=== PATIENT | female | born 1935 | race Caucasian/White ===

== ENCOUNTER 2016-11-13 03:03 | Emergency (ER) | payer MEDICARE, OTHER ==
[2016-11-13 03:10] VITALS: BP 179/82; PULSE 89; RESP 20; TEMP 97.8
--- NOTE | 2016-11-13 03:39 | ED ---
General Adult HPI - General Chief complaint: Recheck/Abnormal Lab/Rx Stated complaint: Weakness Time Seen by Provider: 11/13/16 03:05 Source: patient, RN notes reviewed Mode of arrival: ambulatory Limitations: no limitations - History of Present Illness Initial comments: This is an 81-year-old female presents emergency department stating that she is anxious because she was told she needs iron infusion states she does know why and she doesn't know if it's serious. She states she's been fatigued for 3 months and her physicians have not figured out recently and this upset her. Patient states she was unable to sleep today so she decided to come to the emergency department. Patient does not want any blood redrawn and we don't have the results from her physician's office. Patient does not want anything for her anxiety. Patient states she's unable to sleep but she does not take any pills. Patient states she has no other symptoms besides her fatigue. Patient states she's upset with her doctors and when I asked her which she wants from me she states she's not sure. - Related Data Home Medications Medication Instructions Recorded Confirmed Albuterol Sulfate [Ventolin HFA] 1 - 2 puff INHALATION RT-Q6H PRN 03/26/1411/13 Allopurinol [Zyloprim] 100 mg PO DAILY 03/26/14 11/13/16 Beclomethasone Dipropionate [Qvar 1 puff INHALATION RT-BID 01/15/15 11/13/16 40 mcg/puff] Warfarin [Coumadin] 5 mg PO SUTUWEFRSA 01/15/15 11/13/16 Albuterol Nebulized [Ventolin 2.5 mg INHALATION RT-Q6H PRN 03/02/15 11/13/16 Nebulized] Aspirin EC [Ecotrin Low Dose] 81 mg PO DAILY 03/02/15 11/13/16 Famotidine 20 mg PO DAILY 03/02/15 11/13/16 Furosemide [Lasix] 40 mg PO QAM 03/02/15 11/13/16 Theophylline 24 Hour [Josh-24] 300 mg PO DAILY 03/02/15 11/13/16 Warfarin [Coumadin] 2.5 mg PO MOTH 03/02/15 11/13/16 rOPINIRole HCL [Requip] 0.25 mg PO HS PRN 03/02/15 11/13/16 Levothyroxine Sodium [Synthroid] 50 mcg PO DAILY 10/06/15 11/13/16 Tetrahydrozoline 0.05% Ophth 1 drop BOTH EYES QID PRN 10/06/15 11/13/16 [Visine Eye Drops] hydrALAZINE HCL [Apresoline] 25 mg PO TID 10/06/15 11/13/16 Previous Rx's Medication Instructions Recorded Metoprolol Tartrate [Lopressor] 25 mg PO BID #60 tab 10/08/15 Allergies Allergy/AdvReac Type Severity Reaction Status Date / Time Calcium Channel Blocking AdvReac Unknown Verified 11/13/16 03:10 Agent Dilt Review of Systems ROS Statement: Those systems with pertinent positive or pertinent negative responses have been documented in the HPI. ROS Other: All systems not noted in ROS Statement are negative. Past Medical History Past Medical History: Atrial Fibrillation, Coronary Artery Disease (CAD), Heart Failure, CVA/TIA, Hypertension, Respiratory Disorder, Thyroid Disorder Additional Past Medical History / Comment(s): high uric acid levels, KIDNEY PROBLEMS History of Any Multi-Drug Resistant Organisms: MRSA Date of last positivie culture/infection: 2011/MRSA MDRO Source:: sputum Past Surgical History: Heart Catheterization With Stent, Pacemaker Additional Past Surgical History / Comment(s): left carotid. Pacemaker placed 2011 Past Anesthesia/Blood Transfusion Reactions: No Reported Reaction Date of Last Stent Placement:: 2011 Type of Cardiac Device: Permanent Pacemaker Device Placement Date:: 12/12/2014 Past Psychological History: No Psychological Hx Reported Smoking Status: Former smoker Past Alcohol Use History: None Reported Past Drug Use History: None Reported - Past Family History Father Family Medical History: COPD Mother Family Medical History: No Reported History General Exam - General Exam Comments Initial Comments: GENERAL Patient is well-developed and well-nourished. Patient is in no acute distress. Patient appears anxious EYES Patient's pupils are equal and round. Extraocular motion is intact SKIN Unremarkable NEURO The patient is alert and oriented 3 PYSCH Patient has normal interpersonal interactions. MUSCULOSKELETAL Patient was all 4 extremities with full range of motion Limitations: no limitations Course Vital Signs 11/13/16 03:03 Temperature 97.8 F Pulse Rate 89 Respiratory 20 Rate Blood Pressure 179/82 O2 Sat by Pulse 98 Oximetry Medical Decision Making - Medical Decision Making I offered to do blood work on the patient she refused. I offered to give the patient something for anxiety since she could get back to sleep so she could call her physician in morning and she refused. I asked the patient what she wanted from me this evening she stated I don't think any anything for me and I think I'll just go back home and wait till morning to call my doctor. I again asked her if she wanted me to draw any blood work or do any workup for her or give her any medication and she again refused. She then stated that she just wants to sign out effect to get her discharge paperwork please Disposition Clinical Impression: Anxiety Disposition: HOME SELF-CARE Condition: Good Instructions: Anxiety (ED) Referrals: Mike Ahmadi MD [Primary Care Provider] - 1-2 days Time of Disposition: 03:34
== END 2016-11-13 03:45 | disposition home or self-care (01) ==
LOC: EC 03:03
DX: F41.9 Anxiety disorder, unspecified (principal); R53.83 Other fatigue; I50.9 Heart failure, unspecified; I25.10 Atherosclerotic heart disease of native coronary artery without angina pectoris; I48.91 Unspecified atrial fibrillation; E07.9 Disorder of thyroid, unspecified; J98.4 Other disorders of lung; Z79.01 Long term (current) use of anticoagulants; Z79.51 Long term (current) use of inhaled steroids; Z79.82 Long term (current) use of aspirin; Z87.891 Personal history of nicotine dependence; Z79.899 Other long term (current) drug therapy; Z88.8 Allergy status to other drugs, medicaments and biological substances; Z87.448 Personal history of other diseases of urinary system
CPT/HCPCS: 99284

== ENCOUNTER 2017-01-20 08:13 | Emergency (ER) | payer MEDICARE, OTHER ==
--- NOTE | 2017-01-20 08:36 | ED ---
General Adult HPI - General Chief complaint: Shortness of Breath Stated complaint: Sob Time Seen by Provider: 01/20/17 08:20 Source: patient, RN notes reviewed Mode of arrival: wheelchair Limitations: no limitations - History of Present Illness Initial comments: This is an 81-year-old female who states this morning she woke up and was having some wheezing and some difficulty breathing. Patient states she took 2 breathing treatments and her theophylline and now she feels fine she has no difficulty breathing. Patient states after the treatment she coughed up a bunch of sputum. Patient is concerned that maybe she has a pneumonia. Patient states right now though she has no shortness of breath or difficulty breathing she denies any chest pain denies any recent fever or chills. He currently is denying any coughing. Patient once know why she felt that this morning and doesn't feel bad now. Patient denies any abdominal pain patient denies nausea vomiting diarrhea. Patient denies lightheadedness dizziness or near syncopal episode. - Related Data Home Medications Medication Instructions Recorded Confirmed Albuterol Sulfate [Ventolin HFA] 1 - 2 puff INHALATION RT-Q6H PRN 03/26/1401/20 Allopurinol [Zyloprim] 100 mg PO DAILY 03/26/14 01/20/17 Warfarin [Coumadin] 5 mg PO SUTUWEFRSA 01/15/15 01/20/17 Albuterol Nebulized [Ventolin 2.5 mg INHALATION RT-Q6H PRN 03/02/15 01/20/17 Nebulized] Aspirin EC [Ecotrin Low Dose] 81 mg PO DAILY 03/02/15 01/20/17 Famotidine 20 mg PO DAILY 03/02/15 01/20/17 Furosemide [Lasix] 40 mg PO QAM 03/02/15 01/20/17 Theophylline 24 Hour [Josh-24] 300 mg PO DAILY 03/02/15 01/20/17 Warfarin [Coumadin] 2.5 mg PO MOTH 03/02/15 01/20/17 rOPINIRole HCL [Requip] 0.25 mg PO HS PRN 03/02/15 01/20/17 Levothyroxine Sodium [Synthroid] 50 mcg PO DAILY 10/06/15 01/20/17 Tetrahydrozoline 0.05% Ophth 1 drop BOTH EYES QID PRN 10/06/15 01/20/17 [Visine Eye Drops] Fluticasone Propionate [Flovent 1 puff INHALATION RT-BID 01/20/17 01/20/17 Hfa 220MCG] Furosemide [Lasix] 20 mg PO DAILY@1300 01/20/17 01/20/17 Allergies Allergy/AdvReac Type Severity Reaction Status Date / Time azithromycin Allergy Unknown Verified 01/20/17 09:05 [From Zithromax Z-Sotero] ciprofloxacin [From Cipro] Allergy Unknown Verified 01/20/17 09:05 Calcium Channel Blocking AdvReac Unknown Verified 01/20/17 09:05 Agent Dilt Review of Systems ROS Statement: Those systems with pertinent positive or pertinent negative responses have been documented in the HPI. ROS Other: All systems not noted in ROS Statement are negative. Past Medical History Past Medical History: Atrial Fibrillation, Asthma, Coronary Artery Disease (CAD) , Heart Failure, CVA/TIA, Hypertension, Respiratory Disorder, Thyroid Disorder Additional Past Medical History / Comment(s): high uric acid levels, KIDNEY PROBLEMS History of Any Multi-Drug Resistant Organisms: MRSA Date of last positivie culture/infection: 2011/MRSA MDRO Source:: sputum Past Surgical History: Heart Catheterization With Stent, Pacemaker Additional Past Surgical History / Comment(s): left carotid. Pacemaker placed 2011 Past Anesthesia/Blood Transfusion Reactions: No Reported Reaction Date of Last Stent Placement:: 2011 Type of Cardiac Device: Permanent Pacemaker Device Placement Date:: 12/12/2014 Past Psychological History: No Psychological Hx Reported Smoking Status: Former smoker Past Alcohol Use History: None Reported Past Drug Use History: None Reported - Past Family History Father Family Medical History: COPD Mother Family Medical History: No Reported History General Exam - General Exam Comments Initial Comments: GENERAL: Patient is well-developed and well-nourished. Patient is nontoxic and well- hydrated and is in no acute distress. ENT: Neck is soft and supple. No significant lymphadenopathy is noted. Oropharynx is clear. Moist mucous membranes. Neck has full range of motion without eliciting any pain. EYES: The sclera were anicteric and conjunctiva were pink and moist. Extraocular movements were intact and pupils were equal round and reactive to light. Eyelids were unremarkable. PULMONARY: Unlabored respirations. Good breath sounds bilaterally. No audible rales rhonchi or wheezing was noted. CARDIOVASCULAR: There is a regular rate and rhythm without any murmurs gallops or rubs. ABDOMEN: Soft and nontender with normal bowel sounds. No palpable organomegaly was noted. There is no palpable pulsatile mass. SKIN: Skin is clear with no lesions or rashes and otherwise unremarkable. NEUROLOGIC: Patient is alert and oriented x3. Cranial nerves II through XII are grossly intact. Motor and sensory are also intact. Normal speech, volume and content. Symmetrical smile. MUSCULOSKELETAL: Normal extremities with adequate strength and full range of motion. No lower extremity swelling or edema. No calf tenderness. LYMPHATICS: No significant lymphadenopathy is noted PSYCHIATRIC: Normal psychiatric evaluation. Normal interpersonal interactions appears functionally intact in deals appropriately with others. No signs of depression. No signs of anxiety. Limitations: no limitations Course Vital Signs 01/20/17 01/20/17 01/20/17 08:19 08:44 09:22 Temperature 97.9 F Pulse Rate 77 67 Respiratory 20 18 18 Rate Blood Pressure 121/58 122/56 O2 Sat by Pulse 98 100 Oximetry Medical Decision Making - Medical Decision Making EKG shows a ventricular paced rhythm at 76 bpm QRS is 170 QT interval is 472 QTC is 531. Patient stated there was still in her lungs and she wanted no what it was so I ordered a chest x-ray and then the patient adamantly refused to have a chest x- ray. And I asked her why her explanation was that she had one 1 week ago. Patient continued to refuse to have an x-ray - Lab Data Result diagrams: 01/20/17 08:41 01/20/17 08:41 Lab Results 01/20/17 01/20/17 01/20/17 Range/Units 08:41 08:41 08:41 WBC 6.7 (3.8-10.6) k/uL RBC 3.30 L (3.80-5.40) m/uL Hgb 10.1 L (11.4-16.0) gm/dL Hct 30.7 L (34.0-46.0) % MCV 93.1 (80.0-100.0) fL MCH 30.6 (25.0-35.0) pg MCHC 32.9 (31.0-37.0) g/dL RDW 16.1 H (11.5-15.5) % Plt Count 186 (150-450) k/uL Neutrophils % 80 % Lymphocytes % 7 % Monocytes % 5 % Eosinophils % 7 % Basophils % 0 % Neutrophils # 5.3 (1.3-7.7) k/uL Lymphocytes # 0.5 L (1.0-4.8) k/uL Monocytes # 0.3 (0-1.0) k/uL Eosinophils # 0.4 (0-0.7) k/uL Basophils # 0.0 (0-0.2) k/uL Anisocytosis Slight PT (9.0-12.0) sec INR (<1.1) APTT (22.0-30.0) sec Sodium 136 L (137-145) mmol/L Potassium 3.9 (3.5-5.1) mmol/L Chloride 102 (98-107) mmol/L Carbon Dioxide 22 (22-30) mmol/L Anion Gap 12 mmol/L BUN 53 H (7-17) mg/dL Creatinine 2.29 H (0.52-1.04) mg/dL Est GFR (MDRD) Af Amer 25 (>60 ml/min/1.73 sqM) Est GFR (MDRD) Non-Af 20 (>60 ml/min/1.73 sqM) Glucose 153 H (74-99) mg/dL Calcium 9.5 (8.4-10.2) mg/dL Magnesium 2.3 (1.6-2.3) mg/dL Total Bilirubin 1.1 (0.2-1.3) mg/dL AST 20 (14-36) U/L ALT 20 (9-52) U/L Alkaline Phosphatase 99 (38-126) U/L Total Creatine Kinase 113 (30-135) U/L CK-MB (CK-2) 2.0 (0.0-2.4) ng/mL CK-MB (CK-2) Rel Index 1.8 Troponin I 0.020 (0.000-0.034) ng/mL Total Protein 6.5 (6.3-8.2) g/dL Albumin 4.0 (3.5-5.0) g/dL 01/20/17 Range/Units 08:41 WBC (3.8-10.6) k/uL RBC (3.80-5.40) m/uL Hgb (11.4-16.0) gm/dL Hct (34.0-46.0) % MCV (80.0-100.0) fL MCH (25.0-35.0) pg MCHC (31.0-37.0) g/dL RDW (11.5-15.5) % Plt Count (150-450) k/uL Neutrophils % % Lymphocytes % % Monocytes % % Eosinophils % % Basophils % % Neutrophils # (1.3-7.7) k/uL Lymphocytes # (1.0-4.8) k/uL Monocytes # (0-1.0) k/uL Eosinophils # (0-0.7) k/uL Basophils # (0-0.2) k/uL Anisocytosis PT 20.9 H (9.0-12.0) sec INR 2.2 (<1.1) APTT 31.9 H (22.0-30.0) sec Sodium (137-145) mmol/L Potassium (3.5-5.1) mmol/L Chloride (98-107) mmol/L Carbon Dioxide (22-30) mmol/L Anion Gap mmol/L BUN (7-17) mg/dL Creatinine (0.52-1.04) mg/dL Est GFR (MDRD) Af Amer (>60 ml/min/1.73 sqM) Est GFR (MDRD) Non-Af (>60 ml/min/1.73 sqM) Glucose (74-99) mg/dL Calcium (8.4-10.2) mg/dL Magnesium (1.6-2.3) mg/dL Total Bilirubin (0.2-1.3) mg/dL AST (14-36) U/L ALT (9-52) U/L Alkaline Phosphatase (38-126) U/L Total Creatine Kinase (30-135) U/L CK-MB (CK-2) (0.0-2.4) ng/mL CK-MB (CK-2) Rel Index Troponin I (0.000-0.034) ng/mL Total Protein (6.3-8.2) g/dL Albumin (3.5-5.0) g/dL Disposition Clinical Impression: Anemia, Renal insufficiency, COPD (chronic obstructive pulmonary disease) Disposition: HOME SELF-CARE Condition: Good Instructions: COPD (Chronic Obstructive Pulmonary Disease) (ED) Referrals: Mike Ahmadi MD [Primary Care Provider] - 1-2 days Time of Disposition: 09:45
[2017-01-20 08:45] VITALS: RESP 18
[2017-01-20 08:52] LABS: Anisocytosis Slight; Basophils % (A) 0 %; CH 30.1; CHCM 32.6; Eosinophils # (A) 0.4 k/uL (0-0.7); Eosinophils % (A) 7 %; HCT 30.7 % (34.0-46.0); HDW 2.77; HGB 10.1 gm/dL (11.4-16.0); Luc % (Auto) 2; Lymphocytes # (A) 0.5 k/uL (1.0-4.8); Lymphocytes % (A) 7 %; MCH 30.6 pg (25.0-35.0); MCHC 32.9 g/dL (31.0-37.0); MCV 93.1 fL (80.0-100.0); Mean Platelet Volume 10.1; Monocytes # (A) 0.3 k/uL (0-1.0); Monocytes % (A) 5 %; Neutrophils # (A) 5.3 k/uL (1.3-7.7); Neutrophils % (A) 80 %; RDW 16.1 % (11.5-15.5); WBC 6.7 k/uL (3.8-10.6); WBC (Perox) 6.72
[2017-01-20 09:01] LABS: INR 2.2 (<1.1); Partial Thromboplastin Time 31.9 sec (22.0-30.0); Prothrombin Time 20.9 sec (9.0-12.0)
[2017-01-20 09:09] LABS: Calcium 9.5 mg/dL (8.4-10.2); Magnesium 2.3 mg/dL (1.6-2.3); Potassium 3.9 mmol/L (3.5-5.1); Total Bilirubin 1.1 mg/dL (0.2-1.3); Total Protein 6.5 g/dL (6.3-8.2)
[2017-01-20 09:25] LABS: Troponin I 0.02 ng/mL (0.000-0.034)
[2017-01-20 09:34] VITALS: BP 122/56; PULSE 67
[2017-01-20 09:58] VITALS: TEMP 98.1
== END 2017-01-20 09:59 | disposition home or self-care (01) ==
LOC: EC 08:13
DX: J44.9 Chronic obstructive pulmonary disease, unspecified (principal); D64.9 Anemia, unspecified; N28.9 Disorder of kidney and ureter, unspecified; E07.9 Disorder of thyroid, unspecified; J45.909 Unspecified asthma, uncomplicated; I25.10 Atherosclerotic heart disease of native coronary artery without angina pectoris; I11.0 Hypertensive heart disease with heart failure; I50.9 Heart failure, unspecified; I48.91 Unspecified atrial fibrillation; M10.9 Gout, unspecified; Z86.73 Personal history of transient ischemic attack (TIA), and cerebral infarction without residual deficits; Z86.14 Personal history of Methicillin resistant Staphylococcus aureus infection; Z87.891 Personal history of nicotine dependence; Z79.01 Long term (current) use of anticoagulants; Z79.51 Long term (current) use of inhaled steroids; Z79.82 Long term (current) use of aspirin; Z79.899 Other long term (current) drug therapy; Z88.1 Allergy status to other antibiotic agents; Z88.8 Allergy status to other drugs, medicaments and biological substances
CPT/HCPCS: 36415; 80053; 82550; 82553; 83735; 84484; 85025; 85610; 85730; 93005; 99285

== ENCOUNTER 2017-02-13 08:03 | Emergency (ER) | payer MEDICARE, OTHER ==
[2017-02-13 08:08] VITALS: TEMP 98.5
--- NOTE | 2017-02-13 08:51 | ED ---
General Adult HPI - General Chief complaint: Urogenital Stated complaint: Cannot Urinate Time Seen by Provider: 02/13/17 08:10 Source: patient, RN notes reviewed Mode of arrival: ambulatory Limitations: no limitations - History of Present Illness Initial comments: Patient 81-year-old female who presents emergency room today with multiple complaints. She does admit that she believes she needs a breathing treatment. States she's been doing breathing treatments at home every 4 hours for her cough congestion. States follow-up the family doctor and was recommended 2 breathing treatments as often. She states she did not 2 breathing treatment this morning and came here today to be seen because she states she has not urinated this morning. She states that she tried but was unable to. She states she does not have any urge that she needs to go. She denies any other complaints or associated symptoms at this time. She states last time she urinated was approximately 9 PM last night. - Related Data Home Medications Medication Instructions Recorded Confirmed Albuterol Sulfate [Ventolin HFA] 1 - 2 puff INHALATION RT-Q6H PRN 03/26/1402/13 Allopurinol [Zyloprim] 100 mg PO DAILY 03/26/14 02/13/17 Aspirin EC [Ecotrin Low Dose] 81 mg PO DAILY 03/02/15 02/13/17 Famotidine 20 mg PO DAILY 03/02/15 02/13/17 Furosemide [Lasix] 40 mg PO QAM 03/02/15 02/13/17 Theophylline 24 Hour [Josh-24] 300 mg PO DAILY 03/02/15 02/13/17 Warfarin [Coumadin] 2.5 mg PO DAILY 03/02/15 02/13/17 Levothyroxine Sodium [Synthroid] 50 mcg PO DAILY 10/06/15 02/13/17 Fluticasone Propionate [Flovent 1 puff INHALATION RT-BID 01/20/17 02/13/17 Hfa 220MCG] Furosemide [Lasix] 20 mg PO DAILY@1300 01/20/17 02/13/17 Cinacalcet HCl [Sensipar] 30 mg PO TUFR 02/13/17 02/13/17 Montelukast Sodium [Singulair] 10 mg PO HS 02/13/17 02/13/17 hydrALAZINE HCL [Hydralazine HCl] 10 mg PO BID 02/13/17 02/13/17 Allergies Allergy/AdvReac Type Severity Reaction Status Date / Time azithromycin Allergy Unknown Verified 02/13/17 08:42 [From Zithromax Z-Sotero] ciprofloxacin [From Cipro] Allergy Unknown Verified 02/13/17 08:42 Calcium Channel Blocking AdvReac Unknown Verified 02/13/17 08:42 Agent Dilt Review of Systems ROS Statement: Those systems with pertinent positive or pertinent negative responses have been documented in the HPI. ROS Other: All systems not noted in ROS Statement are negative. Past Medical History Past Medical History: Atrial Fibrillation, Asthma, Coronary Artery Disease (CAD) , Heart Failure, CVA/TIA, Hypertension, Respiratory Disorder, Thyroid Disorder Additional Past Medical History / Comment(s): high uric acid levels, KIDNEY PROBLEMS History of Any Multi-Drug Resistant Organisms: MRSA Date of last positivie culture/infection: 2011/MRSA MDRO Source:: sputum Past Surgical History: Heart Catheterization With Stent, Pacemaker Additional Past Surgical History / Comment(s): left carotid. Pacemaker placed 2011 Past Anesthesia/Blood Transfusion Reactions: No Reported Reaction Date of Last Stent Placement:: 2011 Type of Cardiac Device: Permanent Pacemaker Device Placement Date:: 12/12/2014 Past Psychological History: No Psychological Hx Reported Smoking Status: Former smoker Past Alcohol Use History: None Reported Past Drug Use History: None Reported - Past Family History Father Family Medical History: COPD Mother Family Medical History: No Reported History General Exam Limitations: no limitations Course Vital Signs 02/13/17 02/13/17 02/13/17 08:06 08:41 09:28 Temperature 98.5 F Pulse Rate 85 84 Respiratory 16 16 Rate Blood Pressure 124/56 O2 Sat by Pulse 98 Oximetry 02/13/17 02/13/17 09:45 10:04 Temperature Pulse Rate 88 72 Respiratory 18 Rate Blood Pressure 148/64 O2 Sat by Pulse 96 Oximetry Medical Decision Making - Medical Decision Making Patient reexamined at this time shows no signs of distress. Was given breathing treatment here in the emergency room feeling better. Patient was able to void here in emergency room. No complications. Urinalysis reviewed and is negative for any sign of infection. At this time patient is comfortable being discharged home. She is advised follow-up with family doctor - Lab Data Lab Results 02/13/17 Range/Units 10:09 Urine Color Yellow Urine Appearance Clear (Clear) Urine pH 6.5 (5.0-8.0) Ur Specific [place] 1.007 (1.001-1.035) Urine Protein Negative (Negative) Urine Glucose (UA) Negative (Negative) Urine Ketones Negative (Negative) Urine Blood Negative (Negative) Urine Nitrite Negative (Negative) Urine Bilirubin Negative (Negative) Urine Urobilinogen <2.0 (<2.0) mg/dL Ur Leukocyte Esterase Negative (Negative) Disposition Clinical Impression: COPD (chronic obstructive pulmonary disease) Disposition: HOME SELF-CARE Condition: Good Instructions: COPD (Chronic Obstructive Pulmonary Disease) (ED) Additional Instructions: Please use medication as discussed. Please follow-up with family doctor in the next 2 days of symptoms have not improved. Please return to emergency room if the symptoms increase or worsen or for any other concerns. Referrals: Mike Ahmadi MD [Primary Care Provider] - 1-2 days Time of Disposition: 10:44
[2017-02-13] MEDS ORDERED: IPRATROPIUM-ALBUTEROL 3 ML NEB INHALATION STA (09:17)
[2017-02-13 10:06] VITALS: BP 148/64; PULSE 72; RESP 18
[2017-02-13 10:28] LABS: Appearance,Urine Clear (Clear); Bilirubin,Urine Negative (Negative); Glucose,Urine (UA) Negative (Negative); Ketones,Urine Negative (Negative); Leukocyte Esterase,Urine Negative (Negative); Nitrite,Urine Negative (Negative); PH, Urine 6.5 (5.0-8.0); Protein,Urine Negative (Negative); Specific Gravity,Urine 1.007 (1.001-1.035); UA Billing (MACRO vs. MICRO) CHEM; Urobilinogen,Urine <2.0 mg/dL (<2.0)
== END 2017-02-13 11:04 | disposition home or self-care (01) ==
LOC: EC 08:03
DX: J44.9 Chronic obstructive pulmonary disease, unspecified (principal); R33.9 Retention of urine, unspecified; I11.0 Hypertensive heart disease with heart failure; I50.9 Heart failure, unspecified; E07.9 Disorder of thyroid, unspecified; Z87.891 Personal history of nicotine dependence; Z79.01 Long term (current) use of anticoagulants; Z79.51 Long term (current) use of inhaled steroids; Z79.82 Long term (current) use of aspirin; Z79.899 Other long term (current) drug therapy; Z88.1 Allergy status to other antibiotic agents; Z88.8 Allergy status to other drugs, medicaments and biological substances; Z86.73 Personal history of transient ischemic attack (TIA), and cerebral infarction without residual deficits; Z87.442 Personal history of urinary calculi; Z82.5 Family history of asthma and other chronic lower respiratory diseases
CPT/HCPCS: 51798; 81003; 87086; 94640; 99284

== ENCOUNTER 2017-02-14 13:21 | Inpatient (IN) | payer MEDICARE, OTHER ==
--- NOTE | 2017-02-14 14:40 | ED ---
General Adult HPI - General Chief complaint: Urogenital Stated complaint: Kidney Problems Time Seen by Provider: 02/14/17 14:20 Source: patient, RN notes reviewed Mode of arrival: wheelchair Limitations: no limitations - History of Present Illness Initial comments: This 81-year-old female with presentation today complaining of multiple things including peripheral edema cough with yellow phlegm increased use of her home updrafts/breathing treatments over last several weeks she states she's taking 3 pounds in the last 3 days. She does have occasional night sweats but not all time she denies any fevers or chills. She states she has had decreased urine output. She is a chronic cough with yellow phlegm. She has had a pulmonary function testing by Dr. Alfaro. She also sees Dr. Kemp for kidney disease. She does state that she is in the process of being evaluated for dialysis she also complains of occasional nausea. State that recently she was put on Lasix 40 mg twice a day she did lose about 10 pounds of weight. She later was given Bumex but had ALLERGIC reaction to it. No chest pain no abdominal pain no other complaints other than generalized weakness. - Related Data Home Medications Medication Instructions Recorded Confirmed Albuterol Sulfate [Ventolin HFA] 1 - 2 puff INHALATION RT-Q6H PRN 03/26/1402/14 Allopurinol [Zyloprim] 100 mg PO DAILY 03/26/14 02/14/17 Aspirin EC [Ecotrin Low Dose] 81 mg PO DAILY 03/02/15 02/14/17 Famotidine 20 mg PO DAILY 03/02/15 02/14/17 Furosemide [Lasix] 40 mg PO QAM 03/02/15 02/14/17 Theophylline 24 Hour [Josh-24] 300 mg PO DAILY 03/02/15 02/14/17 Levothyroxine Sodium [Synthroid] 50 mcg PO DAILY 10/06/15 02/14/17 Fluticasone Propionate [Flovent 1 puff INHALATION RT-BID 01/20/17 02/14/17 Hfa 220MCG] Cinacalcet HCl [Sensipar] 30 mg PO TUFR 02/13/17 02/14/17 Montelukast Sodium [Singulair] 10 mg PO HS 02/13/17 02/14/17 hydrALAZINE HCL [Hydralazine HCl] 10 mg PO BID 02/13/17 02/14/17 Warfarin [Coumadin] 2.5 mg PO W/SUPPER 02/14/17 02/14/17 Allergies Allergy/AdvReac Type Severity Reaction Status Date / Time azithromycin Allergy Unknown Verified 02/14/17 14:10 [From Zithromax Z-Sotero] bumetanide [From Bumex] Allergy Vomiting Verified 02/14/17 14:10 ciprofloxacin [From Cipro] Allergy Unknown Verified 02/14/17 14:10 Calcium Channel Blocking AdvReac Unknown Verified 02/14/17 14:10 Agent Dilt Review of Systems ROS Statement: Those systems with pertinent positive or pertinent negative responses have been documented in the HPI. ROS Other: All systems not noted in ROS Statement are negative. Past Medical History Past Medical History: Atrial Fibrillation, Asthma, Coronary Artery Disease (CAD) , Heart Failure, CVA/TIA, Hypertension, Respiratory Disorder, Thyroid Disorder Additional Past Medical History / Comment(s): high uric acid levels, KIDNEY PROBLEMS History of Any Multi-Drug Resistant Organisms: MRSA Date of last positivie culture/infection: 2011/MRSA MDRO Source:: sputum Past Surgical History: Heart Catheterization With Stent, Pacemaker Additional Past Surgical History / Comment(s): left carotid. Pacemaker placed 2011 Past Anesthesia/Blood Transfusion Reactions: No Reported Reaction Date of Last Stent Placement:: 2011 Type of Cardiac Device: Permanent Pacemaker Device Placement Date:: 12/12/2014 Past Psychological History: No Psychological Hx Reported Smoking Status: Former smoker Past Alcohol Use History: None Reported Past Drug Use History: None Reported - Past Family History Father Family Medical History: COPD Mother Family Medical History: No Reported History General Exam - General Exam Comments Initial Comments: This is a well-developed well-nourished awake alert oriented 3 female Limitations: no limitations General appearance: alert, anxious Head exam: Present: atraumatic, normocephalic, normal inspection Eye exam: Present: normal appearance, PERRL, EOMI. Absent: scleral icterus, conjunctival injection, periorbital swelling ENT exam: Present: normal exam, mucous membranes moist Neck exam: Present: normal inspection. Absent: tenderness, meningismus, lymphadenopathy Respiratory exam: Present: normal lung sounds bilaterally. Absent: respiratory distress, wheezes, rales, rhonchi, stridor Cardiovascular Exam: Present: regular rate, normal rhythm, normal heart sounds. Absent: systolic murmur, diastolic murmur, rubs, gallop, clicks GI/Abdominal exam: Present: soft, normal bowel sounds. Absent: distended, tenderness, guarding, rebound, rigid Extremities exam: Present: full ROM, normal capillary refill, pedal edema. Absent: tenderness, joint swelling, calf tenderness Back exam: Present: normal inspection Neurological exam: Present: alert, oriented X3, CN II-XII intact Psychiatric exam: Present: normal affect, normal mood Skin exam: Present: warm, dry, intact, normal color. Absent: rash Course Vital Signs 02/14/17 02/14/17 13:51 15:30 Temperature 97.8 F Pulse Rate 75 62 Respiratory 18 16 Rate Blood Pressure 138/64 O2 Sat by Pulse 100 100 Oximetry - Reevaluation(s) Reevaluation #1: 02/14/17 15:46 Patient has been intubated in respiratory distress at this time and feels short of breath she will get an updraft. EKG Findings - EKG Results: EKG: interpreted by RAÚL, sinus rhythm (Ventricular rate is 77 ventricular paced rhythm QRS 166 QT since QTC of 484/547 no acute changes seen) Medical Decision Making - Medical Decision Making I did discuss findings with the patient and with Dr. Ahmadi the patient be admitted for evaluation of CHF hyponatremia is symptomatic. Also bronchospasm. Cardiology and Dr. Kemp will be consulted. Patient does have chronic renal insufficiency. - Lab Data Result diagrams: 02/14/17 14:25 02/14/17 14:25 Lab Results 02/14/17 02/14/17 02/14/17 Range/Units 14:25 14:25 14:25 WBC 7.7 (3.8-10.6) k/uL RBC 3.31 L (3.80-5.40) m/uL Hgb 9.9 L (11.4-16.0) gm/dL Hct 30.6 L (34.0-46.0) % MCV 92.5 (80.0-100.0) fL MCH 30.0 (25.0-35.0) pg MCHC 32.5 (31.0-37.0) g/dL RDW 16.0 H (11.5-15.5) % Plt Count 232 (150-450) k/uL Neutrophils % 78 % Lymphocytes % 6 % Monocytes % 7 % Eosinophils % 5 % Basophils % 1 % Neutrophils # 6.0 (1.3-7.7) k/uL Lymphocytes # 0.5 L (1.0-4.8) k/uL Monocytes # 0.6 (0-1.0) k/uL Eosinophils # 0.4 (0-0.7) k/uL Basophils # 0.0 (0-0.2) k/uL Anisocytosis Slight Sodium (137-145) mmol/L Potassium (3.5-5.1) mmol/L Chloride (98-107) mmol/L Carbon Dioxide (22-30) mmol/L Anion Gap mmol/L BUN (7-17) mg/dL Creatinine (0.52-1.04) mg/dL Est GFR (MDRD) Af Amer (>60 ml/min/1.73 sqM) Est GFR (MDRD) Non-Af (>60 ml/min/1.73 sqM) Glucose (74-99) mg/dL Calcium (8.4-10.2) mg/dL Magnesium (1.6-2.3) mg/dL Total Bilirubin (0.2-1.3) mg/dL AST (14-36) U/L ALT (9-52) U/L Alkaline Phosphatase (38-126) U/L Total Creatine Kinase 285 H (30-135) U/L CK-MB (CK-2) 5.0 H* (0.0-2.4) ng/mL CK-MB (CK-2) Rel Index 1.8 NT-Pro-B Natriuret Pep 3210 pg/mL Total Protein (6.3-8.2) g/dL Albumin (3.5-5.0) g/dL Urine Color Urine Appearance (Clear) Urine pH (5.0-8.0) Ur Specific [place] (1.001-1.035) Urine Protein (Negative) Urine Glucose (UA) (Negative) Urine Ketones (Negative) Urine Blood (Negative) Urine Nitrite (Negative) Urine Bilirubin (Negative) Urine Urobilinogen (<2.0) mg/dL Ur Leukocyte Esterase (Negative) 02/14/17 02/14/17 Range/Units 14:25 14:25 WBC (3.8-10.6) k/uL RBC (3.80-5.40) m/uL Hgb (11.4-16.0) gm/dL Hct (34.0-46.0) % MCV (80.0-100.0) fL MCH (25.0-35.0) pg MCHC (31.0-37.0) g/dL RDW (11.5-15.5) % Plt Count (150-450) k/uL Neutrophils % % Lymphocytes % % Monocytes % % Eosinophils % % Basophils % % Neutrophils # (1.3-7.7) k/uL Lymphocytes # (1.0-4.8) k/uL Monocytes # (0-1.0) k/uL Eosinophils # (0-0.7) k/uL Basophils # (0-0.2) k/uL Anisocytosis Sodium 125 L (137-145) mmol/L Potassium 4.5 (3.5-5.1) mmol/L Chloride 93 L (98-107) mmol/L Carbon Dioxide 20 L (22-30) mmol/L Anion Gap 12 mmol/L BUN 27 H (7-17) mg/dL Creatinine 2.19 H (0.52-1.04) mg/dL Est GFR (MDRD) Af Amer 26 (>60 ml/min/1.73 sqM) Est GFR (MDRD) Non-Af 21 (>60 ml/min/1.73 sqM) Glucose 90 (74-99) mg/dL Calcium 9.2 (8.4-10.2) mg/dL Magnesium 1.8 (1.6-2.3) mg/dL Total Bilirubin 1.1 (0.2-1.3) mg/dL AST 32 (14-36) U/L ALT 26 (9-52) U/L Alkaline Phosphatase 106 (38-126) U/L Total Creatine Kinase (30-135) U/L CK-MB (CK-2) (0.0-2.4) ng/mL CK-MB (CK-2) Rel Index NT-Pro-B Natriuret Pep pg/mL Total Protein 6.2 L (6.3-8.2) g/dL Albumin 4.0 (3.5-5.0) g/dL Urine Color Light Yellow Urine Appearance Clear (Clear) Urine pH 6.5 (5.0-8.0) Ur Specific [place] 1.003 (1.001-1.035) Urine Protein Negative (Negative) Urine Glucose (UA) Negative (Negative) Urine Ketones Negative (Negative) Urine Blood Negative (Negative) Urine Nitrite Negative (Negative) Urine Bilirubin Negative (Negative) Urine Urobilinogen <2.0 (<2.0) mg/dL Ur Leukocyte Esterase Negative (Negative) - Radiology Data Radiology results: report reviewed (Patient does have cardiomegaly no definite infiltrates at this time.), image reviewed Disposition Clinical Impression: Hyponatremia syndrome, CHF (congestive heart failure), Renal insufficiency syndrome, Acute bronchospasm Disposition: ADMITTED IP TO THIS HOSP Condition: Stable Referrals: Mike Ahmadi MD [Primary Care Provider] - 1-2 days
[2017-02-14 14:49] LABS: Anisocytosis Slight; Basophils % (A) 1 %; CH 30.7; CHCM 33.4; Eosinophils # (A) 0.4 k/uL (0-0.7); Eosinophils % (A) 5 %; HCT 30.6 % (34.0-46.0); HGB 9.9 gm/dL (11.4-16.0); Luc # (Auto) 0.23; Luc % (Auto) 3; Lymphocytes # (A) 0.5 k/uL (1.0-4.8); Lymphocytes % (A) 6 %; MCHC 32.5 g/dL (31.0-37.0); MCV 92.5 fL (80.0-100.0); Mean Platelet Volume 8.6; Monocytes # (A) 0.6 k/uL (0-1.0); Monocytes % (A) 7 %; Neutrophils % (A) 78 %; RBC 3.31 m/uL (3.80-5.40); WBC 7.7 k/uL (3.8-10.6); WBC (Perox) 8.36
[2017-02-14 14:50] LABS: Appearance,Urine Clear (Clear); Bilirubin,Urine Negative (Negative); Glucose,Urine (UA) Negative (Negative); Ketones,Urine Negative (Negative); Leukocyte Esterase,Urine Negative (Negative); Nitrite,Urine Negative (Negative); PH, Urine 6.5 (5.0-8.0); Protein,Urine Negative (Negative); Specific Gravity,Urine 1.003 (1.001-1.035); UA Billing (MACRO vs. MICRO) CHEM; Urobilinogen,Urine <2.0 mg/dL (<2.0)
[2017-02-14 15:05] LABS: Calcium 9.2 mg/dL (8.4-10.2); Magnesium 1.8 mg/dL (1.6-2.3); Potassium 4.5 mmol/L (3.5-5.1); Total Bilirubin 1.1 mg/dL (0.2-1.3); Total Protein 6.2 g/dL (6.3-8.2)
[2017-02-14] MEDS ORDERED: IPRATROPIUM-ALBUTEROL 3 ML NEB INHALATION STA (15:06)
--- NOTE | 2017-02-14 15:12 | XR ---
EXAMINATION TYPE: XR chest 2V DATE OF EXAM: 02/14/2017 COMPARISON: Prior chest x-ray 10/06/2015 HISTORY: Cough and shortness of breath, chest pain TECHNIQUE: Frontal and lateral views of the chest are obtained. FINDINGS: Heart size may be accentuated by rotation is thought to be enlarged. Prominent lung volume s could be indicative of COPD. Pacemaker is present, lead is within the right ventricle. There are ov erlying cardiac leads. No pneumothorax or pleural effusion. No evident pneumonia. IMPRESSION: Cardiomegaly is stable. No acute abnormality evident. Follow-up as indicated.
[2017-02-14] MEDS ORDERED: FUROSEMIDE 10 MG/ML 4 ML VIAL IV SCH (16:00)
[2017-02-14] MEDS: SODIUM CHLORIDE 0.9% 1,000 ML IV SCH (16:12)
[2017-02-14 17:06] LABS: INR 1.1 (<1.2); Prothrombin Time 11.4 sec (9.0-12.0)
[2017-02-14] MEDS ORDERED: FLUTICASONE 50MCG/SPRAY NASAL 16GM EA NOSTRIL PRN (20:42)
[2017-02-14] MEDS: BUDESONIDE 0.5 MG/2 ML NEBU INHALATION SCH (20:42)
[2017-02-14] MEDS: NITROGLYCERIN OINT 1 INCH/GM PACKET TOPICAL SCH ×2 (22:31→22:36)
[2017-02-14] MEDS: WARFARIN 2.5 MG TAB PO SCH (22:31)
[2017-02-14] MEDS: ALBUTEROL NEBULIZED 2.5 MG/3 ML INHALATION SCH (22:35)
[2017-02-14] MEDS: ALLOPURINOL 100 MG TAB PO SCH (22:46)
[2017-02-14] MEDS: hydrALAZINE HCL 10 MG TAB PO SCH (22:46)
[2017-02-14] MEDS: MONTELUKAST 10 MG TAB PO SCH (22:47)
[2017-02-15] MEDS: ALBUTEROL NEBULIZED 2.5 MG/3 ML INHALATION SCH ×5 (04:00→19:55)
[2017-02-15] MEDS ORDERED: FUROSEMIDE 10 MG/ML 4 ML VIAL IV SCH (06:00)
[2017-02-15] MEDS: LEVOTHYROXINE 50 MCG TAB PO SCH (06:40)
[2017-02-15] MEDS: BUDESONIDE 0.5 MG/2 ML NEBU INHALATION SCH ×2 (07:57→19:55)
[2017-02-15] MEDS ORDERED: FUROSEMIDE 40 MG TAB PO SCH (09:00)
--- NOTE | 2017-02-15 09:31 | P.NPCON ---
History of Present Illness - Reason for Consult chronic renal failure - History of Present Illness Patient is a 81-year-old female with history of chronic kidney disease NKF stage IV. Patient's baseline creatinine has been about 2.5 mg/dL. Patient was admitted to the hospital with complaints of cough which had been going on for about 2-3 weeks and slowly getting worse she had been using significant amount of updraft treatments and not getting better. Patient also stated that she had sick significantly decreased urine output. She had been complaining of constipation. Sodium was noted to be at 1 25 mg/L on initial admission. No complaints of diarrhea nausea or vomiting prior to admission. Patient is maintained on Lasix as outpatient. Review of Systems As per HPI other systems negative Past Medical History Past Medical History: Atrial Fibrillation, Asthma, Coronary Artery Disease (CAD) , Heart Failure, CVA/TIA, Hypertension, Respiratory Disorder, Thyroid Disorder Additional Past Medical History / Comment(s): high uric acid levels, KIDNEY PROBLEMS History of Any Multi-Drug Resistant Organisms: MRSA Date of last positivie culture/infection: 2011/MRSA MDRO Source:: sputum Past Surgical History: Heart Catheterization With Stent, Pacemaker Additional Past Surgical History / Comment(s): left carotid. Pacemaker placed 2011 Past Anesthesia/Blood Transfusion Reactions: No Reported Reaction Date of Last Stent Placement:: 2011 Type of Cardiac Device: Permanent Pacemaker Device Placement Date:: 12/12/2014 Past Psychological History: No Psychological Hx Reported Smoking Status: Former smoker Past Alcohol Use History: None Reported Past Drug Use History: None Reported - Past Family History Father Family Medical History: COPD Mother Family Medical History: No Reported History Medications and Allergies Home Medications Medication Instructions Recorded Confirmed Type Albuterol Sulfate [Ventolin HFA] 1 - 2 puff INHALATION RT-Q6H PRN 03/26/1402/14 History Allopurinol [Zyloprim] 100 mg PO DAILY 03/26/14 02/14/17 History Aspirin EC [Ecotrin Low Dose] 81 mg PO DAILY 03/02/15 02/14/17 History Famotidine 20 mg PO DAILY 03/02/15 02/14/17 History Furosemide [Lasix] 40 mg PO QAM 03/02/15 02/14/17 History Theophylline 24 Hour [Josh-24] 300 mg PO DAILY 03/02/15 02/14/17 History Levothyroxine Sodium [Synthroid] 50 mcg PO DAILY 10/06/15 02/14/17 History Fluticasone Propionate [Flovent 1 puff INHALATION RT-BID 01/20/17 02/14/17 History Hfa 220MCG] Cinacalcet HCl [Sensipar] 30 mg PO TUFR 02/13/17 02/14/17 History Montelukast Sodium [Singulair] 10 mg PO HS 02/13/17 02/14/17 History hydrALAZINE HCL [Hydralazine HCl] 10 mg PO BID 02/13/17 02/14/17 History Warfarin [Coumadin] 2.5 mg PO W/SUPPER 02/14/17 02/14/17 History Allergies Allergy/AdvReac Type Severity Reaction Status Date / Time azithromycin Allergy Unknown Verified 02/14/17 14:10 [From Zithromax Z-Sotero] bumetanide [From Bumex] Allergy Vomiting Verified 02/14/17 14:10 ciprofloxacin [From Cipro] Allergy Unknown Verified 02/14/17 14:10 Calcium Channel Blocking AdvReac Unknown Verified 02/14/17 14:10 Agent Dilt Physical Exam Vitals: Vital Signs Temp Pulse Pulse Resp BP BP Pulse Ox 02/15/17 08:26 80 02/15/17 07:57 84 02/15/17 04:10 75 02/15/17 04:00 97.8 F 63 66 18 112/78 99 02/14/17 23:55 70 16 140/67 99 02/14/17 22:44 78 02/14/17 22:35 76 02/14/17 20:54 78 02/14/17 20:44 76 02/14/17 20:00 98 F 67 17 154/59 100 02/14/17 17:42 97.7 F 77 16 141/70 100 02/14/17 16:15 97.9 F 86 16 134/64 100 02/14/17 16:08 78 02/14/17 15:55 76 02/14/17 15:30 62 16 100 02/14/17 13:51 97.8 F 75 18 138/64 100 Intake and Output 02/14/17 02/15/17 02/15/17 22:59 06:59 14:59 Intake Total 240 620 Balance 240 620 Intake: Intake, IV Titration 120 Amount Sodium Chloride 0.9% 1, 120 000 ml @ 20 mls/hr IV . Q24H [facility] Rx#:[id number] Oral 240 500 Other: # Voids 3 Weight 87.09 kg 87.4 kg On examination patient is comfortable awake alert oriented 3 she is not in any acute distress. Blood pressure is 112/78 Heart rate 75/m She is afebrile Examination of the heart S1 and S2 Examination lungs bilateral breath sounds are heard occasional wheezing is heard bilaterally. Abdomen is soft nontender Examination lower extremities shows chronic skin changes no significant edema is noted. BOX FINISHER exam is grossly intact patient is moving all 4 extremities. Results - Lab Results Most recent lab results Calcium 9.2 mg/dL (8.4-10.2) 02/14/17 14:25 Magnesium 1.8 mg/dL (1.6-2.3) 02/14/17 14:25 02/14/17 14:25 02/14/17 14:25 Assessment and Plan Plan: Assessment 1. Chronic kidney disease NKF stage IV with renal function close to baseline secondary to nephrosclerosis. 2. Hyponatremia appears to be euvolemic or hypovolemic. Repeat labs today. Patient is currently maintained on IV Lasix this may need to be held if her symptom sodium is worse. X-ray did not reveal any evidence of fluid overload. 3. History of constipation seems to have improved 4. COPD with exacerbation Plan Repeat labs today and adjust diuretics depending on her serum sodium level from this morning. We may need to decrease the diuretics. Thank you for the consultation we'll continue to follow the patient with you during her hospitalization
[2017-02-15] MEDS: ASPIRIN 81 MG CHEW PO SCH (09:43)
[2017-02-15] MEDS: ALLOPURINOL 100 MG TAB PO SCH (09:43)
[2017-02-15] MEDS: FAMOTIDINE 20 MG TAB PO SCH (09:44)
[2017-02-15] MEDS: hydrALAZINE HCL 10 MG TAB PO SCH ×2 (09:44→20:35)
[2017-02-15] MEDS: NITROGLYCERIN OINT 1 INCH/GM PACKET TOPICAL SCH ×4 (09:44→21:33)
[2017-02-15] MEDS: WARFARIN 2.5 MG TAB PO SCH (09:50)
[2017-02-15] MEDS: THEOPHYLLINE 24 HOUR 300 MG CAP.ER.24H PO SCH (09:51)
[2017-02-15] MEDS ORDERED: MAGNESIUM SULFATE-D5W PMX 1 GM in DEXTROSE/WATER 1 100ML.BAG IVPB ONE (10:29)
[2017-02-15 10:30] LABS: Potassium 4.2 mmol/L (3.5-5.1)
--- NOTE | 2017-02-15 10:33 | P.CRDCN ---
History of Present Illness Consult date: 02/15/17 History of present illness: This is a 81-year-old female with history of chronic kidney disease stage IV, who of has been complaining of some congestion and cough. Patient does have chronic COPD. In addition she apparently was retaining water. She was treated with Bumex by Dr. Ahmadi and apparently she lost about 10 pounds. However because of continued symptoms patient came to the emergency room. Patient was treated with IV Lasix. She was found to have hyponatremia, which is being addressed by rotary lithographic press operator. A chest x-ray did not reveal any significant findings of CHF. At this point there doesn't to be significant JVD. However proBNP is elevated. Her echo [place] in the past showed normal LV function. Patient has chronic atrial fibrillation and also had a permanent pacemaker in the past. At the time of my examination the patient's main complaints and cramps in the legs. Her potassium level is 4.7 yesterday and magnesium level was 1.8. I'm going to give 1 g of magnesium and see if that helps her cramps. I'll get an echo [place] tomorrow. And diuretic therapy as suggested by rotary lithographic press operator Review of Systems As per the chart Past Medical History Past Medical History: Atrial Fibrillation, Asthma, Coronary Artery Disease (CAD) , Heart Failure, CVA/TIA, Hypertension, Respiratory Disorder, Thyroid Disorder Additional Past Medical History / Comment(s): high uric acid levels, KIDNEY PROBLEMS History of Any Multi-Drug Resistant Organisms: MRSA Date of last positivie culture/infection: 2011/MRSA MDRO Source:: sputum Past Surgical History: Heart Catheterization With Stent, Pacemaker Additional Past Surgical History / Comment(s): left carotid. Pacemaker placed 2011 Past Anesthesia/Blood Transfusion Reactions: No Reported Reaction Date of Last Stent Placement:: 2011 Type of Cardiac Device: Permanent Pacemaker Device Placement Date:: 12/12/2014 Past Psychological History: No Psychological Hx Reported Smoking Status: Former smoker Past Alcohol Use History: None Reported Past Drug Use History: None Reported - Past Family History Father Family Medical History: COPD Mother Family Medical History: No Reported History Medications and Allergies Home Medications Medication Instructions Recorded Confirmed Type Albuterol Sulfate [Ventolin HFA] 1 - 2 puff INHALATION RT-Q6H PRN 03/26/1402/14 History Allopurinol [Zyloprim] 100 mg PO DAILY 03/26/14 02/14/17 History Aspirin EC [Ecotrin Low Dose] 81 mg PO DAILY 03/02/15 02/14/17 History Famotidine 20 mg PO DAILY 03/02/15 02/14/17 History Furosemide [Lasix] 40 mg PO QAM 03/02/15 02/14/17 History Theophylline 24 Hour [Josh-24] 300 mg PO DAILY 03/02/15 02/14/17 History Levothyroxine Sodium [Synthroid] 50 mcg PO DAILY 10/06/15 02/14/17 History Fluticasone Propionate [Flovent 1 puff INHALATION RT-BID 01/20/17 02/14/17 History Hfa 220MCG] Cinacalcet HCl [Sensipar] 30 mg PO TUFR 02/13/17 02/14/17 History Montelukast Sodium [Singulair] 10 mg PO HS 02/13/17 02/14/17 History hydrALAZINE HCL [Hydralazine HCl] 10 mg PO BID 02/13/17 02/14/17 History Warfarin [Coumadin] 2.5 mg PO W/SUPPER 02/14/17 02/14/17 History Allergies Allergy/AdvReac Type Severity Reaction Status Date / Time azithromycin Allergy Unknown Verified 02/14/17 14:10 [From Zithromax Z-Sotero] bumetanide [From Bumex] Allergy Vomiting Verified 02/14/17 14:10 ciprofloxacin [From Cipro] Allergy Unknown Verified 02/14/17 14:10 Calcium Channel Blocking AdvReac Unknown Verified 02/14/17 14:10 Agent Dilt Physical Exam Vitals: Vital Signs Temp Pulse Pulse Resp BP BP Pulse Ox 02/15/17 08:26 80 02/15/17 07:57 84 02/15/17 04:10 75 02/15/17 04:00 97.8 F 63 66 18 112/78 99 02/14/17 23:55 70 16 140/67 99 02/14/17 22:44 78 02/14/17 22:35 76 02/14/17 20:54 78 02/14/17 20:44 76 02/14/17 20:00 98 F 67 17 154/59 100 02/14/17 17:42 97.7 F 77 16 141/70 100 02/14/17 16:15 97.9 F 86 16 134/64 100 02/14/17 16:08 78 02/14/17 15:55 76 02/14/17 15:30 62 16 100 02/14/17 13:51 97.8 F 75 18 138/64 100 Intake and Output 02/14/17 02/15/17 02/15/17 22:59 06:59 14:59 Intake Total 240 620 Balance 240 620 Intake: Intake, IV Titration 120 Amount Sodium Chloride 0.9% 1, 120 000 ml @ 20 mls/hr IV . Q24H [facility] Rx#:[id number] Oral 240 500 Other: # Voids 3 Weight 87.09 kg 87.4 kg GENERAL EXAM: Patient is alert and oriented and doesn't appear to be in any acute distress HEENT: Normocephalic. Normal reaction of pupils, equal size, normal range of extraocular motion. No erythema or exudates in the throat. NECK: No masses, no nuchal rigidity. CHEST: No chest wall deformity. LUNGS: Equal air entry with no crackles or wheeze. HEART: S1 and S2 normal with no audible mumurs or gallops. Regular rhythm, femorals equal on both sides.. ABDOMEN: No hepatosplenomegaly, normal bowel sounds, no guarding or rigidity. SKIN: No rashes CENTRAL NERVOUS SYSTEM: No focal deficits. EXTREMITIES: No cyanosis, clubbing ,resolving edema Results 02/14/17 14:25 02/14/17 14:25 Cardiac Enzymes 02/14/17 02/14/17 02/14/17 Range/Units 14:25 14:25 14:25 AST 32 (14-36) U/L CK-MB (CK-2) 5.0 H* (0.0-2.4) ng/mL Troponin I 0.019 (0.000-0.034) ng/mL 02/14/17 02/15/17 Range/Units 22:04 02:07 AST (14-36) U/L CK-MB (CK-2) (0.0-2.4) ng/mL Troponin I 0.022 0.029 (0.000-0.034) ng/mL Coagulation 02/14/17 Range/Units 14:25 PT 11.4 (9.0-12.0) sec CBC 02/14/17 Range/Units 14:25 WBC 7.7 (3.8-10.6) k/uL RBC 3.31 L (3.80-5.40) m/uL Hgb 9.9 L (11.4-16.0) gm/dL Hct 30.6 L (34.0-46.0) % Plt Count 232 (150-450) k/uL Comprehensive Metabolic Panel 02/14/17 Range/Units 14:25 Sodium 125 L (137-145) mmol/L Potassium 4.5 (3.5-5.1) mmol/L Chloride 93 L (98-107) mmol/L Carbon Dioxide 20 L (22-30) mmol/L BUN 27 H (7-17) mg/dL Creatinine 2.19 H (0.52-1.04) mg/dL Glucose 90 (74-99) mg/dL Calcium 9.2 (8.4-10.2) mg/dL AST 32 (14-36) U/L ALT 26 (9-52) U/L Alkaline Phosphatase 106 (38-126) U/L Total Protein 6.2 L (6.3-8.2) g/dL Albumin 4.0 (3.5-5.0) g/dL Current Medications Generic Name Dose Route Start Last Admin Trade Name Freq PRN Reason Stop Dose Admin Albuterol Sulfate 2.5 mg 02/15/17 00:00 02/15/17 07:57 Ventolin Nebulized INHALATION 2.5 mg RT-Q4H [facility] Administration Allopurinol 100 mg 02/14/17 22:15 02/15/17 09:43 Zyloprim PO 100 mg DAILY [facility] Administration Aspirin 81 mg 02/15/17 09:00 02/15/17 09:43 Aspirin PO 81 mg DAILY [facility] Administration Budesonide 0.5 mg 02/14/17 20:00 02/15/17 07:57 Pulmicort INHALATION 0.5 mg RT-BID [facility] Administration Cinacalcet 30 mg 02/17/17 09:00 Sensipar PO TUFR [facility] Famotidine 20 mg 02/15/17 09:00 02/15/17 09:44 Pepcid PO 20 mg DAILY [facility] Administration Fluticasone Propionate 2 spray 02/14/17 20:42 02/14/17 22:47 Flonase Nasal Esko EA NOSTRIL 1 spray DAILY PRN Administration Allergy Symptoms Furosemide 40 mg 02/15/17 06:00 02/15/17 06:40 Lasix IV 40 mg Q12H [facility] Administration Hydralazine HCl 10 mg 02/14/17 21:00 02/15/17 09:44 Apresoline PO 10 mg BID [facility] Administration Sodium Chloride 1,000 mls @ 20 mls/hr 02/14/17 16:00 02/14/17 16:12 Saline 0.9% IV 20 mls/hr .Q24H [facility] Administration Magnesium Sulfate/Dextrose 1 100 mls @ 100 mls/hr 02/15/17 10:29 gm/ IV Solution IVPB 02/15/17 11:28 ONCE ONE Levothyroxine Sodium 50 mcg 02/15/17 06:30 02/15/17 06:40 Synthroid PO 50 mcg DAILY@0630 [facility] Administration Montelukast Sodium 10 mg 02/14/17 21:00 02/14/17 22:47 Singulair PO Not Given HS [facility] Nitroglycerin 0.5 inch 02/14/17 18:00 02/15/17 09:44 Nitro-Bid Oint TOPICAL Not Given QID [facility] Theophylline 300 mg 02/15/17 09:00 02/15/17 09:51 Josh-24 PO Not Given DAILY [facility] Warfarin Sodium 2.5 mg 02/14/17 18:00 02/15/17 09:50 Coumadin PO Not Given DAILY@1800 [facility] Intake and Output 02/14/17 02/15/17 02/15/17 22:59 06:59 14:59 Intake Total 240 620 Balance 240 620 Intake: Intake, IV Titration 120 Amount Sodium Chloride 0.9% 1, 120 000 ml @ 20 mls/hr IV . Q24H [facility] Rx#:[id number] Oral 240 500 Other: # Voids 3 Weight 87.09 kg 87.4 kg 02/14/17 14:25 02/14/17 14:25 Assessment and Plan (1) Atrial fibrillation Status: Acute (2) CHF (congestive heart failure) Status: Acute (3) Renal insufficiency syndrome Status: Acute (4) Anemia Status: Acute (5) COPD (chronic obstructive pulmonary disease) Status: Acute (6) Presence of permanent cardiac pacemaker Status: Acute Plan: Continue current management. I'll give her 1 g of magnesium. I will also get an echocardiogram done. Further recommend she'll depend upon clinical course
--- NOTE | 2017-02-15 10:35 | HP ---
CHIEF COMPLAINT: Shortness of breath. HISTORY OF PRESENT ILLNESS: This is another admission for this lady who is in and out of the hospitals emergency rooms frequently lately. She is under a significant amount of stress and probably depressed. She presents to the emergency room, which shortness of breath and she was found to have a slightly low sodium and an elevated BNP. She denied significant chest pain. She is a poor historian. REVIEW OF SYSTEMS: She had no neurological problems, syncope, trouble with the vision or hearing, cough, hemoptysis, sputum production, abdominal pain, vomiting, diarrhea, melena, hematochezia, jaundice, dysuria, hematuria, frequency, urgency, etc. Past medical history, family history, personal and social histories are otherwise unchanged and/or noncontributory. She does not smoke any longer. PHYSICAL EXAMINATION: Blood pressure 116/64, pulse 79 and irregularly irregular , respirations 35, and she is afebrile. In general, she appeared to be overweight and somewhat anxious. Skin color is normal. Skin is warm and dry. Lymph nodes not enlarged. Head, ears, eyes, nose, mouth, and throat were normal. Neck veins were not distended. Thyroid was not enlarged. The chest is clear. Cardiac exam demonstrated sinus rhythm with S3. The abdomen was soft and protuberant. Extremities are normal. Neurologically she is intact. IMPRESSION: 1. Shortness of breath. 2. Coronary artery disease. 3. Elevated troponin. 4. Congestive heart failure. 5. Diabetes. 6. Renal failure. 7. Anxiety. PLAN: 1. Bed rest. 2. IV fluids. 3. Serial EKGs and enzymes. 4. Consult with Cardiology. KATHY
[2017-02-15 13:06] VITALS: BMI 35.2
[2017-02-15] MEDS: FUROSEMIDE 40 MG TAB PO SCH (17:18)
[2017-02-15] MEDS: SODIUM CHLORIDE 0.9% 1,000 ML IV SCH (20:31)
[2017-02-15] MEDS: MONTELUKAST 10 MG TAB PO SCH (20:35)
[2017-02-16] MEDS: ALBUTEROL NEBULIZED 2.5 MG/3 ML INHALATION SCH ×4 (00:39→11:14)
[2017-02-16] MEDS: LEVOTHYROXINE 50 MCG TAB PO SCH (06:01)
[2017-02-16 08:07] VITALS: RESP 18
[2017-02-16] MEDS: FAMOTIDINE 20 MG TAB PO SCH (08:08)
[2017-02-16] MEDS: ALLOPURINOL 100 MG TAB PO SCH (08:08)
[2017-02-16] MEDS: ASPIRIN 81 MG CHEW PO SCH (08:08)
[2017-02-16] MEDS: FUROSEMIDE 40 MG TAB PO SCH (08:09)
[2017-02-16] MEDS: hydrALAZINE HCL 10 MG TAB PO SCH (08:09)
[2017-02-16] MEDS: THEOPHYLLINE 24 HOUR 300 MG CAP.ER.24H PO SCH (08:10)
[2017-02-16] MEDS: NITROGLYCERIN OINT 1 INCH/GM PACKET TOPICAL SCH ×2 (08:10→12:03)
[2017-02-16] MEDS: BUDESONIDE 0.5 MG/2 ML NEBU INHALATION SCH (08:44)
[2017-02-16 08:45] LABS: Calcium 9.5 mg/dL (8.4-10.2); Potassium 4.2 mmol/L (3.5-5.1)
--- NOTE | 2017-02-16 08:55 | P.PN ---
Subjective Patient is seen in follow-up for acute kidney injury on chronic kidney disease. Patient has chronic kidney disease stage IV with baseline creatinine in the range of 2-2.5 secondary to nephrosclerosis. Patient presented with dyspnea as well as a cough and sore throat. Patient states her cough is mostly resolved. She was also hyponatremic which has been improving with diuresis. Sodium level was up to 131 as of yesterday. Denies chest pain. Admits to good urine output. Does admit to some swelling in her feet. Vital signs are stable. General: The patient appeared well nourished and normally developed. HEENT: Head exam is unremarkable. Neck is without jugular venous distension. LUNGS: Lungs are clear to auscultation and percussion. Breath sounds decreased. HEART: Rate and Rhythm are regular. First and second heart sounds normal. No murmurs, rubs or gallops. ABDOMEN: Abdominal exam reveals normal bowel sounds. Non-tender and non- distended. No evidence of peritonitis. EXTREMITITES: Trace edema. Objective - Vital Signs Vital signs: Vital Signs Temp 97.4 F L 02/16/17 08:00 Pulse 63 02/16/17 08:00 Resp 18 02/16/17 08:00 BP 111/56 02/16/17 08:00 Pulse Ox 100 02/16/17 08:00 Intake & Output 02/15/17 02/16/17 02/16/17 18:59 06:59 18:59 Intake Total 500 400 Balance 500 400 Weight 87.4 kg 88 kg Intake: Intake, IV Titration 300 Amount Magnesium Sulfate-D5w Pmx 100 1 gm In Dextrose/Water 1 100ml.bag @ 100 mls/hr IVPB ONCE ONE Rx#: [id number] Sodium Chloride 0.9% 1, 200 000 ml @ 20 mls/hr IV . Q24H [facility] Rx#:[id number] Oral 200 400 Other: # Voids 1 1 - Labs CBC & Chem 7: 02/14/17 14:25 02/15/17 09:45 Labs: Abnormal Lab Results - Last 24 Hours (Table) 02/15/17 Range/Units 09:45 Sodium 131 L (137-145) mmol/L Carbon Dioxide 20 L (22-30) mmol/L BUN 31 H (7-17) mg/dL Creatinine 2.42 H (0.52-1.04) mg/dL Glucose 181 H (74-99) mg/dL Assessment and Plan Plan: Assessment: #1. Hyponatremia. Appears euvolemic in nature. Sodium level is improved since admission and was up to 131 as of yesterday. #2. Chronic kidney disease stage IV secondary to nephrosclerosis. Urinalysis benign. #3. COPD exacerbation. Plan: Continue Lasix 40 mg orally twice daily for now. Maintain need to lower dose of diuretics depending on her volume status. I will put her on a 1.5 L fluid restriction. Follow-up echocardiogram results. Check labs today.
[2017-02-16] MEDS ORDERED: DOCUSATE 100 MG CAP PO SCH (10:00)
--- NOTE | 2017-02-16 10:16 | ECHOF ---
Referral Reason:Chest pain and cardiomyopathy MEASUREMENTS -------- HEIGHT: 157.5 cm WEIGHT: 87.1 kg BP: 125/56 RVIDd: 3.6 cm (< 3.3) IVSd: 1.2 cm (0.6 - 1.1) LVIDd: 3.8 cm (3.9 - 5.3) LVPWd: 1.1 cm (0.6 - 1.1) IVSs: 1.6 cm LVIDs: 3.2 cm LVPWs: 1.9 cm LA Diam: 4.6 cm (2.7 - 3.8) LAESV Index (A-L): 36.46 ml/m Ao Diam: 3.0 cm (2.0 - 3.7) AV Cusp: 2.0 cm (1.5 - 2.6) MV EXCURSION: 15.618 mm (> 18.000) MV EF SLOPE: 103 mm/s (70 - 150) EPSS: 0.5 cm MV E Jonathon: 1.32 m/s MV DecT: 192 ms MV A Jonathon: 0.44 m/s MV E/A Ratio: 2.98 AV maxP.10 mmHg AV meanP.05 mmHg RAP: 5.00 mmHg RVSP: 50.68 mmHg FINDINGS -------- Sinus rhythm. This was a technically good study. The left ventricular size is normal. There is borderline concentric left ventricular hypertrophy. Overall left ventricular systolic function is low-normal with, an EF between 50 - 55 %. The right ventricle is mildly enlarged. LA is moderately dilated 34-39 ml/m2 The right atrium is normal in size. There is mild to moderate aortic valve sclerosis. There is mild aortic stenosis present. Peak/mean gradient across the Aortic Valve is 18.10mmHg / 10.05mmHg. The mitral valve leaflets are mildly thickened. Mild mitral annular calcification present. Mild mitral regurgitation is present. Mild tricuspid regurgitation present. There is moderate pulmonary hypertension. The right ventricular systolic pressure, as measured by Doppler, is 50.68mmHg. The pulmonic valve was not well visualized. The aortic root size is normal. Normal inferior vena cava with normal inspiratory collapse consistent with estimated right atrial pressure of 5 mmHg. There is no pericardial effusion. CONCLUSIONS -------- 1. Sinus rhythm. 2. Peak/mean gradient across the Aortic Valve is 18.10mmHg / 10.05mmHg. 3. The mitral valve leaflets are mildly thickened. 4. Mild mitral annular calcification present. 5. Mild mitral regurgitation is present. 6. Mild tricuspid regurgitation present. 7. There is moderate pulmonary hypertension. 8. The right ventricular systolic pressure, as measured by Doppler, is 50.68mmHg. 9. The pulmonic valve was not well visualized. 10. The aortic root size is normal. 11. Normal inferior vena cava with normal inspiratory collapse consistent with estimated right atrial pressure of 5 mmHg. 12. This was a technically good study. 13. There is no pericardial effusion. 14. The left ventricular size is normal. 15. There is borderline concentric left ventricular hypertrophy. 16. Overall left ventricular systolic function is low-normal with, an EF between 50 - 55 %. 17. The right ventricle is mildly enlarged. 18. LA is moderately dilated 34-39 ml/m2 19. There is mild to moderate aortic valve sclerosis. 20. There is mild aortic stenosis present. [employer]: Myriam Ruiz RDCS
--- NOTE | 2017-02-16 11:30 | PN ---
CHIEF COMPLAINT: Shortness of breath and chest pain. HISTORY OF PRESENT ILLNESS: This lady is feeling a little bit better than when she came in. She is not having any new symptoms and she is less short of breath. She is having no pain. She is complaining a sore throat. PHYSICAL EXAMINATION: Temperature is normal. Vital signs are normal. Neck veins not distended and lymph nodes not enlarged. Chest is clear. Cardiac exam demonstrates what sounds like sinus rhythm and no murmurs or extra sounds. The abdomen is soft and nontender. IMPRESSION: 1. Unstable angina. 2. Coronary artery disease. 3. Atrial fibrillation. 4. Congestive heart failure. PLAN: 1. Increase activity. 2. Await for further cardiac evaluation. MTDD
[2017-02-16 11:55] VITALS: BP 118/73; PULSE 66; TEMP 98.1
[2017-02-16] MEDS: WARFARIN 2.5 MG TAB PO SCH (13:40)
--- NOTE | 2017-02-16 13:41 | P.PN ---
Subjective Principal diagnosis: Congestion and cough This is a 81-year-old female with history of chronic kidney disease stage IV, who of has been complaining of some congestion and cough. Patient does have chronic COPD. In addition she apparently was retaining water. She was treated with Bumex by Dr. Ahmadi and apparently she lost about 10 pounds. However because of continued symptoms patient came to the emergency room. Patient was treated with IV Lasix. She was found to have hyponatremia, which is being addressed by supervisor tan room. A chest x-ray did not reveal any significant findings of CHF. At this point there doesn't to be significant JVD. However proBNP is elevated. Her echo [place] in the past showed normal LV function. Patient has chronic atrial fibrillation and also had a permanent pacemaker in the past. At the time of my examination the patient's main complaints and cramps in the legs. Her potassium level is 4.7 yesterday and magnesium level was 1.8. I'm going to give 1 g of magnesium and see if that helps her cramps. I'll get an echo [place] tomorrow. And diuretic therapy as suggested by supervisor tan room. 02/16/2017 Echocardiogram with Doppler study was performed which revealed an ejection fraction of 50-55%. Patient denies any chest discomfort, breathing overall is stable. BUN 39, creatinine 2.2. Troponins 0.019, 0.0-2, 0.029. Objective - Vital Signs Vital signs: Vital Signs Temp 98.1 F 02/16/17 11:53 Pulse 66 02/16/17 11:53 Resp 18 02/16/17 11:53 BP 118/73 02/16/17 11:53 Pulse Ox 98 02/16/17 11:53 Intake & Output 02/15/17 02/16/17 02/16/17 18:59 06:59 18:59 Intake Total 500 400 120 Balance 500 400 120 Weight 87.4 kg 88 kg Intake: Intake, IV Titration 300 Amount Magnesium Sulfate-D5w Pmx 100 1 gm In Dextrose/Water 1 100ml.bag @ 100 mls/hr IVPB ONCE ONE Rx#: [id number] Sodium Chloride 0.9% 1, 200 000 ml @ 20 mls/hr IV . Q24H [facility] Rx#:[id number] Oral 200 400 120 Other: Voiding Method Toilet # Voids 1 1 2 - Exam GENERAL EXAM: Patient is alert and oriented and doesn't appear to be in any acute distress HEENT: Normocephalic. Normal reaction of pupils, equal size, normal range of extraocular motion. No erythema or exudates in the throat. NECK: No masses, no nuchal rigidity. CHEST: No chest wall deformity. LUNGS: Equal air entry with no crackles or wheeze. HEART: S1 and S2 normal with no audible mumurs or gallops. Regular rhythm, femorals equal on both sides.. ABDOMEN: No hepatosplenomegaly, normal bowel sounds, no guarding or rigidity. SKIN: No rashes CENTRAL NERVOUS SYSTEM: No focal deficits. EXTREMITIES: No cyanosis, clubbing ,resolving edema - Labs CBC & Chem 7: 02/14/17 14:25 02/16/17 05:55 Labs: Abnormal Lab Results - Last 24 Hours (Table) 02/16/17 Range/Units 05:55 Sodium 135 L (137-145) mmol/L Carbon Dioxide 19 L (22-30) mmol/L BUN 39 H (7-17) mg/dL Creatinine 2.28 H (0.52-1.04) mg/dL Assessment and Plan (1) Chronic a-fib Status: Acute (2) Presence of permanent cardiac pacemaker Status: Acute (3) Anemia Status: Acute (4) COPD (chronic obstructive pulmonary disease) Status: Acute (5) Renal insufficiency Status: Acute (6) Leg cramps Status: Acute Plan: From cardiology's perspective, patient has been cleared for discharge by the primary, we will make her a follow-up appointment in the office post discharge. DNP note has been reviewed, I agree with a documented findings and plan of care. Patient was seen and examined.
[2017-02-17] MEDS ORDERED: CINACALCET 30 MG TAB PO SCH (09:00)
--- NOTE | 2017-02-17 09:03 | DS ---
CHIEF COMPLAINT: Chest pain and shortness of breath. HISTORY OF PRESENT ILLNESS AND PHYSICAL EXAM: The details of this lady's history and physical can be found in the initial workup. COURSE IN THE HOSPITAL: After admission, she was placed on bed rest and started on intravenous fluids. ( ) enzymes and they were normal. She does have congestive heart failure and this was treated. She was doing well and it was felt that she could be discharged on the . She will go home on her usual activity and diet and medications. She will be on Lasix 40 mg b.i.d. She will come to the office in the next 24 to 48 hours. She is very head strong and noncompliant and she will be a difficult management issue. FINAL DIAGNOSES: 1. Congestive heart failure. 2. Chronic obstructive pulmonary disease. 3. Type 2 diabetes mellitus. OPERATIONS: None. CONSULTATIONS: Cardiology. She is improved. KATHY
== END 2017-02-16 14:46 | disposition home or self-care (01) | DRG 292 ==
LOC: EC 13:21 → 6SEL 15:52
PROVIDERS: ADMIT Family Medicine; ATTEND Family Medicine
DX: I13.0 Hypertensive heart and chronic kidney disease with heart failure and stage 1 through stage 4 chronic kidney disease, or unspecified chronic kidney disease (principal); E87.1 Hypo-osmolality and hyponatremia; N18.4 Chronic kidney disease, stage 4 (severe); N17.9 Acute kidney failure, unspecified; J44.1 Chronic obstructive pulmonary disease with (acute) exacerbation; E11.22 Type 2 diabetes mellitus with diabetic chronic kidney disease; I50.9 Heart failure, unspecified; I48.2 Chronic atrial fibrillation; I25.110 Atherosclerotic heart disease of native coronary artery with unstable angina pectoris; D64.9 Anemia, unspecified; F41.9 Anxiety disorder, unspecified; E07.9 Disorder of thyroid, unspecified; J02.9 Acute pharyngitis, unspecified; Z79.899 Other long term (current) drug therapy; Z79.01 Long term (current) use of anticoagulants; Z79.82 Long term (current) use of aspirin; Z88.1 Allergy status to other antibiotic agents; Z88.8 Allergy status to other drugs, medicaments and biological substances; Z87.891 Personal history of nicotine dependence; Z91.19 Patient's noncompliance with other medical treatment and regimen; Z95.0 Presence of cardiac pacemaker; Z86.14 Personal history of Methicillin resistant Staphylococcus aureus infection; Z95.5 Presence of coronary angioplasty implant and graft
CPT/HCPCS: 36415; 71020; 80048; 80053; 81003; 82550; 82553; 83735; 83880; 84484; 85025; 85610; 93005; 93306; 94640; 94667; 96374; 99285

== ENCOUNTER 2017-02-16 17:35 | Emergency (ER) | payer MEDICARE, OTHER ==
[2017-02-16 17:41] VITALS: RESP 16
--- NOTE | 2017-02-16 18:05 | ED ---
General Adult HPI - General Chief complaint: Shortness of Breath Stated complaint: FABIOLA Time Seen by Provider: 02/16/17 17:44 Source: patient, RN notes reviewed Mode of arrival: EMS - History of Present Illness Initial comments: 81-year-old female presents to the emergency Department chief complaint of choking intact. Patient states she GOT SPUTUM IN HER THROAT AT HOME AND SHE WAS HAVING A HARD TIME GETTING IT. PATIENT STATES SHE HAD DIFFICULTY IN BREATHING WITH THIS. PATIENT STATES THAT SHE TURNED ON HER ALBUTEROL MACHINE PACKETS THE NECK AND DOES NOT SEEM TO HELP HER COUGH POINT THAT SHE WOULD GET SPUTUM. PATIENT STATES THAT SHE THEN STARTED FEELING BETTER BUT THEN SHE HAD AN ATTACK AGAIN. PATIENT STATES THAT SHE WAS CONCERNED BECAUSE SHE JUST KEEP HAVING THIS SPUTUM OFTEN TEARDROP CAUSES HER TO COUGH AND FEEL LIKE SHE MIGHT CHOKING SO SHE THOUGHT THAT THEY SHOULD BE SEEN. PATIENT STATES THAT SHE'S HAD THIS SPUTUM, FOR THE LAST MONTH OR SO. PATIENT STATES SHE'S BEEN ADMITTED TO THE HOSPITAL SHE'S BEEN THE ER SHE'S BEEN TO HER LUNG DOCTOR IS ON NO MEDICINES TO GET OUT WHY SHE KEEPS GETTING THIS SPUTUM PRODUCTIVE COUGH. PATIENT STATES THAT SHE HASN'T HAD ANY FEVER CHILLS WITH THIS. PATIENT STATES SHE'S HAD MANY CHEST X-RAYS FROM PNEUMONIA. PATIENT STATES SHE DID HAVE SOME EAR PAIN AND THROAT PAIN WITH IT WELL. PATIENT STATES HE IS TAKING BETTER THAN IT WAS INITIALLY STARTED WHEN SHE WAS ABOUT THIS CHOKING ATTACKS THAT SHE THOUGHT THAT SHE SHOULD BE SEEN.Patient denies any recent fever, chills, shortness of breath , chest pain, back pain, abdominal pain, nausea vomiting, numbness or tingling, dysuria or hematuria, constipation or diarrhea, headaches or visual changes, or any other current symptoms. - Related Data Home Medications Medication Instructions Recorded Confirmed Albuterol Sulfate [Ventolin HFA] 1 - 2 puff INHALATION RT-Q6H PRN 03/26/1402/16 Allopurinol [Zyloprim] 100 mg PO BID 03/26/14 02/16/17 Aspirin EC [Ecotrin Low Dose] 81 mg PO DAILY 03/02/15 02/16/17 Famotidine 20 mg PO DAILY 03/02/15 02/16/17 Theophylline 24 Hour [Josh-24] 300 mg PO DAILY 03/02/15 02/16/17 Levothyroxine Sodium [Synthroid] 50 mcg PO DAILY 10/06/15 02/16/17 Fluticasone Propionate [Flovent 1 puff INHALATION RT-BID 01/20/17 02/16/17 Hfa 220MCG] Cinacalcet HCl [Sensipar] 30 mg PO TUFR 02/13/17 02/16/17 Montelukast Sodium [Singulair] 10 mg PO HS 02/13/17 02/16/17 hydrALAZINE HCL [Hydralazine HCl] 10 mg PO BID 02/13/17 02/16/17 Warfarin [Coumadin] 2.5 mg PO AC-SUPPER 02/14/17 02/16/17 Previous Rx's Medication Instructions Recorded Furosemide [Lasix] 40 mg PO BID #60 tablet 02/16/17 Allergies Allergy/AdvReac Type Severity Reaction Status Date / Time azithromycin Allergy Unknown Verified 02/16/17 17:46 [From Zithromax Z-Sotero] bumetanide [From Bumex] Allergy Vomiting Verified 02/16/17 17:46 ciprofloxacin [From Cipro] Allergy Unknown Verified 02/16/17 17:46 Calcium Channel Blocking AdvReac Unknown Verified 02/16/17 17:46 Agent Dilt Review of Systems ROS Statement: Those systems with pertinent positive or pertinent negative responses have been documented in the HPI. ROS Other: All systems not noted in ROS Statement are negative. Past Medical History Past Medical History: Atrial Fibrillation, Asthma, Coronary Artery Disease (CAD) , Heart Failure, CVA/TIA, Hypertension, Respiratory Disorder, Thyroid Disorder Additional Past Medical History / Comment(s): high uric acid levels, KIDNEY PROBLEMS History of Any Multi-Drug Resistant Organisms: MRSA Date of last positivie culture/infection: 2011/MRSA MDRO Source:: sputum Past Surgical History: Heart Catheterization With Stent, Pacemaker Additional Past Surgical History / Comment(s): left carotid. Pacemaker placed 2011 Past Anesthesia/Blood Transfusion Reactions: No Reported Reaction Date of Last Stent Placement:: 2011 Type of Cardiac Device: Permanent Pacemaker Device Placement Date:: 12/12/2014 Past Psychological History: No Psychological Hx Reported Smoking Status: Former smoker Past Alcohol Use History: None Reported Past Drug Use History: None Reported - Past Family History Father Family Medical History: COPD Mother Family Medical History: No Reported History General Exam - General Exam Comments Initial Comments: General: The patient is awake and alert, in no distress, and does not appear acutely ill. Eye: Pupils are equal, round and reactive to light, extra-ocular movements are intact; there is normal conjunctiva bilaterally. No signs of icterus. Ears, nose, mouth and throat: There are moist mucous membranes and no oral lesions. Neck: The neck is supple, there is no tenderness. Cardiovascular: There is a regular rate and rhythm. No murmur, rub or gallop is appreciated. Respiratory: Lungs are clear to auscultation, respirations are non-labored, breath sounds are equal. No wheezes, stridor, rales, or rhonchi. Gastrointestinal: Soft, non-distended, non-tender abdomen without masses or organomegaly noted. There is no rebound or guarding present. No CVA tenderness. Bowel sounds are unremarkable. Back: There is no tenderness to palpation in the midline. There is no obvious deformity. No rashes noted. Musculoskeletal: Normal ROM, no tenderness, There is no pedal edema. There is no calf tenderness or swelling. Sensation intact. Pulses equal bilaterally 2+. Neurological: CN II-XII intact, There are no obvious motor or sensory deficits. Coordination appears grossly intact. Speech is normal. Skin: Skin is warm and dry and no rashes or lesions are noted. Psychiatric: Cooperative, appropriate mood & affect, normal judgment. Course Vital Signs 02/16/17 02/16/17 17:36 18:30 Temperature 97.8 F Pulse Rate 68 77 Respiratory 16 Rate Blood Pressure 118/67 O2 Sat by Pulse 98 Oximetry - Reevaluation(s) Reevaluation #1: 02/16/17 18:22 Patient states that she cannot. Sputum culture without breathing treatment. We discussed we'll give her small be examined to see if this helps produce a sputum culture. Medical Decision Making - Medical Decision Making 81-year-old female presents emergency Department what appears to be choking intact. At this time patient's vital signs are stable. This time it is thought that patient most likely did not take this increased amount of albuterol due to the normal heart rate and no jitteriness. Lungs are clear. Patient refused a chest x-ray states that she just wanted one breathing treatment this and we discussed the patient does not meet breathing treatment. We discussed that her lungs are clear her oxygen is stable. This and we discussed that her cough has been going on for 1 month. Sputum was observed is more specific than anything there is maybe a hint of yellow. We discussed that she was stable for discharge earlier today. We discussed that she needs to follow up with ENT and she was given information. Discussed return parameters and all her questions. She stated that she understood and she is in agreement plan. She will be discharged home. - Radiology Data Radiology results: report reviewed, image reviewed Disposition Clinical Impression: Choking due to phlegm Disposition: HOME SELF-CARE Condition: Stable Instructions: Acute Cough (ED) Additional Instructions: Please use medication as discussed. Please follow up with family doctor if symptoms have not improved over the next two days. Please return to the emergency room if your symptoms increase or worsen or for any other concerns. Referrals: Mike Ahmadi MD [Primary Care Provider] - 1-2 days Fernando Bonilla MD [STAFF PHYSICIAN] - 1-2 days Time of Disposition: 18:52
[2017-02-16] MEDS ORDERED: ALBUTEROL NEBULIZED 2.5 MG/3 ML INHALATION STA (18:22)
[2017-02-16 19:10] VITALS: BP 152/66; PULSE 84; TEMP 98
== END 2017-02-16 19:08 | disposition home or self-care (01) ==
LOC: EC 17:35
DX: T17.298A Other foreign object in pharynx causing other injury, initial encounter (principal); R07.0 Pain in throat; H92.09 Otalgia, unspecified ear; I11.0 Hypertensive heart disease with heart failure; I50.9 Heart failure, unspecified; I48.91 Unspecified atrial fibrillation; J45.909 Unspecified asthma, uncomplicated; E07.9 Disorder of thyroid, unspecified; Z87.891 Personal history of nicotine dependence; Z79.01 Long term (current) use of anticoagulants; Z79.51 Long term (current) use of inhaled steroids; Z79.82 Long term (current) use of aspirin; Z79.899 Other long term (current) drug therapy; Z88.1 Allergy status to other antibiotic agents; Z88.8 Allergy status to other drugs, medicaments and biological substances; Z87.448 Personal history of other diseases of urinary system; Z86.73 Personal history of transient ischemic attack (TIA), and cerebral infarction without residual deficits; Y92.009 Unspecified place in unspecified non-institutional (private) residence as the place of occurrence of the external cause
CPT/HCPCS: 87070; 87205; 94640; 99285

== ENCOUNTER 2017-02-21 17:43 | Emergency (ER) | payer MEDICARE, OTHER ==
[2017-02-21 17:47] VITALS: TEMP 97.3
[2017-02-21 18:35] LABS: Anisocytosis Slight; Basophils % (A) 0 %; CH 30.5; CHCM 32.6; Eosinophils # (A) 0.5 k/uL (0-0.7); Eosinophils % (A) 5 %; HCT 33.1 % (34.0-46.0); HDW 2.56; HGB 10.5 gm/dL (11.4-16.0); Luc # (Auto) 0.16; Luc % (Auto) 2; Lymphocytes # (A) 0.6 k/uL (1.0-4.8); Lymphocytes % (A) 5 %; MCH 29.9 pg (25.0-35.0); MCHC 31.8 g/dL (31.0-37.0); Mean Platelet Volume 8.9; Monocytes # (A) 0.6 k/uL (0-1.0); Monocytes % (A) 5 %; Neutrophils # (A) 8.5 k/uL (1.3-7.7); Neutrophils % (A) 82 %; RBC 3.52 m/uL (3.80-5.40); RDW 16.1 % (11.5-15.5); WBC 10.4 k/uL (3.8-10.6); WBC (Perox) 10.81
[2017-02-21 18:44] LABS: Calcium 9.7 mg/dL (8.4-10.2); Magnesium 2.1 mg/dL (1.6-2.3); Potassium 4.8 mmol/L (3.5-5.1); Total Bilirubin 0.9 mg/dL (0.2-1.3); Total Protein 6.8 g/dL (6.3-8.2)
[2017-02-21 19:08] LABS: Troponin I 0.021 ng/mL (0.000-0.034)
[2017-02-21 19:12] LABS: INR 1.4 (<1.2); Partial Thromboplastin Time 25.8 sec (22.0-30.0); Prothrombin Time 13.4 sec (9.0-12.0)
[2017-02-21] MEDS ORDERED: ALBUTEROL NEBULIZED 2.5 MG/3 ML INHALATION STA (20:02)
[2017-02-21] MEDS ORDERED: predniSONE 20 MG TAB PO STA (20:51)
[2017-02-21 21:28] VITALS: BP 171/75; PULSE 70; RESP 16
--- NOTE | 2017-02-21 21:31 | ED ---
General Adult HPI - General Chief complaint: Shortness of Breath Stated complaint: CHEST PAIN, FABIOLA Time Seen by Provider: 02/21/17 17:49 Source: patient, RN notes reviewed, old records reviewed Mode of arrival: wheelchair Limitations: no limitations - History of Present Illness Initial comments: 81-year-old female presenting with difficulty breathing. Patient has history of asthma, A. fib, coronary artery disease, congestive heart for, hypertension and pacemaker. Patient was recently admitted to [facility], she was seen by her primary care physician as well as pulmonology. She was discharged in stable condition. She states that her breathing worsened over the past 24 hours. She also complains of some bilateral lower tremor swelling which is improved. Patient denies chest pain. States she's had a mild cough which is nonproductive. - Related Data Home Medications Medication Instructions Recorded Confirmed Albuterol Sulfate [Ventolin HFA] 1 - 2 puff INHALATION RT-Q6H PRN 03/26/1402/21 Allopurinol [Zyloprim] 100 mg PO BID 03/26/14 02/21/17 Aspirin EC [Ecotrin Low Dose] 81 mg PO DAILY 03/02/15 02/21/17 Famotidine 20 mg PO DAILY 03/02/15 02/21/17 Theophylline 24 Hour [Josh-24] 300 mg PO DAILY 03/02/15 02/21/17 Levothyroxine Sodium [Synthroid] 50 mcg PO DAILY 10/06/15 02/21/17 Fluticasone Propionate [Flovent 1 puff INHALATION RT-BID 01/20/17 02/21/17 Hfa 220MCG] Cinacalcet HCl [Sensipar] 30 mg PO TUFR 02/13/17 02/21/17 Montelukast Sodium [Singulair] 10 mg PO DAILY 02/13/17 02/21/17 hydrALAZINE HCL [Hydralazine HCl] 10 mg PO BID 02/13/17 02/21/17 Warfarin [Coumadin] 2.5 mg PO AC-SUPPER 02/14/17 02/21/17 Previous Rx's Medication Instructions Recorded Furosemide [Lasix] 40 mg PO BID #60 tablet 02/16/17 Allergies Allergy/AdvReac Type Severity Reaction Status Date / Time azithromycin Allergy Unknown Verified 02/21/17 18:39 [From Zithromax Z-Sotero] bumetanide [From Bumex] Allergy Vomiting Verified 02/21/17 18:39 ciprofloxacin [From Cipro] Allergy Unknown Verified 02/21/17 18:39 Calcium Channel Blocking AdvReac Unknown Verified 02/21/17 18:39 Agent Dilt Review of Systems ROS Statement: Those systems with pertinent positive or pertinent negative responses have been documented in the HPI. ROS Other: All systems not noted in ROS Statement are negative. Past Medical History Past Medical History: Atrial Fibrillation, Asthma, Coronary Artery Disease (CAD) , Heart Failure, CVA/TIA, Hypertension, Respiratory Disorder, Thyroid Disorder Additional Past Medical History / Comment(s): high uric acid levels, KIDNEY PROBLEMS History of Any Multi-Drug Resistant Organisms: MRSA Date of last positivie culture/infection: 2011/MRSA MDRO Source:: sputum Past Surgical History: Heart Catheterization With Stent, Pacemaker Additional Past Surgical History / Comment(s): left carotid. Pacemaker placed 2011 Past Anesthesia/Blood Transfusion Reactions: No Reported Reaction Date of Last Stent Placement:: 2011 Type of Cardiac Device: Permanent Pacemaker Device Placement Date:: 12/12/2014 Past Psychological History: No Psychological Hx Reported Smoking Status: Former smoker Past Alcohol Use History: None Reported Past Drug Use History: None Reported - Past Family History Father Family Medical History: COPD Mother Family Medical History: No Reported History General Exam Limitations: no limitations General appearance: alert, in no apparent distress Head exam: Present: atraumatic, normocephalic Eye exam: Present: normal appearance, PERRL ENT exam: Present: normal exam Neck exam: Present: normal inspection, full ROM. Absent: meningismus Respiratory exam: Present: normal lung sounds bilaterally. Absent: respiratory distress, wheezes, rales, rhonchi, decreased breath sounds, prolonged expiratory Cardiovascular Exam: Present: regular rate, normal rhythm GI/Abdominal exam: Present: soft. Absent: distended, tenderness Extremities exam: Present: normal inspection, pedal edema Neurological exam: Present: alert, oriented X3 Psychiatric exam: Present: normal affect, normal mood Skin exam: Present: warm, dry. Absent: cyanosis, diaphoretic Course Vital Signs 02/21/17 02/21/17 02/21/17 17:45 18:21 20:10 Temperature 97.3 F L Pulse Rate 80 80 Respiratory 22 20 Rate Blood Pressure 177/73 O2 Sat by Pulse 98 Oximetry 02/21/17 20:22 Temperature Pulse Rate 84 Respiratory Rate Blood Pressure O2 Sat by Pulse Oximetry EKG Findings - EKG Comments: EKG Findings:: EKG shows ventricular paced rhythm, rate of 87, QRS duration 160 , QTC 517, there is no discordant ST segment elevation, no signs of acute ischemia Medical Decision Making - Medical Decision Making 81-year-old female presenting with cough and difficulty breathing. Patient was recently admitted to the hospital at the [facility]. She did have a follow-up appointment with her physician yesterday. She reported that she was initially prescribed prednisone but her physician. Her not to take this as her symptoms had cleared up. She does have a history of asthma, she's been seen by pulmonology. Patient has a history of congestive heart failure in the medical record, however the patient denies having missed diagnosis. While in the emergency department laboratory studies are obtained, they are significant for hemoglobin 10.5 which is stable. Patient's serum creatinine is 2.0 which is improved from baseline. Chest x-ray ordered, patient refuses chest x-ray. Given the recent hospital admission, case is discussed with the patient's primary care physician. Given her stable vital signs, relatively normal exam, and stable or improved blood work and the fact that the patient is refusing complete evaluation, patient will be discharged with outpatient follow-up. She was instructed to take the prescribed steroid. She is given her first dose in the emergency department. Diagnosis: Dyspnea - Lab Data Result diagrams: 02/21/17 18:18 02/21/17 18:18 Lab Results 02/21/17 02/21/17 02/21/17 Range/Units 18:18 18:18 18:18 WBC 10.4 (3.8-10.6) k/uL RBC 3.52 L (3.80-5.40) m/uL Hgb 10.5 L (11.4-16.0) gm/dL Hct 33.1 L (34.0-46.0) % MCV 94.0 (80.0-100.0) fL MCH 29.9 (25.0-35.0) pg MCHC 31.8 (31.0-37.0) g/dL RDW 16.1 H (11.5-15.5) % Plt Count 243 (150-450) k/uL Neutrophils % 82 % Lymphocytes % 5 % Monocytes % 5 % Eosinophils % 5 % Basophils % 0 % Neutrophils # 8.5 H (1.3-7.7) k/uL Lymphocytes # 0.6 L (1.0-4.8) k/uL Monocytes # 0.6 (0-1.0) k/uL Eosinophils # 0.5 (0-0.7) k/uL Basophils # 0.0 (0-0.2) k/uL Anisocytosis Slight PT (9.0-12.0) sec INR (<1.2) APTT (22.0-30.0) sec Sodium 134 L (137-145) mmol/L Potassium 4.8 (3.5-5.1) mmol/L Chloride 99 (98-107) mmol/L Carbon Dioxide 21 L (22-30) mmol/L Anion Gap 14 mmol/L BUN 52 H (7-17) mg/dL Creatinine 2.00 H (0.52-1.04) mg/dL Est GFR (MDRD) Af Amer 29 (>60 ml/min/1.73 sqM) Est GFR (MDRD) Non-Af 24 (>60 ml/min/1.73 sqM) Glucose 146 H (74-99) mg/dL Calcium 9.7 (8.4-10.2) mg/dL Magnesium 2.1 (1.6-2.3) mg/dL Total Bilirubin 0.9 (0.2-1.3) mg/dL AST 34 (14-36) U/L ALT 34 (9-52) U/L Alkaline Phosphatase 100 (38-126) U/L Total Creatine Kinase 137 H (30-135) U/L CK-MB (CK-2) 4.0 H* (0.0-2.4) ng/mL CK-MB (CK-2) Rel Index 2.9 Troponin I 0.021 (0.000-0.034) ng/mL NT-Pro-B Natriuret Pep pg/mL Total Protein 6.8 (6.3-8.2) g/dL Albumin 4.5 (3.5-5.0) g/dL TSH 1.540 (0.465-4.680) mIU/L 08/05/17 08/05/17 Range/Units 18:18 18:18 WBC (3.8-10.6) k/uL RBC (3.80-5.40) m/uL Hgb (11.4-16.0) gm/dL Hct (34.0-46.0) % MCV (80.0-100.0) fL MCH (25.0-35.0) pg MCHC (31.0-37.0) g/dL RDW (11.5-15.5) % Plt Count (150-450) k/uL Neutrophils % % Lymphocytes % % Monocytes % % Eosinophils % % Basophils % % Neutrophils # (1.3-7.7) k/uL Lymphocytes # (1.0-4.8) k/uL Monocytes # (0-1.0) k/uL Eosinophils # (0-0.7) k/uL Basophils # (0-0.2) k/uL Anisocytosis PT 13.4 H (9.0-12.0) sec INR 1.4 H (<1.2) APTT 25.8 (22.0-30.0) sec Sodium (137-145) mmol/L Potassium (3.5-5.1) mmol/L Chloride (98-107) mmol/L Carbon Dioxide (22-30) mmol/L Anion Gap mmol/L BUN (7-17) mg/dL Creatinine (0.52-1.04) mg/dL Est GFR (MDRD) Af Amer (>60 ml/min/1.73 sqM) Est GFR (MDRD) Non-Af (>60 ml/min/1.73 sqM) Glucose (74-99) mg/dL Calcium (8.4-10.2) mg/dL Magnesium (1.6-2.3) mg/dL Total Bilirubin (0.2-1.3) mg/dL AST (14-36) U/L ALT (9-52) U/L Alkaline Phosphatase (38-126) U/L Total Creatine Kinase (30-135) U/L CK-MB (CK-2) (0.0-2.4) ng/mL CK-MB (CK-2) Rel Index Troponin I (0.000-0.034) ng/mL NT-Pro-B Natriuret Pep 4290 pg/mL Total Protein (6.3-8.2) g/dL Albumin (3.5-5.0) g/dL TSH (0.465-4.680) mIU/L Disposition Clinical Impression: Dyspnea Disposition: HOME SELF-CARE Condition: Good Instructions: Chronic Bronchitis (ED) Referrals: Mike Ahmadi MD [Primary Care Provider] - 1-2 days
== END 2017-02-21 21:53 | disposition home or self-care (01) ==
LOC: EC 17:43
DX: R06.00 Dyspnea, unspecified (principal); R07.9 Chest pain, unspecified; R05 Cough; I48.91 Unspecified atrial fibrillation; I10 Essential (primary) hypertension; I25.10 Atherosclerotic heart disease of native coronary artery without angina pectoris; J45.909 Unspecified asthma, uncomplicated; E07.9 Disorder of thyroid, unspecified; M10.9 Gout, unspecified; Z87.891 Personal history of nicotine dependence; Z86.73 Personal history of transient ischemic attack (TIA), and cerebral infarction without residual deficits; Z86.14 Personal history of Methicillin resistant Staphylococcus aureus infection; Z95.0 Presence of cardiac pacemaker; Z95.5 Presence of coronary angioplasty implant and graft; Z79.01 Long term (current) use of anticoagulants; Z79.51 Long term (current) use of inhaled steroids; Z79.82 Long term (current) use of aspirin; Z79.899 Other long term (current) drug therapy; Z88.1 Allergy status to other antibiotic agents; Z88.8 Allergy status to other drugs, medicaments and biological substances
CPT/HCPCS: 36415; 94640; 93005; 83880; 80053; 84443; 82550; 82553; 83735; 84484; 85025; 85610; 85730; 99285; J7512

== ENCOUNTER 2017-03-01 20:07 | Emergency (ER) | payer MEDICARE, OTHER ==
[2017-03-01] MEDS ORDERED: SODIUM CHLORIDE 0.9% 1,000 ML IV STA (20:26)
[2017-03-01 20:30] VITALS: TEMP 98.6
[2017-03-01 20:57] LABS: Anisocytosis Slight; Basophils % (A) 0 %; CH 30.9; CHCM 33.3; Eosinophils # (A) 0.4 k/uL (0-0.7); Eosinophils % (A) 4 %; HDW 2.54; HGB 9.3 gm/dL (11.4-16.0); Luc # (Auto) 0.12; Luc % (Auto) 1; Lymphocytes # (A) 0.6 k/uL (1.0-4.8); Lymphocytes % (A) 5 %; MCHC 32.2 g/dL (31.0-37.0); MCV 93.3 fL (80.0-100.0); Mean Platelet Volume 8.6; Monocytes # (A) 0.5 k/uL (0-1.0); Monocytes % (A) 4 %; Neutrophils # (A) 9.8 k/uL (1.3-7.7); Neutrophils % (A) 86 %; RBC 3.11 m/uL (3.80-5.40); RDW 16.7 % (11.5-15.5); WBC 11.5 k/uL (3.8-10.6); WBC (Perox) 11.19
[2017-03-01 21:06] LABS: INR 2.6 (<1.2); Partial Thromboplastin Time 32.9 sec (22.0-30.0); Prothrombin Time 25.3 sec (9.0-12.0)
[2017-03-01 21:18] LABS: Calcium 8.8 mg/dL (8.4-10.2); Phosphorous 3.2 mg/dL (2.5-4.5); Potassium 4.4 mmol/L (3.5-5.1); Total Bilirubin 0.7 mg/dL (0.2-1.3); Total Protein 5.9 g/dL (6.3-8.2)
--- NOTE | 2017-03-01 21:20 | ED ---
General Adult HPI - General Chief complaint: Weakness Stated complaint: Weak Time Seen by Provider: 03/01/17 20:13 Source: patient, RN notes reviewed, old records reviewed Mode of arrival: wheelchair Limitations: no limitations - History of Present Illness Initial comments: This is a 81-year-old female here for evaluation regarding multiple complaints. Center on weakness. No nausea vomiting no abdominal pain patient admits to decreased appetite. Patient's disconcerting for why she is feeling so sick. Again patient denies fevers. She admits to weight loss and Lasix. Again no chest pain or shortness of breath - Related Data Home Medications Medication Instructions Recorded Confirmed Albuterol Sulfate [Ventolin HFA] 1 - 2 puff INHALATION RT-Q6H PRN 03/26/1403/01 Allopurinol [Zyloprim] 100 mg PO BID 03/26/14 03/01/17 Aspirin EC [Ecotrin Low Dose] 81 mg PO QAM 03/02/15 03/01/17 Famotidine 20 mg PO QAM 03/02/15 03/01/17 Theophylline 24 Hour [Josh-24] 300 mg PO DAILY 03/02/15 03/01/17 Levothyroxine Sodium [Synthroid] 50 mcg PO QAM 10/06/15 03/01/17 Fluticasone Propionate [Flovent 1 puff INHALATION RT-BID 01/20/17 03/01/17 Hfa 220MCG] Cinacalcet HCl [Sensipar] 30 mg PO SUWE 02/13/17 03/01/17 Montelukast Sodium [Singulair] 10 mg PO QAM 02/13/17 03/01/17 hydrALAZINE HCL [Hydralazine HCl] 10 mg PO BID 02/13/17 03/01/17 Warfarin [Coumadin] 2.5 mg PO MOTUWETH 02/14/17 03/01/17 Metolazone [Zaroxolyn] 10 mg PO QAM 03/01/17 03/01/17 Warfarin [Coumadin] 5 mg PO SUFRSA 03/01/17 03/01/17 diphenhydrAMINE HCL [Benadryl] 25 mg PO Q6H 03/01/17 03/01/17 Allergies Allergy/AdvReac Type Severity Reaction Status Date / Time azithromycin Allergy Unknown Verified 03/01/17 20:30 [From Zithromax Z-Sotero] bumetanide [From Bumex] Allergy Swelling Verified 03/01/17 21:23 ciprofloxacin [From Cipro] Allergy Unknown Verified 03/01/17 20:30 Calcium Channel Blocking AdvReac Unknown Verified 03/01/17 20:30 Agent Dilt Review of Systems ROS Statement: Those systems with pertinent positive or pertinent negative responses have been documented in the HPI. ROS Other: All systems not noted in ROS Statement are negative. Past Medical History Past Medical History: Atrial Fibrillation, Asthma, Coronary Artery Disease (CAD) , Heart Failure, CVA/TIA, Hypertension, Respiratory Disorder, Thyroid Disorder Additional Past Medical History / Comment(s): high uric acid levels, KIDNEY PROBLEMS History of Any Multi-Drug Resistant Organisms: MRSA Date of last positivie culture/infection: 2011/MRSA MDRO Source:: sputum Past Surgical History: Heart Catheterization With Stent, Pacemaker Additional Past Surgical History / Comment(s): left carotid. Pacemaker placed 2011 Past Anesthesia/Blood Transfusion Reactions: No Reported Reaction Date of Last Stent Placement:: 2011 Type of Cardiac Device: Permanent Pacemaker Device Placement Date:: 12/12/2014 Past Psychological History: No Psychological Hx Reported Smoking Status: Former smoker Past Alcohol Use History: None Reported Past Drug Use History: None Reported - Past Family History Father Family Medical History: COPD Mother Family Medical History: No Reported History General Exam Limitations: no limitations General appearance: alert, in no apparent distress Head exam: Present: atraumatic, normocephalic, normal inspection Eye exam: Present: normal appearance, PERRL, EOMI. Absent: scleral icterus, conjunctival injection, periorbital swelling ENT exam: Present: normal exam, mucous membranes moist Neck exam: Present: normal inspection. Absent: tenderness, meningismus, lymphadenopathy Respiratory exam: Present: normal lung sounds bilaterally. Absent: respiratory distress, wheezes, rales, rhonchi, stridor Cardiovascular Exam: Present: regular rate, normal rhythm, normal heart sounds. Absent: systolic murmur, diastolic murmur, rubs, gallop, clicks GI/Abdominal exam: Present: soft, normal bowel sounds. Absent: distended, tenderness, guarding, rebound, rigid Extremities exam: Present: normal inspection, full ROM, normal capillary refill. Absent: tenderness, pedal edema, joint swelling, calf tenderness Back exam: Present: normal inspection Neurological exam: Present: alert, oriented X3, CN II-XII intact Psychiatric exam: Present: normal affect, normal mood Skin exam: Present: warm, dry, intact, normal color. Absent: rash Course Vital Signs 03/01/17 03/01/17 03/01/17 20:26 20:54 22:20 Temperature 98.6 F Pulse Rate 76 59 L Respiratory 16 20 18 Rate Blood Pressure 147/96 151/66 O2 Sat by Pulse 99 99 Oximetry EKG Findings - EKG Comments: EKG Findings:: EKG shows paced rhythm rate of 61, QRS 160, QTC 533 Medical Decision Making - Medical Decision Making 79 female urine nonspecific complaint, weakness staphyloma. At this time patient states he feels better like to go home, lab work is normal. Patient will be discharged - Lab Data Result diagrams: 03/01/17 20:48 03/01/17 20:48 Lab Results 03/01/17 03/01/17 03/01/17 Range/Units 20:48 20:48 20:48 WBC 11.5 H (3.8-10.6) k/uL RBC 3.11 L (3.80-5.40) m/uL Hgb 9.3 L (11.4-16.0) gm/dL Hct 29.0 L (34.0-46.0) % MCV 93.3 (80.0-100.0) fL MCH 30.0 (25.0-35.0) pg MCHC 32.2 (31.0-37.0) g/dL RDW 16.7 H (11.5-15.5) % Plt Count 206 (150-450) k/uL Neutrophils % 86 % Lymphocytes % 5 % Monocytes % 4 % Eosinophils % 4 % Basophils % 0 % Neutrophils # 9.8 H (1.3-7.7) k/uL Lymphocytes # 0.6 L (1.0-4.8) k/uL Monocytes # 0.5 (0-1.0) k/uL Eosinophils # 0.4 (0-0.7) k/uL Basophils # 0.0 (0-0.2) k/uL Anisocytosis Slight PT (9.0-12.0) sec INR (<1.2) APTT (22.0-30.0) sec Sodium 124 L (137-145) mmol/L Potassium 4.4 (3.5-5.1) mmol/L Chloride 93 L (98-107) mmol/L Carbon Dioxide 18 L (22-30) mmol/L Anion Gap 13 mmol/L BUN 31 H (7-17) mg/dL Creatinine 1.90 H (0.52-1.04) mg/dL Est GFR (MDRD) Af Amer 31 (>60 ml/min/1.73 sqM) Est GFR (MDRD) Non-Af 25 (>60 ml/min/1.73 sqM) Glucose 141 H (74-99) mg/dL Calcium 8.8 (8.4-10.2) mg/dL Phosphorus 3.2 (2.5-4.5) mg/dL Magnesium 2.0 (1.6-2.3) mg/dL Total Bilirubin 0.7 (0.2-1.3) mg/dL AST 26 (14-36) U/L ALT 28 (9-52) U/L Alkaline Phosphatase 99 (38-126) U/L Total Creatine Kinase 178 H (30-135) U/L CK-MB (CK-2) 3.6 H* (0.0-2.4) ng/mL CK-MB (CK-2) Rel Index 2.0 Troponin I 0.018 (0.000-0.034) ng/mL Total Protein 5.9 L (6.3-8.2) g/dL Albumin 3.8 (3.5-5.0) g/dL Urine Color Urine Appearance (Clear) Urine pH (5.0-8.0) Ur Specific Weare (1.001-1.035) Urine Protein (Negative) Urine Glucose (UA) (Negative) Urine Ketones (Negative) Urine Blood (Negative) Urine Nitrite (Negative) Urine Bilirubin (Negative) Urine Urobilinogen (<2.0) mg/dL Ur Leukocyte Esterase (Negative) Urine RBC (0-5) /hpf Urine WBC (0-5) /hpf Ur Squamous Epith Cells (0-4) /hpf Urine Bacteria (None) /hpf 03/01/17 03/01/17 Range/Units 20:48 22:00 WBC (3.8-10.6) k/uL RBC (3.80-5.40) m/uL Hgb (11.4-16.0) gm/dL Hct (34.0-46.0) % MCV (80.0-100.0) fL MCH (25.0-35.0) pg MCHC (31.0-37.0) g/dL RDW (11.5-15.5) % Plt Count (150-450) k/uL Neutrophils % % Lymphocytes % % Monocytes % % Eosinophils % % Basophils % % Neutrophils # (1.3-7.7) k/uL Lymphocytes # (1.0-4.8) k/uL Monocytes # (0-1.0) k/uL Eosinophils # (0-0.7) k/uL Basophils # (0-0.2) k/uL Anisocytosis PT 25.3 H (9.0-12.0) sec INR 2.6 H (<1.2) APTT 32.9 H (22.0-30.0) sec Sodium (137-145) mmol/L Potassium (3.5-5.1) mmol/L Chloride (98-107) mmol/L Carbon Dioxide (22-30) mmol/L Anion Gap mmol/L BUN (7-17) mg/dL Creatinine (0.52-1.04) mg/dL Est GFR (MDRD) Af Amer (>60 ml/min/1.73 sqM) Est GFR (MDRD) Non-Af (>60 ml/min/1.73 sqM) Glucose (74-99) mg/dL Calcium (8.4-10.2) mg/dL Phosphorus (2.5-4.5) mg/dL Magnesium (1.6-2.3) mg/dL Total Bilirubin (0.2-1.3) mg/dL AST (14-36) U/L ALT (9-52) U/L Alkaline Phosphatase (38-126) U/L Total Creatine Kinase (30-135) U/L CK-MB (CK-2) (0.0-2.4) ng/mL CK-MB (CK-2) Rel Index Troponin I (0.000-0.034) ng/mL Total Protein (6.3-8.2) g/dL Albumin (3.5-5.0) g/dL Urine Color Yellow Urine Appearance Clear (Clear) Urine pH 6.0 (5.0-8.0) Ur Specific Weare 1.007 (1.001-1.035) Urine Protein Negative (Negative) Urine Glucose (UA) Negative (Negative) Urine Ketones Negative (Negative) Urine Blood Negative (Negative) Urine Nitrite Negative (Negative) Urine Bilirubin Negative (Negative) Urine Urobilinogen <2.0 (<2.0) mg/dL Ur Leukocyte Esterase Trace H (Negative) Urine RBC 1 (0-5) /hpf Urine WBC 4 (0-5) /hpf Ur Squamous Epith Cells 1 (0-4) /hpf Urine Bacteria Rare H (None) /hpf - Radiology Data Radiology results: report reviewed (Chest x-ray is negative for acute disease), image reviewed Disposition Clinical Impression: Weakness Disposition: HOME SELF-CARE Condition: Good Instructions: Weakness (ED) Referrals: Mike Ahmadi MD [Primary Care Provider] - 1-2 days
--- NOTE | 2017-03-01 21:33 | XR ---
EXAMINATION TYPE: XR chest 2V DATE OF EXAM: 03/01/2017 COMPARISON: February 14, 2017 HISTORY: Weakness with burning in the throat. TECHNIQUE: Frontal and lateral views of the chest are obtained. FINDINGS: There is no focal air space opacity, pleural effusion, or pneumothorax seen. The cardiac silhouette size is borderline enlarged. The osseous structures are intact. There is an implantable cardiac device with single lead in the heart. Calcifications are identified in the aortic arch. IMPRESSION: No real change in appearance of the chest.
[2017-03-01 21:37] LABS: Troponin I 0.018 ng/mL (0.000-0.034)
[2017-03-01 21:38] LABS: Creatine Kinase MB 3.6 ng/mL (0.0-2.4)
[2017-03-01 22:14] LABS: Appearance,Urine Clear (Clear); Bacteria,Urine Rare /hpf; Bilirubin,Urine Negative (Negative); Glucose,Urine (UA) Negative (Negative); Ketones,Urine Negative (Negative); Leukocyte Esterase,Urine Trace (Negative); Nitrite,Urine Negative (Negative); Particle Count 1569; Protein,Urine Negative (Negative); RBC,Urine 1 /hpf (0-5); Specific Gravity,Urine 1.007 (1.001-1.035); Squamous Epithelial Cell,Urine 1 /hpf (0-4); UA Billing (MACRO vs. MICRO) MICRO; Urobilinogen,Urine <2.0 mg/dL (<2.0); WBC,Urine 4 /hpf (0-5)
[2017-03-01 22:52] VITALS: BP 148/68; PULSE 57; RESP 16
== END 2017-03-01 22:51 | disposition home or self-care (01) ==
LOC: EC 20:07
DX: R53.1 Weakness (principal); J45.909 Unspecified asthma, uncomplicated; I25.10 Atherosclerotic heart disease of native coronary artery without angina pectoris; I11.0 Hypertensive heart disease with heart failure; I50.9 Heart failure, unspecified; E07.9 Disorder of thyroid, unspecified; I48.91 Unspecified atrial fibrillation; Z86.73 Personal history of transient ischemic attack (TIA), and cerebral infarction without residual deficits; Z87.891 Personal history of nicotine dependence; Z88.1 Allergy status to other antibiotic agents; Z88.8 Allergy status to other drugs, medicaments and biological substances; Z95.5 Presence of coronary angioplasty implant and graft; Z79.82 Long term (current) use of aspirin; Z79.51 Long term (current) use of inhaled steroids; Z79.01 Long term (current) use of anticoagulants; Z79.899 Other long term (current) drug therapy
CPT/HCPCS: 36415; 71020; 80053; 81001; 82550; 82553; 83735; 84100; 84484; 85025; 85610; 85730; 87086; 93005; 96360; 96361; 99285

== ENCOUNTER 2017-03-04 11:29 | Emergency (ER) | payer MEDICARE, OTHER ==
[2017-03-04] MEDS ORDERED: SODIUM CHLORIDE 0.9% 1,000 ML IV STA (12:49)
[2017-03-04 13:58] LABS: Anisocytosis Slight; Basophils % (A) 0 %; CHCM 33.9; Eosinophils # (A) 0.4 k/uL (0-0.7); Eosinophils % (A) 3 %; HCT 29.4 % (34.0-46.0); HDW 2.63; HGB 9.5 gm/dL (11.4-16.0); Luc # (Auto) 0.12; Luc % (Auto) 1; Lymphocytes # (A) 0.4 k/uL (1.0-4.8); Lymphocytes % (A) 3 %; MCH 29.7 pg (25.0-35.0); MCHC 32.2 g/dL (31.0-37.0); Mean Platelet Volume 8.5; Monocytes # (A) 0.4 k/uL (0-1.0); Monocytes % (A) 4 %; Neutrophils # (A) 9.1 k/uL (1.3-7.7); Neutrophils % (A) 88 %; RBC 3.19 m/uL (3.80-5.40); RDW 17.1 % (11.5-15.5); WBC 10.3 k/uL (3.8-10.6); WBC (Perox) 10.08
[2017-03-04 14:10] LABS: Calcium 9.4 mg/dL (8.4-10.2); Magnesium 1.9 mg/dL (1.6-2.3); Phosphorous 2.9 mg/dL (2.5-4.5); Potassium 4.2 mmol/L (3.5-5.1); Total Bilirubin 0.8 mg/dL (0.2-1.3)
[2017-03-04 14:13] LABS: INR 2.4 (<1.2); Partial Thromboplastin Time 35.8 sec (22.0-30.0); Prothrombin Time 23.3 sec (9.0-12.0)
--- NOTE | 2017-03-04 14:20 | ED ---
General Adult HPI - General Chief complaint: Abdominal Pain Stated complaint: Vision blurry/sick to stomach Time Seen by Provider: 03/04/17 11:47 Source: patient, family, RN notes reviewed, old records reviewed Mode of arrival: wheelchair Limitations: no limitations - History of Present Illness Initial comments: This is an 82-year-old female to the ER for evaluation. Patient sent in by family doctor for evaluation regarding about pain chest pain shortness of breath not feeling well. Patient states she has generalized weakness, maybe blood in her stool. Patient has no fever. No recent travel history, no recent hospitalizations. This patient's [facility] ER visit with a [facility] family doctor in the past 4 days - Related Data Home Medications Medication Instructions Recorded Confirmed Albuterol Sulfate [Ventolin HFA] 1 - 2 puff INHALATION RT-Q6H PRN 03/26/1403/04 Allopurinol [Zyloprim] 100 mg PO BID 03/26/14 03/04/17 Aspirin EC [Ecotrin Low Dose] 81 mg PO QAM 03/02/15 03/04/17 Famotidine 20 mg PO QAM 03/02/15 03/04/17 Theophylline 24 Hour [Josh-24] 300 mg PO DAILY 03/02/15 03/04/17 Levothyroxine Sodium [Synthroid] 50 mcg PO QAM 10/06/15 03/04/17 Fluticasone Propionate [Flovent 1 puff INHALATION RT-BID 01/20/17 03/04/17 Hfa 220MCG] Cinacalcet HCl [Sensipar] 30 mg PO SUWE 02/13/17 03/04/17 Montelukast Sodium [Singulair] 10 mg PO QAM 02/13/17 03/04/17 hydrALAZINE HCL [Hydralazine HCl] 10 mg PO BID 02/13/17 03/04/17 Warfarin [Coumadin] 2.5 mg PO MOTUWETH 02/14/17 03/04/17 Metolazone [Zaroxolyn] 10 mg PO QAM 03/01/17 03/04/17 Warfarin [Coumadin] 5 mg PO SUFRSA 03/01/17 03/04/17 diphenhydrAMINE HCL [Benadryl] 25 mg PO Q6H PRN 03/01/17 03/04/17 Albuterol Nebulized [Ventolin 2.5 mg INHALATION RT-QID PRN 03/04/17 03/04/17 Nebulized] Ibuprofen [Motrin] 200 mg PO BID 03/04/17 03/04/17 Ondansetron [Zofran] 4 mg PO Q4H PRN 03/04/17 03/04/17 guaiFENesin-DM 100-10MG/5ML 10 ml PO Q6H PRN 03/04/17 03/04/17 [Robitussin DM] Allergies Allergy/AdvReac Type Severity Reaction Status Date / Time azithromycin Allergy Unknown Verified 03/04/17 11:51 [From Zithromax Z-Sotero] bumetanide [From Bumex] Allergy Swelling Verified 03/04/17 11:51 ciprofloxacin [From Cipro] Allergy Unknown Verified 03/04/17 11:51 Calcium Channel Blocking AdvReac Unknown Verified 03/04/17 11:51 Agent Dilt Review of Systems ROS Statement: Those systems with pertinent positive or pertinent negative responses have been documented in the HPI. ROS Other: All systems not noted in ROS Statement are negative. Past Medical History Past Medical History: Atrial Fibrillation, Asthma, Coronary Artery Disease (CAD) , Heart Failure, CVA/TIA, Hypertension, Respiratory Disorder, Thyroid Disorder Additional Past Medical History / Comment(s): high uric acid levels, KIDNEY PROBLEMS History of Any Multi-Drug Resistant Organisms: MRSA Date of last positivie culture/infection: 2011/MRSA MDRO Source:: sputum Past Surgical History: Heart Catheterization With Stent, Pacemaker Additional Past Surgical History / Comment(s): left carotid. Pacemaker placed 2011 Past Anesthesia/Blood Transfusion Reactions: No Reported Reaction Date of Last Stent Placement:: 2011 Type of Cardiac Device: Permanent Pacemaker Device Placement Date:: 12/12/2014 Past Psychological History: No Psychological Hx Reported Smoking Status: Former smoker Past Alcohol Use History: None Reported Past Drug Use History: None Reported - Past Family History Father Family Medical History: COPD Mother Family Medical History: No Reported History General Exam Limitations: no limitations General appearance: alert, in no apparent distress Head exam: Present: atraumatic, normocephalic, normal inspection Eye exam: Present: normal appearance, PERRL, EOMI. Absent: scleral icterus, conjunctival injection, periorbital swelling ENT exam: Present: normal exam, mucous membranes moist Neck exam: Present: normal inspection. Absent: tenderness, meningismus, lymphadenopathy Respiratory exam: Present: normal lung sounds bilaterally. Absent: respiratory distress, wheezes, rales, rhonchi, stridor Cardiovascular Exam: Present: regular rate, normal rhythm, normal heart sounds. Absent: systolic murmur, diastolic murmur, rubs, gallop, clicks GI/Abdominal exam: Present: soft, normal bowel sounds. Absent: distended, tenderness, guarding, rebound, rigid Extremities exam: Present: normal inspection, full ROM, normal capillary refill. Absent: tenderness, pedal edema, joint swelling, calf tenderness Back exam: Present: normal inspection Neurological exam: Present: alert, oriented X3, CN II-XII intact Psychiatric exam: Present: normal affect, normal mood Skin exam: Present: warm, dry, intact, normal color. Absent: rash Course Vital Signs 03/04/17 11:31 Temperature 97.3 F L Pulse Rate 81 Respiratory 18 Rate Blood Pressure 132/59 O2 Sat by Pulse 99 Oximetry Medical Decision Making - Medical Decision Making 81 female the ER for evaluation. Patient will be admitted for evaluation of anemia, on blood thinners. Weakness. - Lab Data Result diagrams: 03/04/17 13:48 03/04/17 13:48 Lab Results 03/04/17 03/04/17 03/04/17 Range/Units 13:48 13:48 13:48 WBC 10.3 (3.8-10.6) k/uL RBC 3.19 L (3.80-5.40) m/uL Hgb 9.5 L (11.4-16.0) gm/dL Hct 29.4 L (34.0-46.0) % MCV 92.0 (80.0-100.0) fL MCH 29.7 (25.0-35.0) pg MCHC 32.2 (31.0-37.0) g/dL RDW 17.1 H (11.5-15.5) % Plt Count 242 (150-450) k/uL Neutrophils % 88 % Lymphocytes % 3 % Monocytes % 4 % Eosinophils % 3 % Basophils % 0 % Neutrophils # 9.1 H (1.3-7.7) k/uL Lymphocytes # 0.4 L (1.0-4.8) k/uL Monocytes # 0.4 (0-1.0) k/uL Eosinophils # 0.4 (0-0.7) k/uL Basophils # 0.0 (0-0.2) k/uL Anisocytosis Slight PT 23.3 H (9.0-12.0) sec INR 2.4 H (<1.2) APTT 35.8 H (22.0-30.0) sec Sodium 123 L (137-145) mmol/L Potassium 4.2 (3.5-5.1) mmol/L Chloride 94 L (98-107) mmol/L Carbon Dioxide 18 L (22-30) mmol/L Anion Gap 11 mmol/L BUN 24 H (7-17) mg/dL Creatinine 1.60 H (0.52-1.04) mg/dL Est GFR (MDRD) Af Amer 37 (>60 ml/min/1.73 sqM) Est GFR (MDRD) Non-Af 31 (>60 ml/min/1.73 sqM) Glucose 136 H (74-99) mg/dL Calcium 9.4 (8.4-10.2) mg/dL Phosphorus 2.9 (2.5-4.5) mg/dL Magnesium 1.9 (1.6-2.3) mg/dL Total Bilirubin 0.8 (0.2-1.3) mg/dL AST 26 (14-36) U/L ALT 32 (9-52) U/L Alkaline Phosphatase 106 (38-126) U/L Total Protein 6.0 L (6.3-8.2) g/dL Albumin 3.8 (3.5-5.0) g/dL Disposition Clinical Impression: Abdominal pain, Weakness, Nausea, Anemia Disposition: ADMITTED IP TO THIS [facility] Condition: Fair Referrals: Mike Ahmadi MD [Primary Care Provider] - 1-2 days
[2017-03-04 14:34] LABS: Troponin I 0.013 ng/mL (0.000-0.034)
[2017-03-04 14:38] LABS: Creatine Kinase MB 4.1 ng/mL (0.0-2.4)
[2017-03-04 15:06] LABS: Appearance,Urine Clear (Clear); Bacteria,Urine Occasional /hpf; Bilirubin,Urine Negative (Negative); Glucose,Urine (UA) Negative (Negative); Ketones,Urine Negative (Negative); Leukocyte Esterase,Urine Moderate (Negative); Mucus,Urine Rare /hpf; Nitrite,Urine Negative (Negative); PH, Urine 6.5 (5.0-8.0); Particle Count 46704; Protein,Urine Negative (Negative); Specific Gravity,Urine 1.005 (1.001-1.035); Squamous Epithelial Cell,Urine <1 /hpf (0-4); UA Billing (MACRO vs. MICRO) MICRO; Urobilinogen,Urine <2.0 mg/dL (<2.0); WBC,Urine 25 /hpf (0-5)
--- NOTE | 2017-03-04 15:28 | ED ---
Medical Decision Making - Medical Decision Making 81 female ER again with nonspecific complaint. Spoke with Dr. Lou, will see patient in office - Lab Data Result diagrams: 03/04/17 13:48 03/04/17 13:48 Lab Results 03/04/17 03/04/17 03/04/17 Range/Units 13:48 13:48 13:48 WBC 10.3 (3.8-10.6) k/uL RBC 3.19 L (3.80-5.40) m/uL Hgb 9.5 L (11.4-16.0) gm/dL Hct 29.4 L (34.0-46.0) % MCV 92.0 (80.0-100.0) fL MCH 29.7 (25.0-35.0) pg MCHC 32.2 (31.0-37.0) g/dL RDW 17.1 H (11.5-15.5) % Plt Count 242 (150-450) k/uL Neutrophils % 88 % Lymphocytes % 3 % Monocytes % 4 % Eosinophils % 3 % Basophils % 0 % Neutrophils # 9.1 H (1.3-7.7) k/uL Lymphocytes # 0.4 L (1.0-4.8) k/uL Monocytes # 0.4 (0-1.0) k/uL Eosinophils # 0.4 (0-0.7) k/uL Basophils # 0.0 (0-0.2) k/uL Anisocytosis Slight PT (9.0-12.0) sec INR (<1.2) APTT (22.0-30.0) sec Sodium 123 L (137-145) mmol/L Potassium 4.2 (3.5-5.1) mmol/L Chloride 94 L (98-107) mmol/L Carbon Dioxide 18 L (22-30) mmol/L Anion Gap 11 mmol/L BUN 24 H (7-17) mg/dL Creatinine 1.60 H (0.52-1.04) mg/dL Est GFR (MDRD) Af Amer 37 (>60 ml/min/1.73 sqM) Est GFR (MDRD) Non-Af 31 (>60 ml/min/1.73 sqM) Glucose 136 H (74-99) mg/dL Calcium 9.4 (8.4-10.2) mg/dL Phosphorus 2.9 (2.5-4.5) mg/dL Magnesium 1.9 (1.6-2.3) mg/dL Total Bilirubin 0.8 (0.2-1.3) mg/dL AST 26 (14-36) U/L ALT 32 (9-52) U/L Alkaline Phosphatase 106 (38-126) U/L Total Creatine Kinase 156 H (30-135) U/L CK-MB (CK-2) 4.1 H* (0.0-2.4) ng/mL CK-MB (CK-2) Rel Index 2.6 Troponin I 0.013 (0.000-0.034) ng/mL Total Protein 6.0 L (6.3-8.2) g/dL Albumin 3.8 (3.5-5.0) g/dL 03/04/17 Range/Units 13:48 WBC (3.8-10.6) k/uL RBC (3.80-5.40) m/uL Hgb (11.4-16.0) gm/dL Hct (34.0-46.0) % MCV (80.0-100.0) fL MCH (25.0-35.0) pg MCHC (31.0-37.0) g/dL RDW (11.5-15.5) % Plt Count (150-450) k/uL Neutrophils % % Lymphocytes % % Monocytes % % Eosinophils % % Basophils % % Neutrophils # (1.3-7.7) k/uL Lymphocytes # (1.0-4.8) k/uL Monocytes # (0-1.0) k/uL Eosinophils # (0-0.7) k/uL Basophils # (0-0.2) k/uL Anisocytosis PT 23.3 H (9.0-12.0) sec INR 2.4 H (<1.2) APTT 35.8 H (22.0-30.0) sec Sodium (137-145) mmol/L Potassium (3.5-5.1) mmol/L Chloride (98-107) mmol/L Carbon Dioxide (22-30) mmol/L Anion Gap mmol/L BUN (7-17) mg/dL Creatinine (0.52-1.04) mg/dL Est GFR (MDRD) Af Amer (>60 ml/min/1.73 sqM) Est GFR (MDRD) Non-Af (>60 ml/min/1.73 sqM) Glucose (74-99) mg/dL Calcium (8.4-10.2) mg/dL Phosphorus (2.5-4.5) mg/dL Magnesium (1.6-2.3) mg/dL Total Bilirubin (0.2-1.3) mg/dL AST (14-36) U/L ALT (9-52) U/L Alkaline Phosphatase (38-126) U/L Total Creatine Kinase (30-135) U/L CK-MB (CK-2) (0.0-2.4) ng/mL CK-MB (CK-2) Rel Index Troponin I (0.000-0.034) ng/mL Total Protein (6.3-8.2) g/dL Albumin (3.5-5.0) g/dL Disposition Clinical Impression: Abdominal pain, Weakness, Nausea, Anemia Disposition: HOME SELF-CARE Condition: Fair
[2017-03-04 15:43] VITALS: BP 160/71; PULSE 74; RESP 18; TEMP 97
== END 2017-03-04 16:30 | disposition home or self-care (01) ==
LOC: EC 11:29 → 6SEL 14:18 → UNDOADMIN 14:18 → EC 16:30
DX: R10.9 Unspecified abdominal pain (principal); R53.1 Weakness; R11.0 Nausea; D64.9 Anemia, unspecified; R06.02 Shortness of breath; R07.9 Chest pain, unspecified; I48.91 Unspecified atrial fibrillation; J45.909 Unspecified asthma, uncomplicated; I25.10 Atherosclerotic heart disease of native coronary artery without angina pectoris; I11.0 Hypertensive heart disease with heart failure; I50.9 Heart failure, unspecified; E07.9 Disorder of thyroid, unspecified; Z86.73 Personal history of transient ischemic attack (TIA), and cerebral infarction without residual deficits; Z87.891 Personal history of nicotine dependence; Z79.1 Long term (current) use of non-steroidal anti-inflammatories (NSAID); Z79.01 Long term (current) use of anticoagulants; Z79.899 Other long term (current) drug therapy; Z79.82 Long term (current) use of aspirin; Z79.51 Long term (current) use of inhaled steroids; Z88.1 Allergy status to other antibiotic agents; Z88.8 Allergy status to other drugs, medicaments and biological substances
CPT/HCPCS: 36415; 80053; 81001; 82550; 82553; 83735; 84100; 84484; 85025; 85610; 85730; 87077; 87086; 87186; 93005; 96360; 96361; 99285

== ENCOUNTER 2017-03-07 02:36 | Emergency (ER) | payer MEDICARE, OTHER ==
[2017-03-07 02:43] VITALS: RESP 18
[2017-03-07] MEDS ORDERED: SODIUM CHLORIDE 0.9% 1,000 ML IV STA (02:46)
[2017-03-07] MEDS ORDERED: MAG HYDROX/AL HYDROX/SIMETH 30 ML, HYOSCYAMINE ELIXIR 10 ML, CIMETIDINE HCL 300 MG, LID... PO STA ×4 (02:47)
[2017-03-07] MEDS ORDERED: ONDANSETRON 4 MG/2 ML VIAL IVP STA (02:47)
--- NOTE | 2017-03-07 03:11 | ED ---
General Adult HPI - General Chief complaint: ENT Stated complaint: Sore Throat Time Seen by Provider: 03/07/17 02:38 Source: EMS, RN notes reviewed Mode of arrival: EMS Limitations: no limitations - History of Present Illness Initial comments: 81-year-old female presents to the emergency department with a seat chief complaint of sore throat and nausea. Patient states she's had the symptoms for about 3 weeks. She's been to her doctor she's been to [facility] [place]. Patient states she just continues to have sore throat. Patient has good stated this emergency department multiple times over the last week or so for weakness which she states associated with a sore throat. Patient hasn't had any fever chills there's been no vomiting. She states that she just does not know what else to do.Patient denies any recent fever, chills, shortness of breath, chest pain, back pain, abdominal pain, nausea vomiting, numbness or tingling, dysuria or hematuria, constipation or diarrhea, headaches or visual changes, or any other current symptoms. - Related Data Home Medications Medication Instructions Recorded Confirmed Albuterol Sulfate [Ventolin HFA] 1 - 2 puff INHALATION RT-Q6H PRN 03/26/1403/04 Allopurinol [Zyloprim] 100 mg PO BID 03/26/14 03/04/17 Aspirin EC [Ecotrin Low Dose] 81 mg PO QAM 03/02/15 03/04/17 Famotidine 20 mg PO QAM 03/02/15 03/04/17 Theophylline 24 Hour [Josh-24] 300 mg PO DAILY 03/02/15 03/04/17 Levothyroxine Sodium [Synthroid] 50 mcg PO QAM 10/06/15 03/04/17 Fluticasone Propionate [Flovent 1 puff INHALATION RT-BID 01/20/17 03/04/17 Hfa 220MCG] Cinacalcet HCl [Sensipar] 30 mg PO SUWE 02/13/17 03/04/17 Montelukast Sodium [Singulair] 10 mg PO QAM 02/13/17 03/04/17 hydrALAZINE HCL [Hydralazine HCl] 10 mg PO BID 02/13/17 03/04/17 Warfarin [Coumadin] 2.5 mg PO MOTUWETH 02/14/17 03/04/17 Metolazone [Zaroxolyn] 10 mg PO QAM 03/01/17 03/04/17 Warfarin [Coumadin] 5 mg PO SUFRSA 03/01/17 03/04/17 diphenhydrAMINE HCL [Benadryl] 25 mg PO Q6H PRN 03/01/17 03/04/17 Albuterol Nebulized [Ventolin 2.5 mg INHALATION RT-QID PRN 03/04/17 03/04/17 Nebulized] Ibuprofen [Motrin] 200 mg PO BID 03/04/17 03/04/17 Ondansetron [Zofran] 4 mg PO Q4H PRN 03/04/17 03/04/17 guaiFENesin-DM 100-10MG/5ML 10 ml PO Q6H PRN 03/04/17 03/04/17 [Robitussin DM] Allergies Allergy/AdvReac Type Severity Reaction Status Date / Time azithromycin Allergy Unknown Verified 03/07/17 02:40 [From Zithromax Z-Sotero] bumetanide [From Bumex] Allergy Swelling Verified 03/07/17 02:40 ciprofloxacin [From Cipro] Allergy Unknown Verified 03/07/17 02:40 Calcium Channel Blocking AdvReac Unknown Verified 03/07/17 02:40 Agent Dilt Review of Systems ROS Statement: Those systems with pertinent positive or pertinent negative responses have been documented in the HPI. ROS Other: All systems not noted in ROS Statement are negative. Past Medical History Past Medical History: Atrial Fibrillation, Asthma, Coronary Artery Disease (CAD) , Heart Failure, COPD, CVA/TIA, GERD/Reflux, Hypertension, Respiratory Disorder , Thyroid Disorder Additional Past Medical History / Comment(s): high uric acid "KIDNEY PROBLEMS", bronchits History of Any Multi-Drug Resistant Organisms: MRSA Date of last positivie culture/infection: 2011/MRSA MDRO Source:: sputum Past Surgical History: Heart Catheterization With Stent, Pacemaker Additional Past Surgical History / Comment(s): left carotid. Pacemaker placed 2011 Past Anesthesia/Blood Transfusion Reactions: No Reported Reaction Date of Last Stent Placement:: 2011 Type of Cardiac Device: Permanent Pacemaker Device Placement Date:: 12/12/2014 Past Psychological History: No Psychological Hx Reported Smoking Status: Former smoker Past Alcohol Use History: None Reported Past Drug Use History: None Reported - Past Family History Father Family Medical History: COPD Mother Family Medical History: No Reported History General Exam - General Exam Comments Initial Comments: General: The patient is awake and alert, in no distress, and does not appear acutely ill. Eye: Pupils are equal, round and reactive to light, extra-ocular movements are intact; there is normal conjunctiva bilaterally. No signs of icterus. Ears, nose, mouth and throat: There are moist mucous membranes and no oral lesions. Neck: The neck is supple, there is no tenderness. Cardiovascular: There is a regular rate and rhythm. No murmur, rub or gallop is appreciated. Respiratory: Lungs are clear to auscultation, respirations are non-labored, breath sounds are equal. No wheezes, stridor, rales, or rhonchi. Gastrointestinal: Soft, non-distended, non-tender abdomen without masses or organomegaly noted. There is no rebound or guarding present. No CVA tenderness. Bowel sounds are unremarkable. Back: There is no tenderness to palpation in the midline. There is no obvious deformity. No rashes noted. Musculoskeletal: Normal ROM, no tenderness, There is no pedal edema. There is no calf tenderness or swelling. Sensation intact. Pulses equal bilaterally 2+. Neurological: CN II-XII intact, There are no obvious motor or sensory deficits. Coordination appears grossly intact. Speech is normal. Skin: Skin is warm and dry and no rashes or lesions are noted. Psychiatric: Cooperative, appropriate mood & affect, normal judgment. Limitations: no limitations Course Vital Signs 03/07/17 02:41 Temperature 97.1 F L Pulse Rate 82 Respiratory 18 Rate Blood Pressure 144/65 O2 Sat by Pulse 99 Oximetry - Reevaluation(s) Reevaluation #1: 03/07/17 03:37 Patient is refusing x-rays. She has been here multiple times in the past week she has done x-rays that is not where her problem as she does not have these done they have done and off. Medical Decision Making - Medical Decision Making 81-year-old female presents to the emergency Department chief complaint of sore throat. This time lab work has been reviewed and is appear to be stable from previous visits. This and we discussion continued follow-up with her doctor as if she is followed by Dr. Wilkinson continue these medications. This tenderness patient will be discharged home. Return parameters were discussed all the questions. She states she understood. She will be discharged home at this time. - Lab Data Result diagrams: 03/07/17 03:10 03/07/17 03:10 Lab Results 03/07/17 03/07/17 Range/Units 03:10 03:10 WBC 9.5 (3.8-10.6) k/uL RBC 3.05 L (3.80-5.40) m/uL Hgb 9.1 L (11.4-16.0) gm/dL Hct 28.4 L (34.0-46.0) % MCV 93.1 (80.0-100.0) fL MCH 29.8 (25.0-35.0) pg MCHC 32.0 (31.0-37.0) g/dL RDW 16.8 H (11.5-15.5) % Plt Count 235 (150-450) k/uL Neutrophils % 76 % Lymphocytes % 8 % Monocytes % 5 % Eosinophils % 9 % Basophils % 0 % Neutrophils # 7.2 (1.3-7.7) k/uL Lymphocytes # 0.7 L (1.0-4.8) k/uL Monocytes # 0.5 (0-1.0) k/uL Eosinophils # 0.9 H (0-0.7) k/uL Basophils # 0.0 (0-0.2) k/uL Anisocytosis Slight Sodium 124 L (137-145) mmol/L Potassium 4.7 (3.5-5.1) mmol/L Chloride 96 L (98-107) mmol/L Carbon Dioxide 18 L (22-30) mmol/L Anion Gap 10 mmol/L BUN 24 H (7-17) mg/dL Creatinine 1.71 H (0.52-1.04) mg/dL Est GFR (MDRD) Af Amer 35 (>60 ml/min/1.73 sqM) Est GFR (MDRD) Non-Af 29 (>60 ml/min/1.73 sqM) Glucose 117 H (74-99) mg/dL Calcium 8.8 (8.4-10.2) mg/dL Total Bilirubin 0.9 (0.2-1.3) mg/dL AST 34 (14-36) U/L ALT 29 (9-52) U/L Alkaline Phosphatase 89 (38-126) U/L Total Protein 5.8 L (6.3-8.2) g/dL Albumin 3.7 (3.5-5.0) g/dL Amylase <30 L (30-110) U/L Lipase 81 (23-300) U/L Disposition Clinical Impression: Throat irritation Disposition: HOME SELF-CARE Condition: Stable Instructions: Pharyngitis (ED) Additional Instructions: Please use medication as discussed. Please follow up with family doctor if symptoms have not improved over the next two days. Please return to the emergency room if your symptoms increase or worsen or for any other concerns. Referrals: Mike Ahmadi MD [Primary Care Provider] - 1-2 days Time of Disposition: 04:12
[2017-03-07 03:36] LABS: Anisocytosis Slight; Basophils % (A) 0 %; CH 31.2; CHCM 33.8; Eosinophils # (A) 0.9 k/uL (0-0.7); Eosinophils % (A) 9 %; HCT 28.4 % (34.0-46.0); HDW 2.66; HGB 9.1 gm/dL (11.4-16.0); Luc # (Auto) 0.13; Luc % (Auto) 1; Lymphocytes # (A) 0.7 k/uL (1.0-4.8); Lymphocytes % (A) 8 %; MCH 29.8 pg (25.0-35.0); MCV 93.1 fL (80.0-100.0); Mean Platelet Volume 8.4; Monocytes # (A) 0.5 k/uL (0-1.0); Monocytes % (A) 5 %; Neutrophils # (A) 7.2 k/uL (1.3-7.7); Neutrophils % (A) 76 %; RBC 3.05 m/uL (3.80-5.40); RDW 16.8 % (11.5-15.5); WBC 9.5 k/uL (3.8-10.6); WBC (Perox) 9.44
[2017-03-07 03:56] LABS: Amylase <30 U/L (30-110); Anion Gap 10 mmol/L; Calcium 8.8 mg/dL (8.4-10.2); Carbon Dioxide 18 mmol/L (22-30); Chloride 96 mmol/L (98-107); Glucose 117 mg/dL (74-99); Non-African American GFR(MDRD) 29 (>60 ml/min/1.73 sqM); Sodium 124 mmol/L (137-145); Total Bilirubin 0.9 mg/dL (0.2-1.3)
[2017-03-07 04:01] LABS: Potassium 4.7 mmol/L (3.5-5.1); Total Protein 5.8 g/dL (6.3-8.2)
[2017-03-07 04:02] LABS: ALT 29 U/L (9-52); AST 34 U/L (14-36); Alkaline Phosphatase 89 U/L (38-126); Blood Urea Nitrogen 24 mg/dL (7-17)
[2017-03-07 04:12] VITALS: BP 160/73; PULSE 95; TEMP 98
== END 2017-03-07 04:27 | disposition home or self-care (01) ==
LOC: EC 02:36
DX: J39.2 Other diseases of pharynx (principal); I48.91 Unspecified atrial fibrillation; I25.10 Atherosclerotic heart disease of native coronary artery without angina pectoris; K21.9 Gastro-esophageal reflux disease without esophagitis; E07.9 Disorder of thyroid, unspecified; I11.0 Hypertensive heart disease with heart failure; I50.9 Heart failure, unspecified; J44.9 Chronic obstructive pulmonary disease, unspecified; Z86.73 Personal history of transient ischemic attack (TIA), and cerebral infarction without residual deficits; Z95.0 Presence of cardiac pacemaker; Z88.1 Allergy status to other antibiotic agents; Z88.8 Allergy status to other drugs, medicaments and biological substances; Z79.01 Long term (current) use of anticoagulants; Z79.1 Long term (current) use of non-steroidal anti-inflammatories (NSAID); Z79.82 Long term (current) use of aspirin; Z79.899 Other long term (current) drug therapy; Z87.891 Personal history of nicotine dependence
CPT/HCPCS: 99283; 96374; 96361; 36415; 80053; 82150; 83690; 85025; J2405

== ENCOUNTER 2017-03-11 18:15 | Emergency (ER) | payer MEDICARE, OTHER ==
[2017-03-11 18:28] VITALS: RESP 18
--- NOTE | 2017-03-11 18:57 | ED ---
General Adult HPI - General Chief complaint: ENT Stated complaint: Hx Infection in throat, not gone after katy Cespedesnes Time Seen by Provider: 03/11/17 18:39 Source: patient, RN notes reviewed, old records reviewed Mode of arrival: wheelchair Limitations: no limitations - History of Present Illness Initial comments: This is a 81-year-old female ER for evaluation of sore throat. Sore throat throat pain. Patient's concern that she may a blood infection of recent candidal infection of her throat. Patient is taking all medication as prescribed. Patient at this time denies chest pain or shortness of breath no fevers. No other significant complaints. - Related Data Home Medications Medication Instructions Recorded Confirmed Albuterol Sulfate [Ventolin HFA] 1 - 2 puff INHALATION RT-Q6H PRN 03/26/1403/11 Allopurinol [Zyloprim] 100 mg PO DAILY 03/26/14 03/11/17 Aspirin EC [Ecotrin Low Dose] 81 mg PO QAM 03/02/15 03/11/17 Famotidine 20 mg PO QAM 03/02/15 03/11/17 Theophylline 24 Hour [Josh-24] 300 mg PO DAILY 03/02/15 03/11/17 Levothyroxine Sodium [Synthroid] 50 mcg PO QAM 10/06/15 03/11/17 Fluticasone Propionate [Flovent 1 puff INHALATION RT-BID 01/20/17 03/11/17 Hfa 220MCG] Cinacalcet HCl [Sensipar] 30 mg PO SUWE 02/13/17 03/11/17 Montelukast Sodium [Singulair] 10 mg PO QAM 02/13/17 03/11/17 hydrALAZINE HCL [Hydralazine HCl] 10 mg PO BID 02/13/17 03/11/17 Warfarin [Coumadin] 2.5 mg PO MOTUWETH 02/14/17 03/11/17 Metolazone [Zaroxolyn] 10 mg PO QAM 03/01/17 03/11/17 Warfarin [Coumadin] 5 mg PO SUFRSA 03/01/17 03/11/17 diphenhydrAMINE HCL [Benadryl] 25 mg PO Q6H PRN 03/01/17 03/11/17 Albuterol Nebulized [Ventolin 2.5 mg INHALATION RT-QID PRN 03/04/17 03/11/17 Nebulized] Ibuprofen [Motrin] 200 mg PO BID 03/04/17 03/11/17 Ondansetron [Zofran] 4 mg PO Q4H PRN 03/04/17 03/11/17 guaiFENesin-DM 100-10MG/5ML 10 ml PO Q6H PRN 03/04/17 03/11/17 [Robitussin DM] Fluconazole [Diflucan] 100 mg PO DAILY 03/11/17 03/11/17 Allergies Allergy/AdvReac Type Severity Reaction Status Date / Time azithromycin Allergy Unknown Verified 03/11/17 18:28 [From Zithromax Z-Sotero] bumetanide [From Bumex] Allergy Swelling Verified 03/11/17 18:28 ciprofloxacin [From Cipro] Allergy Unknown Verified 03/11/17 18:28 Calcium Channel Blocking AdvReac Unknown Verified 03/11/17 18:28 Agent Dilt Review of Systems ROS Statement: Those systems with pertinent positive or pertinent negative responses have been documented in the HPI. ROS Other: All systems not noted in ROS Statement are negative. Past Medical History Past Medical History: Atrial Fibrillation, Asthma, Coronary Artery Disease (CAD) , Heart Failure, COPD, CVA/TIA, GERD/Reflux, Hypertension, Respiratory Disorder , Thyroid Disorder Additional Past Medical History / Comment(s): high uric acid "KIDNEY PROBLEMS", bronchits History of Any Multi-Drug Resistant Organisms: MRSA Date of last positivie culture/infection: 2011/MRSA MDRO Source:: sputum Past Surgical History: Heart Catheterization With Stent, Pacemaker Additional Past Surgical History / Comment(s): left carotid. Pacemaker placed 2011 Past Anesthesia/Blood Transfusion Reactions: No Reported Reaction Date of Last Stent Placement:: 2011 Type of Cardiac Device: Permanent Pacemaker Device Placement Date:: 12/12/2014 Past Psychological History: No Psychological Hx Reported Smoking Status: Former smoker Past Alcohol Use History: None Reported Past Drug Use History: None Reported - Past Family History Father Family Medical History: COPD Mother Family Medical History: No Reported History General Exam Limitations: no limitations General appearance: alert, in no apparent distress Head exam: Present: atraumatic, normocephalic, normal inspection Eye exam: Present: normal appearance, PERRL, EOMI. Absent: scleral icterus, conjunctival injection, periorbital swelling ENT exam: Present: normal exam, mucous membranes moist Neck exam: Present: normal inspection. Absent: tenderness, meningismus, lymphadenopathy Respiratory exam: Present: normal lung sounds bilaterally. Absent: respiratory distress, wheezes, rales, rhonchi, stridor Cardiovascular Exam: Present: regular rate, normal rhythm, normal heart sounds. Absent: systolic murmur, diastolic murmur, rubs, gallop, clicks GI/Abdominal exam: Present: soft, normal bowel sounds. Absent: distended, tenderness, guarding, rebound, rigid Extremities exam: Present: normal inspection, full ROM, normal capillary refill. Absent: tenderness, pedal edema, joint swelling, calf tenderness Back exam: Present: normal inspection Neurological exam: Present: alert, oriented X3, CN II-XII intact Psychiatric exam: Present: normal affect, normal mood Skin exam: Present: warm, dry, intact, normal color. Absent: rash Course Vital Signs 03/11/17 18:23 Temperature 97.7 F Pulse Rate 76 Respiratory 18 Rate Blood Pressure 127/60 O2 Sat by Pulse 98 Oximetry - Reevaluation(s) Reevaluation #1: 03/11/17 18:57 Patient spoke with at great length regarding need for psychiatric evaluation and patient declines with no homicidal or suicidal evaluation Reevaluation #2: 03/11/17 19:42 Patient swallowed the emergency room, spoke with Dr. Pino and was okay for discharge Medical Decision Making - Medical Decision Making Female the ER for evaluation recurrent evaluation of pain in throat, patient is not multiple to palpation medications, at this time patient states medical resources in the emergency room and to please continue to follow up with outpatient therapy. Patient is in no acute distress vital signs are normal and stable and patient will be discharged home Disposition Clinical Impression: Nausea & vomiting, Weakness Disposition: HOME SELF-CARE Condition: Good Instructions: Pharyngitis (ED) Referrals: Mike Ahmadi MD [Primary Care Provider] - 1-2 days
[2017-03-11 19:55] VITALS: BP 150/66; PULSE 64; TEMP 97.8
== END 2017-03-11 19:53 | disposition home or self-care (01) ==
LOC: EC 18:15
DX: R11.2 Nausea with vomiting, unspecified (principal); R53.1 Weakness; I48.91 Unspecified atrial fibrillation; I25.10 Atherosclerotic heart disease of native coronary artery without angina pectoris; J44.9 Chronic obstructive pulmonary disease, unspecified; K21.9 Gastro-esophageal reflux disease without esophagitis; I11.0 Hypertensive heart disease with heart failure; I50.9 Heart failure, unspecified; E07.9 Disorder of thyroid, unspecified; Z87.891 Personal history of nicotine dependence; Z79.82 Long term (current) use of aspirin; Z79.51 Long term (current) use of inhaled steroids; Z79.899 Other long term (current) drug therapy; Z79.01 Long term (current) use of anticoagulants; Z79.1 Long term (current) use of non-steroidal anti-inflammatories (NSAID); Z88.1 Allergy status to other antibiotic agents; Z88.8 Allergy status to other drugs, medicaments and biological substances
CPT/HCPCS: 99283

== ENCOUNTER 2017-03-16 03:15 | Inpatient (IN) | payer MEDICARE, OTHER ==
[2017-03-16] MEDS ORDERED: ALBUTEROL NEBULIZED 2.5 MG/3 ML INHALATION STA (03:34)
--- NOTE | 2017-03-16 03:48 | ED ---
SOB HPI - General Chief Complaint: Shortness of Breath Stated Complaint: nosebleed,chest tightness Time Seen by Provider: 03/16/17 03:31 Source: EMS Mode of arrival: EMS Limitations: no limitations - History of Present Illness Initial Comments: This patient is an 81-year-old woman who had phoned EMS tonight because she had developed left sided epistaxis. This had resolved by the time EMS got there but the patient per the report seem to be very anxious. She does report that she is feeling a little short of breath and when I evaluate her she requests breathing treatment. She does have history of some underlying COPD. Patient denies fever or chills. She denies change in cough or productive sputum. MD Complaint: shortness of breath -: minutes(s) Consistency: constant Improves With: nothing Worsens With: nothing Known History Of: COPD Associated Symptoms: denies other symptoms - Related Data Home Medications Medication Instructions Recorded Confirmed Albuterol Sulfate [Ventolin HFA] 1 - 2 puff INHALATION RT-Q6H PRN 03/26/1403/11 Allopurinol [Zyloprim] 100 mg PO DAILY 03/26/14 03/11/17 Aspirin EC [Ecotrin Low Dose] 81 mg PO QAM 03/02/15 03/11/17 Famotidine 20 mg PO QAM 03/02/15 03/11/17 Theophylline 24 Hour [Josh-24] 300 mg PO DAILY 03/02/15 03/11/17 Levothyroxine Sodium [Synthroid] 50 mcg PO QAM 10/06/15 03/11/17 Fluticasone Propionate [Flovent 1 puff INHALATION RT-BID 01/20/17 03/11/17 Hfa 220MCG] Cinacalcet HCl [Sensipar] 30 mg PO SUWE 02/13/17 03/11/17 Montelukast Sodium [Singulair] 10 mg PO QAM 02/13/17 03/11/17 hydrALAZINE HCL [Hydralazine HCl] 10 mg PO BID 02/13/17 03/11/17 Warfarin [Coumadin] 2.5 mg PO MOTUWETH 02/14/17 03/11/17 Metolazone [Zaroxolyn] 10 mg PO QAM 03/01/17 03/11/17 Warfarin [Coumadin] 5 mg PO SUFRSA 03/01/17 03/11/17 diphenhydrAMINE HCL [Benadryl] 25 mg PO Q6H PRN 03/01/17 03/11/17 Albuterol Nebulized [Ventolin 2.5 mg INHALATION RT-QID PRN 03/04/17 03/11/17 Nebulized] Ibuprofen [Motrin] 200 mg PO BID 03/04/17 03/11/17 Ondansetron [Zofran] 4 mg PO Q4H PRN 03/04/17 03/11/17 guaiFENesin-DM 100-10MG/5ML 10 ml PO Q6H PRN 03/04/17 03/11/17 [Robitussin DM] Fluconazole [Diflucan] 100 mg PO DAILY 03/11/17 03/11/17 Allergies Allergy/AdvReac Type Severity Reaction Status Date / Time azithromycin Allergy Unknown Verified 03/16/17 03:23 [From Zithromax Z-Sotero] bumetanide [From Bumex] Allergy Swelling Verified 03/16/17 03:23 ciprofloxacin [From Cipro] Allergy Unknown Verified 03/16/17 03:23 Calcium Channel Blocking AdvReac Unknown Verified 03/16/17 03:23 Agent Dilt Review of Systems ROS Statement: Those systems with pertinent positive or pertinent negative responses have been documented in the HPI. ROS Other: All systems not noted in ROS Statement are negative. Constitutional: Denies: fever, chills ENT: Reports: epistaxis Respiratory: Reports: dyspnea, wheezes. Denies: cough Cardiovascular: Denies: chest pain, palpitations, edema Gastrointestinal: Denies: abdominal pain, nausea, vomiting Genitourinary: Denies: dysuria, hematuria Musculoskeletal: Denies: back pain Skin: Denies: rash Neurological: Denies: headache, weakness, numbness Hematological/Lymphatic: Reports: other (Coumadin use) Past Medical History Past Medical History: Atrial Fibrillation, Asthma, Coronary Artery Disease (CAD) , Heart Failure, COPD, CVA/TIA, GERD/Reflux, Hypertension, Respiratory Disorder , Thyroid Disorder Additional Past Medical History / Comment(s): high uric acid "KIDNEY PROBLEMS", bronchits History of Any Multi-Drug Resistant Organisms: MRSA Date of last positivie culture/infection: 2011/ MDRO Source:: sputum Past Surgical History: Heart Catheterization With Stent, Pacemaker Additional Past Surgical History / Comment(s): left carotid. Pacemaker placed 2011 Past Anesthesia/Blood Transfusion Reactions: No Reported Reaction Date of Last Stent Placement:: 2011 Type of Cardiac Device: Permanent Pacemaker Device Placement Date:: 12/12/2014 Past Psychological History: No Psychological Hx Reported Smoking Status: Former smoker Past Alcohol Use History: None Reported Past Drug Use History: None Reported - Past Family History Father Family Medical History: COPD Mother Family Medical History: No Reported History General Exam Limitations: no limitations General appearance: alert, in no apparent distress Head exam: Present: atraumatic, normocephalic, normal inspection Eye exam: Present: normal appearance. Absent: scleral icterus, conjunctival injection ENT exam: Present: normal oropharynx, other (Clot in the left nare. No active bleeding) Neck exam: Present: normal inspection, full ROM Respiratory exam: Present: wheezes. Absent: respiratory distress, rales, rhonchi, stridor Cardiovascular Exam: Present: regular rate, normal rhythm, normal heart sounds. Absent: systolic murmur, diastolic murmur, rubs, gallop GI/Abdominal exam: Present: soft. Absent: distended, tenderness, guarding, rebound, organomegaly, mass Extremities exam: Present: normal inspection, normal capillary refill. Absent: pedal edema, calf tenderness Neurological exam: Present: alert Skin exam: Present: warm, dry, intact, normal color. Absent: rash Course Vital Signs 03/16/17 03/16/17 03/16/17 03:18 03:25 04:00 Temperature 96.9 F L Pulse Rate 74 60 Respiratory 18 17 Rate Blood Pressure 166/78 O2 Sat by Pulse 100 Oximetry 03/16/17 03/16/17 04:18 04:21 Temperature Pulse Rate 64 65 Respiratory 18 Rate Blood Pressure 144/68 O2 Sat by Pulse 98 Oximetry Medical Decision Making - Lab Data Result diagrams: 03/16/17 03:31 03/16/17 03:31 Lab Results 03/16/17 03/16/17 03/16/17 Range/Units 03:31 03:31 03:31 WBC 10.5 (3.8-10.6) k/uL RBC 3.61 L (3.80-5.40) m/uL Hgb 10.8 L (11.4-16.0) gm/dL Hct 31.9 L (34.0-46.0) % MCV 88.3 (80.0-100.0) fL MCH 30.0 (25.0-35.0) pg MCHC 34.0 (31.0-37.0) g/dL RDW 16.3 H (11.5-15.5) % Plt Count 317 (150-450) k/uL Neutrophils % 85 % Lymphocytes % 5 % Monocytes % 5 % Eosinophils % 4 % Basophils % 0 % Neutrophils # 8.9 H (1.3-7.7) k/uL Lymphocytes # 0.6 L (1.0-4.8) k/uL Monocytes # 0.5 (0-1.0) k/uL Eosinophils # 0.4 (0-0.7) k/uL Basophils # 0.0 (0-0.2) k/uL Anisocytosis Slight PT 69.1 H (9.0-12.0) sec INR 6.8 H* (<1.2) APTT 47.5 H (22.0-30.0) sec Sodium 121 L (137-145) mmol/L Potassium 4.2 (3.5-5.1) mmol/L Chloride 90 L (98-107) mmol/L Carbon Dioxide 18 L (22-30) mmol/L Anion Gap 13 mmol/L BUN 16 (7-17) mg/dL Creatinine 1.30 H (0.52-1.04) mg/dL Est GFR (MDRD) Af Amer 48 (>60 ml/min/1.73 sqM) Est GFR (MDRD) Non-Af 39 (>60 ml/min/1.73 sqM) Glucose 108 H (74-99) mg/dL Calcium 9.2 (8.4-10.2) mg/dL Magnesium 1.4 L (1.6-2.3) mg/dL Total Bilirubin 0.7 (0.2-1.3) mg/dL AST 24 (14-36) U/L ALT 31 (9-52) U/L Alkaline Phosphatase 120 (38-126) U/L Troponin I (0.000-0.034) ng/mL Total Protein 6.5 (6.3-8.2) g/dL Albumin 4.3 (3.5-5.0) g/dL 03/16/17 Range/Units 03:31 WBC (3.8-10.6) k/uL RBC (3.80-5.40) m/uL Hgb (11.4-16.0) gm/dL Hct (34.0-46.0) % MCV (80.0-100.0) fL MCH (25.0-35.0) pg MCHC (31.0-37.0) g/dL RDW (11.5-15.5) % Plt Count (150-450) k/uL Neutrophils % % Lymphocytes % % Monocytes % % Eosinophils % % Basophils % % Neutrophils # (1.3-7.7) k/uL Lymphocytes # (1.0-4.8) k/uL Monocytes # (0-1.0) k/uL Eosinophils # (0-0.7) k/uL Basophils # (0-0.2) k/uL Anisocytosis PT (9.0-12.0) sec INR (<1.2) APTT (22.0-30.0) sec Sodium (137-145) mmol/L Potassium (3.5-5.1) mmol/L Chloride (98-107) mmol/L Carbon Dioxide (22-30) mmol/L Anion Gap mmol/L BUN (7-17) mg/dL Creatinine (0.52-1.04) mg/dL Est GFR (MDRD) Af Amer (>60 ml/min/1.73 sqM) Est GFR (MDRD) Non-Af (>60 ml/min/1.73 sqM) Glucose (74-99) mg/dL Calcium (8.4-10.2) mg/dL Magnesium (1.6-2.3) mg/dL Total Bilirubin (0.2-1.3) mg/dL AST (14-36) U/L ALT (9-52) U/L Alkaline Phosphatase (38-126) U/L Troponin I 0.022 (0.000-0.034) ng/mL Total Protein (6.3-8.2) g/dL Albumin (3.5-5.0) g/dL - EKG Data -: EKG Interpreted by [facility] EKG shows normal: intervals (QRS duration 160 ms, QTC 528 ms.) Rate: normal Interpretation: other (The patient's underlying rhythm appears to be a paced rhythm at a rate is 73 bpm) Disposition Clinical Impression: Hyponatremia syndrome, Elevated INR, Epistaxis, Hypomagnesemia Disposition: ADMITTED IP TO THIS [facility] Condition: Poor Referrals: Mike Ahmadi MD [Primary Care Provider] - 1-2 days
[2017-03-16 03:49] LABS: Anisocytosis Slight; Basophils % (A) 0 %; CH 30.1; CHCM 34.3; Eosinophils # (A) 0.4 k/uL (0-0.7); Eosinophils % (A) 4 %; HCT 31.9 % (34.0-46.0); HDW 2.88; HGB 10.8 gm/dL (11.4-16.0); Luc # (Auto) 0.18; Luc % (Auto) 2; Lymphocytes # (A) 0.6 k/uL (1.0-4.8); Lymphocytes % (A) 5 %; MCV 88.3 fL (80.0-100.0); Mean Platelet Volume 7.7; Monocytes # (A) 0.5 k/uL (0-1.0); Monocytes % (A) 5 %; Neutrophils # (A) 8.9 k/uL (1.3-7.7); Neutrophils % (A) 85 %; RBC 3.61 m/uL (3.80-5.40); RDW 16.3 % (11.5-15.5); WBC 10.5 k/uL (3.8-10.6); WBC (Perox) 10.34
[2017-03-16 04:00] LABS: Calcium 9.2 mg/dL (8.4-10.2); Magnesium 1.4 mg/dL (1.6-2.3); Potassium 4.2 mmol/L (3.5-5.1); Total Bilirubin 0.7 mg/dL (0.2-1.3); Total Protein 6.5 g/dL (6.3-8.2)
--- NOTE | 2017-03-16 04:06 | XR ---
EXAM: XR Chest, 1 View CLINICAL HISTORY: Reason: chest pain TECHNIQUE: Frontal view of the chest. COMPARISON: 03/01/17 FINDINGS: Lungs: No dense consolidation or effusion. Overall decreased cephalization of the vessels and prominent vasculature Pleural space: Unremarkable. No pneumothorax. Heart: Heart size is borderline enlarged and unchanged. Mediastinum: Unremarkable. Bones/joints: Unremarkable. Vasculature: Calcified thoracic aorta is again seen. Tubes, lines and devices: Overlying chest leads obscuring portion of the chest. Other findings: Left-sided transvenous pacer remain unchanged in position. IMPRESSION: 1. No dense consolidation or effusion. 2. Stable borderline cardiomegaly. 3. Interval improvement of congestion
[2017-03-16 04:18] LABS: Partial Thromboplastin Time 47.5 sec (22.0-30.0); Prothrombin Time 69.1 sec (9.0-12.0)
[2017-03-16 04:19] LABS: INR 6.8 (<1.2)
[2017-03-16] MEDS ORDERED: PHYTONADIONE ORAL 5 MG/5 ML ORAL.SYRG PO STA ×2 (04:36→09:05)
[2017-03-16] MEDS ORDERED: SODIUM CHLORIDE 0.9% 500 ML IV STA (04:37)
[2017-03-16] MEDS ORDERED: NALOXONE 0.4 MG/ML 1 ML VIAL IV PRN (05:24)
[2017-03-16] MEDS ORDERED: diphenhydrAMINE 25 MG CAP PO PRN (05:27)
[2017-03-16] MEDS ORDERED: SODIUM CHLORIDE 0.9% 1,000 ML IV SCH (05:30)
[2017-03-16] MEDS: LEVOTHYROXINE 50 MCG TAB PO SCH (06:53)
[2017-03-16] MEDS: BUDESONIDE 0.5 MG/2 ML NEBU INHALATION SCH ×2 (08:27→20:46)
[2017-03-16] MEDS ORDERED: FAMOTIDINE 20 MG TAB PO SCH (09:00)
[2017-03-16] MEDS: METOLAZONE 5 MG TAB PO SCH (09:06)
[2017-03-16] MEDS: MONTELUKAST 10 MG TAB PO SCH (09:06)
[2017-03-16] MEDS: ASPIRIN 81 MG PO SCH (09:07)
[2017-03-16] MEDS: hydrALAZINE HCL 10 MG TAB PO SCH ×2 (09:07→22:51)
[2017-03-16] MEDS: THEOPHYLLINE 24 HOUR 300 MG CAP.ER.24H PO SCH (09:07)
[2017-03-16] MEDS: MAGNESIUM OXIDE 400 MG TAB PO SCH ×2 (09:07→22:50)
[2017-03-16] MEDS: ONDANSETRON 4 MG TAB PO PRN ×3 (09:08→22:52)
[2017-03-16] MEDS: SODIUM CHLORIDE 0.9% 1,000 ML IV SCH ×2 (12:13→22:51)
[2017-03-16] MEDS: ACETAMINOPHEN TAB 325 MG TAB PO PRN (16:01)
[2017-03-16] MEDS: ALBUTEROL NEBULIZED 2.5 MG/3 ML INHALATION PRN (20:46)
[2017-03-17] MEDS: LEVOTHYROXINE 50 MCG TAB PO SCH (06:26)
[2017-03-17] MEDS: ASPIRIN 81 MG PO SCH ×2 (08:06→08:12)
[2017-03-17] MEDS: FAMOTIDINE 20 MG TAB PO SCH (08:06)
[2017-03-17] MEDS: MAGNESIUM OXIDE 400 MG TAB PO SCH ×2 (08:07→20:03)
[2017-03-17] MEDS: THEOPHYLLINE 24 HOUR 300 MG CAP.ER.24H PO SCH (08:08)
[2017-03-17] MEDS: MONTELUKAST 10 MG TAB PO SCH (08:08)
[2017-03-17] MEDS: hydrALAZINE HCL 10 MG TAB PO SCH ×2 (08:09→20:03)
[2017-03-17] MEDS: METOLAZONE 5 MG TAB PO SCH (08:09)
[2017-03-17 09:01] LABS: INR 1.5 (<1.2); Prothrombin Time 14.7 sec (9.0-12.0)
[2017-03-17] MEDS: BUDESONIDE 0.5 MG/2 ML NEBU INHALATION SCH ×2 (10:34→21:10)
[2017-03-17] MEDS: ALBUTEROL NEBULIZED 2.5 MG/3 ML INHALATION PRN (11:06)
[2017-03-17] MEDS: SODIUM CHLORIDE 0.9% 1,000 ML IV SCH (11:31)
[2017-03-17] MEDS: ONDANSETRON 4 MG TAB PO PRN (14:10)
[2017-03-17] MEDS: WARFARIN 5 MG TAB PO SCH (17:09)
[2017-03-17 19:16] LABS: Appearance,Urine Clear (Clear); Bilirubin,Urine Negative (Negative); Glucose,Urine (UA) Negative (Negative); Ketones,Urine Negative (Negative); Leukocyte Esterase,Urine Negative (Negative); Nitrite,Urine Negative (Negative); PH, Urine 5.5 (5.0-8.0); Protein,Urine Trace (Negative); Specific Gravity,Urine 1.004 (1.001-1.035); UA Billing (MACRO vs. MICRO) CHEM; Urobilinogen,Urine <2.0 mg/dL (<2.0)
[2017-03-17] MEDS: ACETAMINOPHEN TAB 325 MG TAB PO PRN (20:02)
[2017-03-18] MEDS: SODIUM CHLORIDE 0.9% 1,000 ML IV SCH ×3 (06:26→11:24)
[2017-03-18] MEDS: LEVOTHYROXINE 50 MCG TAB PO SCH (06:26)
[2017-03-18] MEDS: FAMOTIDINE 20 MG TAB PO SCH (07:38)
[2017-03-18] MEDS: hydrALAZINE HCL 10 MG TAB PO SCH ×2 (07:38→20:33)
[2017-03-18] MEDS: MAGNESIUM OXIDE 400 MG TAB PO SCH ×2 (07:39→20:33)
[2017-03-18] MEDS: MONTELUKAST 10 MG TAB PO SCH (07:40)
[2017-03-18] MEDS: METOLAZONE 5 MG TAB PO SCH (07:40)
[2017-03-18] MEDS: THEOPHYLLINE 24 HOUR 300 MG CAP.ER.24H PO SCH (07:40)
[2017-03-18] MEDS: ASPIRIN 81 MG PO SCH (07:42)
[2017-03-18] MEDS: BUDESONIDE 0.5 MG/2 ML NEBU INHALATION SCH ×2 (08:13→19:55)
[2017-03-18] MEDS ORDERED: CINACALCET 30 MG TAB PO SCH (09:00)
[2017-03-18 09:03] LABS: INR 1.2 (<1.2); Prothrombin Time 12.4 sec (9.0-12.0)
[2017-03-18 09:16] LABS: Anisocytosis Slight; Basophils % (A) 0 %; CH 29.4; CHCM 33.1; Calcium 8.7 mg/dL (8.4-10.2); Eosinophils # (A) 0.5 k/uL (0-0.7); Eosinophils % (A) 6 %; HCT 31.2 % (34.0-46.0); HDW 2.89; HGB 10.4 gm/dL (11.4-16.0); Luc # (Auto) 0.13; Luc % (Auto) 2; Lymphocytes # (A) 0.5 k/uL (1.0-4.8); Lymphocytes % (A) 6 %; MCH 29.9 pg (25.0-35.0); MCHC 33.5 g/dL (31.0-37.0); MCV 89.3 fL (80.0-100.0); Mean Platelet Volume 8.1; Monocytes # (A) 0.5 k/uL (0-1.0); Monocytes % (A) 6 %; Neutrophils # (A) 6.5 k/uL (1.3-7.7); Neutrophils % (A) 81 %; Potassium 4.1 mmol/L (3.5-5.1); RBC 3.49 m/uL (3.80-5.40); RDW 16.2 % (11.5-15.5); WBC 8.1 k/uL (3.8-10.6); WBC (Perox) 8.02
--- NOTE | 2017-03-18 09:24 | HP ---
CHIEF COMPLAINT: Epistaxis. HISTORY OF PRESENT ILLNESS: This is another recent admission for this 81-year- old white female who presented to the Emergency Room with epistaxis and her INR was greater than 6. She has been having multiple problems of late, many of which are related to anxiety and depression. She does have a history of atrial fibrillation, congestive heart failure and CKD, in addition to which she is very noncompliant in terms of taking her medications. She has her PT, [facility], but admits that she has not been going there. REVIEW OF SYSTEMS: She has had no headaches, neurologic symptoms, confusion, change in vision or hearing, cough, hemoptysis, chest pain, shortness of breath , palpitations, orthopnea, PND, abdominal pain, nausea, vomiting, hematemesis, melena, hematochezia, jaundice, hematuria, frequency, urgency, arthralgias. PAST MEDICAL HISTORY, FAMILY HISTORY, PERSONAL AND SOCIAL HISTORY: Essentially unchanged from recent admitting and discharge summaries. She cannot take amlodipine or quinolones. Current medications include: 1. Sensipar 30 mg 3 times a week. 2. Augmentin 500/125 one-half tablet every 12 hours. 3. Ondansetron 4 mg q.6 p.r.n. nausea and vomiting. 4. Flovent 220 one puff twice a day. 5. Ventolin HFA 2 puffs p.r.n. 6. Singulair 10 mg once a day. 7. Coumadin 5 mg Thursday, , Thursday and Thursday and 2.5 Thursday, Thursday and Thursday. 8. She uses albuterol nebulizer. 9. She is on Allopurinol 100 mg once a day. 10. Levothyroxine 0.05 mg once a day. 11. CPAP device. 12. QVAR 80 one puff twice a day. 13. Hydralazine 10 mg twice a day. 14. Pepcid. 15. Aspirin 81 mg a day. She does not smoke or drink. She has been having a lot of trouble with anxiety , but she refuses counseling or psychiatric evaluation. PHYSICAL EXAM: Blood pressure 120/58, pulse 56 and irregular, respirations of 20 and temperature 96.9. GENERAL: She appeared to be well-developed, well-nourished, in no acute distress. Skin color is normal, skin is warm and dry. Lymph nodes are not enlarged. Head , ears, eyes, nose, mouth and throat are normal except for blood in both nares. Throat was clear. Neck was supple and lymph nodes are not enlarged. The chest is clear and cardiac exam is normal except for atrial fibrillation ( ) . Abdomen is soft and nontender and there are no masses or organomegaly. Extremities are normal. Neurologically, she is intact. IMPRESSION: 1. Epistaxis. 2. Hyperprothrombinemia, iatrogenic. 3. Congestive heart failure. 4. Chronic kidney disease. 5. Depression. 6. Anxiety neurosis. PLAN: 1. Bed rest. 2. IV fluids. 3. Vitamin K to correct elevated INR. 4. ENT consult. 5. Switch services for placement. She would like to go into a snf or some type of extended care facility. KATHY
--- NOTE | 2017-03-18 09:34 | PN ---
CHIEF COMPLAINT: Epistaxis. HISTORY OF PRESENT ILLNESS: This lady is doing well and she has had no further bleeding. Her INR is coming down nicely. Sodium is still low. PHYSICAL EXAM: The chest is clear. The cardiac exam is normal and the abdomen is soft and nontender. IMPRESSION: 1. Epistaxis. 2. Hyponatremia. 3. Congestive heart failure. 4. Renal failure. PLAN: Continue with current IV solution and continue to see if her sodium rises. MTDD
--- NOTE | 2017-03-18 09:43 | PN ---
DATE OF SERVICE: 03/17/2017 CHIEF COMPLAINT: Epistaxis and hyponatremia. HISTORY OF PRESENT ILLNESS: This lady is weak today. She is not complaining of any focal neurologic deficits. She seems more lethargic. Electrolytes are being corrected and she has had no further bleeding. PHYSICAL EXAM: Head, ears, eyes, nose, mouth and throat are normal. Neck veins are not distended. The chest is clear and cardiac exam is unchanged. Abdomen is soft, nontender. IMPRESSION: 1. Epistaxis. 2. Hyponatremia. 3. Congestive heart failure. 4. Renal failure. PLAN: Continue with IV fluids and wait. Guidance from [employer]. She may be going to a retirement in the next day or two. KATHY
--- NOTE | 2017-03-18 11:29 | CDI ---
In responding to this query, please exercise your independent professional judgment. The [facility] Coding Staff and Clinical Documentation Specialists appreciate your assistance in clarifying documentation, maintaining compliance with coding guidelines, accurately documenting patients condition and capturing severity of illness. The fact that a question is asked does not imply that any particular answer is desired or expected. Communication forms are a method of clarifying documentation and are not made part of the Legal Health Record. Thank you in advance for your clarification. Last Revision, May 2015 Otis Lackey [address] [facility] [place] [address] Documentation Clarification Form Date: 03/18/2017 10:45:00 AM From: Elba Vik Admit Date: 03/16/2017 5:24:00 AM Patient Name: Dotty Mcgregor Visit Number: [id number] Discharge Date: Dr. Mike Ahmadi History/Risk Factors: CHF, Chronic kidney disease, Atrial Fibrillation Current BUN 16, CR 1.30, GFR 39 Patients Baseline: Not noted Clinical Indicators: She has a history or chronic kidney disease and present with epistaxis and hyponatremia. Treatment: IV Fluids Monitor Labs In order to capture the severity of condition, please clarify if the condition signifies: CKD Stage 1 (GFR > 90) CKD Stage 2 (GFR 60-89) CKD Stage 3 (GFR 30-59) CKD Stage 4 (GFR 15-29) CKD Stage 5 (GFR <15) ESRD Unable to determine Other condition, please specify Please document in your progress notes and discharge summary in order to capture severity of illness and risk of mortality. Include clinical findings that support your diagnosis. FYI: Press F11 to launch patient chart. KATHY
--- NOTE | 2017-03-18 11:50 | CDI ---
In responding to this query, please exercise your independent professional judgment. The [facility] Coding Staff and Clinical Documentation Specialists appreciate your assistance in clarifying documentation, maintaining compliance with coding guidelines, accurately documenting patients condition and capturing severity of illness. The fact that a question is asked does not imply that any particular answer is desired or expected. Communication forms are a method of clarifying documentation and are not made part of the Legal Health Record. Thank you in advance for your clarification. Last Revision, May 2015 Otis Lackey [address] [facility] [place] [address] Documentation Clarification Form Date: 03/18/2017 11:31:00 AM From: Elba Chery Admit Date: 03/16/2017 5:24:00 AM Patient Name: Dotty Mcgregor Visit Number: [id number] Discharge Date: Dr. Mike Ahmadi Atrial fibrillation is documented in the H&P. History/Risk Factors: Atrial fibrillation, Chronic kidney disease, CHF, COPD Clinical Indicators: ED seem to be very anxious. and feeling, a little short of breath. VS: 166/78 74 18 96.9 Labs: PT 69.1, INR 6.8 EKG/telemetry: Underlying rhythm appears to be paced at 73. Treatment: Monitor PT/INR Coumadin per orders In your professional opinion, can you please clarify the type of atrial fibrillation, if known? Chronic/Permanent Paroxysmal Persistent Other, please specify Unable to determine Please document in your progress notes and discharge summary in order to capture severity of illness and risk of mortality. Include clinical findings that support your diagnosis. FYI: Press F11 to launch patient chart MTDD
[2017-03-18] MEDS: ALBUTEROL NEBULIZED 2.5 MG/3 ML INHALATION PRN ×2 (12:09→19:55)
[2017-03-18] MEDS: WARFARIN 5 MG TAB PO SCH (17:26)
[2017-03-19] MEDS: ALBUTEROL NEBULIZED 2.5 MG/3 ML INHALATION PRN (06:12)
[2017-03-19] MEDS: LEVOTHYROXINE 50 MCG TAB PO SCH (06:29)
[2017-03-19] MEDS: MAGNESIUM OXIDE 400 MG TAB PO SCH (08:04)
[2017-03-19] MEDS: MONTELUKAST 10 MG TAB PO SCH (08:04)
[2017-03-19] MEDS: ASPIRIN 81 MG PO SCH (08:04)
[2017-03-19] MEDS: THEOPHYLLINE 24 HOUR 300 MG CAP.ER.24H PO SCH (08:05)
[2017-03-19] MEDS: METOLAZONE 5 MG TAB PO SCH (08:05)
[2017-03-19] MEDS: hydrALAZINE HCL 10 MG TAB PO SCH (08:05)
[2017-03-19] MEDS: FAMOTIDINE 20 MG TAB PO SCH (08:05)
--- NOTE | 2017-03-19 08:05 | PN ---
PROGRESS NOTE Date of Service: DATE OF SERVICE: 03/18/2017 CHIEF COMPLAINT: Epistaxis, hyponatremia. HISTORY OF PRESENT ILLNESS: This lady is doing a little bit better. She is stronger and sitting up and eating. She feels much better. She is less short of breath. PHYSICAL EXAM: Chest is fairly clear. The cardiac exam is normal and she still has atrial fibrillation. Abdomen is soft, nontender. IMPRESSION: 1. Epistaxis. 2. 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 3. Congestive heart failure. 4. Atrial fibrillation. 5. Renal failure. PLAN: Continue to progress activity and wait for prison to open up. MMODL / IJN: [id number] /
[2017-03-19 08:23] LABS: INR 1.3 (<1.2); Prothrombin Time 13.1 sec (9.0-12.0)
[2017-03-19] MEDS: BUDESONIDE 0.5 MG/2 ML NEBU INHALATION SCH (08:45)
[2017-03-19] MEDS ORDERED: DOCUSATE 100 MG CAP PO PRN (09:26)
[2017-03-19] MEDS: SODIUM CHLORIDE 0.9% 1,000 ML IV SCH (11:07)
--- NOTE | 2017-03-19 16:48 | DS ---
DISCHARGE SUMMARY CHIEF COMPLAINT: Epistaxis, congestive heart failure, renal failure, atrial fibrillation, hyponatremia and failure to thrive. HISTORY OF PRESENT ILLNESS AND PHYSICAL EXAM: The details of this lady's history and physical can be found in the initial workup. LABORATORY STUDIES: While she was in the hospital she had laboratory studies, details of which can be found in the laboratory section of the chart. COURSE IN HOSPITAL: After admission she placed on bedrest, started on intravenous fluids and her INR was corrected. It was over 6 initially. She had not been going to the Coumadin lab. She was quite noncompliant. She was seen by ENT and nothing further was done once her INR was dropped down and she stopped bleeding. She was then put back on low-dose Coumadin and the balance of her hospitalization was spent correcting her hyponatremia and increasing her activity as well as getting her set up for rehab. It was felt that she could go to a jail on the and arrangements were made. We will follow her in the home. FINAL DIAGNOSIS: 1. Epistaxis. 2. Iatrogenic hyperprothrombinemia. 3. Hyponatremia. 4. Congestive heart failure. 5. Chronic obstructive pulmonary disease. 6. Atrial fibrillation. 7. Chronic renal failure. 8. Depression. 9. General debility and failure to thrive. OPERATIONS: None. CONSULTATIONS: ENT. She was improved. JULIANA / FARIDA: [id number] /
[2017-03-19 18:01] VITALS: BP 142/71; PULSE 84; RESP 16; TEMP 97.1
--- NOTE | 2017-03-26 09:37 | CDI ---
In responding to this query, please exercise your independent professional judgment. The [facility] Coding Staff and Clinical Documentation Specialists appreciate your assistance in clarifying documentation, maintaining compliance with coding guidelines, accurately documenting patients condition and capturing severity of illness. The fact that a question is asked does not imply that any particular answer is desired or expected. Communication forms are a method of clarifying documentation and are not made part of the Legal Health Record. Thank you in advance for your clarification. Last Revision, May 2015 Otis Lackey [address] [facility] [place] [address] Documentation Clarification Form Date: 03/18/2017 10:45:00 AM Resubmitted 03/26/2017 From: Elba Chery RN, CCDS Admit Date: 03/16/2017 5:24:00 AM Patient Name: Dotty Mcgregor Visit Number: [id number] Discharge Date: 03/19/2017 Dr. Mike Ahmaid History/Risk Factors: CHF, Chronic kidney disease, Atrial Fibrillation Current BUN 16, CR 1.30, GFR 39 Patients Baseline: Not noted Clinical Indicators: Present with epistaxis with INR greater than 6 and Hyponatremia, she is noncompliant with her medication. Treatment: IV Fluids, Monitor Labs, Vit K for coagulopathy. In order to capture the severity of condition, please clarify if the condition signifies: CKD Stage 1 (GFR > 90) CKD Stage 2 (GFR 60-89) CKD Stage 3 (GFR 30-59) CKD Stage 4 (GFR 15-29) CKD Stage 5 (GFR <15) ESRD Unable to determine Other condition, please specify Please document in your progress notes and discharge summary prior to signing this document in order to capture severity of illness and risk of mortality. Include clinical findings that support your diagnosis. FYI: Press F11 to launch patient chart. KATHY
--- NOTE | 2017-03-26 09:40 | CDI ---
In responding to this query, please exercise your independent professional judgment. The [facility] Coding Staff and Clinical Documentation Specialists appreciate your assistance in clarifying documentation, maintaining compliance with coding guidelines, accurately documenting patients condition and capturing severity of illness. The fact that a question is asked does not imply that any particular answer is desired or expected. Communication forms are a method of clarifying documentation and are not made part of the Legal Health Record. Thank you in advance for your clarification. Last Revision, May 2015 Otis Lackey [address] [facility] [place] [address] Documentation Clarification Form Date: 03/18/2017 11:31:00 AM Resubmitted 03/26/2017 From: Elba Chery RN, CCDS Admit Date: 03/16/2017 5:24:00 AM Patient Name: Dotty Mcgregor Visit Number: [id number] Discharge Date: 03/19/2017 Dr. Mike Ahmadi: Atrial fibrillation is documented in the H&P. History/Risk Factors: Atrial fibrillation, Chronic kidney disease, CHF, COPD Clinical Indicators: ED seem to be very anxious. and feeling a little short of breath. VS: 166/78 74 18 96.9 Labs: PT 69.1, INR 6.8 EKG/telemetry: Underlying rhythm appears to be paced at 63 Treatment: Monitor PT/INR Coumadin per orders In your professional opinion, can you please clarify the type of atrial fibrillation, if known? Chronic/Permanent Paroxysmal Persistent Other, please specify Unable to determine Please document in your progress notes and discharge summary in order to capture severity of illness and risk of mortality. Include clinical findings that support your diagnosis. FYI: Press F11 to launch patient chart MTDD
--- NOTE | 2017-03-31 08:26 | DS ---
DISCHARGE SUMMARY CHIEF COMPLAINT: Congestive heart failure and renal failure. HISTORY OF PRESENT ILLNESS AND PHYSICAL EXAM: Details of this lady's history and physical can be found in the initial workup. LABORATORY STUDIES: While she was in the hospital she had laboratory studies, details which can be found in the laboratory section of her chart. COURSE IN HOSPITAL: After admission, she was placed at bed rest, started on intravenous fluids and was rehydrated. Electrolytes, BUN and creatinine came into normal range and she was doing well and it was felt that she could be discharged and she will go to a longterm for physical therapy and rehab. FINAL DIAGNOSES: 1. Dehydration. 2. Acute renal failure. 3. Chronic renal failure. 4. Congestive heart failure. 5. Atrial fibrillation. 6. Iatrogenic hyperprothrombinemia. 7. Depression. OPERATIONS: None. CONSULTATION: None. She is improved. EROSL / ANAMN: [id number] /
== END 2017-03-19 17:26 | DRG 641 ==
LOC: EC 03:15 → 4MS4W 05:24 → OBSVTOIN 05:24
PROVIDERS: ADMIT Family Medicine; ATTEND Family Medicine
DX: E87.1 Hypo-osmolality and hyponatremia (principal); E86.0 Dehydration; I13.0 Hypertensive heart and chronic kidney disease with heart failure and stage 1 through stage 4 chronic kidney disease, or unspecified chronic kidney disease; I50.9 Heart failure, unspecified; J44.9 Chronic obstructive pulmonary disease, unspecified; I48.91 Unspecified atrial fibrillation; E83.42 Hypomagnesemia; N18.9 Chronic kidney disease, unspecified; F32.9 Major depressive disorder, single episode, unspecified; R62.7 Adult failure to thrive; E07.9 Disorder of thyroid, unspecified; R04.0 Epistaxis; K21.9 Gastro-esophageal reflux disease without esophagitis; I25.10 Atherosclerotic heart disease of native coronary artery without angina pectoris; F41.1 Generalized anxiety disorder; R79.1 Abnormal coagulation profile; T45.515A Adverse effect of anticoagulants, initial encounter; Z79.82 Long term (current) use of aspirin; Z79.899 Other long term (current) drug therapy; Z86.73 Personal history of transient ischemic attack (TIA), and cerebral infarction without residual deficits; Z87.891 Personal history of nicotine dependence; Z95.0 Presence of cardiac pacemaker; Z91.19 Patient's noncompliance with other medical treatment and regimen; Z86.14 Personal history of Methicillin resistant Staphylococcus aureus infection
CPT/HCPCS: 36415; 71010; 80048; 80053; 81003; 83735; 84484; 85025; 85610; 85730; 87086; 93005; 94640; 94760; 96360; 99285

== ENCOUNTER 2017-04-05 05:08 | Emergency (ER) | payer MEDICARE, OTHER ==
[2017-04-05 05:13] VITALS: RESP 16
[2017-04-05] MEDS ORDERED: LORazepam 2 MG/ML SYRINGE IV STA (05:36)
[2017-04-05] MEDS ORDERED: IPRATROPIUM-ALBUTEROL 3 ML NEB INHALATION STA (05:36)
[2017-04-05] MEDS ORDERED: SODIUM CHLORIDE 0.9% 1,000 ML IV STA (05:36)
--- NOTE | 2017-04-05 06:40 | XR ---
EXAM: XR Chest, 2 Views CLINICAL HISTORY: Reason: pain TECHNIQUE: Frontal and lateral views of the chest. COMPARISON: 03/16/17 FINDINGS: Lungs: Nonspecific diffuse bilateral pulmonary interstitial prominence. Pleural space: Trace bilateral pleural effusions. No pneumothorax. Heart: Unremarkable. No cardiomegaly. Mediastinum: Unremarkable. Bones/joints: Unremarkable. Tubes, lines and devices: Left chest. Generator in place with lead in the right ventricle. IMPRESSION: Trace bilateral pleural effusions. No lobar consolidation or pulmonary edema.
--- NOTE | 2017-04-05 06:42 | ED ---
General Adult HPI - General Chief complaint: Shortness of Breath Stated complaint: FABIOLA Time Seen by Provider: 04/05/17 05:17 Source: patient, EMS, RN notes reviewed, old records reviewed Mode of arrival: EMS Limitations: no limitations - History of Present Illness Initial comments: This is a 1-year-old female here for exertion or shortness of breath. Patient rate very concerning for breathing. Patient is well-known to this emergency department for similar symptoms. Patient states this is just like her normal symptoms. No fevers or cough no congestion no chest pain. - Related Data Home Medications Medication Instructions Recorded Confirmed Allopurinol [Zyloprim] 100 mg PO DAILY 03/26/14 04/06/17 Previous Rx's Medication Instructions Recorded Acetaminophen Tab [Tylenol] 650 mg PO Q6HR PRN tab 03/19/17 Albuterol Nebulized [Ventolin 2.5 mg INHALATION RT-Q6H PRN neb 03/19/17 Nebulized] Aspirin 81 mg PO QAM 03/19/17 Budesonide [Pulmicort] 0.5 mg INHALATION RT-BID neb 03/19/17 Cinacalcet [Sensipar] 30 mg PO SuWe@0900 tab 03/19/17 Docusate [Colace] 100 mg PO DAILY PRN cap 03/19/17 Famotidine [Pepcid] 20 mg PO DAILY tab 03/19/17 Levothyroxine Sodium [Synthroid] 50 mcg PO 0630 tab 03/19/17 Magnesium Oxide [Mag-Ox] 400 mg PO BID tab 03/19/17 Metolazone [Zaroxolyn] 10 mg PO QAM tab 03/19/17 Montelukast [Singulair] 10 mg PO QAM tab 03/19/17 Theophylline 24 Hour [Josh-24] 300 mg PO DAILY cap 03/19/17 Warfarin Sodium [Coumadin] 2.5 mg PO DAILY #30 tablet 03/19/17 diphenhydrAMINE [Benadryl] 25 mg PO Q6H PRN cap 03/19/17 hydrALAZINE HCL [Apresoline] 10 mg PO BID tab 03/19/17 rOPINIRole HCL [Requip] 0.25 mg PO HS tab 03/19/17 Allergies Allergy/AdvReac Type Severity Reaction Status Date / Time azithromycin Allergy Unknown Verified 04/06/17 19:47 [From Zithromax Z-Sotero] bumetanide [From Bumex] Allergy Swelling Verified 04/06/17 19:47 ciprofloxacin [From Cipro] Allergy Unknown Verified 04/06/17 19:47 Calcium Channel Blocking AdvReac Unknown Verified 04/06/17 19:47 Agent Dilt Review of Systems ROS Statement: Those systems with pertinent positive or pertinent negative responses have been documented in the HPI. ROS Other: All systems not noted in ROS Statement are negative. Past Medical History Past Medical History: Atrial Fibrillation, Asthma, Coronary Artery Disease (CAD) , Heart Failure, COPD, CVA/TIA, GERD/Reflux, Hypertension, Respiratory Disorder , Thyroid Disorder Additional Past Medical History / Comment(s): high uric acid "KIDNEY PROBLEMS", bronchits History of Any Multi-Drug Resistant Organisms: MRSA Date of last positivie culture/infection: 2011/MRSA MDRO Source:: sputum Past Surgical History: Heart Catheterization With Stent, Pacemaker Additional Past Surgical History / Comment(s): left carotid. Pacemaker placed 2011 Past Anesthesia/Blood Transfusion Reactions: No Reported Reaction Date of Last Stent Placement:: 2011 Type of Cardiac Device: Permanent Pacemaker Device Placement Date:: 12/12/2014 Past Psychological History: No Psychological Hx Reported Smoking Status: Former smoker Past Alcohol Use History: None Reported Past Drug Use History: None Reported - Past Family History Father Family Medical History: COPD Mother Family Medical History: No Reported History General Exam Limitations: no limitations General appearance: alert, in no apparent distress Head exam: Present: atraumatic, normocephalic, normal inspection Eye exam: Present: normal appearance, PERRL, EOMI. Absent: scleral icterus, conjunctival injection, periorbital swelling ENT exam: Present: normal exam, mucous membranes moist Neck exam: Present: normal inspection. Absent: tenderness, meningismus, lymphadenopathy Respiratory exam: Present: normal lung sounds bilaterally. Absent: respiratory distress, wheezes, rales, rhonchi, stridor Cardiovascular Exam: Present: regular rate, normal rhythm, normal heart sounds. Absent: systolic murmur, diastolic murmur, rubs, gallop, clicks GI/Abdominal exam: Present: soft, normal bowel sounds. Absent: distended, tenderness, guarding, rebound, rigid Extremities exam: Present: normal inspection, full ROM, normal capillary refill. Absent: tenderness, pedal edema, joint swelling, calf tenderness Back exam: Present: normal inspection Neurological exam: Present: alert, oriented X3, CN II-XII intact Psychiatric exam: Present: normal affect, normal mood Skin exam: Present: warm, dry, intact, normal color. Absent: rash Course Vital Signs 04/05/17 04/05/17 04/05/17 05:10 06:00 06:10 Temperature 97.2 F L Pulse Rate 80 88 90 Respiratory 16 Rate Blood Pressure 166/68 O2 Sat by Pulse 99 Oximetry 04/05/17 07:06 Temperature 97.5 F L Pulse Rate 84 Respiratory 16 Rate Blood Pressure 157/78 O2 Sat by Pulse 99 Oximetry - Reevaluation(s) Reevaluation #1: Medical records thoroughly reviewed, patient while in the facility with symptoms very similar, no known cause patient does have known underlying history of anxiety EKG Findings - EKG Comments: EKG Findings:: EKG shows paced rhythm at 65, RI 162, QTC 536 Medical Decision Making - Medical Decision Making 80. ER for evaluation likely current anxiety reaction. X-ray negative patient is in no distress at vital signs are normal, oxygen level normal. Patient can be discharged home - Lab Data Lab Results 04/05/17 Range/Units 07:00 Urine Color Yellow Urine Appearance Clear (Clear) Urine pH 6.0 (5.0-8.0) Ur Specific [place] 1.008 (1.001-1.035) Urine Protein Negative (Negative) Urine Glucose (UA) Negative (Negative) Urine Ketones Negative (Negative) Urine Blood Negative (Negative) Urine Nitrite Negative (Negative) Urine Bilirubin Negative (Negative) Urine Urobilinogen <2.0 (<2.0) mg/dL Ur Leukocyte Esterase Negative (Negative) - Radiology Data Radiology results: report reviewed (Chest x-ray is negative for acute disease), image reviewed Disposition Clinical Impression: Anxiety Disposition: HOME SELF-CARE Condition: Good Instructions: Anxiety (ED) Referrals: Mike Ahmadi MD [Primary Care Provider] - 1-2 days
[2017-04-05 07:09] VITALS: BP 157/78; PULSE 84; TEMP 97.5
[2017-04-05 07:13] LABS: Appearance,Urine Clear (Clear); Bilirubin,Urine Negative (Negative); Glucose,Urine (UA) Negative (Negative); Ketones,Urine Negative (Negative); Leukocyte Esterase,Urine Negative (Negative); Nitrite,Urine Negative (Negative); Protein,Urine Negative (Negative); Specific Gravity,Urine 1.008 (1.001-1.035); UA Billing (MACRO vs. MICRO) CHEM; Urobilinogen,Urine <2.0 mg/dL (<2.0)
== END 2017-04-05 07:06 | disposition home or self-care (01) ==
LOC: EC 05:08
DX: F41.9 Anxiety disorder, unspecified (principal); I48.91 Unspecified atrial fibrillation; I25.10 Atherosclerotic heart disease of native coronary artery without angina pectoris; I11.0 Hypertensive heart disease with heart failure; I50.9 Heart failure, unspecified; J45.909 Unspecified asthma, uncomplicated; J44.9 Chronic obstructive pulmonary disease, unspecified; N28.9 Disorder of kidney and ureter, unspecified; Z86.73 Personal history of transient ischemic attack (TIA), and cerebral infarction without residual deficits; Z86.14 Personal history of Methicillin resistant Staphylococcus aureus infection; Z95.5 Presence of coronary angioplasty implant and graft; Z95.0 Presence of cardiac pacemaker; Z87.891 Personal history of nicotine dependence; Z79.899 Other long term (current) drug therapy; Z88.1 Allergy status to other antibiotic agents; Z88.8 Allergy status to other drugs, medicaments and biological substances; Z53.20 Procedure and treatment not carried out because of patient's decision for unspecified reasons
CPT/HCPCS: 71020; 81003; 87086; 93005; 94640; 99285

== ENCOUNTER 2017-04-06 19:30 | Emergency (ER) | payer MEDICARE, OTHER ==
[2017-04-06 19:46] VITALS: PULSE 76
--- NOTE | 2017-04-06 20:54 | ED ---
General Adult HPI - General Chief complaint: Recheck/Abnormal Lab/Rx Stated complaint: Nose Bleed Time Seen by Provider: 04/06/17 20:13 Source: patient Mode of arrival: ambulatory Limitations: no limitations - History of Present Illness Initial comments: 81-year-old female patient presents to emergency department today for evaluation after having bleeding from her left near on and off throughout the day today. Patient states he was just light bleeding. She denies any headache , facial pain, dizziness, or weakness. She states the last time she had a nosebleed that she had elevated INR levels. She denies any trauma or facial injury. She is also reporting decreased urine output today. Patient states that she has pain when she attempts to go to the bathroom. She states that sometimes she feels as though she has to go however she sits on the toilet and nothing comes out. She states this has been going on for the last 1-2 days. Patient states she was seen here last night and did have a urine test performed she would like to know the results of this. She would also like her INR checked. Patient denies any recent fever, chills, shortness breath, chest pain, abdominal pain, nausea, vomiting, diarrhea, constipation, back pain, numbness, tingling, headache, visual changes, hematuria, urinary frequency, urinary urgency, or any other complaints. - Related Data Home Medications Medication Instructions Recorded Confirmed Allopurinol [Zyloprim] 100 mg PO DAILY 03/26/14 04/06/17 Previous Rx's Medication Instructions Recorded Acetaminophen Tab [Tylenol] 650 mg PO Q6HR PRN tab 03/19/17 Albuterol Nebulized [Ventolin 2.5 mg INHALATION RT-Q6H PRN neb 03/19/17 Nebulized] Aspirin 81 mg PO QAM 03/19/17 Budesonide [Pulmicort] 0.5 mg INHALATION RT-BID neb 03/19/17 Cinacalcet [Sensipar] 30 mg PO SuWe@0900 tab 03/19/17 Docusate [Colace] 100 mg PO DAILY PRN cap 03/19/17 Famotidine [Pepcid] 20 mg PO DAILY tab 03/19/17 Levothyroxine Sodium [Synthroid] 50 mcg PO 0630 tab 03/19/17 Magnesium Oxide [Mag-Ox] 400 mg PO BID tab 03/19/17 Metolazone [Zaroxolyn] 10 mg PO QAM tab 03/19/17 Montelukast [Singulair] 10 mg PO QAM tab 03/19/17 Theophylline 24 Hour [Josh-24] 300 mg PO DAILY cap 03/19/17 Warfarin Sodium [Coumadin] 2.5 mg PO DAILY #30 tablet 03/19/17 diphenhydrAMINE [Benadryl] 25 mg PO Q6H PRN cap 03/19/17 hydrALAZINE HCL [Apresoline] 10 mg PO BID tab 03/19/17 rOPINIRole HCL [Requip] 0.25 mg PO HS tab 03/19/17 Allergies Allergy/AdvReac Type Severity Reaction Status Date / Time azithromycin Allergy Unknown Verified 04/06/17 19:47 [From Zithromax Z-Sotero] bumetanide [From Bumex] Allergy Swelling Verified 04/06/17 19:47 ciprofloxacin [From Cipro] Allergy Unknown Verified 04/06/17 19:47 Calcium Channel Blocking AdvReac Unknown Verified 04/06/17 19:47 Agent Dilt Review of Systems ROS Statement: Those systems with pertinent positive or pertinent negative responses have been documented in the HPI. ROS Other: All systems not noted in ROS Statement are negative. Past Medical History Past Medical History: Atrial Fibrillation, Asthma, Coronary Artery Disease (CAD) , Heart Failure, COPD, CVA/TIA, GERD/Reflux, Hypertension, Respiratory Disorder , Thyroid Disorder Additional Past Medical History / Comment(s): high uric acid "KIDNEY PROBLEMS", bronchits History of Any Multi-Drug Resistant Organisms: MRSA Date of last positivie culture/infection: 2011/MRSA MDRO Source:: sputum Past Surgical History: Heart Catheterization With Stent, Pacemaker Additional Past Surgical History / Comment(s): left carotid. Pacemaker placed 2011 Past Anesthesia/Blood Transfusion Reactions: No Reported Reaction Date of Last Stent Placement:: 2011 Type of Cardiac Device: Permanent Pacemaker Device Placement Date:: 12/12/2014 Past Psychological History: No Psychological Hx Reported Smoking Status: Former smoker Past Alcohol Use History: None Reported Past Drug Use History: None Reported - Past Family History Father Family Medical History: COPD Mother Family Medical History: No Reported History General Exam Limitations: no limitations General appearance: alert, in no apparent distress Eye exam: Present: normal appearance, PERRL, EOMI. Absent: scleral icterus, conjunctival injection, periorbital swelling ENT exam: Present: normal exam, normal oropharynx, mucous membranes moist, TM's normal bilaterally, other (Patient has no current bleeding from her nares. She does have some dried blood and a blood clot noted within the left naris. No evidence of septal hematoma. The bleeding appears to be anterior.) Respiratory exam: Present: normal lung sounds bilaterally. Absent: respiratory distress, wheezes, rales, rhonchi, stridor Cardiovascular Exam: Present: regular rate, normal rhythm, normal heart sounds. Absent: systolic murmur, diastolic murmur, rubs, gallop, clicks GI/Abdominal exam: Present: soft, normal bowel sounds. Absent: distended, tenderness, guarding, rebound, rigid Extremities exam: Present: normal inspection, full ROM, normal capillary refill. Absent: tenderness, pedal edema, joint swelling, calf tenderness Back exam: Present: normal inspection. Absent: CVA tenderness (R), CVA tenderness (L) Neurological exam: Present: alert, oriented X3, CN II-XII intact Psychiatric exam: Present: normal affect, normal mood Skin exam: Present: warm, dry, intact, normal color. Absent: rash Course Vital Signs 04/06/17 19:45 Temperature 98.2 F Pulse Rate 76 Respiratory 20 Rate Blood Pressure 150/65 O2 Sat by Pulse 98 Oximetry Medical Decision Making - Medical Decision Making 81-year-old female patient presented for evaluation after having minimal bleeding from her left nare throughout the day. She is also having some concerns with urination. Laboratory was performed kidney function is relatively normal for her. Urinalysis done yesterday was negative for any acute abnormalities. Bladder scan performed tonight in the emergency department showed 75 mL. INR was within therapeutic range. Patient has not had any epistaxis while here in the department. Patient did blow her nose did get a small blood clot out. There was no new bleeding with this. She will be discharged home to follow up with her primary care physician for recheck in 1-2 days. She is instructed to return here meagerly for any new, worsening, or concerning symptoms. - Lab Data Result diagrams: 04/06/17 20:17 04/06/17 20:17 Lab Results 09/18/17 09/18/17 09/18/17 Range/Units 20:17 20:17 20:17 WBC 8.7 (3.8-10.6) k/uL RBC 3.76 L (3.80-5.40) m/uL Hgb 11.0 L (11.4-16.0) gm/dL Hct 33.9 L (34.0-46.0) % MCV 90.3 (80.0-100.0) fL MCH 29.2 (25.0-35.0) pg MCHC 32.3 (31.0-37.0) g/dL RDW 16.7 H (11.5-15.5) % Plt Count 387 (150-450) k/uL Neutrophils % 82 % Lymphocytes % 8 % Monocytes % 5 % Eosinophils % 4 % Basophils % 0 % Neutrophils # 7.1 (1.3-7.7) k/uL Lymphocytes # 0.7 L (1.0-4.8) k/uL Monocytes # 0.4 (0-1.0) k/uL Eosinophils # 0.3 (0-0.7) k/uL Basophils # 0.0 (0-0.2) k/uL Hypochromasia Slight Anisocytosis Slight PT 20.1 H (9.0-12.0) sec INR 2.1 H (<1.2) APTT 29.3 (22.0-30.0) sec Sodium 136 L (137-145) mmol/L Potassium 3.7 (3.5-5.1) mmol/L Chloride 100 (98-107) mmol/L Carbon Dioxide 25 (22-30) mmol/L Anion Gap 11 mmol/L BUN 25 H (7-17) mg/dL Creatinine 1.58 H (0.52-1.04) mg/dL Est GFR (MDRD) Af Amer 38 (>60 ml/min/1.73 sqM) Est GFR (MDRD) Non-Af 31 (>60 ml/min/1.73 sqM) Glucose 123 H (74-99) mg/dL Calcium 10.0 (8.4-10.2) mg/dL Disposition Clinical Impression: Epistaxis Disposition: HOME SELF-CARE Condition: Good Instructions: Nosebleed (ED) Additional Instructions: Hold pressure should bleeding started again. Follow up with your primary care physician for recheck in 1-2 days. Increase fluids. Return here immediately for any new, worsening, or concerning symptoms. Referrals: Mike Ahmadi MD [Primary Care Provider] - 1-2 days Time of Disposition: 21:35
[2017-04-06 21:08] LABS: Anisocytosis Slight; Basophils % (A) 0 %; CH 28.9; CHCM 32.2; Eosinophils # (A) 0.3 k/uL (0-0.7); Eosinophils % (A) 4 %; HCT 33.9 % (34.0-46.0); HDW 2.89; Hypochromasia Slight; Luc # (Auto) 0.12; Luc % (Auto) 1; Lymphocytes # (A) 0.7 k/uL (1.0-4.8); Lymphocytes % (A) 8 %; MCH 29.2 pg (25.0-35.0); MCHC 32.3 g/dL (31.0-37.0); MCV 90.3 fL (80.0-100.0); Mean Platelet Volume 7.9; Monocytes # (A) 0.4 k/uL (0-1.0); Monocytes % (A) 5 %; Neutrophils # (A) 7.1 k/uL (1.3-7.7); Neutrophils % (A) 82 %; RBC 3.76 m/uL (3.80-5.40); RDW 16.7 % (11.5-15.5); WBC 8.7 k/uL (3.8-10.6); WBC (Perox) 8.74
[2017-04-06 21:17] LABS: INR 2.1 (<1.2); Partial Thromboplastin Time 29.3 sec (22.0-30.0); Potassium 3.7 mmol/L (3.5-5.1); Prothrombin Time 20.1 sec (9.0-12.0)
[2017-04-06 21:51] VITALS: BP 144/64; RESP 18; TEMP 97
== END 2017-04-06 21:50 | disposition home or self-care (01) ==
LOC: EC 19:30
DX: R04.0 Epistaxis (principal); R39.198 Other difficulties with micturition; Z87.891 Personal history of nicotine dependence; Z88.1 Allergy status to other antibiotic agents; Z88.8 Allergy status to other drugs, medicaments and biological substances; Z79.899 Other long term (current) drug therapy
CPT/HCPCS: 36415; 51798; 80048; 85025; 85610; 85730; 99283

== ENCOUNTER 2017-04-26 18:57 | Emergency (ER) | payer MEDICARE, OTHER ==
[2017-04-26 19:15] VITALS: RESP 18; TEMP 97.9
[2017-04-26] MEDS ORDERED: MAGNESIUM CITRATE 296 ML BOTTLE PO ONE (19:40)
--- NOTE | 2017-04-26 19:42 | ED ---
Abdominal Pain HPI - General Chief Complaint: Abdominal Pain Stated Complaint: impacted bowel Time Seen by Provider: 04/26/17 19:19 Source: patient, RN notes reviewed, old records reviewed Mode of arrival: wheelchair Limitations: no limitations - History of Present Illness Initial Comments: Physical is an 81-year-old female presenting to emergency Department chief complaint of unable to have a bowel movement for the past 2 days. She reports that she took Dulcolax as well as Senokot with little relief. Patient states that she has a history of constipation in the past. She reports that she thinks that she may be impacted. She reports she also drinks and produced today and thought that would help with has had no results. She states that she' s had a had of abdomen was in the past. Denies any vomiting. She reports she does feel somewhat nauseated. She reports that her abdomen just feels very full. - Related Data Home Medications Medication Instructions Recorded Confirmed Allopurinol [Zyloprim] 100 mg PO DAILY 03/26/14 04/26/17 Cinacalcet [Sensipar] 30 mg PO TUFR 04/26/17 04/26/17 Levothyroxine Sodium [Synthroid] 50 mcg PO DAILY@0630 04/26/17 04/26/17 Previous Rx's Medication Instructions Recorded Acetaminophen Tab [Tylenol] 650 mg PO Q6HR PRN tab 03/19/17 Albuterol Nebulized [Ventolin 2.5 mg INHALATION RT-Q6H PRN neb 03/19/17 Nebulized] Aspirin 81 mg PO QAM 03/19/17 Budesonide [Pulmicort] 0.5 mg INHALATION RT-BID neb 03/19/17 Docusate [Colace] 100 mg PO DAILY PRN cap 03/19/17 Famotidine [Pepcid] 20 mg PO DAILY tab 03/19/17 Magnesium Oxide [Mag-Ox] 400 mg PO BID tab 03/19/17 Metolazone [Zaroxolyn] 10 mg PO QAM tab 03/19/17 Montelukast [Singulair] 10 mg PO QAM tab 03/19/17 Theophylline 24 Hour [Josh-24] 300 mg PO DAILY cap 03/19/17 Warfarin Sodium [Coumadin] 2.5 mg PO DAILY #30 tablet 03/19/17 diphenhydrAMINE [Benadryl] 25 mg PO Q6H PRN cap 03/19/17 hydrALAZINE HCL [Apresoline] 10 mg PO BID tab 03/19/17 rOPINIRole HCL [Requip] 0.25 mg PO HS tab 03/19/17 Allergies Allergy/AdvReac Type Severity Reaction Status Date / Time azithromycin Allergy Unknown Verified 04/26/17 19:26 [From Zithromax Z-Sotero] bumetanide [From Bumex] Allergy Swelling Verified 04/26/17 19:26 ciprofloxacin [From Cipro] Allergy Unknown Verified 04/26/17 19:26 Calcium Channel Blocking AdvReac Unknown Verified 04/26/17 19:26 Agent Dilt Review of Systems ROS Statement: Those systems with pertinent positive or pertinent negative responses have been documented in the HPI. ROS Other: All systems not noted in ROS Statement are negative. Past Medical History Past Medical History: Atrial Fibrillation, Asthma, Coronary Artery Disease (CAD) , Heart Failure, COPD, CVA/TIA, GERD/Reflux, Hypertension, Respiratory Disorder , Thyroid Disorder Additional Past Medical History / Comment(s): high uric acid "KIDNEY PROBLEMS", bronchits History of Any Multi-Drug Resistant Organisms: MRSA Date of last positivie culture/infection: 2011/MRSA MDRO Source:: sputum Past Surgical History: Heart Catheterization With Stent, Pacemaker Additional Past Surgical History / Comment(s): left carotid. Pacemaker placed 2011 Past Anesthesia/Blood Transfusion Reactions: No Reported Reaction Date of Last Stent Placement:: 2011 Type of Cardiac Device: Permanent Pacemaker Device Placement Date:: 12/12/2014 Past Psychological History: No Psychological Hx Reported Smoking Status: Former smoker Past Alcohol Use History: None Reported Past Drug Use History: None Reported - Past Family History Father Family Medical History: COPD Mother Family Medical History: No Reported History General Exam - General Exam Comments Initial Comments: This is a 81-year-old female. No acute distress. Limitations: no limitations General appearance: alert, in no apparent distress Head exam: Present: atraumatic, normocephalic, normal inspection Eye exam: Present: normal appearance, PERRL, EOMI. Absent: scleral icterus, conjunctival injection, periorbital swelling ENT exam: Present: normal exam, mucous membranes moist Neck exam: Present: normal inspection. Absent: tenderness, meningismus, lymphadenopathy Respiratory exam: Present: normal lung sounds bilaterally. Absent: respiratory distress, wheezes, rales, rhonchi, stridor Cardiovascular Exam: Present: regular rate, normal rhythm, normal heart sounds. Absent: systolic murmur, diastolic murmur, rubs, gallop, clicks GI/Abdominal exam: Present: soft, tenderness (minimal tenderness), normal bowel sounds. Absent: distended, guarding, rebound, rigid Extremities exam: Present: normal inspection, full ROM, normal capillary refill. Absent: tenderness, pedal edema, joint swelling, calf tenderness Back exam: Present: normal inspection Neurological exam: Present: alert, oriented X3, CN II-XII intact Psychiatric exam: Present: normal affect, normal mood Course Vital Signs 04/26/17 19:11 Temperature 97.9 F Pulse Rate 76 Respiratory 18 Rate Blood Pressure 143/65 O2 Sat by Pulse 99 Oximetry Medical Decision Making - Medical Decision Making This is an 81-year-old female presents emergency Department chief complaint of concern for constipation and impacted bowel. Patient reports that she's had multiple stool softeners. Able to have a bowel movement. I did attempt to disimpact the patient, there does not seem to be much stool burden. Patient KUB x-ray was performed. I did tell that there is some questionable air levels. I discussed that I wanted to do IV fluids, blood work and further evaluation as I think the patient may have a possible bowel obstruction. She reports she's had no vomiting and is certain that she has and about suction. Patient is refusing blood work and further evaluation at this time. I discussed that we can try to do an enema and see if that helps. She did receive a milk and molasses enema with very little result. At this time patient reports that she does not want any further evaluation states that she is too tired to do with this tonight. She states that she may come back in a different time for further evaluation. At this point I will have the patient sign out AGAINST MEDICAL ADVICE as I do believe that there may be further investigation in regards to patient's constipation feeling on and her to have a CAT scan and IV, blood work. She will be discharged with magnesium citrate. - Radiology Data Radiology results: report reviewed Patient states x-rays reviewed and shows nontender bowel gas pattern. On my exam I do feel there could be some air-fluid levels present. Disposition Clinical Impression: Abdominal pain, Abdominal fullness Disposition: Left Against Medical Advice Condition: Good Instructions: Abdominal Pain (ED) Additional Instructions: She needs to return to the emergency department if any alarming signs or symptoms occur. If magnesium citrate is working 7 feeling a fullness she needs to return emergency Department for further evaluation as you may have a bowel obstruction. Referrals: Mike Ahmadi MD [Primary Care Provider] - 1-2 days Time of Disposition: 21:29
--- NOTE | 2017-04-26 19:52 | XR ---
EXAMINATION TYPE: XR KUB DATE OF EXAM: 04/26/2017 COMPARISON: NONE HISTORY: Abdominal pain constipation TECHNIQUE: 2 views FINDINGS: There is no sign of intestinal obstruction or pneumoperitoneum. Fecal pattern is normal. Siri ng bases are clear of consolidation. I see no pathologic calcifications over the kidneys. IMPRESSION: Nonacute abdomen.
[2017-04-26] MEDS ORDERED: SODIUM CHLORIDE 0.9% 1,000 ML IV ONE (20:03)
[2017-04-26] MEDS ORDERED: SODIUM CHLORIDE 0.9% 1,000 ML IV SCH (20:15)
[2017-04-26 22:16] VITALS: BP 159/77; PULSE 95
== END 2017-04-26 22:16 | disposition left against medical advice (07) ==
LOC: EC 18:57
DX: R10.819 Abdominal tenderness, unspecified site (principal); R11.0 Nausea; K21.9 Gastro-esophageal reflux disease without esophagitis; Z87.891 Personal history of nicotine dependence; Z79.899 Other long term (current) drug therapy; Z88.1 Allergy status to other antibiotic agents; Z88.8 Allergy status to other drugs, medicaments and biological substances; Z87.19 Personal history of other diseases of the digestive system
CPT/HCPCS: 74000; 99284

== ENCOUNTER 2017-05-09 10:28 | Emergency (ER) | payer MEDICARE, OTHER ==
[2017-05-09] MEDS ORDERED: SODIUM CHLORIDE 0.9% 1,000 ML IV STA (11:10)
[2017-05-09 12:17] LABS: Anisocytosis Slight; Basophils % (A) 0 %; CH 29.4; CHCM 32.7; Eosinophils # (A) 0.2 k/uL (0-0.7); Eosinophils % (A) 3 %; HCT 33.4 % (34.0-46.0); HDW 2.67; HGB 10.7 gm/dL (11.4-16.0); Luc # (Auto) 0.07; Luc % (Auto) 1; Lymphocytes # (A) 0.5 k/uL (1.0-4.8); Lymphocytes % (A) 7 %; MCH 28.9 pg (25.0-35.0); MCHC 32.1 g/dL (31.0-37.0); MCV 90.3 fL (80.0-100.0); Mean Platelet Volume 7.4; Monocytes # (A) 0.4 k/uL (0-1.0); Monocytes % (A) 6 %; Neutrophils # (A) 5.7 k/uL (1.3-7.7); Neutrophils % (A) 83 %; RBC 3.69 m/uL (3.80-5.40); RDW 16.3 % (11.5-15.5); WBC 6.8 k/uL (3.8-10.6); WBC (Perox) 6.37
--- NOTE | 2017-05-09 12:25 | XR ---
EXAMINATION TYPE: XR chest 2V DATE OF EXAM: 05/09/2017 HISTORY: Weakness. REFERENCE: Previous study dated 04/05/2017. FINDINGS: There is unipolar pacemaker place on the left. The lungs are overinflated. The heart is enlarged. There is vascular congestion and subtle interstiti al change. There is chronic blunting of both CP angles. IMPRESSION: 1. COPD. 2. CARDIOMEGALY. 3. VASCULAR CONGESTION AND QUESTIONABLE MILD LUMINARY EDEMA.
[2017-05-09 12:29] LABS: Calcium 8.8 mg/dL (8.4-10.2); INR 1.8 (<1.2); Magnesium 1.8 mg/dL (1.6-2.3); Partial Thromboplastin Time 30.5 sec (22.0-30.0); Potassium 4.2 mmol/L (3.5-5.1); Prothrombin Time 17.6 sec (9.0-12.0); Total Bilirubin 0.8 mg/dL (0.2-1.3); Total Protein 5.9 g/dL (6.3-8.2)
[2017-05-09 12:51] LABS: Creatine Kinase MB 2.3 ng/mL (0.0-2.4); Troponin I 0.013 ng/mL (0.000-0.034)
--- NOTE | 2017-05-09 13:04 | ED ---
General Adult HPI - General Chief complaint: Recheck/Abnormal Lab/Rx Stated complaint: weak Time Seen by Provider: 05/09/17 10:59 Source: patient, RN notes reviewed Mode of arrival: wheelchair Limitations: no limitations - History of Present Illness Initial comments: This an 81 -year-old female presents emergency Department with multiple complaints. Patient states that she just has not felt well over the last few days saw primary care physician other day who ordered a urinalysis that she does not know the results. Patient states that she had high open of urine and saw her primary care physician for this though now she states that she does not has much urine out as usual. She states she is to push. Patient states that she just feels rundown was not her usual self denies chest pain or shortness of breath. Denies any recent cold-like symptoms. She denies any vomiting states that she had an episode of nausea and had some burping to the night. Patient denies GERD. Patient states that she was up all night worrying and states that this is not usual for her. - Related Data Home Medications Medication Instructions Recorded Confirmed Allopurinol [Zyloprim] 100 mg PO DAILY 03/26/14 05/09/17 Cinacalcet [Sensipar] 30 mg PO TUFR 04/26/17 05/09/17 Levothyroxine Sodium [Synthroid] 50 mcg PO QAM 04/26/17 05/09/17 Albuterol Inhaler [Ventolin Hfa 1 - 2 puff INHALATION RT-Q6H PRN 05/09/17 Inhaler] Fluticasone Propionate [Flovent 2 puff INHALATION RT-BID 05/09/17 05/09/17 Hfa 220MCG] Furosemide [Lasix] 20 mg PO QAM 05/09/17 05/09/17 Prochlorperazine [Compazine] 10 mg PO Q4H PRN 05/09/17 05/09/17 Warfarin Sodium [Coumadin] 2.5 mg PO MOTUWETHFRSA 05/09/17 05/09/17 Warfarin [Coumadin] 3.75 mg PO BUCK 05/09/17 05/09/17 Previous Rx's Medication Instructions Recorded Albuterol Nebulized [Ventolin 2.5 mg INHALATION RT-Q6H PRN neb 03/19/17 Nebulized] Aspirin 81 mg PO QAM 03/19/17 Famotidine [Pepcid] 20 mg PO DAILY tab 03/19/17 Theophylline 24 Hour [Josh-24] 300 mg PO DAILY cap 03/19/17 hydrALAZINE HCL [Apresoline] 10 mg PO BID tab 03/19/17 rOPINIRole HCL [Requip] 0.25 mg PO HS tab 03/19/17 Allergies Allergy/AdvReac Type Severity Reaction Status Date / Time azithromycin Allergy Unknown Verified 05/09/17 12:31 [From Zithromax Z-Sotero] bumetanide [From Bumex] Allergy Swelling Verified 05/09/17 12:31 ciprofloxacin [From Cipro] Allergy Unknown Verified 05/09/17 12:31 Calcium Channel Blocking AdvReac Unknown Verified 05/09/17 12:31 Agent Dilt Review of Systems ROS Statement: Those systems with pertinent positive or pertinent negative responses have been documented in the HPI. ROS Other: All systems not noted in ROS Statement are negative. Past Medical History Past Medical History: Atrial Fibrillation, Asthma, Coronary Artery Disease (CAD) , Heart Failure, COPD, CVA/TIA, GERD/Reflux, Hypertension, Respiratory Disorder , Thyroid Disorder Additional Past Medical History / Comment(s): high uric acid "KIDNEY PROBLEMS", bronchits History of Any Multi-Drug Resistant Organisms: MRSA Date of last positivie culture/infection: 2011/MRSA MDRO Source:: sputum Past Surgical History: Heart Catheterization With Stent, Pacemaker Additional Past Surgical History / Comment(s): left carotid. Pacemaker placed 2011 Past Anesthesia/Blood Transfusion Reactions: No Reported Reaction Date of Last Stent Placement:: 2011 Type of Cardiac Device: Permanent Pacemaker Device Placement Date:: 12/12/2014 Past Psychological History: Anxiety Smoking Status: Former smoker Past Alcohol Use History: None Reported Past Drug Use History: None Reported - Past Family History Father Family Medical History: COPD Mother Family Medical History: No Reported History General Exam Limitations: no limitations General appearance: alert, in no apparent distress Head exam: Present: atraumatic, normocephalic, normal inspection Eye exam: Present: normal appearance, PERRL, EOMI. Absent: scleral icterus, conjunctival injection, periorbital swelling ENT exam: Present: normal exam, normal oropharynx, mucous membranes moist, TM's normal bilaterally, normal external ear exam Neck exam: Present: normal inspection, full ROM. Absent: tenderness, meningismus, lymphadenopathy Respiratory exam: Present: normal lung sounds bilaterally. Absent: respiratory distress, wheezes, rales, rhonchi, stridor Cardiovascular Exam: Present: regular rate, normal rhythm, normal heart sounds. Absent: systolic murmur, diastolic murmur, rubs, gallop, clicks GI/Abdominal exam: Present: soft, normal bowel sounds. Absent: distended, tenderness, guarding, rebound, rigid Back exam: Absent: CVA tenderness (R), CVA tenderness (L) Neurological exam: Present: alert, oriented X3, CN II-XII intact Skin exam: Present: warm, dry, intact, normal color. Absent: rash Course Vital Signs 05/09/17 10:36 Temperature 97.8 F Pulse Rate 73 Respiratory 18 Rate Blood Pressure 121/58 O2 Sat by Pulse 97 Oximetry EKG Findings - EKG Comments: EKG Findings:: EKG performed at 11:38 reticular paced rhythm rate of 77 QRS 162 QT/QTC 470/531 Medical Decision Making - Medical Decision Making This 81-year-old female presented for multitude of reasons brought primarily feeling weak and tired. Patient's laboratory is unchanged from her wrist line. Patient states that she cannot take care of her self at home she was offered admission to be sent to rehab or halfway but she states she does not want that that she can take care of herself. Patient was advised that she should go see a psychiatrist by her PCP though she refused. Patient clinically is stable she is able to ambulate has no acute signs of infection or dehydration. - Lab Data Result diagrams: 05/09/17 12:00 05/09/17 12:00 Lab Results 05/09/17 05/09/17 05/09/17 Range/Units 12:00 12:00 12:00 WBC 6.8 (3.8-10.6) k/uL RBC 3.69 L (3.80-5.40) m/uL Hgb 10.7 L (11.4-16.0) gm/dL Hct 33.4 L (34.0-46.0) % MCV 90.3 (80.0-100.0) fL MCH 28.9 (25.0-35.0) pg MCHC 32.1 (31.0-37.0) g/dL RDW 16.3 H (11.5-15.5) % Plt Count 271 (150-450) k/uL Neutrophils % 83 % Lymphocytes % 7 % Monocytes % 6 % Eosinophils % 3 % Basophils % 0 % Neutrophils # 5.7 (1.3-7.7) k/uL Lymphocytes # 0.5 L (1.0-4.8) k/uL Monocytes # 0.4 (0-1.0) k/uL Eosinophils # 0.2 (0-0.7) k/uL Basophils # 0.0 (0-0.2) k/uL Anisocytosis Slight PT (9.0-12.0) sec INR (<1.2) APTT (22.0-30.0) sec Sodium 127 L (137-145) mmol/L Potassium 4.2 (3.5-5.1) mmol/L Chloride 96 L (98-107) mmol/L Carbon Dioxide 20 L (22-30) mmol/L Anion Gap 11 mmol/L BUN 16 (7-17) mg/dL Creatinine 1.68 H (0.52-1.04) mg/dL Est GFR (MDRD) Af Amer 35 (>60 ml/min/1.73 sqM) Est GFR (MDRD) Non-Af 29 (>60 ml/min/1.73 sqM) Glucose 97 (74-99) mg/dL Calcium 8.8 (8.4-10.2) mg/dL Magnesium 1.8 (1.6-2.3) mg/dL Total Bilirubin 0.8 (0.2-1.3) mg/dL AST 22 (14-36) U/L ALT 25 (9-52) U/L Alkaline Phosphatase 90 (38-126) U/L Total Creatine Kinase 72 (30-135) U/L CK-MB (CK-2) 2.3 (0.0-2.4) ng/mL CK-MB (CK-2) Rel Index 3.2 Troponin I 0.013 (0.000-0.034) ng/mL Total Protein 5.9 L (6.3-8.2) g/dL Albumin 3.8 (3.5-5.0) g/dL Urine Color Urine Appearance (Clear) Urine pH (5.0-8.0) Ur Specific [place] (1.001-1.035) Urine Protein (Negative) Urine Glucose (UA) (Negative) Urine Ketones (Negative) Urine Blood (Negative) Urine Nitrite (Negative) Urine Bilirubin (Negative) Urine Urobilinogen (<2.0) mg/dL Ur Leukocyte Esterase (Negative) 05/09/17 05/09/17 Range/Units 12:00 13:25 WBC (3.8-10.6) k/uL RBC (3.80-5.40) m/uL Hgb (11.4-16.0) gm/dL Hct (34.0-46.0) % MCV (80.0-100.0) fL MCH (25.0-35.0) pg MCHC (31.0-37.0) g/dL RDW (11.5-15.5) % Plt Count (150-450) k/uL Neutrophils % % Lymphocytes % % Monocytes % % Eosinophils % % Basophils % % Neutrophils # (1.3-7.7) k/uL Lymphocytes # (1.0-4.8) k/uL Monocytes # (0-1.0) k/uL Eosinophils # (0-0.7) k/uL Basophils # (0-0.2) k/uL Anisocytosis PT 17.6 H (9.0-12.0) sec INR 1.8 H (<1.2) APTT 30.5 H (22.0-30.0) sec Sodium (137-145) mmol/L Potassium (3.5-5.1) mmol/L Chloride (98-107) mmol/L Carbon Dioxide (22-30) mmol/L Anion Gap mmol/L BUN (7-17) mg/dL Creatinine (0.52-1.04) mg/dL Est GFR (MDRD) Af Amer (>60 ml/min/1.73 sqM) Est GFR (MDRD) Non-Af (>60 ml/min/1.73 sqM) Glucose (74-99) mg/dL Calcium (8.4-10.2) mg/dL Magnesium (1.6-2.3) mg/dL Total Bilirubin (0.2-1.3) mg/dL AST (14-36) U/L ALT (9-52) U/L Alkaline Phosphatase (38-126) U/L Total Creatine Kinase (30-135) U/L CK-MB (CK-2) (0.0-2.4) ng/mL CK-MB (CK-2) Rel Index Troponin I (0.000-0.034) ng/mL Total Protein (6.3-8.2) g/dL Albumin (3.5-5.0) g/dL Urine Color Colorless Urine Appearance Clear (Clear) Urine pH 7.5 (5.0-8.0) Ur Specific [place] 1.002 (1.001-1.035) Urine Protein Negative (Negative) Urine Glucose (UA) Negative (Negative) Urine Ketones Negative (Negative) Urine Blood Negative (Negative) Urine Nitrite Negative (Negative) Urine Bilirubin Negative (Negative) Urine Urobilinogen <2.0 (<2.0) mg/dL Ur Leukocyte Esterase Negative (Negative) Disposition Clinical Impression: Decreased appetite, Fatigue, Anxiety and depression Disposition: HOME SELF-CARE Condition: Stable Instructions: Weakness (ED) Additional Instructions: Please return to the Emergency Department if symptoms worsen or any other concerns. Referrals: Mike Ahmadi MD [Primary Care Provider] - 1-2 days Time of Disposition: 13:42
[2017-05-09 13:30] LABS: Appearance,Urine Clear (Clear); Bilirubin,Urine Negative (Negative); Glucose,Urine (UA) Negative (Negative); Ketones,Urine Negative (Negative); Leukocyte Esterase,Urine Negative (Negative); Nitrite,Urine Negative (Negative); PH, Urine 7.5 (5.0-8.0); Protein,Urine Negative (Negative); Specific Gravity,Urine 1.002 (1.001-1.035); UA Billing (MACRO vs. MICRO) CHEM; Urobilinogen,Urine <2.0 mg/dL (<2.0)
[2017-05-09 14:11] VITALS: BP 125/63; PULSE 72; RESP 16; TEMP 96.9
== END 2017-05-09 14:11 | disposition home or self-care (01) ==
LOC: EC 10:28
DX: F41.8 Other specified anxiety disorders (principal); J44.9 Chronic obstructive pulmonary disease, unspecified; I50.9 Heart failure, unspecified; E07.9 Disorder of thyroid, unspecified; Z87.891 Personal history of nicotine dependence; Z79.01 Long term (current) use of anticoagulants; Z79.899 Other long term (current) drug therapy; Z88.1 Allergy status to other antibiotic agents; Z88.8 Allergy status to other drugs, medicaments and biological substances; Z87.448 Personal history of other diseases of urinary system
CPT/HCPCS: 36415; 71020; 80053; 81003; 82550; 82553; 83735; 84484; 85025; 85610; 85730; 93005; 96360; 99285

== ENCOUNTER 2017-05-20 05:34 | Emergency (ER) | payer MEDICARE, OTHER ==
[2017-05-20 05:40] VITALS: RESP 18
--- NOTE | 2017-05-20 06:51 | ED ---
Female Urogenital HPI - General Source: patient Mode of arrival: ambulatory Limitations: no limitations - History of Present Illness MD Complaint: other Onset/Timin -: hour(s) Improves with: none Worsens with: none <Remigio Herman - Last Filed: 05/20/17 06:46> <Romie Lomas - Last Filed: 05/20/17 07:45> - General Chief complaint: Urogenital Stated complaint: Urine Retention Time Seen by Provider: 05/20/17 05:53 - History of Present Illness Initial comments: this patient is an 81 year old woman who presents to be evaluated for not having urinated since 7 PM. The patient states that it is not normal for her to go on entire night without having to urinate. She does relate that she spent most of the day out of the home for her doctor's appointment and so she did have decreased fluid intake compared with usual. In reviewing, the patient states that also for a number of weeks she has felt that she has to really push to achieve urination, and that this is a little different than she had been. She states that she saw Dr. Ahmadi and told him about this and was assured that this change in be associated with age. Patient denies fever or chills, abdominal pain, dysuria, or hematuria. she denies any change in leg edema which she does have chronically. (Remigio Herman) - Related Data Home Medications Medication Instructions Recorded Confirmed Allopurinol [Zyloprim] 100 mg PO DAILY 03/26/14 05/20/17 Cinacalcet [Sensipar] 30 mg PO TUFR 04/26/17 05/20/17 Levothyroxine Sodium [Synthroid] 50 mcg PO QAM 04/26/17 05/20/17 Albuterol Inhaler [Ventolin Hfa 1 - 2 puff INHALATION RT-Q6H PRN 05/09/17 Inhaler] Fluticasone Propionate [Flovent 2 puff INHALATION RT-BID 05/09/17 05/20/17 Hfa 220MCG] Furosemide [Lasix] 20 mg PO QAM 05/09/17 05/20/17 Prochlorperazine [Compazine] 10 mg PO Q4H PRN 05/09/17 05/20/17 Warfarin Sodium [Coumadin] 2.5 mg PO MOTUWETHFRSA 05/09/17 05/20/17 Warfarin [Coumadin] 3.75 mg PO BUCK 05/09/17 05/20/17 Previous Rx's Medication Instructions Recorded Albuterol Nebulized [Ventolin 2.5 mg INHALATION RT-Q6H PRN neb 03/19/17 Nebulized] Aspirin 81 mg PO QAM 03/19/17 Famotidine [Pepcid] 20 mg PO DAILY tab 03/19/17 Theophylline 24 Hour [Josh-24] 300 mg PO DAILY cap 03/19/17 hydrALAZINE HCL [Apresoline] 10 mg PO BID tab 03/19/17 rOPINIRole HCL [Requip] 0.25 mg PO HS tab 03/19/17 Allergies Allergy/AdvReac Type Severity Reaction Status Date / Time azithromycin Allergy Unknown Verified 05/09/17 12:31 [From Zithromax Z-Sotero] bumetanide [From Bumex] Allergy Swelling Verified 05/09/17 12:31 ciprofloxacin [From Cipro] Allergy Unknown Verified 05/09/17 12:31 Calcium Channel Blocking AdvReac Unknown Verified 05/09/17 12:31 Agent Dilt Review of Systems ROS Other: All systems not noted in ROS Statement are negative. Constitutional: Denies: fever, chills Respiratory: Denies: cough, dyspnea Cardiovascular: Reports: edema (chronic). Denies: chest pain Gastrointestinal: Denies: abdominal pain, vomiting, diarrhea, constipation Genitourinary: Reports: as per HPI. Denies: dysuria, frequency, hematuria Musculoskeletal: Denies: back pain Skin: Denies: rash Neurological: Denies: headache, weakness, numbness <Remigio Herman - Last Filed: 05/20/17 06:46> ROS Other: All systems not noted in ROS Statement are negative. <Romie Lomas - Last Filed: 05/20/17 07:45> ROS Statement: Those systems with pertinent positive or pertinent negative responses have been documented in the HPI. Past Medical History Past Medical History: Atrial Fibrillation, Asthma, Coronary Artery Disease (CAD) , Heart Failure, COPD, CVA/TIA, GERD/Reflux, Hypertension, Respiratory Disorder , Thyroid Disorder Additional Past Medical History / Comment(s): high uric acid "KIDNEY PROBLEMS", bronchits History of Any Multi-Drug Resistant Organisms: MRSA Date of last positivie culture/infection: 2011/MRSA MDRO Source:: sputum Past Surgical History: Heart Catheterization With Stent, Pacemaker Additional Past Surgical History / Comment(s): left carotid. Pacemaker placed 2011 Past Anesthesia/Blood Transfusion Reactions: No Reported Reaction Date of Last Stent Placement:: 2011 Type of Cardiac Device: Permanent Pacemaker Device Placement Date:: 12/12/2014 Past Psychological History: Anxiety Smoking Status: Former smoker Past Alcohol Use History: None Reported Past Drug Use History: None Reported - Past Family History Father Family Medical History: COPD Mother Family Medical History: No Reported History <Remigio Herman - Last Filed: 05/20/17 06:46> General Exam Limitations: no limitations General appearance: alert, in no apparent distress Head exam: Present: atraumatic, normocephalic Respiratory exam: Present: normal lung sounds bilaterally. Absent: respiratory distress, wheezes, rales, rhonchi, stridor Cardiovascular Exam: Present: regular rate, normal rhythm, normal heart sounds. Absent: systolic murmur, diastolic murmur, rubs, gallop GI/Abdominal exam: Present: soft. Absent: distended, tenderness, guarding, rebound, mass Extremities exam: Present: pedal edema (there is mild edema bilaterally the mid tibial area.). Absent: calf tenderness Neurological exam: Present: alert Skin exam: Present: warm, dry, intact, normal color. Absent: rash <Remigio Herman - Last Filed: 05/20/17 06:46> Vital Signs 05/20/17 05/20/17 05:37 06:15 Temperature 97.0 F L Pulse Rate 87 63 Respiratory 18 18 Rate Blood Pressure 160/76 129/63 O2 Sat by Pulse 100 100 Oximetry Medical Decision Making - Lab Data Result diagrams: 05/20/17 06:51 05/20/17 06:51 <Romie Lomas - Last Filed: 05/20/17 07:45> - Lab Data Lab Results 05/20/17 05/20/17 05/20/17 Range/Units 06:51 06:51 07:30 WBC 6.3 (3.8-10.6) k/uL RBC 3.74 L (3.80-5.40) m/uL Hgb 10.8 L (11.4-16.0) gm/dL Hct 34.2 (34.0-46.0) % MCV 91.6 (80.0-100.0) fL MCH 28.8 (25.0-35.0) pg MCHC 31.5 (31.0-37.0) g/dL RDW 17.4 H (11.5-15.5) % Plt Count 248 (150-450) k/uL Neutrophils % 80 % Lymphocytes % 8 % Monocytes % 5 % Eosinophils % 6 % Basophils % 0 % Neutrophils # 5.1 (1.3-7.7) k/uL Lymphocytes # 0.5 L (1.0-4.8) k/uL Monocytes # 0.3 (0-1.0) k/uL Eosinophils # 0.4 (0-0.7) k/uL Basophils # 0.0 (0-0.2) k/uL Anisocytosis Slight Sodium 127 L (137-145) mmol/L Potassium 4.6 (3.5-5.1) mmol/L Chloride 97 L (98-107) mmol/L Carbon Dioxide 20 L (22-30) mmol/L Anion Gap 10 mmol/L BUN 20 H (7-17) mg/dL Creatinine 1.58 H (0.52-1.04) mg/dL Est GFR (MDRD) Af Amer 38 (>60 ml/min/1.73 sqM) Est GFR (MDRD) Non-Af 31 (>60 ml/min/1.73 sqM) Glucose 92 (74-99) mg/dL Calcium 9.2 (8.4-10.2) mg/dL Urine Color Light Yellow Urine Appearance Clear (Clear) Urine pH 7.0 (5.0-8.0) Ur Specific [place] 1.003 (1.001-1.035) Urine Protein Negative (Negative) Urine Glucose (UA) Negative (Negative) Urine Ketones Negative (Negative) Urine Blood Negative (Negative) Urine Nitrite Negative (Negative) Urine Bilirubin Negative (Negative) Urine Urobilinogen <2.0 (<2.0) mg/dL Ur Leukocyte Esterase Negative (Negative) Disposition <Remigio Herman - Last Filed: 05/20/17 06:46> Time of Disposition: 07:44 <Romie Lomas - Last Filed: 05/20/17 07:45> Clinical Impression: Oliguria Disposition: HOME SELF-CARE Condition: Good Instructions: Dehydration (ED) Referrals: Mike Ahmadi MD [Primary Care Provider] - 1-2 days
[2017-05-20 07:04] LABS: Anisocytosis Slight; Basophils % (A) 0 %; CHCM 31.9; Eosinophils # (A) 0.4 k/uL (0-0.7); Eosinophils % (A) 6 %; HCT 34.2 % (34.0-46.0); HDW 2.43; HGB 10.8 gm/dL (11.4-16.0); Luc # (Auto) 0.08; Luc % (Auto) 1; Lymphocytes # (A) 0.5 k/uL (1.0-4.8); Lymphocytes % (A) 8 %; MCH 28.8 pg (25.0-35.0); MCHC 31.5 g/dL (31.0-37.0); MCV 91.6 fL (80.0-100.0); Mean Platelet Volume 7.9; Monocytes # (A) 0.3 k/uL (0-1.0); Monocytes % (A) 5 %; Neutrophils # (A) 5.1 k/uL (1.3-7.7); Neutrophils % (A) 80 %; RBC 3.74 m/uL (3.80-5.40); RDW 17.4 % (11.5-15.5); WBC 6.3 k/uL (3.8-10.6); WBC (Perox) 6.95
[2017-05-20 07:15] LABS: Calcium 9.2 mg/dL (8.4-10.2); Potassium 4.6 mmol/L (3.5-5.1)
[2017-05-20 07:42] LABS: Appearance,Urine Clear (Clear); Bilirubin,Urine Negative (Negative); Glucose,Urine (UA) Negative (Negative); Ketones,Urine Negative (Negative); Leukocyte Esterase,Urine Negative (Negative); Nitrite,Urine Negative (Negative); Protein,Urine Negative (Negative); Specific Gravity,Urine 1.003 (1.001-1.035); UA Billing (MACRO vs. MICRO) CHEM; Urobilinogen,Urine <2.0 mg/dL (<2.0)
[2017-05-20 08:09] VITALS: BP 130/76; PULSE 68; TEMP 97.6
== END 2017-05-20 08:15 | disposition home or self-care (01) ==
LOC: EC 05:34
DX: R34 Anuria and oliguria (principal); I48.91 Unspecified atrial fibrillation; J44.9 Chronic obstructive pulmonary disease, unspecified; I11.0 Hypertensive heart disease with heart failure; I50.9 Heart failure, unspecified; E07.9 Disorder of thyroid, unspecified; F41.9 Anxiety disorder, unspecified; Z87.891 Personal history of nicotine dependence; Z86.14 Personal history of Methicillin resistant Staphylococcus aureus infection; Z88.1 Allergy status to other antibiotic agents; Z88.8 Allergy status to other drugs, medicaments and biological substances; Z79.01 Long term (current) use of anticoagulants; Z79.51 Long term (current) use of inhaled steroids; Z79.899 Other long term (current) drug therapy
CPT/HCPCS: 36415; 51798; 80048; 81003; 85025; 87086; 99283; 99284

== ENCOUNTER 2017-05-30 16:35 | Emergency (ER) | payer MEDICARE, OTHER ==
[2017-05-30 16:40] VITALS: TEMP 97.8
--- NOTE | 2017-05-30 16:58 | ED ---
General Adult HPI - General Chief complaint: Recheck/Abnormal Lab/Rx Stated complaint: Blister on knee, abscess Time Seen by Provider: 05/30/17 16:46 Source: patient, RN notes reviewed, old records reviewed Mode of arrival: wheelchair Limitations: no limitations - History of Present Illness Initial comments: Patient 81-year-old female who presents emergency room today with some chief complaint of bruising to the left lower extremity. She states that she notices when she does show was worried that maybe her Coumadin level was too high. She states came to the emergency room because she wanted to have her Coumadin checked. Patient does regularly every 2 weeks to have Coumadin level checked. She denies when she associated symptoms. Patient denies any recent fever, chills , shortness of breath, chest pain, back pain, abdominal pain, nausea or vomiting , numbness or tingling, dysuria or hematuria, constipation or diarrhea, headaches or visual changes, or any other complaints. - Related Data Home Medications Medication Instructions Recorded Confirmed Allopurinol [Zyloprim] 100 mg PO BID 03/26/14 05/30/17 Cinacalcet [Sensipar] 30 mg PO TUFR 04/26/17 05/30/17 Levothyroxine Sodium [Synthroid] 50 mcg PO QAM 04/26/17 05/30/17 Albuterol Inhaler [Ventolin Hfa 1 - 2 puff INHALATION RT-Q6H PRN 05/09/17 Inhaler] Fluticasone Propionate [Flovent 2 puff INHALATION RT-BID 05/09/17 05/30/17 Hfa 220MCG] Furosemide [Lasix] 20 mg PO QAM 05/09/17 05/30/17 Warfarin Sodium [Coumadin] 2.5 mg PO MOTUTHFRSA 05/09/17 05/30/17 Warfarin [Coumadin] 3.75 mg PO SUWE 05/09/17 05/30/17 Ondansetron Odt [Zofran Odt] 4 mg PO Q12HR PRN 05/20/17 05/30/17 rOPINIRole HCL [Requip] 0.25 mg PO HS PRN 05/20/17 05/30/17 Previous Rx's Medication Instructions Recorded Albuterol Nebulized [Ventolin 2.5 mg INHALATION RT-Q6H PRN neb 03/19/17 Nebulized] Aspirin 81 mg PO QAM 03/19/17 Famotidine [Pepcid] 20 mg PO DAILY tab 03/19/17 Theophylline 24 Hour [Josh-24] 300 mg PO DAILY cap 03/19/17 hydrALAZINE HCL [Apresoline] 10 mg PO BID tab 03/19/17 Allergies Allergy/AdvReac Type Severity Reaction Status Date / Time azithromycin Allergy Unknown Verified 05/30/17 16:47 [From Zithromax Z-Sotero] bumetanide [From Bumex] Allergy Swelling Verified 05/30/17 16:47 ciprofloxacin [From Cipro] Allergy Unknown Verified 05/30/17 16:47 Calcium Channel Blocking AdvReac Unknown Verified 05/30/17 16:47 Agent Dilt Review of Systems ROS Statement: Those systems with pertinent positive or pertinent negative responses have been documented in the HPI. ROS Other: All systems not noted in ROS Statement are negative. Past Medical History Past Medical History: Atrial Fibrillation, Asthma, Coronary Artery Disease (CAD) , Heart Failure, COPD, CVA/TIA, GERD/Reflux, Hypertension, Respiratory Disorder , Thyroid Disorder Additional Past Medical History / Comment(s): high uric acid "KIDNEY PROBLEMS", bronchits History of Any Multi-Drug Resistant Organisms: MRSA Date of last positivie culture/infection: 2011/MRSA MDRO Source:: sputum Past Surgical History: Heart Catheterization With Stent, Pacemaker Additional Past Surgical History / Comment(s): left carotid. Pacemaker placed 2011 Past Anesthesia/Blood Transfusion Reactions: No Reported Reaction Date of Last Stent Placement:: 2011 Type of Cardiac Device: Permanent Pacemaker Device Placement Date:: 12/12/2014 Past Psychological History: Anxiety Smoking Status: Former smoker Past Alcohol Use History: None Reported Past Drug Use History: None Reported - Past Family History Father Family Medical History: COPD Mother Family Medical History: No Reported History General Exam - General Exam Comments Initial Comments: General: The patient is awake and alert, in no distress, and does not appear acutely ill. Eye: Pupils are equal, round and reactive to light, extra-ocular movements are intact. No nystagmus. There is normal conjunctiva bilaterally. No signs of icterus. Ears, nose, mouth and throat: There are moist mucous membranes and no oral lesions. Neck: The neck is supple, there is no tenderness or JVD. Cardiovascular: There is a regular rate and rhythm. No murmur, rub or gallop is appreciated. Respiratory: Lungs are clear to auscultation, respirations are non-labored, breath sounds are equal. No wheezes, stridor, rales, or rhonchi. Gastrointestinal: Soft, non-distended, non-tender abdomen without masses or organomegaly noted. There is no rebound or guarding present. No CVA tenderness. Bowel sounds are unremarkable. Musculoskeletal: Normal ROM, no tenderness. Strength 5/5. Sensation intact. Pulses equal bilaterally 2+. Neurological: A&O x 3. CN II-XII intact, There are no obvious motor or sensory deficits. Coordination appears grossly intact. Speech is normal. Skin: She does have some bruising down to the left lower extremity also some spots seen on the upper extremities and right lower extremities well. Psychiatric: Cooperative, appropriate mood & affect, normal judgment. Limitations: no limitations Course Vital Signs 05/30/17 16:37 Temperature 97.8 F Pulse Rate 92 Respiratory 16 Rate Blood Pressure 143/68 O2 Sat by Pulse 100 Oximetry Medical Decision Making - Medical Decision Making Patient reexamined at this time shows no signs of distress. Patient lives been reviewed. INR is 2.1. Patient remained labs been reviewed mildly elevated BUN and creatinine which is consistent with previous labs. Results were discussed with patient. Patient will be discharged home. Advised return to emergency room if any symptoms increase worsen appropriate concerns. - Lab Data Result diagrams: 05/30/17 17:29 05/30/17 17:29 Lab Results 05/30/17 05/30/17 05/30/17 Range/Units 17:29 17:29 17:29 WBC 8.1 (3.8-10.6) k/uL RBC 4.00 (3.80-5.40) m/uL Hgb 11.3 L (11.4-16.0) gm/dL Hct 37.5 (34.0-46.0) % MCV 93.6 (80.0-100.0) fL MCH 28.2 (25.0-35.0) pg MCHC 30.1 L (31.0-37.0) g/dL RDW 17.5 H (11.5-15.5) % Plt Count 264 (150-450) k/uL Neutrophils % 80 % Lymphocytes % 8 % Monocytes % 4 % Eosinophils % 6 % Basophils % 0 % Neutrophils # 6.5 (1.3-7.7) k/uL Lymphocytes # 0.6 L (1.0-4.8) k/uL Monocytes # 0.4 (0-1.0) k/uL Eosinophils # 0.5 (0-0.7) k/uL Basophils # 0.0 (0-0.2) k/uL Hypochromasia Slight Anisocytosis Slight PT 19.8 H (9.0-12.0) sec INR 2.1 H (<1.2) APTT 30.2 H (22.0-30.0) sec Sodium 128 L (137-145) mmol/L Potassium 4.8 (3.5-5.1) mmol/L Chloride 96 L (98-107) mmol/L Carbon Dioxide 23 (22-30) mmol/L Anion Gap 9 mmol/L BUN 30 H (7-17) mg/dL Creatinine 1.60 H (0.52-1.04) mg/dL Est GFR (MDRD) Af Amer 37 (>60 ml/min/1.73 sqM) Est GFR (MDRD) Non-Af 31 (>60 ml/min/1.73 sqM) Glucose 88 (74-99) mg/dL Calcium 9.6 (8.4-10.2) mg/dL Disposition Clinical Impression: Bruise Disposition: HOME SELF-CARE Condition: Good Instructions: Contusion in Adults (ED) Additional Instructions: Please follow-up with family doctor in the next 2 days of symptoms have not improved. Please return to emergency room if the symptoms increase or worsen or for any other concerns. Referrals: Mike Ahmadi MD [Primary Care Provider] - 1-2 days Time of Disposition: 18:36
[2017-05-30 17:50] LABS: Anisocytosis Slight; Basophils % (A) 0 %; CH 28.8; Eosinophils # (A) 0.5 k/uL (0-0.7); Eosinophils % (A) 6 %; HCT 37.5 % (34.0-46.0); HDW 2.31; HGB 11.3 gm/dL (11.4-16.0); Hypochromasia Slight; Luc # (Auto) 0.13; Luc % (Auto) 2; Lymphocytes # (A) 0.6 k/uL (1.0-4.8); Lymphocytes % (A) 8 %; MCH 28.2 pg (25.0-35.0); MCHC 30.1 g/dL (31.0-37.0); MCV 93.6 fL (80.0-100.0); Mean Platelet Volume 7.8; Monocytes # (A) 0.4 k/uL (0-1.0); Monocytes % (A) 4 %; Neutrophils # (A) 6.5 k/uL (1.3-7.7); Neutrophils % (A) 80 %; RDW 17.5 % (11.5-15.5); WBC 8.1 k/uL (3.8-10.6); WBC (Perox) 8.72
[2017-05-30 17:52] LABS: Calcium 9.6 mg/dL (8.4-10.2); Potassium 4.8 mmol/L (3.5-5.1)
[2017-05-30 18:24] LABS: INR 2.1 (<1.2); Partial Thromboplastin Time 30.2 sec (22.0-30.0); Prothrombin Time 19.8 sec (9.0-12.0)
[2017-05-30 18:41] VITALS: BP 140/68; PULSE 90; RESP 18
== END 2017-05-30 18:41 | disposition home or self-care (01) ==
LOC: EC 16:35
DX: S80.12XA Contusion of left lower leg, initial encounter (principal); R79.89 Other specified abnormal findings of blood chemistry; I11.0 Hypertensive heart disease with heart failure; I50.9 Heart failure, unspecified; J44.9 Chronic obstructive pulmonary disease, unspecified; E07.9 Disorder of thyroid, unspecified; Z87.891 Personal history of nicotine dependence; Z79.01 Long term (current) use of anticoagulants; Z79.51 Long term (current) use of inhaled steroids; Z79.899 Other long term (current) drug therapy; Z88.1 Allergy status to other antibiotic agents; Z88.8 Allergy status to other drugs, medicaments and biological substances; Z87.448 Personal history of other diseases of urinary system; X58.XXXA Exposure to other specified factors, initial encounter
CPT/HCPCS: 36415; 80048; 85025; 85610; 85730; 99283

== ENCOUNTER → 2017-06-02 | Outpatient (CLI) | payer MEDICARE, OTHER ==
--- NOTE | 2017-06-02 15:46 | US ---
EXAMINATION TYPE: US pelvic limited DATE OF EXAM: 06/02/2017 COMPARISON: Prior renal ultrasound January 16, 2015 CLINICAL HISTORY: R39.198 Difficulty urinating. Patient stated has to push and bear down to empty abigail dder; if has normal urgency is unable to void any amount, but if feels fully distended patient believ es bladder fully empties; has large panus Bladder wnl pre void. Bilateral small ureteral jets were seen. Post void bladder completely empties IMPRESSION: No suspicious post void residual seen. Exam is felt within normal limits.
== END | disposition home or self-care (01) ==
LOC: RADUSWWP 14:45
PROVIDERS: ATTEND Family Medicine
DX: R39.198 Other difficulties with micturition (principal); Z88.1 Allergy status to other antibiotic agents; Z88.8 Allergy status to other drugs, medicaments and biological substances
CPT/HCPCS: 76857

== ENCOUNTER 2017-06-06 15:40 | Emergency (ER) | payer MEDICARE, OTHER ==
[2017-06-06 15:52] VITALS: BP 116/61; PULSE 86; RESP 20; TEMP 98.3
--- NOTE | 2017-06-06 16:17 | ED ---
Skin/Abscess/FB HPI - General Chief complaint: Skin/Abscess/Foreign Body Stated complaint: leg infection Time Seen by Provider: 06/06/17 16:01 Source: patient Mode of arrival: ambulatory Limitations: no limitations - History of Present Illness Initial comments: 81-year-old female patient presents to the emergency department today for evaluation of a wound to her left milan. Patient states that she injured the leg approximately 3-4 weeks ago. States that her doctor did inform her that it would be slow to heal. She states that there was a nice scab over the area however when she tripped dressing on this morning the wound bed appeared to be draining. Patient denies any significant pain to the site. Denies any numbness or tingling to the leg. Denies any swelling. She denies any fever or chills with this. Patient denies any shortness breath, chest pain, abdominal pain, nausea, vomiting, diarrhea, constipation, back pain, numbness, tingling, headache, visual changes, hematuria, dysuria, urinary frequency, urinary urgency , or any other complaints. - Related Data Home Medications Medication Instructions Recorded Confirmed Allopurinol [Zyloprim] 100 mg PO BID 03/26/14 06/06/17 Cinacalcet [Sensipar] 30 mg PO TUFR 04/26/17 06/06/17 Levothyroxine Sodium [Synthroid] 50 mcg PO QAM 04/26/17 06/06/17 Albuterol Inhaler [Ventolin Hfa 1 - 2 puff INHALATION RT-Q6H PRN 05/09/17 Inhaler] Fluticasone Propionate [Flovent 2 puff INHALATION RT-BID 05/09/17 06/06/17 Hfa 220MCG] Furosemide [Lasix] 20 mg PO QAM 05/09/17 06/06/17 Warfarin Sodium [Coumadin] 2.5 mg PO MOTUTHFRSA 05/09/17 06/06/17 Warfarin [Coumadin] 3.75 mg PO SUWE 05/09/17 06/06/17 Ondansetron Odt [Zofran Odt] 4 mg PO Q12HR PRN 05/20/17 06/06/17 rOPINIRole HCL [Requip] 0.25 mg PO HS PRN 05/20/17 06/06/17 Previous Rx's Medication Instructions Recorded Albuterol Nebulized [Ventolin 2.5 mg INHALATION RT-Q6H PRN neb 03/19/17 Nebulized] Aspirin 81 mg PO QAM 03/19/17 Famotidine [Pepcid] 20 mg PO DAILY tab 03/19/17 Theophylline 24 Hour [Josh-24] 300 mg PO DAILY cap 03/19/17 hydrALAZINE HCL [Apresoline] 10 mg PO BID tab 03/19/17 Cephalexin [Keflex] 500 mg PO Q6H #40 cap 06/06/17 Allergies Allergy/AdvReac Type Severity Reaction Status Date / Time azithromycin Allergy Unknown Verified 06/06/17 15:52 [From Zithromax Z-Sotero] bumetanide [From Bumex] Allergy Swelling Verified 06/06/17 15:52 ciprofloxacin [From Cipro] Allergy Unknown Verified 06/06/17 15:52 Calcium Channel Blocking AdvReac Unknown Verified 06/06/17 15:52 Agent Dilt Review of Systems ROS Statement: Those systems with pertinent positive or pertinent negative responses have been documented in the HPI. ROS Other: All systems not noted in ROS Statement are negative. Past Medical History Past Medical History: Atrial Fibrillation, Asthma, Coronary Artery Disease (CAD) , Heart Failure, COPD, CVA/TIA, GERD/Reflux, Hypertension, Respiratory Disorder , Thyroid Disorder Additional Past Medical History / Comment(s): high uric acid "KIDNEY PROBLEMS", bronchits History of Any Multi-Drug Resistant Organisms: MRSA Date of last positivie culture/infection: 2011/MRSA MDRO Source:: sputum Past Surgical History: Heart Catheterization With Stent, Pacemaker Additional Past Surgical History / Comment(s): left carotid. Pacemaker placed 2011 Past Anesthesia/Blood Transfusion Reactions: No Reported Reaction Date of Last Stent Placement:: 2011 Type of Cardiac Device: Permanent Pacemaker Device Placement Date:: 12/12/2014 Past Psychological History: Anxiety Smoking Status: Former smoker Past Alcohol Use History: None Reported Past Drug Use History: None Reported - Past Family History Father Family Medical History: COPD Mother Family Medical History: No Reported History General Exam Limitations: no limitations General appearance: alert, in no apparent distress, anxious, other (This is a well-developed, well-nourished elderly female patient in no acute distress. Vital signs upon presentation were temperature 98.3F, pulse 86, respirations 20 , blood pressure 116/61, pulse ox 100% on room air.) Cardiovascular Exam: Present: regular rate, normal rhythm, normal heart sounds. Absent: systolic murmur, diastolic murmur, rubs, gallop, clicks GI/Abdominal exam: Present: soft, normal bowel sounds. Absent: distended, tenderness, guarding, rebound, rigid Extremities exam: Present: full ROM, normal capillary refill, other (Patient has a wound to the left milan. Minimal surrounding erythema, there is evidence of purulent drainage. Skin is otherwise pink, warm, and dry. Cap refill is less than 3 seconds. Pedal and posttibial pulses are 2+ and equal bilaterally.) . Absent: tenderness, pedal edema, joint swelling, calf tenderness Neurological exam: Present: alert, oriented X3, CN II-XII intact Psychiatric exam: Present: normal affect, normal mood, anxious Skin exam: Present: warm, dry, intact, normal color. Absent: rash Course Vital Signs 06/06/17 15:49 Temperature 98.3 F Pulse Rate 86 Respiratory 20 Rate Blood Pressure 116/61 O2 Sat by Pulse 100 Oximetry Medical Decision Making - Medical Decision Making 81-year-old female patient presented to the emergency department today for evaluation of a wound to her left milan. Physical examination did reveal a wound that exhibited a small amount of purulent drainage. There was minimal surrounding erythema. There is no evidence of swelling. Patient vital signs are stable. Wound was cultured. Patient was placed on Keflex and instructed to keep the wound clean and dry. She is instructed to perform wound care twice daily. She is instructed to follow-up with her primary care physician for recheck in 1-2 days. She is instructed to return here immediately for any new, worsening, or concerning symptoms. She verbalizes understanding and agrees with this plan. Disposition Clinical Impression: Leg wound, left Disposition: HOME SELF-CARE Condition: Good Instructions: Wound Infection (ED), Acute Wound Care (ED) Additional Instructions: Wash wound twice daily with warm water and antibacterial soap. Take antibiotic prescription in full. Return here immediately for any new, worsening, or concerning symptoms. Prescriptions: Cephalexin [Keflex] 500 mg PO Q6H #40 cap Referrals: Mike Ahmadi MD [Primary Care Provider] - 1-2 days Time of Disposition: 16:17
== END 2017-06-06 16:31 | disposition home or self-care (01) ==
LOC: EC 15:40
DX: S81.802D Unspecified open wound, left lower leg, subsequent encounter (principal); I48.91 Unspecified atrial fibrillation; J44.9 Chronic obstructive pulmonary disease, unspecified; I11.0 Hypertensive heart disease with heart failure; I50.9 Heart failure, unspecified; E07.9 Disorder of thyroid, unspecified; Z86.73 Personal history of transient ischemic attack (TIA), and cerebral infarction without residual deficits; Z86.14 Personal history of Methicillin resistant Staphylococcus aureus infection; Z87.891 Personal history of nicotine dependence; Z88.1 Allergy status to other antibiotic agents; Z88.8 Allergy status to other drugs, medicaments and biological substances; Z79.51 Long term (current) use of inhaled steroids; Z79.01 Long term (current) use of anticoagulants; Z79.899 Other long term (current) drug therapy
CPT/HCPCS: 87070; 87077; 87186; 87205; 99283

== ENCOUNTER 2017-06-11 15:33 | Emergency (ER) | payer MEDICARE, OTHER ==
--- NOTE | 2017-06-11 15:57 | ED ---
Female Urogenital HPI - General Chief complaint: Urogenital Stated complaint: URINE RETENTION Source: patient Mode of arrival: wheelchair Limitations: no limitations - History of Present Illness Initial comments: Patient is a 81-year-old female resents for evaluation for urinary retention. Past medical history as below. Patient has a past medical history of a overactive bladder. She states that she has frequent episodes of retention. Her urologist Dr. Soloiro recently prescribed mybytric which she started taking last night. When she woke up this morning, she had the urge to urinate but was unable to go. She has not been able to urinate all day today. She called the urologist [employer] and recommended that she wait an additional 2 more hours versus going to the ER for evaluation which she elected to do. At this point time, she states that she feels like she needs to urinate. She is having some suprapubic pain. But otherwise denies fever, chills, headache, changes of vision, URI symptoms, sugars breath, cough, chest pain, nausea vomiting, diarrhea, pain or burning with urination. - Related Data Home Medications Medication Instructions Recorded Confirmed Allopurinol [Zyloprim] 100 mg PO BID 03/26/14 06/11/17 Cinacalcet [Sensipar] 30 mg PO TUFR 04/26/17 06/11/17 Levothyroxine Sodium [Synthroid] 50 mcg PO QAM 04/26/17 06/11/17 Albuterol Inhaler [Ventolin Hfa 1 - 2 puff INHALATION RT-Q6H PRN 05/09/17 Inhaler] Fluticasone Propionate [Flovent 2 puff INHALATION RT-BID 05/09/17 06/11/17 Hfa 220MCG] Furosemide [Lasix] 20 mg PO QAM 05/09/17 06/11/17 Warfarin Sodium [Coumadin] 2.5 mg PO MOTUTHFRSA 05/09/17 06/11/17 Warfarin [Coumadin] 3.75 mg PO SUWE 05/09/17 06/11/17 Ondansetron Odt [Zofran Odt] 4 mg PO Q12HR PRN 05/20/17 06/11/17 rOPINIRole HCL [Requip] 0.25 mg PO HS PRN 05/20/17 06/11/17 Myrbetriq Unknown Dose 1 tab PO DAILY 06/11/17 06/11/17 Sulfamethox-Tmp 800-160Mg [Bactrim 1 tab PO BID 06/11/17 06/11/17 DS 800-160 mg] Previous Rx's Medication Instructions Recorded Albuterol Nebulized [Ventolin 2.5 mg INHALATION RT-Q6H PRN neb 03/19/17 Nebulized] Aspirin 81 mg PO QAM 03/19/17 Famotidine [Pepcid] 20 mg PO DAILY tab 03/19/17 Theophylline 24 Hour [Josh-24] 300 mg PO DAILY cap 03/19/17 hydrALAZINE HCL [Apresoline] 10 mg PO BID tab 03/19/17 Allergies Allergy/AdvReac Type Severity Reaction Status Date / Time azithromycin Allergy Unknown Verified 06/11/17 16:18 [From Zithromax Z-Sotero] bumetanide [From Bumex] Allergy Swelling Verified 06/11/17 16:18 ciprofloxacin [From Cipro] Allergy Unknown Verified 06/11/17 16:18 Calcium Channel Blocking AdvReac Unknown Verified 06/11/17 16:18 Agent Dilt Review of Systems ROS Statement: Those systems with pertinent positive or pertinent negative responses have been documented in the HPI. ROS Other: All systems not noted in ROS Statement are negative. Past Medical History Past Medical History: Atrial Fibrillation, Asthma, Coronary Artery Disease (CAD) , Heart Failure, COPD, CVA/TIA, GERD/Reflux, Hypertension, Respiratory Disorder , Thyroid Disorder Additional Past Medical History / Comment(s): high uric acid "KIDNEY PROBLEMS", bronchits History of Any Multi-Drug Resistant Organisms: MRSA Date of last positivie culture/infection: 06/06/17 MDRO Source:: leg Past Surgical History: Heart Catheterization With Stent, Pacemaker Additional Past Surgical History / Comment(s): left carotid. Pacemaker placed 2011 Past Anesthesia/Blood Transfusion Reactions: No Reported Reaction Date of Last Stent Placement:: 2011 Type of Cardiac Device: Permanent Pacemaker Device Placement Date:: 12/12/2014 Past Psychological History: Anxiety Smoking Status: Former smoker Past Alcohol Use History: None Reported Past Drug Use History: None Reported - Past Family History Father Family Medical History: COPD Mother Family Medical History: No Reported History General Exam Limitations: no limitations General appearance: alert, in no apparent distress, other (Nontoxic appearing) Head exam: Present: atraumatic, normocephalic, normal inspection Eye exam: Present: normal appearance, PERRL, EOMI. Absent: scleral icterus, conjunctival injection, periorbital swelling ENT exam: Present: normal exam, mucous membranes moist Neck exam: Present: normal inspection. Absent: tenderness, meningismus, lymphadenopathy Respiratory exam: Present: normal lung sounds bilaterally. Absent: respiratory distress, wheezes, rales, rhonchi, stridor Cardiovascular Exam: Present: regular rate, normal rhythm, normal heart sounds. Absent: systolic murmur, diastolic murmur, rubs, gallop, clicks GI/Abdominal exam: Present: soft, tenderness, normal bowel sounds, other (Pain with palpation of the suprapubic area. No peritoneal signs. No rebound tenderness.). Absent: distended, guarding, rebound, rigid Extremities exam: Present: normal inspection, full ROM, normal capillary refill. Absent: tenderness, pedal edema, joint swelling, calf tenderness Back exam: Present: normal inspection Neurological exam: Present: alert, oriented X3, CN II-XII intact Psychiatric exam: Present: normal affect, normal mood Skin exam: Present: warm, dry, intact, normal color, other (There is a chronic nonhealing wound to the left lower extremity. Is taking Bactrim for it.). Absent: rash Course Vital Signs 06/11/17 15:37 Temperature 97.8 F Pulse Rate 86 Respiratory 16 Rate Blood Pressure 122/56 O2 Sat by Pulse 100 Oximetry Medical Decision Making - Medical Decision Making Patient is a 81-year-old female resents for evaluation for urinary retention. States that she needs to go now. We'll order a bladder scan with basic labs and urinalysis with urine culture. 1600: Patient was able to void without difficulty. Urinalysis obtained. Post void residual was less than 20 mL. Patient states that she has not drink in anything all day today. We'll order a small 500 mL bolus as she has a hx of heart disease. 1640: Updated pt after fluid bolus. Feels ok. Concerned that she is late for her bactrim dose (taking for non-healing wound on her leg). Ordered. CBC WNL/at baseline for her. Awaiting lytes/kidney function. 1700: Reviewed laboratory studies. CKD (creatinine at relative baseline), chronic anemia at baseline. UA negative. No leukocytosis. Labs at relative baseline. Requested 2nd bactrim dose (on 2 bactrim DC for MRSA infection of her leg). Comfortable with DC home. Will increase her fluid intake a little bit. Will stop mybitriq CLose follow up with both her PCP and urology. Discussed specific signs and symptoms on when to return to the ED. Comfortable with DC home and will follow up. - Lab Data Result diagrams: 06/11/17 16:12 06/11/17 16:12 Lab Results 06/11/17 06/11/17 06/11/17 Range/Units 16:12 16:12 16:12 WBC 9.2 (3.8-10.6) k/uL RBC 3.76 L (3.80-5.40) m/uL Hgb 10.7 L (11.4-16.0) gm/dL Hct 33.9 L (34.0-46.0) % MCV 90.3 (80.0-100.0) fL MCH 28.6 (25.0-35.0) pg MCHC 31.7 (31.0-37.0) g/dL RDW 16.5 H (11.5-15.5) % Plt Count 280 (150-450) k/uL Neutrophils % 86 % Lymphocytes % 5 % Monocytes % 4 % Eosinophils % 2 % Basophils % 0 % Neutrophils # 7.9 H (1.3-7.7) k/uL Lymphocytes # 0.5 L (1.0-4.8) k/uL Monocytes # 0.4 (0-1.0) k/uL Eosinophils # 0.2 (0-0.7) k/uL Basophils # 0.0 (0-0.2) k/uL Anisocytosis Slight Sodium 134 L (137-145) mmol/L Potassium 4.3 (3.5-5.1) mmol/L Chloride 102 (98-107) mmol/L Carbon Dioxide 19 L (22-30) mmol/L Anion Gap 13 mmol/L BUN 38 H (7-17) mg/dL Creatinine 2.10 H (0.52-1.04) mg/dL Est GFR (MDRD) Af Amer 27 (>60 ml/min/1.73 sqM) Est GFR (MDRD) Non-Af 23 (>60 ml/min/1.73 sqM) Glucose 132 H (74-99) mg/dL Calcium 9.7 (8.4-10.2) mg/dL Magnesium 2.3 (1.6-2.3) mg/dL Total Bilirubin 0.4 (0.2-1.3) mg/dL AST 26 (14-36) U/L ALT 26 (9-52) U/L Alkaline Phosphatase 83 (38-126) U/L Total Protein 6.2 L (6.3-8.2) g/dL Albumin 4.2 (3.5-5.0) g/dL Urine Color Yellow Urine Appearance Clear (Clear) Urine pH 5.5 (5.0-8.0) Ur Specific [place] 1.012 (1.001-1.035) Urine Protein Negative (Negative) Urine Glucose (UA) Negative (Negative) Urine Ketones Negative (Negative) Urine Blood Negative (Negative) Urine Nitrite Negative (Negative) Urine Bilirubin Negative (Negative) Urine Urobilinogen <2.0 (<2.0) mg/dL Ur Leukocyte Esterase Negative (Negative) Disposition Clinical Impression: Dehydration, CKD (chronic kidney disease), Skin infection Disposition: HOME SELF-CARE Condition: Good Instructions: Chronic Kidney Disease (ED) Referrals: Mike Ahmadi MD [Primary Care Provider] - 1-2 days
[2017-06-11] MEDS ORDERED: SODIUM CHLORIDE 0.9% 500 ML IV ONE (16:11)
[2017-06-11 16:20] LABS: Anisocytosis Slight; Appearance,Urine Clear (Clear); Basophils % (A) 0 %; Bilirubin,Urine Negative (Negative); CH 29.4; CHCM 32.7; Eosinophils # (A) 0.2 k/uL (0-0.7); Eosinophils % (A) 2 %; Glucose,Urine (UA) Negative (Negative); HCT 33.9 % (34.0-46.0); HDW 2.47; HGB 10.7 gm/dL (11.4-16.0); Ketones,Urine Negative (Negative); Leukocyte Esterase,Urine Negative (Negative); Luc # (Auto) 0.18; Luc % (Auto) 2; Lymphocytes # (A) 0.5 k/uL (1.0-4.8); Lymphocytes % (A) 5 %; MCH 28.6 pg (25.0-35.0); MCHC 31.7 g/dL (31.0-37.0); MCV 90.3 fL (80.0-100.0); Mean Platelet Volume 8.1; Monocytes # (A) 0.4 k/uL (0-1.0); Monocytes % (A) 4 %; Neutrophils # (A) 7.9 k/uL (1.3-7.7); Neutrophils % (A) 86 %; Nitrite,Urine Negative (Negative); PH, Urine 5.5 (5.0-8.0); Protein,Urine Negative (Negative); RBC 3.76 m/uL (3.80-5.40); RDW 16.5 % (11.5-15.5); Specific Gravity,Urine 1.012 (1.001-1.035); UA Billing (MACRO vs. MICRO) CHEM; Urobilinogen,Urine <2.0 mg/dL (<2.0); WBC 9.2 k/uL (3.8-10.6); WBC (Perox) 9.12
[2017-06-11] MEDS ORDERED: SULFAMETHOX-TMP 800-160MG 1 EACH TAB PO STA ×2 (16:39→17:05)
[2017-06-11 16:45] LABS: Calcium 9.7 mg/dL (8.4-10.2); Magnesium 2.3 mg/dL (1.6-2.3); Potassium 4.3 mmol/L (3.5-5.1); Total Bilirubin 0.4 mg/dL (0.2-1.3); Total Protein 6.2 g/dL (6.3-8.2)
[2017-06-11 17:09] VITALS: BP 167/73; PULSE 88; RESP 18; TEMP 97.6
== END 2017-06-11 17:31 | disposition home or self-care (01) ==
LOC: EC 15:33
DX: N18.9 Chronic kidney disease, unspecified (principal); E86.0 Dehydration; L08.9 Local infection of the skin and subcutaneous tissue, unspecified; I13.0 Hypertensive heart and chronic kidney disease with heart failure and stage 1 through stage 4 chronic kidney disease, or unspecified chronic kidney disease; S80.922D Unspecified superficial injury of left lower leg, subsequent encounter; I50.9 Heart failure, unspecified; J44.9 Chronic obstructive pulmonary disease, unspecified; E07.9 Disorder of thyroid, unspecified; N32.81 Overactive bladder; Z87.891 Personal history of nicotine dependence; Z79.01 Long term (current) use of anticoagulants; Z79.51 Long term (current) use of inhaled steroids; Z79.899 Other long term (current) drug therapy; Z88.1 Allergy status to other antibiotic agents; Z88.8 Allergy status to other drugs, medicaments and biological substances; Z87.448 Personal history of other diseases of urinary system; Z86.73 Personal history of transient ischemic attack (TIA), and cerebral infarction without residual deficits; X58.XXXD Exposure to other specified factors, subsequent encounter
CPT/HCPCS: 36415; 51798; 80053; 81003; 83735; 85025; 87086; 96360; 99284

== ENCOUNTER → 2017-08-04 | Outpatient (CLI) | payer MEDICARE, OTHER ==
--- NOTE | 2017-08-04 14:57 | CT ---
EXAMINATION TYPE: CT brain wo con DATE OF EXAM: 08/04/2017 COMPARISON: Prior head CT 08/14/2012 HISTORY: Karen cell [place] CT DLP: 888.6 mGycm Automated exposure control for dose reduction was used. Helical acquisition through the brain FINDINGS: Cortical atrophy is present. There is no mass effect or midline shift. No hemorrhage or hydrocephalus . White matter low-attenuation is present in May have progressed in the interval. Basal ganglia calci fications are present. Cerebral vascular calcifications are noted. Inflammatory change present within the ethmoid air cells. IMPRESSION: NO ACUTE ABNORMALITY EVIDENT. CEREBRAL VASCULAR CALCIFICATIONS, PROBABLE CHRONIC SMALL VESSEL ISCHEMI A, AGE RELATED ATROPHY. Mild sinus disease.
--- NOTE | 2017-08-04 15:06 | CT ---
EXAMINATION TYPE: CT chest wo con DATE OF EXAM: 08/04/2017 COMPARISON: 08/09/2012 HISTORY: Karen cell [place] CT DLP: 296.3 mGycm. Automated Exposure Control for Dose Reduction was Utilized. TECHNIQUE: CT scan of the thorax is performed without IV contrast. FINDINGS: LUNGS: 2 mm left apical pulmonary nodule seen on series 4 image 5. This is unchanged from the exam of 2013 and should be considered benign. Reticular opacity anterior to the interlobar fissure with fiss ural thickening in the left upper lobe is noted and may represent a small amount of intrafissural flu id and fibrosis from the previously seen numerous cavitary lesions at this location on the exam of . Reticular opacity with subcentimeter nodularity is seen on series 4 image 18 through 24 in the right upper lobe posteriorly with focal nodule on image 18. This may also represent an area of subpleural f ibrosis as inflammatory change was present at this location on the prior exam of 08/09/2012. There is no pleural effusion or pneumothorax seen. The tracheobronchial tree is patent. MEDIASTINUM: Lack of IV contrast is noted to limit evaluation for mediastinal and especially hilar ad enopathy. There are no definitive greater than 1 cm hilar or mediastinal lymph nodes. No cardiomega ly or pericardial effusion is seen. Left-sided cardiac device is noted. Moderate three-vessel coronar y artery calcifications are seen. Heart is nonenlarged. Ascending thoracic aorta is within normal resendiz its of size measuring 3.1 cm. OTHER: Moderate hiatal hernia is present. Few punctate granulomas are seen within the splenic parench yma. Descending duodenal diverticulum is incidentally noted. Moderate multilevel degenerative changes of the thoracic spine are noted. IMPRESSION: 1. Area of fibrosis and fissural thickening along the left upper lobe at the prior location of the mu ltiloculated cavitary lesion. 2. Reticular opacity with subcentimeter nodularity within the right upper lobe is also favored to rep resent subpleural fibrosis as inflammatory change was present at this location on the prior exam of . 3. Stable left apical 2 mm pulmonary nodules unchanged from the exam of 2013 and should be considered benign. No new pulmonary nodules. 4. Moderate three-vessel coronary artery calcifications, marker for coronary artery disease. 5. Moderate hiatal hernia.
== END | disposition home or self-care (01) ==
LOC: RADCTMAIN 14:16
PROVIDERS: ATTEND Internal Medicine Hematology & Oncology
DX: G31.9 Degenerative disease of nervous system, unspecified (principal); C4A.31 Merkel cell carcinoma of nose; J84.10 Pulmonary fibrosis, unspecified; G93.89 Other specified disorders of brain; R91.8 Other nonspecific abnormal finding of lung field; I25.10 Atherosclerotic heart disease of native coronary artery without angina pectoris
CPT/HCPCS: 70450; 71250

== ENCOUNTER 2017-09-11 08:39 | Emergency (ER) | payer MEDICARE, OTHER ==
[2017-09-11 08:49] VITALS: RESP 16
[2017-09-11] MEDS ORDERED: MAG HYDROX/AL HYDROX/SIMETH 30 ML, HYOSCYAMINE ELIXIR 10 ML, CIMETIDINE HCL 300 MG, LID... PO STA ×4 (08:59)
[2017-09-11] MEDS ORDERED: SODIUM CHLORIDE 0.9% 1,000 ML IV STA (08:59)
--- NOTE | 2017-09-11 09:08 | ED ---
General Adult HPI - General Chief complaint: Abdominal Pain Stated complaint: ABDOMINAL PAIN X 3 DAYS Time Seen by Provider: 09/11/17 08:53 Source: patient, RN notes reviewed Mode of arrival: wheelchair Limitations: no limitations - History of Present Illness Initial comments: 81-year-old female presents to the emergency department with a chief complaint of bilateral upper quadrant abdominal pain. Patient states this started 3 days ago. Patient states that she has had no nausea no vomiting no diarrhea. Patient states just constant type pain. Patient states it is slowly let up at this time. She states that she went to the doctor yesterday for her typical radiation she told him about it and he stated that she could go home. She states that it did seem to get better overnight and she was able to sleep. She denies any surgeries on the abdomen in the past. She states that she has not had any fever chills with this. She states that her pain has improved since 8 happened yesterday. She was concerned due to the continued pain so she thought that she should be seen. Patient denies any recent fever, chills, shortness of breath, chest pain, back pain, nausea vomiting, numbness or tingling, dysuria or hematuria, constipation or diarrhea, headaches or visual changes, or any other current symptoms. - Related Data Home Medications Medication Instructions Recorded Confirmed Allopurinol [Zyloprim] 100 mg PO BID 03/26/14 09/11/17 Cinacalcet [Sensipar] 30 mg PO TUFR 04/26/17 09/11/17 Levothyroxine Sodium [Synthroid] 50 mcg PO DAILY 04/26/17 09/11/17 Albuterol Inhaler [Ventolin Hfa 1 - 2 puff INHALATION RT-Q6H PRN 05/09/17 Inhaler] Fluticasone Propionate [Flovent 2 puff INHALATION RT-BID 05/09/17 09/11/17 Hfa 220MCG] rOPINIRole HCL [Requip] 0.25 mg PO HS PRN 05/20/17 09/11/17 Aspirin 81 mg PO DAILY 07/05/17 09/11/17 Famotidine [Pepcid] 20 mg PO BID PRN 08/14/17 09/11/17 Theophylline 24 Hour [Josh-24] 300 mg PO DAILY 08/14/17 09/11/17 LORazepam [Ativan] 0.5 mg PO DAILY PRN 08/23/17 09/11/17 Ondansetron Odt [Zofran Odt] 4 mg PO Q8H PRN 08/23/17 09/11/17 hydrALAZINE HCL [Apresoline] 10 mg PO BID 08/23/17 09/11/17 Previous Rx's Medication Instructions Recorded Albuterol Nebulized [Ventolin 2.5 mg INHALATION RT-Q6H PRN neb 03/19/17 Nebulized] Carvedilol [Coreg] 3.125 mg PO BID-W/MEALS #60 tab 07/08/17 Allergies Allergy/AdvReac Type Severity Reaction Status Date / Time azithromycin Allergy Unknown Verified 09/11/17 09:48 [From Zithromax Z-Sotero] bumetanide [From Bumex] Allergy Swelling Verified 09/11/17 09:48 ciprofloxacin [From Cipro] Allergy Unknown Verified 09/11/17 09:48 Calcium Channel Blocking AdvReac Unknown Verified 09/11/17 09:48 Agent Dilt Review of Systems ROS Statement: Those systems with pertinent positive or pertinent negative responses have been documented in the HPI. ROS Other: All systems not noted in ROS Statement are negative. Past Medical History Past Medical History: Atrial Fibrillation, Asthma, Coronary Artery Disease (CAD) , Heart Failure, COPD, CVA/TIA, GERD/Reflux, Hypertension, Respiratory Disorder , Thyroid Disorder Additional Past Medical History / Comment(s): high uric acid "KIDNEY PROBLEMS", bronchits, RLS, RECENT GROWTH REMOVED FROM NOSE,PT STATED WAS REFERRED TO ONCOLOGIST History of Any Multi-Drug Resistant Organisms: MRSA Date of last positivie culture/infection: 06/06/17 MDRO Source:: Left Leg Past Surgical History: Heart Catheterization With Stent, Pacemaker Additional Past Surgical History / Comment(s): left carotid. Pacemaker placed 2011, SKIN GROWTH REMOVED FROM NOSE Past Anesthesia/Blood Transfusion Reactions: No Reported Reaction Date of Last Stent Placement:: 2011 Type of Cardiac Device: Permanent Pacemaker Device Placement Date:: 12/12/2014 Past Psychological History: Anxiety Smoking Status: Former smoker Past Alcohol Use History: None Reported Past Drug Use History: None Reported - Past Family History Father Family Medical History: COPD Mother Family Medical History: No Reported History General Exam - General Exam Comments Initial Comments: General: The patient is awake and alert, in no distress, and does not appear acutely ill. Eye: Pupils are equal, round and reactive to light, extra-ocular movements are intact; there is normal conjunctiva bilaterally. No signs of icterus. Ears, nose, mouth and throat: There are moist mucous membranes and no oral lesions. Neck: The neck is supple, there is no tenderness. Cardiovascular: There is a regular rate and rhythm. No murmur, rub or gallop is appreciated. Respiratory: Lungs are clear to auscultation, respirations are non-labored, breath sounds are equal. No wheezes, stridor, rales, or rhonchi. Gastrointestinal: Soft, non-distended, non-tender abdomen without masses or organomegaly noted. There is no rebound or guarding present. No CVA tenderness. Bowel sounds are unremarkable. Back: There is no tenderness to palpation in the midline. There is no obvious deformity. No rashes noted. Musculoskeletal: Normal ROM, no tenderness, There is no pedal edema. There is no calf tenderness or swelling. Sensation intact. Pulses equal bilaterally 2+. Neurological: CN II-XII intact, There are no obvious motor or sensory deficits. Coordination appears grossly intact. Speech is normal. Skin: Skin is warm and dry and no rashes or lesions are noted. Psychiatric: Cooperative, appropriate mood & affect, normal judgment. Limitations: no limitations Course Vital Signs 09/11/17 08:46 Temperature 97.7 F Pulse Rate 96 Respiratory 16 Rate Blood Pressure 115/59 O2 Sat by Pulse 96 Oximetry EKG Findings - EKG Comments: EKG Findings:: Ventricular paced rhythm, ventricular rate 71, QRS duration 156, QT 460 Medical Decision Making - Medical Decision Making 81-year-old female presents for bilateral upper quadrant abdominal pain. At this time patient imaging and lab work is been reviewed. At this time the patient does appear to have cholelithiasis with some biliary colic. We did discuss that she stop with surgery. We did discuss return parameters all questions. Patient stated that she understood and she is agreement this plan. All questions have been answered. She will be discharged home. - Lab Data Result diagrams: 09/11/17 09:28 09/11/17 09:28 Lab Results 09/11/17 09/11/17 09/11/17 Range/Units 09:28 09:28 09:28 WBC 7.1 (3.8-10.6) k/uL RBC 3.91 (3.80-5.40) m/uL Hgb 11.5 (11.4-16.0) gm/dL Hct 37.6 (34.0-46.0) % MCV 96.1 (80.0-100.0) fL MCH 29.3 (25.0-35.0) pg MCHC 30.5 L (31.0-37.0) g/dL RDW 17.4 H (11.5-15.5) % Plt Count 238 (150-450) k/uL Neutrophils % 80 % Lymphocytes % 8 % Monocytes % 4 % Eosinophils % 5 % Basophils % 1 % Neutrophils # 5.7 (1.3-7.7) k/uL Lymphocytes # 0.6 L (1.0-4.8) k/uL Monocytes # 0.3 (0-1.0) k/uL Eosinophils # 0.4 (0-0.7) k/uL Basophils # 0.0 (0-0.2) k/uL Hypochromasia Slight Anisocytosis Slight Macrocytosis Slight PT (9.0-12.0) sec INR (<1.2) APTT (22.0-30.0) sec Sodium 142 (137-145) mmol/L Potassium 5.4 H (3.5-5.1) mmol/L Chloride 109 H (98-107) mmol/L Carbon Dioxide 20 L (22-30) mmol/L Anion Gap 13 mmol/L BUN 65 H (7-17) mg/dL Creatinine 2.20 H (0.52-1.04) mg/dL Est GFR (MDRD) Af Amer 26 (>60 ml/min/1.73 sqM) Est GFR (MDRD) Non-Af 21 (>60 ml/min/1.73 sqM) Glucose 125 H (74-99) mg/dL Plasma Lactic Acid Chad 0.9 (0.7-2.0) mmol/L Calcium 10.4 H (8.4-10.2) mg/dL Total Bilirubin 0.7 (0.2-1.3) mg/dL AST 25 (14-36) U/L ALT 21 (9-52) U/L Alkaline Phosphatase 73 (38-126) U/L Troponin I (0.000-0.034) ng/mL Total Protein 6.4 (6.3-8.2) g/dL Albumin 4.1 (3.5-5.0) g/dL Urine Color Urine Appearance (Clear) Urine pH (5.0-8.0) Ur Specific [place] (1.001-1.035) Urine Protein (Negative) Urine Glucose (UA) (Negative) Urine Ketones (Negative) Urine Blood (Negative) Urine Nitrite (Negative) Urine Bilirubin (Negative) Urine Urobilinogen (<2.0) mg/dL Ur Leukocyte Esterase (Negative) 09/11/17 09/11/17 09/11/17 Range/Units 09:28 09:28 11:05 WBC (3.8-10.6) k/uL RBC (3.80-5.40) m/uL Hgb (11.4-16.0) gm/dL Hct (34.0-46.0) % MCV (80.0-100.0) fL MCH (25.0-35.0) pg MCHC (31.0-37.0) g/dL RDW (11.5-15.5) % Plt Count (150-450) k/uL Neutrophils % % Lymphocytes % % Monocytes % % Eosinophils % % Basophils % % Neutrophils # (1.3-7.7) k/uL Lymphocytes # (1.0-4.8) k/uL Monocytes # (0-1.0) k/uL Eosinophils # (0-0.7) k/uL Basophils # (0-0.2) k/uL Hypochromasia Anisocytosis Macrocytosis PT 10.2 (9.0-12.0) sec INR 1.0 (<1.2) APTT 23.1 (22.0-30.0) sec Sodium (137-145) mmol/L Potassium (3.5-5.1) mmol/L Chloride (98-107) mmol/L Carbon Dioxide (22-30) mmol/L Anion Gap mmol/L BUN (7-17) mg/dL Creatinine (0.52-1.04) mg/dL Est GFR (MDRD) Af Amer (>60 ml/min/1.73 sqM) Est GFR (MDRD) Non-Af (>60 ml/min/1.73 sqM) Glucose (74-99) mg/dL Plasma Lactic Acid Chad (0.7-2.0) mmol/L Calcium (8.4-10.2) mg/dL Total Bilirubin (0.2-1.3) mg/dL AST (14-36) U/L ALT (9-52) U/L Alkaline Phosphatase (38-126) U/L Troponin I 0.031 (0.000-0.034) ng/mL Total Protein (6.3-8.2) g/dL Albumin (3.5-5.0) g/dL Urine Color Yellow Urine Appearance Clear (Clear) Urine pH 6.0 (5.0-8.0) Ur Specific [place] 1.011 (1.001-1.035) Urine Protein Negative (Negative) Urine Glucose (UA) Negative (Negative) Urine Ketones Negative (Negative) Urine Blood Negative (Negative) Urine Nitrite Negative (Negative) Urine Bilirubin Negative (Negative) Urine Urobilinogen <2.0 (<2.0) mg/dL Ur Leukocyte Esterase Negative (Negative) - Radiology Data Radiology results: report reviewed, image reviewed Disposition Clinical Impression: Biliary colic, Hyperkalemia, Cholelithiasis Disposition: HOME SELF-CARE Condition: Stable Instructions: Biliary Colic (ED), Gallstones (ED) Additional Instructions: Please use medication as discussed. Please follow up with family doctor if symptoms have not improved over the next two days. Please return to the emergency room if your symptoms increase or worsen or for any other concerns. Referrals: Mike Ahmadi MD [Primary Care Provider] - 1-2 days Pamela Grijalva DO [Doctor of Osteopathic Medicine] - 1-2 days Time of Disposition: 11:53
[2017-09-11] MEDS: RX INFO: IV CONTRAST WAS GIVEN 1 EACH MISC MISCELLANE PRN ×2 (09:48→10:29)
[2017-09-11 10:00] LABS: Anisocytosis Slight; Basophils % (A) 1 %; Eosinophils # (A) 0.4 k/uL (0-0.7); Eosinophils % (A) 5 %; HCT 37.6 % (34.0-46.0); HGB 11.5 gm/dL (11.4-16.0); Hypochromasia Slight; Lymphocytes # (A) 0.6 k/uL (1.0-4.8); Lymphocytes % (A) 8 %; MCH 29.3 pg (25.0-35.0); MCHC 30.5 g/dL (31.0-37.0); MCV 96.1 fL (80.0-100.0); Macrocytosis Slight; Mean Platelet Volume 7.9; Monocytes # (A) 0.3 k/uL (0-1.0); Monocytes % (A) 4 %; Neutrophils # (A) 5.7 k/uL (1.3-7.7); Neutrophils % (A) 80 %; Platelet Count 238 k/uL (150-450); RBC 3.91 m/uL (3.80-5.40); RDW 17.4 % (11.5-15.5); WBC 7.1 k/uL (3.8-10.6)
[2017-09-11 10:10] LABS: Albumin 4.1 g/dL (3.5-5.0); Calcium 10.4 mg/dL (8.4-10.2); Potassium 5.4 mmol/L (3.5-5.1); Total Bilirubin 0.7 mg/dL (0.2-1.3); Total Protein 6.4 g/dL (6.3-8.2)
[2017-09-11 10:26] LABS: Partial Thromboplastin Time 23.1 sec (22.0-30.0); Prothrombin Time 10.2 sec (9.0-12.0)
--- NOTE | 2017-09-11 10:53 | CT ---
EXAMINATION TYPE: CT abdomen pelvis wo con DATE OF EXAM: 09/11/2017 COMPARISON: NONE HISTORY: Abdominal pain for [address] DLP: 1004 mGycm Automated exposure control for dose reduction was used. TECHNIQUE: Helical acquisition of images from the lung bases through the pelvis. FINDINGS: Lack of contrast could compromise sensitivity. There are coronary artery calcifications present. Pacemaker lead present within the ventricle. There may be a small hiatal hernia. LUNG BASES: Some patchy increased density is present at the posterior costophrenic angle on the right . There is some probable scarring, bronchiectasis in the lingula. AORTA: No significant abnormality is appreciated. LIVER/GB: Possible polyp or small stone within the gallbladder. Liver is unremarkable as seen. PANCREAS: No significant abnormality is seen. SPLEEN: Calcification in the spleen may be indicative of old granulomatous disease. ADRENALS: No significant abnormality is seen. KIDNEYS: No significant abnormality is seen. REPRODUCTIVE ORGANS: No significant abnormality is seen. URINARY BLADDER: No significant abnormality is seen. BOWEL: No significant abnormality is seen. No evident appendicitis. Small umbilical hernia contains fat as well as a small calcification. There is diverticular changes associated with the sigmoid colon which is extensive. FREE AIR: No Free Air is visible. ASCITES: None visible. PELVIC ADENOPATHY: None visualized. RETROPERITONEAL ADENOPATHY: No Retroperitoneal Adenopathy visible. OSSEOUS STRUCTURES: Degenerative disc changes are present in the visualized spine, there is a spinal curvature. Facet arthropathy also noted. IMPRESSION: NONCONTRAST EXAM. POSSIBLE GALLBLADDER WALL POLYP OR STONE. DIVERTICULOSIS, SUSPECT RIGHT LOWER LOBE SCARRING AND ADDITIONAL FINDINGS ABOVE.
[2017-09-11 11:27] LABS: Appearance,Urine Clear (Clear); Bilirubin,Urine Negative (Negative); Blood,Urine Negative (Negative); Color,Urine Yellow; Glucose,Urine (UA) Negative (Negative); Ketones,Urine Negative (Negative); Leukocyte Esterase,Urine Negative (Negative); Protein,Urine Negative (Negative); Specific Gravity,Urine 1.011 (1.001-1.035); Urobilinogen,Urine <2.0 mg/dL (<2.0)
--- NOTE | 2017-09-11 11:46 | US ---
EXAMINATION TYPE: US gallbladder DATE OF EXAM: 09/11/2017 COMPARISON: NONE CLINICAL HISTORY: Pain, F/U to CT. EXAM MEASUREMENTS: Liver Length: 16.0 cm Gallbladder Wall: 0.2 cm CBD: 0.3 cm Right Kidney: 9.1 x 4.0 x 4.8 cm Pancreas: partially obscured by bowel gas, portions visualized wnl Liver: wnl Gallbladder: dependant sludge, shadowing stone Evidence for sonographic Burnett's sign: No CBD: Within normal limits of size. Right Kidney: cortical thinning IMPRESSION: 1. Biliary sludge and cholelithiasis. No dilation of the common bile duct, pericholecystic fluid or g allbladder wall thickening to suggest acute cholecystitis. HIDA scan could be performed if there is f urther clinical concern. 2. Sonographic sequela of medical renal disease in the right kidney.
[2017-09-11 11:59] VITALS: BP 118/61; PULSE 74; TEMP 97.6
== END 2017-09-11 12:01 | disposition home or self-care (01) ==
LOC: EC 08:39
DX: K80.20 Calculus of gallbladder without cholecystitis without obstruction (principal); K80.50 Calculus of bile duct without cholangitis or cholecystitis without obstruction; E87.5 Hyperkalemia; I25.10 Atherosclerotic heart disease of native coronary artery without angina pectoris; J44.9 Chronic obstructive pulmonary disease, unspecified; I10 Essential (primary) hypertension; E07.9 Disorder of thyroid, unspecified; Z86.14 Personal history of Methicillin resistant Staphylococcus aureus infection; Z86.73 Personal history of transient ischemic attack (TIA), and cerebral infarction without residual deficits; Z95.5 Presence of coronary angioplasty implant and graft; Z95.0 Presence of cardiac pacemaker; Z87.891 Personal history of nicotine dependence; Z79.51 Long term (current) use of inhaled steroids; Z79.82 Long term (current) use of aspirin; Z79.899 Other long term (current) drug therapy; Z88.1 Allergy status to other antibiotic agents; Z88.8 Allergy status to other drugs, medicaments and biological substances
CPT/HCPCS: 36415; 74176; 76705; 80053; 81003; 83605; 84484; 85025; 85610; 85730; 87086; 93005; 96360; 96361; 99284

== ENCOUNTER 2017-09-11 20:42 | Emergency (ER) | payer MEDICARE, OTHER ==
[2017-09-11 21:19] VITALS: BP 115/53; PULSE 95; RESP 18; TEMP 97.6
[2017-09-11] MEDS ORDERED: IBUPROFEN 600 MG TAB PO STA (22:26)
[2017-09-11] MEDS ORDERED: HYDROcodone/APAP 5-325MG 1 EACH TAB PO STA (22:26)
--- NOTE | 2017-09-11 22:27 | ED ---
General Adult HPI - General Chief complaint: Abdominal Pain Stated complaint: Abd pain Time Seen by Provider: 09/11/17 21:41 Source: patient, RN notes reviewed, old records reviewed Mode of arrival: wheelchair Limitations: no limitations - History of Present Illness Initial comments: This is an 79-year-old female to the ER for evaluation of abdominal pain, recurrent abdominal pain. Patient was recently told that she has history of gallbladder disease, she went home a fluid again is abdominal pain. Patient came in the emergency room for evaluation. Patient states she has no pain currently, is a synthetic. She does not want surgical evaluation. She wants to be discharged home - Related Data Home Medications Medication Instructions Recorded Confirmed Allopurinol [Zyloprim] 100 mg PO BID 03/26/14 09/11/17 Cinacalcet [Sensipar] 30 mg PO TUFR 04/26/17 09/11/17 Levothyroxine Sodium [Synthroid] 50 mcg PO DAILY 04/26/17 09/11/17 Albuterol Inhaler [Ventolin Hfa 1 - 2 puff INHALATION RT-Q6H PRN 05/09/17 Inhaler] Fluticasone Propionate [Flovent 2 puff INHALATION RT-BID 05/09/17 09/11/17 Hfa 220MCG] rOPINIRole HCL [Requip] 0.25 mg PO HS PRN 05/20/17 09/11/17 Aspirin 81 mg PO DAILY 07/05/17 09/11/17 Famotidine [Pepcid] 20 mg PO BID PRN 08/14/17 09/11/17 Theophylline 24 Hour [Josh-24] 300 mg PO DAILY 08/14/17 09/11/17 LORazepam [Ativan] 0.5 mg PO DAILY PRN 08/23/17 09/11/17 Ondansetron Odt [Zofran Odt] 4 mg PO Q8H PRN 08/23/17 09/11/17 hydrALAZINE HCL [Apresoline] 10 mg PO BID 08/23/17 09/11/17 Previous Rx's Medication Instructions Recorded Albuterol Nebulized [Ventolin 2.5 mg INHALATION RT-Q6H PRN neb 03/19/17 Nebulized] Carvedilol [Coreg] 3.125 mg PO BID-W/MEALS #60 tab 07/08/17 Allergies Allergy/AdvReac Type Severity Reaction Status Date / Time azithromycin Allergy Unknown Verified 09/11/17 21:50 [From Zithromax Z-Sotero] bumetanide [From Bumex] Allergy Swelling Verified 09/11/17 21:50 ciprofloxacin [From Cipro] Allergy Unknown Verified 09/11/17 21:50 Calcium Channel Blocking AdvReac Unknown Verified 09/11/17 21:50 Agent Dilt Review of Systems ROS Statement: Those systems with pertinent positive or pertinent negative responses have been documented in the HPI. ROS Other: All systems not noted in ROS Statement are negative. Past Medical History Past Medical History: Atrial Fibrillation, Asthma, Coronary Artery Disease (CAD) , Heart Failure, COPD, CVA/TIA, GERD/Reflux, Hypertension, Respiratory Disorder , Thyroid Disorder Additional Past Medical History / Comment(s): high uric acid "KIDNEY PROBLEMS", bronchits, RLS, RECENT GROWTH REMOVED FROM NOSE,PT STATED WAS REFERRED TO ONCOLOGIST History of Any Multi-Drug Resistant Organisms: MRSA Date of last positivie culture/infection: 06/06/17 MDRO Source:: Left Leg Past Surgical History: Heart Catheterization With Stent, Pacemaker Additional Past Surgical History / Comment(s): left carotid. Pacemaker placed 2011, SKIN GROWTH REMOVED FROM NOSE Past Anesthesia/Blood Transfusion Reactions: No Reported Reaction Date of Last Stent Placement:: 2011 Type of Cardiac Device: Permanent Pacemaker Device Placement Date:: 12/12/2014 Past Psychological History: Anxiety Smoking Status: Former smoker Past Alcohol Use History: None Reported Past Drug Use History: None Reported - Past Family History Father Family Medical History: COPD Mother Family Medical History: No Reported History General Exam Limitations: no limitations General appearance: alert, in no apparent distress Head exam: Present: atraumatic, normocephalic, normal inspection Eye exam: Present: normal appearance, PERRL, EOMI. Absent: scleral icterus, conjunctival injection, periorbital swelling ENT exam: Present: normal exam, mucous membranes moist Neck exam: Present: normal inspection. Absent: tenderness, meningismus, lymphadenopathy Respiratory exam: Present: normal lung sounds bilaterally. Absent: respiratory distress, wheezes, rales, rhonchi, stridor Cardiovascular Exam: Present: regular rate, normal rhythm, normal heart sounds. Absent: systolic murmur, diastolic murmur, rubs, gallop, clicks GI/Abdominal exam: Present: soft, normal bowel sounds. Absent: distended, tenderness, guarding, rebound, rigid Extremities exam: Present: normal inspection, full ROM, normal capillary refill. Absent: tenderness, pedal edema, joint swelling, calf tenderness Back exam: Present: normal inspection Neurological exam: Present: alert, oriented X3, CN II-XII intact Psychiatric exam: Present: normal affect, normal mood Skin exam: Present: warm, dry, intact, normal color. Absent: rash Course Vital Signs 09/11/17 21:17 Temperature 97.6 F Pulse Rate 95 Respiratory 18 Rate Blood Pressure 115/53 O2 Sat by Pulse 100 Oximetry - Reevaluation(s) Reevaluation #1: Prior ER visits from today are reviewed and ER evaluation as well as patient coming to ER and walking out without being seen Medical Decision Making - Medical Decision Making 79 female the ER with recurrent abdominal pain, history of biliary colic, patient can be discharged home distress no pain Disposition Clinical Impression: Abdominal colic, Biliary colic Disposition: HOME SELF-CARE Condition: Good Instructions: Biliary Colic (ED) Referrals: Mike Ahmadi MD [Primary Care Provider] - 1-2 days Pamela Grijalva DO [Doctor of Osteopathic Medicine] - 1-2 days
[2017-09-11] MEDS: ONDANSETRON ODT 4 MG TAB PO STA ×2 (22:33→22:37)
== END 2017-09-11 22:38 | disposition home or self-care (01) ==
LOC: EC 20:42
DX: K80.50 Calculus of bile duct without cholangitis or cholecystitis without obstruction (principal); I11.0 Hypertensive heart disease with heart failure; I50.9 Heart failure, unspecified; J44.9 Chronic obstructive pulmonary disease, unspecified; K21.9 Gastro-esophageal reflux disease without esophagitis; G25.81 Restless legs syndrome; E07.9 Disorder of thyroid, unspecified; Z87.891 Personal history of nicotine dependence; Z79.51 Long term (current) use of inhaled steroids; Z79.82 Long term (current) use of aspirin; Z79.899 Other long term (current) drug therapy; Z88.1 Allergy status to other antibiotic agents; Z88.8 Allergy status to other drugs, medicaments and biological substances; Z86.14 Personal history of Methicillin resistant Staphylococcus aureus infection; Z87.448 Personal history of other diseases of urinary system
CPT/HCPCS: 99284

== ENCOUNTER 2017-09-12 11:08 | Emergency (ER) | payer MEDICARE, OTHER ==
[2017-09-12 11:20] VITALS: BP 109/64; PULSE 94; RESP 20; TEMP 97
[2017-09-12] MEDS ORDERED: ETODOLAC 400 MG TAB PO STA (11:49)
--- NOTE | 2017-09-12 11:53 | ED ---
General Adult HPI - General Chief complaint: Abdominal Pain Stated complaint: stomach pain Time Seen by Provider: 09/12/17 11:23 Source: patient, RN notes reviewed Mode of arrival: wheelchair Limitations: no limitations - History of Present Illness Initial comments: Patient is a pleasant 81-year-old female presenting to the emergency Department with abdominal discomfort. Patient was in the emergency department yesterday. Patient states she did not receive any pain medicine to go home with. Patient requests pain medication. Patient states she was not told anything last time. Patient states she read her discharge papers and it sounds exactly like the symptoms that she is having. Patient has epigastric discomfort. Symptoms worsened after eating [employer] - Related Data Home Medications Medication Instructions Recorded Confirmed Allopurinol [Zyloprim] 100 mg PO BID 03/26/14 09/11/17 Cinacalcet [Sensipar] 30 mg PO TUFR 04/26/17 09/11/17 Levothyroxine Sodium [Synthroid] 50 mcg PO DAILY 04/26/17 09/11/17 Albuterol Inhaler [Ventolin Hfa 1 - 2 puff INHALATION RT-Q6H PRN 05/09/17 Inhaler] Fluticasone Propionate [Flovent 2 puff INHALATION RT-BID 05/09/17 09/11/17 Hfa 220MCG] rOPINIRole HCL [Requip] 0.25 mg PO HS PRN 05/20/17 09/11/17 Aspirin 81 mg PO DAILY 07/05/17 09/11/17 Famotidine [Pepcid] 20 mg PO BID PRN 08/14/17 09/11/17 Theophylline 24 Hour [Josh-24] 300 mg PO DAILY 08/14/17 09/11/17 LORazepam [Ativan] 0.5 mg PO DAILY PRN 08/23/17 09/11/17 Ondansetron Odt [Zofran Odt] 4 mg PO Q8H PRN 08/23/17 09/11/17 hydrALAZINE HCL [Apresoline] 10 mg PO BID 08/23/17 09/11/17 Previous Rx's Medication Instructions Recorded Albuterol Nebulized [Ventolin 2.5 mg INHALATION RT-Q6H PRN neb 03/19/17 Nebulized] Carvedilol [Coreg] 3.125 mg PO BID-W/MEALS #60 tab 07/08/17 traMADol HCl [Ultram] 50 mg PO Q6H PRN #12 tab 09/12/17 Allergies Allergy/AdvReac Type Severity Reaction Status Date / Time azithromycin Allergy Unknown Verified 09/12/17 11:20 [From Zithromax Z-Sotero] bumetanide [From Bumex] Allergy Swelling Verified 09/12/17 11:20 ciprofloxacin [From Cipro] Allergy Unknown Verified 09/12/17 11:20 Calcium Channel Blocking AdvReac Unknown Verified 09/12/17 11:20 Agent Dilt Review of Systems ROS Statement: Those systems with pertinent positive or pertinent negative responses have been documented in the HPI. ROS Other: All systems not noted in ROS Statement are negative. Constitutional: Denies: fever Eyes: Denies: eye pain ENT: Denies: ear pain Respiratory: Denies: cough Cardiovascular: Denies: chest pain Endocrine: Denies: fatigue Gastrointestinal: Reports: abdominal pain. Denies: vomiting Genitourinary: Denies: dysuria Musculoskeletal: Denies: back pain Skin: Denies: rash Neurological: Denies: weakness Past Medical History Past Medical History: Atrial Fibrillation, Asthma, Coronary Artery Disease (CAD) , Heart Failure, COPD, CVA/TIA, GERD/Reflux, Hypertension, Respiratory Disorder , Thyroid Disorder Additional Past Medical History / Comment(s): high uric acid "KIDNEY PROBLEMS", bronchits, RLS, RECENT GROWTH REMOVED FROM NOSE,PT STATED WAS REFERRED TO ONCOLOGIST History of Any Multi-Drug Resistant Organisms: MRSA Date of last positivie culture/infection: 06/06/17 MDRO Source:: Left Leg Past Surgical History: Heart Catheterization With Stent, Pacemaker Additional Past Surgical History / Comment(s): left carotid. Pacemaker placed 2011, SKIN GROWTH REMOVED FROM NOSE Past Anesthesia/Blood Transfusion Reactions: No Reported Reaction Date of Last Stent Placement:: 2011 Type of Cardiac Device: Permanent Pacemaker Device Placement Date:: 12/12/2014 Past Psychological History: Anxiety Smoking Status: Former smoker Past Alcohol Use History: None Reported Past Drug Use History: None Reported - Past Family History Father Family Medical History: COPD Mother Family Medical History: No Reported History General Exam Limitations: no limitations General appearance: alert, in no apparent distress Head exam: Present: atraumatic Eye exam: Present: normal appearance, PERRL ENT exam: Present: normal oropharynx Neck exam: Present: normal inspection Respiratory exam: Present: normal lung sounds bilaterally Cardiovascular Exam: Present: regular rate, normal rhythm GI/Abdominal exam: Present: soft, tenderness (Mild tenderness right upper quadrant), normal bowel sounds. Absent: distended, guarding, rebound, rigid, pulsatile mass Extremities exam: Present: normal inspection Neurological exam: Present: alert Psychiatric exam: Present: normal affect, normal mood Skin exam: Present: normal color Course Vital Signs 09/12/17 11:18 Temperature 97.0 F L Pulse Rate 94 Respiratory 20 Rate Blood Pressure 109/64 O2 Sat by Pulse 100 Oximetry Medical Decision Making - Medical Decision Making Patient recommended having blood work repeated however refuses this. Patient offered admission for surgical evaluation and possible surgery which she also refuses. Patient requests pain medication and discharged. Patient is agreeable to follow-up. Disposition Clinical Impression: Abdominal pain, Biliary colic Disposition: HOME SELF-CARE Condition: Stable Instructions: Abdominal Pain (ED), Biliary Colic (ED) Additional Instructions: Please follow-up with Dr. Ahmadi and surgeon in the beginning of the week. Return for increased pain, vomiting, fever, worsening symptoms or other concerns. Avoid large meals. Avoid fatty food. Avoid fast food and avoid [employer]. Prescriptions: traMADol HCl [Ultram] 50 mg PO Q6H PRN #12 tab PRN Reason: Pain/Discomfort Referrals: Mike Ahmadi MD [Primary Care Provider] - 1-2 days Tony Mallory MD [Medical Doctor] - 1-2 days Time of Disposition: 11:53
== END 2017-09-12 12:15 | disposition home or self-care (01) ==
LOC: EC 11:08
DX: K80.50 Calculus of bile duct without cholangitis or cholecystitis without obstruction (principal); K21.9 Gastro-esophageal reflux disease without esophagitis; J44.9 Chronic obstructive pulmonary disease, unspecified; I25.10 Atherosclerotic heart disease of native coronary artery without angina pectoris; I11.0 Hypertensive heart disease with heart failure; I50.9 Heart failure, unspecified; I48.91 Unspecified atrial fibrillation; E07.9 Disorder of thyroid, unspecified; Z87.891 Personal history of nicotine dependence; Z88.1 Allergy status to other antibiotic agents; Z88.8 Allergy status to other drugs, medicaments and biological substances; Z79.82 Long term (current) use of aspirin; Z79.899 Other long term (current) drug therapy; Z86.14 Personal history of Methicillin resistant Staphylococcus aureus infection; Z86.73 Personal history of transient ischemic attack (TIA), and cerebral infarction without residual deficits; Z95.0 Presence of cardiac pacemaker
CPT/HCPCS: 99283

== ENCOUNTER 2017-09-15 09:01 | Emergency (ER) | payer MEDICARE, OTHER ==
[2017-09-15 09:17] VITALS: RESP 18
[2017-09-15] MEDS ORDERED: AZITHROMYCIN 500 MG in SODIUM CHLORIDE 0.9% 250 ML IVPB STA (09:31)
[2017-09-15] MEDS ORDERED: IPRATROPIUM-ALBUTEROL 3 ML NEB INHALATION STA (09:31)
[2017-09-15] MEDS ORDERED: SODIUM CHLORIDE 0.9% 500 ML IV STA (09:31)
--- NOTE | 2017-09-15 09:34 | ED ---
General Adult HPI - General Chief complaint: Shortness of Breath Stated complaint: Congestion/sick Time Seen by Provider: 09/15/17 09:16 Source: patient, RN notes reviewed, old records reviewed Mode of arrival: wheelchair Limitations: physical limitation - History of Present Illness Initial comments: This is an 81-year-old female to the ER for evaluation. She was essay for evaluation regarding cough and congestion, shortness of breath. Patient has history of A. fib CAD and heart history. No remote history of smoking. Patient denies fever. No travel history no sick contacts. No abdominal pain no chest pain. No modifying factors for symptoms. Patient is this headache worsening cough 2 days - Related Data Home Medications Medication Instructions Recorded Confirmed Allopurinol [Zyloprim] 100 mg PO BID 03/26/14 09/15/17 Cinacalcet [Sensipar] 30 mg PO TUFR 04/26/17 09/15/17 Levothyroxine Sodium [Synthroid] 50 mcg PO DAILY 04/26/17 09/15/17 Albuterol Inhaler [Ventolin Hfa 1 - 2 puff INHALATION RT-Q6H PRN 05/09/17 Inhaler] Fluticasone Propionate [Flovent 1 puff INHALATION RT-BID 05/09/17 09/15/17 Hfa 220MCG] rOPINIRole HCL [Requip] 0.25 mg PO HS PRN 05/20/17 09/15/17 Aspirin 81 mg PO DAILY 07/05/17 09/15/17 Famotidine [Pepcid] 20 mg PO BID PRN 08/14/17 09/15/17 Theophylline 24 Hour [Josh-24] 300 mg PO DAILY 08/14/17 09/15/17 LORazepam [Ativan] 0.5 mg PO DAILY PRN 08/23/17 09/15/17 Ondansetron Odt [Zofran Odt] 4 mg PO Q8H PRN 08/23/17 09/15/17 hydrALAZINE HCL [Apresoline] 10 mg PO BID 08/23/17 09/15/17 Furosemide [Lasix] 20 mg PO DAILY 09/15/17 09/15/17 Spironolactone-Hctz 25-25Mg 1 tab PO DAILY 09/15/17 09/15/17 [Aldactazide 25-25Mg] Previous Rx's Medication Instructions Recorded Albuterol Nebulized [Ventolin 2.5 mg INHALATION RT-Q6H PRN neb 03/19/17 Nebulized] Carvedilol [Coreg] 3.125 mg PO BID-W/MEALS #60 tab 07/08/17 traMADol HCl [Ultram] 50 mg PO Q6H PRN #12 tab 09/12/17 Allergies Allergy/AdvReac Type Severity Reaction Status Date / Time azithromycin Allergy Unknown Verified 09/15/17 09:44 [From Zithromax Z-Sotero] bumetanide [From Bumex] Allergy Swelling Verified 09/15/17 09:44 ciprofloxacin [From Cipro] Allergy Unknown Verified 09/15/17 09:44 Calcium Channel Blocking AdvReac Unknown Verified 09/15/17 09:44 Agent Dilt Review of Systems ROS Statement: Those systems with pertinent positive or pertinent negative responses have been documented in the HPI. ROS Other: All systems not noted in ROS Statement are negative. Past Medical History Past Medical History: Atrial Fibrillation, Asthma, Coronary Artery Disease (CAD) , Heart Failure, COPD, CVA/TIA, GERD/Reflux, Hypertension, Respiratory Disorder , Thyroid Disorder Additional Past Medical History / Comment(s): high uric acid "KIDNEY PROBLEMS", bronchits, RLS History of Any Multi-Drug Resistant Organisms: MRSA Date of last positivie culture/infection: 06/06/17 MDRO Source:: Left Leg Past Surgical History: Heart Catheterization With Stent, Pacemaker Additional Past Surgical History / Comment(s): left carotid. Pacemaker placed 2011, SKIN GROWTH REMOVED FROM NOSE Past Anesthesia/Blood Transfusion Reactions: No Reported Reaction Date of Last Stent Placement:: 2011 Type of Cardiac Device: Permanent Pacemaker Device Placement Date:: 12/12/2014 Past Psychological History: Anxiety Smoking Status: Former smoker Past Alcohol Use History: None Reported Past Drug Use History: None Reported - Past Family History Father Family Medical History: COPD Mother Family Medical History: No Reported History General Exam Limitations: physical limitation General appearance: alert, in no apparent distress Head exam: Present: atraumatic, normocephalic, normal inspection Eye exam: Present: normal appearance, PERRL, EOMI. Absent: scleral icterus, conjunctival injection, periorbital swelling ENT exam: Present: normal exam, mucous membranes moist Neck exam: Present: normal inspection. Absent: tenderness, meningismus, lymphadenopathy Respiratory exam: Present: normal lung sounds bilaterally. Absent: respiratory distress, wheezes, rales, rhonchi, stridor Cardiovascular Exam: Present: regular rate, normal rhythm, normal heart sounds. Absent: systolic murmur, diastolic murmur, rubs, gallop, clicks GI/Abdominal exam: Present: soft, normal bowel sounds. Absent: distended, tenderness, guarding, rebound, rigid Extremities exam: Present: normal inspection, full ROM, normal capillary refill. Absent: tenderness, pedal edema, joint swelling, calf tenderness Back exam: Present: normal inspection Neurological exam: Present: alert, oriented X3, CN II-XII intact Psychiatric exam: Present: normal affect, normal mood Skin exam: Present: warm, dry, intact, normal color. Absent: rash Course Vital Signs 09/15/17 09/15/17 09/15/17 09:13 09:51 10:03 Temperature 97.9 F Pulse Rate 78 68 72 Respiratory 18 Rate Blood Pressure 108/66 O2 Sat by Pulse 100 Oximetry - Reevaluation(s) Reevaluation #1: 09/15/17 10:35 Patient refusing x-ray or study EKG Findings - EKG Comments: EKG Findings:: EKG shows paced rhythm rate of 107, QRS 154, QTC 563 Medical Decision Making - Medical Decision Making 81 female the ER for evaluation of cough and congestion, patient refusing x- ray. Patient asking to be discharged home. She does feel mildly improved after breathing treatment. - Lab Data Result diagrams: 09/15/17 09:35 09/15/17 09:35 Lab Results 09/15/17 09/15/17 09/15/17 Range/Units 09:35 09:35 09:35 WBC 9.9 (3.8-10.6) k/uL RBC 4.14 (3.80-5.40) m/uL Hgb 12.1 (11.4-16.0) gm/dL Hct 39.0 (34.0-46.0) % MCV 94.2 (80.0-100.0) fL MCH 29.2 (25.0-35.0) pg MCHC 31.0 (31.0-37.0) g/dL RDW 17.5 H (11.5-15.5) % Plt Count 233 (150-450) k/uL Neutrophils % 85 % Lymphocytes % 4 % Monocytes % 5 % Eosinophils % 5 % Basophils % 0 % Neutrophils # 8.3 H (1.3-7.7) k/uL Lymphocytes # 0.4 L (1.0-4.8) k/uL Monocytes # 0.5 (0-1.0) k/uL Eosinophils # 0.5 (0-0.7) k/uL Basophils # 0.0 (0-0.2) k/uL Hypochromasia Slight Anisocytosis Slight PT (9.0-12.0) sec INR (<1.2) APTT (22.0-30.0) sec Sodium (137-145) mmol/L Potassium (3.5-5.1) mmol/L Chloride (98-107) mmol/L Carbon Dioxide (22-30) mmol/L Anion Gap mmol/L BUN (7-17) mg/dL Creatinine (0.52-1.04) mg/dL Est GFR (MDRD) Af Amer (>60 ml/min/1.73 sqM) Est GFR (MDRD) Non-Af (>60 ml/min/1.73 sqM) Glucose (74-99) mg/dL Calcium (8.4-10.2) mg/dL Magnesium (1.6-2.3) mg/dL Total Bilirubin (0.2-1.3) mg/dL AST (14-36) U/L ALT (9-52) U/L Alkaline Phosphatase (38-126) U/L Total Creatine Kinase 33 (30-135) U/L NT-Pro-B Natriuret Pep pg/mL Total Protein (6.3-8.2) g/dL Albumin (3.5-5.0) g/dL Influenza Type A RNA Not Detected (Not Detectd) Influenza Type B (PCR) Not Detected (Not Detectd) 09/15/17 09/15/17 09/15/17 Range/Units 09:35 09:35 09:35 WBC (3.8-10.6) k/uL RBC (3.80-5.40) m/uL Hgb (11.4-16.0) gm/dL Hct (34.0-46.0) % MCV (80.0-100.0) fL MCH (25.0-35.0) pg MCHC (31.0-37.0) g/dL RDW (11.5-15.5) % Plt Count (150-450) k/uL Neutrophils % % Lymphocytes % % Monocytes % % Eosinophils % % Basophils % % Neutrophils # (1.3-7.7) k/uL Lymphocytes # (1.0-4.8) k/uL Monocytes # (0-1.0) k/uL Eosinophils # (0-0.7) k/uL Basophils # (0-0.2) k/uL Hypochromasia Anisocytosis PT 10.0 (9.0-12.0) sec INR 1.0 (<1.2) APTT 22.7 (22.0-30.0) sec Sodium 143 (137-145) mmol/L Potassium 5.7 H (3.5-5.1) mmol/L Chloride 109 H (98-107) mmol/L Carbon Dioxide 20 L (22-30) mmol/L Anion Gap 14 mmol/L BUN 61 H (7-17) mg/dL Creatinine 2.17 H (0.52-1.04) mg/dL Est GFR (MDRD) Af Amer 26 (>60 ml/min/1.73 sqM) Est GFR (MDRD) Non-Af 22 (>60 ml/min/1.73 sqM) Glucose 111 H (74-99) mg/dL Calcium 10.2 (8.4-10.2) mg/dL Magnesium 2.2 (1.6-2.3) mg/dL Total Bilirubin 0.8 (0.2-1.3) mg/dL AST 28 (14-36) U/L ALT 27 (9-52) U/L Alkaline Phosphatase 83 (38-126) U/L Total Creatine Kinase (30-135) U/L NT-Pro-B Natriuret Pep 2200 pg/mL Total Protein 6.5 (6.3-8.2) g/dL Albumin 4.0 (3.5-5.0) g/dL Influenza Type A RNA (Not Detectd) Influenza Type B (PCR) (Not Detectd) Disposition Clinical Impression: Acute bronchitis, Upper respiratory disease Disposition: HOME SELF-CARE Instructions: Acute Bronchitis (ED) Referrals: Mike Ahmadi MD [Primary Care Provider] - 1-2 days
[2017-09-15 09:49] LABS: Anisocytosis Slight; Basophils % (A) 0 %; Eosinophils # (A) 0.5 k/uL (0-0.7); Eosinophils % (A) 5 %; HGB 12.1 gm/dL (11.4-16.0); Hypochromasia Slight; Lymphocytes # (A) 0.4 k/uL (1.0-4.8); Lymphocytes % (A) 4 %; MCH 29.2 pg (25.0-35.0); MCV 94.2 fL (80.0-100.0); Mean Platelet Volume 8.2; Monocytes # (A) 0.5 k/uL (0-1.0); Monocytes % (A) 5 %; Neutrophils # (A) 8.3 k/uL (1.3-7.7); Neutrophils % (A) 85 %; Platelet Count 233 k/uL (150-450); RBC 4.14 m/uL (3.80-5.40); RDW 17.5 % (11.5-15.5); WBC 9.9 k/uL (3.8-10.6)
[2017-09-15 09:58] LABS: Partial Thromboplastin Time 22.7 sec (22.0-30.0)
[2017-09-15 10:08] LABS: Calcium 10.2 mg/dL (8.4-10.2); Magnesium 2.2 mg/dL (1.6-2.3); Potassium 5.7 mmol/L (3.5-5.1); Total Bilirubin 0.8 mg/dL (0.2-1.3); Total Protein 6.5 g/dL (6.3-8.2)
[2017-09-15 10:38] LABS: Troponin I 0.027 ng/mL (0.000-0.034)
[2017-09-15 10:46] VITALS: BP 136/65; PULSE 79; TEMP 97.8
== END 2017-09-15 10:47 | disposition home or self-care (01) ==
LOC: EC 09:01
DX: J20.9 Acute bronchitis, unspecified (principal); J06.9 Acute upper respiratory infection, unspecified; J44.0 Chronic obstructive pulmonary disease with (acute) lower respiratory infection; I25.10 Atherosclerotic heart disease of native coronary artery without angina pectoris; I11.0 Hypertensive heart disease with heart failure; I50.9 Heart failure, unspecified; F41.9 Anxiety disorder, unspecified; E07.9 Disorder of thyroid, unspecified; Z86.14 Personal history of Methicillin resistant Staphylococcus aureus infection; Z86.73 Personal history of transient ischemic attack (TIA), and cerebral infarction without residual deficits; Z95.5 Presence of coronary angioplasty implant and graft; Z95.0 Presence of cardiac pacemaker; Z87.891 Personal history of nicotine dependence; Z79.51 Long term (current) use of inhaled steroids; Z79.82 Long term (current) use of aspirin; Z79.899 Other long term (current) drug therapy; Z88.1 Allergy status to other antibiotic agents; Z88.8 Allergy status to other drugs, medicaments and biological substances
CPT/HCPCS: 36415; 80053; 82550; 82553; 83735; 83880; 84484; 85025; 85610; 85730; 87502; 93005; 94640; 96360; 99285

== ENCOUNTER 2017-09-15 16:21 | Emergency (ER) | payer MEDICARE, OTHER ==
[2017-09-15 16:26] VITALS: BP 111/93; PULSE 80; RESP 20; TEMP 98.3
[2017-09-15] MEDS ORDERED: SODIUM CHLORIDE 0.9% 500 ML IV STA (16:42)
--- NOTE | 2017-09-15 16:46 | ED ---
General Adult HPI - General Chief complaint: Abdominal Pain Stated complaint: Abd Pain Time Seen by Provider: 09/15/17 16:25 Source: patient, RN notes reviewed Mode of arrival: wheelchair Limitations: no limitations - History of Present Illness Initial comments: This is an 81-year-old female who presents to the emergency room complaining of abdominal pain. Patient states is in the epigastric region from the left only to the right and is intermittent in nature currently is not that painful. Patient states she was here in the emergency department. Patient denies any fever chills or cough per patient denies any vomiting or diarrhea. Rations a very poor historian but very histrionic. Patient denies any headache patient denies numbness weakness. Patient denies any chest pain difficulty breathing shortness of breath. Patient denies any dysuria hematuria urinary frequency. - Related Data Home Medications Medication Instructions Recorded Confirmed Allopurinol [Zyloprim] 100 mg PO BID 03/26/14 09/15/17 Cinacalcet [Sensipar] 30 mg PO TUFR 04/26/17 09/15/17 Levothyroxine Sodium [Synthroid] 50 mcg PO DAILY 04/26/17 09/15/17 Albuterol Inhaler [Ventolin Hfa 1 - 2 puff INHALATION RT-Q6H PRN 05/09/17 Inhaler] Fluticasone Propionate [Flovent 1 puff INHALATION RT-BID 05/09/17 09/15/17 Hfa 220MCG] rOPINIRole HCL [Requip] 0.25 mg PO HS PRN 05/20/17 09/15/17 Aspirin 81 mg PO DAILY 07/05/17 09/15/17 Famotidine [Pepcid] 20 mg PO BID PRN 08/14/17 09/15/17 Theophylline 24 Hour [Josh-24] 300 mg PO DAILY 08/14/17 09/15/17 LORazepam [Ativan] 0.5 mg PO DAILY PRN 08/23/17 09/15/17 Ondansetron Odt [Zofran Odt] 4 mg PO Q8H PRN 08/23/17 09/15/17 hydrALAZINE HCL [Apresoline] 10 mg PO BID 08/23/17 09/15/17 Furosemide [Lasix] 20 mg PO DAILY 09/15/17 09/15/17 Spironolactone-Hctz 25-25Mg 1 tab PO DAILY 09/15/17 09/15/17 [Aldactazide 25-25Mg] Previous Rx's Medication Instructions Recorded Albuterol Nebulized [Ventolin 2.5 mg INHALATION RT-Q6H PRN neb 03/19/17 Nebulized] Carvedilol [Coreg] 3.125 mg PO BID-W/MEALS #60 tab 07/08/17 traMADol HCl [Ultram] 50 mg PO Q6H PRN #12 tab 09/12/17 Allergies Allergy/AdvReac Type Severity Reaction Status Date / Time azithromycin Allergy Unknown Verified 09/15/17 16:27 [From Zithromax Z-Sotero] bumetanide [From Bumex] Allergy Swelling Verified 09/15/17 16:27 ciprofloxacin [From Cipro] Allergy Unknown Verified 09/15/17 16:27 Calcium Channel Blocking AdvReac Unknown Verified 09/15/17 16:27 Agent Dilt Review of Systems ROS Statement: Those systems with pertinent positive or pertinent negative responses have been documented in the HPI. ROS Other: All systems not noted in ROS Statement are negative. Past Medical History Past Medical History: Atrial Fibrillation, Asthma, Coronary Artery Disease (CAD) , Heart Failure, COPD, CVA/TIA, GERD/Reflux, Hypertension, Respiratory Disorder , Thyroid Disorder Additional Past Medical History / Comment(s): high uric acid "KIDNEY PROBLEMS", bronchits, RLS History of Any Multi-Drug Resistant Organisms: MRSA Date of last positivie culture/infection: 06/06/17 MDRO Source:: Left Leg Past Surgical History: Heart Catheterization With Stent, Pacemaker Additional Past Surgical History / Comment(s): left carotid. Pacemaker placed 2011, SKIN GROWTH REMOVED FROM NOSE Past Anesthesia/Blood Transfusion Reactions: No Reported Reaction Date of Last Stent Placement:: 2011 Type of Cardiac Device: Permanent Pacemaker Device Placement Date:: 12/12/2014 Past Psychological History: Anxiety Smoking Status: Former smoker Past Alcohol Use History: None Reported Past Drug Use History: None Reported - Past Family History Father Family Medical History: COPD Mother Family Medical History: No Reported History General Exam - General Exam Comments Initial Comments: GENERAL: Patient is well-developed and well-nourished. Patient is nontoxic and well- hydrated and is in mild distress. ENT: Neck is soft and supple. No significant lymphadenopathy is noted. Oropharynx is clear. Moist mucous membranes. Neck has full range of motion without eliciting any pain. EYES: The sclera were anicteric and conjunctiva were pink and moist. Extraocular movements were intact and pupils were equal round and reactive to light. Eyelids were unremarkable. PULMONARY: Unlabored respirations. Good breath sounds bilaterally. No audible rales rhonchi or wheezing was noted. CARDIOVASCULAR: There is a regular rate and rhythm without any murmurs gallops or rubs. ABDOMEN: Soft and nontender with normal bowel sounds. SKIN: Skin is clear with no lesions or rashes and otherwise unremarkable. NEUROLOGIC: Patient is alert and oriented x3. Cranial nerves II through XII are grossly intact. Motor and sensory are also intact. Normal speech, volume and content. Symmetrical smile. MUSCULOSKELETAL: Normal extremities with adequate strength and full range of motion. No lower extremity swelling or edema. No calf tenderness. LYMPHATICS: No significant lymphadenopathy is noted PSYCHIATRIC: Normal psychiatric evaluation. Limitations: no limitations Course Vital Signs 09/15/17 16:23 Temperature 98.3 F Pulse Rate 80 Respiratory 20 Rate Blood Pressure 111/93 O2 Sat by Pulse 100 Oximetry Medical Decision Making - Medical Decision Making EKG shows a paced rhythm at 72 bpm [place] interval 154 QT interval 446 QTC is 488. Patient is requesting relief states she has no symptoms at this time. Chest x-ray shows no acute abnormality patient insisted on going home prior to or comprehensive panel pain back - Lab Data Result diagrams: 09/15/17 16:40 Lab Results 09/15/17 Range/Units 16:40 WBC 10.0 (3.8-10.6) k/uL RBC 4.15 (3.80-5.40) m/uL Hgb 12.4 (11.4-16.0) gm/dL Hct 40.4 (34.0-46.0) % MCV 97.5 (80.0-100.0) fL MCH 29.9 (25.0-35.0) pg MCHC 30.7 L (31.0-37.0) g/dL RDW 17.2 H (11.5-15.5) % Plt Count 199 (150-450) k/uL Neutrophils % 88 % Lymphocytes % 3 % Monocytes % 5 % Eosinophils % 3 % Basophils % 0 % Neutrophils # 8.8 H (1.3-7.7) k/uL Lymphocytes # 0.3 L (1.0-4.8) k/uL Monocytes # 0.5 (0-1.0) k/uL Eosinophils # 0.3 (0-0.7) k/uL Basophils # 0.0 (0-0.2) k/uL Hypochromasia Moderate Anisocytosis Slight Macrocytosis Slight Disposition Clinical Impression: Abdominal pain Disposition: HOME SELF-CARE Condition: Good Instructions: Abdominal Pain (ED) Referrals: Mike Ahmadi MD [Primary Care Provider] - 1-2 days Time of Disposition: 18:17
[2017-09-15 17:04] LABS: Anisocytosis Slight; Basophils % (A) 0 %; Eosinophils # (A) 0.3 k/uL (0-0.7); Eosinophils % (A) 3 %; HCT 40.4 % (34.0-46.0); HGB 12.4 gm/dL (11.4-16.0); Hypochromasia Moderate; Lymphocytes # (A) 0.3 k/uL (1.0-4.8); Lymphocytes % (A) 3 %; MCH 29.9 pg (25.0-35.0); MCHC 30.7 g/dL (31.0-37.0); MCV 97.5 fL (80.0-100.0); Macrocytosis Slight; Mean Platelet Volume 8.8; Monocytes # (A) 0.5 k/uL (0-1.0); Monocytes % (A) 5 %; Neutrophils # (A) 8.8 k/uL (1.3-7.7); Neutrophils % (A) 88 %; Platelet Count 199 k/uL (150-450); RBC 4.15 m/uL (3.80-5.40); RDW 17.2 % (11.5-15.5)
--- NOTE | 2017-09-15 17:15 | XR ---
EXAMINATION TYPE: XR chest 2V DATE OF EXAM: 09/15/2017 COMPARISON: 07/07/2017 HISTORY: Abdominal pain and chest pain TECHNIQUE: Frontal and lateral views of the chest are obtained. FINDINGS: There is no heart failure nor confluent pneumonic infiltrate. There is mild pulmonary hype rinflation. I see no definite pleural effusion. There is left axillary pacemaker with the lead tip in the right ventricle. Bony thorax is intact. Thoracic aorta is atheromatous. There is mild coarsening of interstitial pulmonary markings. IMPRESSION: Mild prominent fibrosis. COPD. No heart failure. No significant change.
== END 2017-09-15 18:40 | disposition home or self-care (01) ==
LOC: EC 16:21
DX: R10.13 Epigastric pain (principal); I25.10 Atherosclerotic heart disease of native coronary artery without angina pectoris; I50.9 Heart failure, unspecified; I11.0 Hypertensive heart disease with heart failure; J44.9 Chronic obstructive pulmonary disease, unspecified; K21.9 Gastro-esophageal reflux disease without esophagitis; E07.9 Disorder of thyroid, unspecified; Z86.14 Personal history of Methicillin resistant Staphylococcus aureus infection; Z95.0 Presence of cardiac pacemaker; Z95.5 Presence of coronary angioplasty implant and graft; Z87.891 Personal history of nicotine dependence; Z86.73 Personal history of transient ischemic attack (TIA), and cerebral infarction without residual deficits; Z79.51 Long term (current) use of inhaled steroids; Z79.82 Long term (current) use of aspirin; Z79.899 Other long term (current) drug therapy; Z88.1 Allergy status to other antibiotic agents; Z88.8 Allergy status to other drugs, medicaments and biological substances; Z53.29 Procedure and treatment not carried out because of patient's decision for other reasons
CPT/HCPCS: 36415; 71046; 85025; 93005; 99284

== ENCOUNTER 2017-09-16 12:52 | Emergency (ER) | payer MEDICARE, OTHER ==
[2017-09-16 13:09] VITALS: BP 123/63; TEMP 98
[2017-09-16 13:42] VITALS: PULSE 77; RESP 15
--- NOTE | 2017-09-16 13:57 | ED ---
URI HPI - General Chief Complaint: Upper Respiratory Infection Stated Complaint: Congested, Runny Nose Time Seen by Provider: 09/16/17 13:26 Source: patient, RN notes reviewed Mode of arrival: wheelchair Limitations: no limitations - History of Present Illness Initial Comments: this is an 81-year-old female presents emergency Department chief complaint runny nose. Patient states that her symptoms started over the last couple days she had 2 ER visits yesterday for similar complaints. Patient had lab work, EKG , chest x-ray which showed no evidence of pneumonia. She states she has no chest congestion at this time. Denies fever, chills. She states she just feels rundown from her cold. Patient states that she came x-ray because she had some outpatient x-rays though she was directed to the ER at this time. Patient states that she lives at home by herself she does feel safe at home she has family that lives around her helps her. Patient denies headache, dizziness , chest pain, shortness breath, nausea, vomiting diarrhea constipation. - Related Data Home Medications Medication Instructions Recorded Confirmed Allopurinol [Zyloprim] 100 mg PO BID 03/26/14 09/16/17 Cinacalcet [Sensipar] 30 mg PO TUFR 04/26/17 09/16/17 Levothyroxine Sodium [Synthroid] 50 mcg PO DAILY 04/26/17 09/16/17 Albuterol Inhaler [Ventolin Hfa 1 - 2 puff INHALATION RT-Q6H PRN 05/09/17 Inhaler] Fluticasone Propionate [Flovent 1 puff INHALATION RT-BID 05/09/17 09/16/17 Hfa 220MCG] rOPINIRole HCL [Requip] 0.25 mg PO HS PRN 05/20/17 09/16/17 Aspirin 81 mg PO DAILY 07/05/17 09/16/17 Famotidine [Pepcid] 20 mg PO BID PRN 08/14/17 09/16/17 Theophylline 24 Hour [Josh-24] 300 mg PO DAILY 08/14/17 09/16/17 LORazepam [Ativan] 0.5 mg PO DAILY PRN 08/23/17 09/16/17 Ondansetron Odt [Zofran Odt] 4 mg PO Q8H PRN 08/23/17 09/16/17 hydrALAZINE HCL [Apresoline] 10 mg PO BID 08/23/17 09/16/17 Furosemide [Lasix] 20 mg PO DAILY 09/15/17 09/16/17 Spironolactone-Hctz 25-25Mg 1 tab PO DAILY 09/15/17 09/16/17 [Aldactazide 25-25Mg] Previous Rx's Medication Instructions Recorded Albuterol Nebulized [Ventolin 2.5 mg INHALATION RT-Q6H PRN neb 03/19/17 Nebulized] Carvedilol [Coreg] 3.125 mg PO BID-W/MEALS #60 tab 07/08/17 traMADol HCl [Ultram] 50 mg PO Q6H PRN #12 tab 09/12/17 Allergies Allergy/AdvReac Type Severity Reaction Status Date / Time azithromycin Allergy Unknown Verified 09/16/17 13:26 [From Zithromax Z-Sotero] bumetanide [From Bumex] Allergy Swelling Verified 09/16/17 13:26 ciprofloxacin [From Cipro] Allergy Unknown Verified 09/16/17 13:26 Calcium Channel Blocking AdvReac Unknown Verified 09/16/17 13:26 Agent Dilt Review of Systems ROS Statement: Those systems with pertinent positive or pertinent negative responses have been documented in the HPI. ROS Other: All systems not noted in ROS Statement are negative. Past Medical History Past Medical History: Atrial Fibrillation, Asthma, Coronary Artery Disease (CAD) , Heart Failure, COPD, CVA/TIA, GERD/Reflux, Hypertension, Respiratory Disorder , Thyroid Disorder Additional Past Medical History / Comment(s): high uric acid "KIDNEY PROBLEMS", bronchits, RLS History of Any Multi-Drug Resistant Organisms: MRSA Date of last positivie culture/infection: 06/06/17 MDRO Source:: Left Leg Past Surgical History: Heart Catheterization With Stent, Pacemaker Additional Past Surgical History / Comment(s): left carotid. Pacemaker placed 2011, SKIN GROWTH REMOVED FROM NOSE Past Anesthesia/Blood Transfusion Reactions: No Reported Reaction Date of Last Stent Placement:: 2011 Type of Cardiac Device: Permanent Pacemaker Device Placement Date:: 12/12/2014 Past Psychological History: Anxiety Smoking Status: Former smoker Past Alcohol Use History: None Reported Past Drug Use History: None Reported - Past Family History Father Family Medical History: COPD Mother Family Medical History: No Reported History General Exam Limitations: no limitations General appearance: alert, in no apparent distress Head exam: Present: atraumatic, normocephalic, normal inspection Eye exam: Present: normal appearance, PERRL, EOMI. Absent: scleral icterus, conjunctival injection, periorbital swelling ENT exam: Present: normal oropharynx, mucous membranes moist, TM's normal bilaterally, normal external ear exam, other (Rhinorrhea noted) Neck exam: Present: normal inspection, full ROM. Absent: tenderness, meningismus, lymphadenopathy Respiratory exam: Present: normal lung sounds bilaterally. Absent: respiratory distress, wheezes, rales, rhonchi, stridor, chest wall tenderness Cardiovascular Exam: Present: regular rate, normal rhythm, normal heart sounds. Absent: systolic murmur, diastolic murmur, rubs, gallop, clicks GI/Abdominal exam: Present: soft, normal bowel sounds. Absent: distended, tenderness, guarding, rebound, rigid Neurological exam: Present: alert, oriented X3, CN II-XII intact Psychiatric exam: Present: normal affect, normal mood Skin exam: Present: warm, dry, intact, normal color. Absent: rash Course Vital Signs 09/16/17 09/16/17 13:07 13:42 Temperature 98.0 F Pulse Rate 85 77 Respiratory 20 15 Rate Blood Pressure 123/63 O2 Sat by Pulse 100 98 Oximetry Medical Decision Making - Medical Decision Making 81-year-old female presents from for runny nose. Patient exam is benign other than some rhinorrhea. Patient had lab work yesterday twice along with chest x- ray this was reviewed. There is no acute changes she does have chronic kidney disorder. Patient was offered psychiatric consultation secondary to her repeat ER visit so she refuses. Adult Protective Services were called and contacted and which they will the case for her. Patient does states that she is safe at home patient is well And appears no distress vitals were reviewed normal vitals at this time. Patient will continue [id number] medications as directed follow-up with Dr. Ahmadi her PCP tomorrow and return for any worsening symptoms. Disposition Clinical Impression: Upper respiratory infection Disposition: HOME SELF-CARE Condition: Stable Instructions: Upper Respiratory Infection (ED) Additional Instructions: Please return to the Emergency Department if symptoms worsen or any other concerns. Referrals: Mike Ahmadi MD [Primary Care Provider] - 1-2 days Time of Disposition: 13:57
== END 2017-09-16 14:07 | disposition home or self-care (01) ==
LOC: EC 12:52
DX: J06.9 Acute upper respiratory infection, unspecified (principal); I48.91 Unspecified atrial fibrillation; I25.10 Atherosclerotic heart disease of native coronary artery without angina pectoris; J44.9 Chronic obstructive pulmonary disease, unspecified; I11.0 Hypertensive heart disease with heart failure; I50.9 Heart failure, unspecified; K21.9 Gastro-esophageal reflux disease without esophagitis; E07.9 Disorder of thyroid, unspecified; F41.9 Anxiety disorder, unspecified; Z86.73 Personal history of transient ischemic attack (TIA), and cerebral infarction without residual deficits; Z86.14 Personal history of Methicillin resistant Staphylococcus aureus infection; Z87.891 Personal history of nicotine dependence; Z79.51 Long term (current) use of inhaled steroids; Z79.899 Other long term (current) drug therapy; Z79.82 Long term (current) use of aspirin; Z88.1 Allergy status to other antibiotic agents; Z88.8 Allergy status to other drugs, medicaments and biological substances
CPT/HCPCS: 99283

== ENCOUNTER 2017-09-18 09:42 | Inpatient (IN) | payer MEDICARE, OTHER ==
[2017-09-18] MEDS ORDERED: FAMOTIDINE 20 MG/2 ML VIAL IV STA (10:38)
[2017-09-18] MEDS ORDERED: ONDANSETRON 4 MG/2 ML VIAL IVP STA (10:38)
[2017-09-18] MEDS ORDERED: ACETAMINOPHEN IV (For NPO) 1,000 MG in EMPTY BAG 1 BAG IVPB STA (10:40)
--- NOTE | 2017-09-18 10:42 | ED ---
General Adult HPI - General Chief complaint: Upper Respiratory Infection Stated complaint: Cough Time Seen by Provider: 09/18/17 10:05 Source: patient, EMS, RN notes reviewed Mode of arrival: EMS Limitations: no limitations - History of Present Illness Initial comments: Patient is a pleasant 81-year-old female presenting to the emergency Department with cough. Patient is a poor historian and appears to purposefully not answer questions. Patient frequently answers questions with an "I don't know " or very vague answers. Patient originally denied abdominal discomfort however does admit to having some discomfort during exam and became nauseated after palpation of the abdomen. Patient does admit to having some yellow sputum. Patient is unclear how long symptoms have been occurring for. Patient is unclear if she has other upper respiratory symptoms. Patient denies dyspnea. - Related Data Home Medications Medication Instructions Recorded Confirmed Allopurinol [Zyloprim] 100 mg PO BID 03/26/14 09/18/17 Cinacalcet [Sensipar] 30 mg PO TUFR 04/26/17 09/18/17 Levothyroxine Sodium [Synthroid] 50 mcg PO DAILY 04/26/17 09/18/17 Albuterol Inhaler [Ventolin Hfa 1 - 2 puff INHALATION RT-Q6H PRN 05/09/17 Inhaler] Fluticasone Propionate [Flovent 1 puff INHALATION RT-BID 05/09/17 09/18/17 Hfa 220MCG] Aspirin 81 mg PO DAILY 07/05/17 09/18/17 Famotidine [Pepcid] 20 mg PO BID PRN 08/14/17 09/18/17 Theophylline 24 Hour [Josh-24] 300 mg PO DAILY 08/14/17 09/18/17 LORazepam [Ativan] 0.5 mg PO DAILY PRN 08/23/17 09/18/17 hydrALAZINE HCL [Apresoline] 10 mg PO BID 08/23/17 09/18/17 Furosemide [Lasix] 20 mg PO DAILY 09/15/17 09/18/17 Spironolactone-Hctz 25-25Mg 1 tab PO DAILY 09/15/17 09/18/17 [Aldactazide 25-25Mg] Docusate [Colace] 100 mg PO DAILY 09/18/17 09/18/17 Ferrous Sulfate [Feosol] 325 mg PO DAILY 09/18/17 09/18/17 Potassium Chloride ER [K-Dur 20] 20 meq PO BID 09/18/17 09/18/17 Previous Rx's Medication Instructions Recorded Albuterol Nebulized [Ventolin 2.5 mg INHALATION RT-Q6H PRN neb 03/19/17 Nebulized] Carvedilol [Coreg] 3.125 mg PO BID-W/MEALS #60 tab 07/08/17 Allergies Allergy/AdvReac Type Severity Reaction Status Date / Time azithromycin Allergy Unknown Verified 09/18/17 10:39 [From Zithromax Z-Sotero] bumetanide [From Bumex] Allergy Swelling Verified 09/18/17 10:39 ciprofloxacin [From Cipro] Allergy Unknown Verified 09/18/17 10:39 Calcium Channel Blocking AdvReac Unknown Verified 09/18/17 10:39 Agent Dilt Review of Systems ROS Statement: Those systems with pertinent positive or pertinent negative responses have been documented in the HPI. ROS Other: All systems not noted in ROS Statement are negative. Constitutional: Reports: fever, chills, weakness Eyes: Denies: eye pain ENT: Denies: ear pain Respiratory: Reports: cough. Denies: dyspnea Cardiovascular: Denies: chest pain Endocrine: Reports: fatigue Gastrointestinal: Denies: constipation Genitourinary: Denies: dysuria Musculoskeletal: Denies: back pain Skin: Denies: rash Neurological: Denies: headache Past Medical History Past Medical History: Atrial Fibrillation, Asthma, Coronary Artery Disease (CAD) , Heart Failure, COPD, CVA/TIA, GERD/Reflux, Hypertension, Respiratory Disorder , Thyroid Disorder Additional Past Medical History / Comment(s): high uric acid "KIDNEY PROBLEMS", bronchits, RLS History of Any Multi-Drug Resistant Organisms: MRSA Date of last positivie culture/infection: 06/06/17 MDRO Source:: Left Leg Past Surgical History: Heart Catheterization With Stent, Pacemaker Additional Past Surgical History / Comment(s): left carotid. Pacemaker placed 2011, SKIN GROWTH REMOVED FROM NOSE Past Anesthesia/Blood Transfusion Reactions: No Reported Reaction Date of Last Stent Placement:: 2011 Type of Cardiac Device: Permanent Pacemaker Device Placement Date:: 12/12/2014 Past Psychological History: Anxiety Smoking Status: Former smoker Past Alcohol Use History: None Reported Past Drug Use History: None Reported - Past Family History Father Family Medical History: COPD Mother Family Medical History: No Reported History General Exam Limitations: no limitations General appearance: alert, in no apparent distress Head exam: Present: atraumatic Eye exam: Present: normal appearance, PERRL ENT exam: Present: normal oropharynx Neck exam: Present: normal inspection. Absent: tenderness Respiratory exam: Present: other (Forced expiratory wheeze) Cardiovascular Exam: Present: regular rate, normal rhythm GI/Abdominal exam: Present: soft, tenderness (Mild tenderness right upper quadrant. Patient does become nauseated following exam.), normal bowel sounds. Absent: distended, guarding, rebound, rigid, pulsatile mass Extremities exam: Present: normal inspection Neurological exam: Present: alert Psychiatric exam: Present: normal affect, normal mood Skin exam: Present: normal color Course Vital Signs 09/18/17 09/18/17 09:51 11:12 Temperature 101.1 F H Pulse Rate 84 65 Respiratory 18 16 Rate Blood Pressure 146/63 127/61 O2 Sat by Pulse 98 98 Oximetry - Reevaluation(s) Reevaluation #1: 09/18/17 13:07 Patient does have influenza however there is also concern for sepsis with mild cholecystitis and possible pneumonia. Patient does meet sepsis criteria diagnosed at 1307. IV antibiotics will be started. Blood culture and lactic acid have been ordered. Dr. Ahmadi has been paged for admission. EKG Findings - EKG Comments: EKG Findings:: Regular rhythm at 63. Pacer spikes are present. QRS 80. QT 454. QTC 464. Normal axis. Inferior T wave inversion. QRS morphology varies. Medical Decision Making - Lab Data Result diagrams: 09/18/17 11:05 Lab Results 09/18/17 09/18/17 09/18/17 Range/Units 11:05 11:05 11:05 WBC 12.3 H (3.8-10.6) k/uL RBC 4.17 (3.80-5.40) m/uL Hgb 12.3 (11.4-16.0) gm/dL Hct 38.7 (34.0-46.0) % MCV 92.7 (80.0-100.0) fL MCH 29.5 (25.0-35.0) pg MCHC 31.8 (31.0-37.0) g/dL RDW 17.2 H (11.5-15.5) % Plt Count 187 (150-450) k/uL Neutrophils % 93 % Lymphocytes % 2 % Monocytes % 4 % Eosinophils % 1 % Basophils % 0 % Neutrophils # 11.4 H (1.3-7.7) k/uL Lymphocytes # 0.2 L (1.0-4.8) k/uL Monocytes # 0.5 (0-1.0) k/uL Eosinophils # 0.1 (0-0.7) k/uL Basophils # 0.0 (0-0.2) k/uL Hypochromasia Slight Anisocytosis Slight PT (9.0-12.0) sec INR (<1.2) APTT (22.0-30.0) sec Plasma Lactic Acid Chad 1.4 (0.7-2.0) mmol/L Influenza Type A RNA Detected H (Not Detectd) Influenza Type B (PCR) Not Detected (Not Detectd) 09/18/17 Range/Units 11:05 WBC (3.8-10.6) k/uL RBC (3.80-5.40) m/uL Hgb (11.4-16.0) gm/dL Hct (34.0-46.0) % MCV (80.0-100.0) fL MCH (25.0-35.0) pg MCHC (31.0-37.0) g/dL RDW (11.5-15.5) % Plt Count (150-450) k/uL Neutrophils % % Lymphocytes % % Monocytes % % Eosinophils % % Basophils % % Neutrophils # (1.3-7.7) k/uL Lymphocytes # (1.0-4.8) k/uL Monocytes # (0-1.0) k/uL Eosinophils # (0-0.7) k/uL Basophils # (0-0.2) k/uL Hypochromasia Anisocytosis PT 9.8 (9.0-12.0) sec INR 1.0 (<1.2) APTT 23.5 (22.0-30.0) sec Plasma Lactic Acid Chad (0.7-2.0) mmol/L Influenza Type A RNA (Not Detectd) Influenza Type B (PCR) (Not Detectd) - Radiology Data Radiology results: report reviewed (Ultrasound of the gallbladder:: Correlate for mild cholecystitis. Gallstones and sludge with some wall thickening.), image reviewed (Abdominal x-ray shows no acute process. Two-view chest x-ray shows mild atelectasis versus pneumonia lingula.) Critical Care Time Critical Care Time: Yes Total Critical Care Time: 33 Disposition Clinical Impression: Sepsis, Influenza, Cholecystitis Disposition: ADMITTED IP TO THIS [facility] Condition: Serious Referrals: Mike Ahmadi MD [Primary Care Provider] - 1-2 days Decision Time: 13:09
[2017-09-18] MEDS ORDERED: SODIUM CHLORIDE 0.9% 500 ML IV SCH (10:45)
[2017-09-18 11:19] LABS: Anisocytosis Slight; Basophils % (A) 0 %; Eosinophils # (A) 0.1 k/uL (0-0.7); Eosinophils % (A) 1 %; HCT 38.7 % (34.0-46.0); HGB 12.3 gm/dL (11.4-16.0); Hypochromasia Slight; Lymphocytes # (A) 0.2 k/uL (1.0-4.8); Lymphocytes % (A) 2 %; MCH 29.5 pg (25.0-35.0); MCHC 31.8 g/dL (31.0-37.0); MCV 92.7 fL (80.0-100.0); Mean Platelet Volume 8.9; Monocytes # (A) 0.5 k/uL (0-1.0); Monocytes % (A) 4 %; Neutrophils # (A) 11.4 k/uL (1.3-7.7); Neutrophils % (A) 93 %; Platelet Count 187 k/uL (150-450); RBC 4.17 m/uL (3.80-5.40); RDW 17.2 % (11.5-15.5); WBC 12.3 k/uL (3.8-10.6)
[2017-09-18 12:11] LABS: Partial Thromboplastin Time 23.5 sec (22.0-30.0); Prothrombin Time 9.8 sec (9.0-12.0)
--- NOTE | 2017-09-18 12:25 | XR ---
EXAMINATION TYPE: XR abdomen 1V DATE OF EXAM: 09/18/2017 COMPARISON: NONE INDICATION: Pain fever abdomen pain cough TECHNIQUE: Single view abdomen frontal projection FINDINGS: There is a normal bowel gas pattern within the colon. Psoas margins are normal. No organomegaly is present. Splenic artery aneurysm measuring 0.9 cm may be present. IMPRESSION: 1. Unremarkable Abdomen
--- NOTE | 2017-09-18 12:25 | XR ---
EXAMINATION TYPE: XR chest 2V DATE OF EXAM: 09/18/2017 COMPARISON: NONE INDICATION: Fever, cough TECHNIQUE: Frontal and lateral views of the chest are obtained. FINDINGS: The heart size is normal. The pulmonary vasculature is normal. There is a mild lingular infiltrate with silhouetting along the left heart border correlate for atele ctasis and pneumonia.. IMPRESSION: 1. Mild Atelectasis or pneumonia lingula.
--- NOTE | 2017-09-18 12:29 | US ---
EXAMINATION TYPE: US gallbladder DATE OF EXAM: 09/18/2017 COMPARISON: Patient had US one week prior CLINICAL HISTORY: Pain. Patient unable to move or hold her breath making today's study technically difficult. EXAM MEASUREMENTS: Liver Length: 16.0 cm Gallbladder Wall: 0.3 cm CBD: 0.3 cm Right Kidney: 9. x 4. x 4.4 cm Pancreas: partially obscured by bowel gas, portions visualized wnl Liver: Slightly prominent at 17.3 cm. Normal less than 15.5 cm. No discrete masses or cysts are evid ent. Gallbladder: dependant sludge, shadowing stone . Gallbladder wall 0.32 cm. Normal is less than 0.3 cm . Clinical consideration for mild cholecystitis is recommended. Evidence for sonographic Burnett's sign: No CBD: Within normal limits of size, somewhat tortuous Right Kidney: cortical thinning IMPRESSION: 1. Clinical correlation recommended for mild cholecystitis. Gallstones and sludge are present with so me gallbladder wall thickening. 2. Mild hepatomegaly
[2017-09-18] MEDS ORDERED: MORPHINE SULFATE 4 MG/ML SYRINGE IV PRN (13:09)
[2017-09-18] MEDS ORDERED: AMPICILLIN-SULBACTAM 3 GM in SODIUM CHLORIDE 0.9% 100 ML IVPB STA (13:09)
[2017-09-18] MEDS ORDERED: NALOXONE 0.4 MG/ML 1 ML VIAL IV PRN (13:09)
[2017-09-18 13:19] LABS: Albumin 3.4 g/dL (3.5-5.0); Calcium 9.7 mg/dL (8.4-10.2); Potassium 4.9 mmol/L (3.5-5.1); Total Protein 5.7 g/dL (6.3-8.2)
[2017-09-18] MEDS: SODIUM CHLORIDE 0.9% 1,000 ML IV SCH ×2 (13:21→21:27)
[2017-09-18] MEDS ORDERED: LORazepam 0.5 MG TAB PO PRN (15:27)
[2017-09-18] MEDS ORDERED: FAMOTIDINE 20 MG TAB PO PRN (15:27)
--- NOTE | 2017-09-18 15:53 | P.GSCN ---
History of Present Illness Consult date: 09/18/17 Reason for Consult: cholecystitis History of present illness: This is a 81-year-old female who presented to the emergency room after calling EMS she is unsure of why she's been having increasing memory loss over the last month or 2. She was complaining of some generalized malaise and a cough. During my discussion with her she coughed several times she denied any abdominal pain. She states she was having normal bowel movements no nausea or vomiting. She did say that 2 weeks ago she had some upper abdominal pain however this got better on its own. She denies any fevers or chills. Past Medical History Past Medical History: Atrial Fibrillation, Asthma, Coronary Artery Disease (CAD) , Heart Failure, COPD, CVA/TIA, GERD/Reflux, GI Bleed, Hypertension, Myocardial Infarction ([place]), Pneumonia, Renal Disease, Thyroid Disorder Additional Past Medical History / Comment(s): Pt recently admitted on 08/14/17 with hyponatremia. 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 Last Myocardial Infarction Date:: 2011 History of Any Multi-Drug Resistant Organisms: MRSA Year Discovered:: 06/06/17 MDRO Source:: Left Leg Past Surgical History: Heart Catheterization With Stent, Pacemaker Additional Past Surgical History / Comment(s): PCI with stent 2011, pacemaker 2011, left caratid endartectomy, bronchoscopy, growth removed from nose. Past Anesthesia/Blood Transfusion Reactions: No Reported Reaction Date of Last Stent Placement:: 2011 Type of Cardiac Device: Permanent Pacemaker Device Placement Date:: 2011 Smoking Status: Former smoker - Past Family History Father Family Medical History: COPD Additional Family Medical History / Comment(s): Father was a smoker. Mother Family Medical History: No Reported History Medications and Allergies Home Medications Medication Instructions Recorded Confirmed Type Allopurinol [Zyloprim] 100 mg PO BID 03/26/14 09/18/17 History Albuterol Nebulized [Ventolin 2.5 mg INHALATION RT-Q6H PRN neb 03/19/17 Rx Nebulized] Cinacalcet [Sensipar] 30 mg PO TUFR 04/26/17 09/18/17 History Levothyroxine Sodium [Synthroid] 50 mcg PO DAILY 04/26/17 09/18/17 History Albuterol Inhaler [Ventolin Hfa 1 - 2 puff INHALATION RT-Q6H PRN 05/09/17 History Inhaler] Fluticasone Propionate [Flovent 1 puff INHALATION RT-BID 05/09/17 09/18/17 History Hfa 220MCG] Aspirin 81 mg PO DAILY 07/05/17 09/18/17 History Carvedilol [Coreg] 3.125 mg PO BID-W/MEALS #60 tab 07/08/17 09/18/17 Rx Famotidine [Pepcid] 20 mg PO BID PRN 08/14/17 09/18/17 History Theophylline 24 Hour [Josh-24] 300 mg PO DAILY 08/14/17 09/18/17 History LORazepam [Ativan] 0.5 mg PO DAILY PRN 08/23/17 09/18/17 History hydrALAZINE HCL [Apresoline] 10 mg PO BID 08/23/17 09/18/17 History Furosemide [Lasix] 20 mg PO DAILY 09/15/17 09/18/17 History Spironolactone-Hctz 25-25Mg 1 tab PO DAILY 09/15/17 09/18/17 History [Aldactazide 25-25Mg] Docusate [Colace] 100 mg PO DAILY 09/18/17 09/18/17 History Ferrous Sulfate [Feosol] 325 mg PO DAILY 09/18/17 09/18/17 History Potassium Chloride ER [K-Dur 20] 20 meq PO BID 09/18/17 09/18/17 History Allergies Allergy/AdvReac Type Severity Reaction Status Date / Time azithromycin Allergy Unknown Verified 09/18/17 10:39 [From Zithromax Z-Sotero] bumetanide [From Bumex] Allergy Swelling Verified 09/18/17 10:39 ciprofloxacin [From Cipro] Allergy Unknown Verified 09/18/17 10:39 Calcium Channel Blocking AdvReac Unknown Verified 09/18/17 10:39 Agent Dilt Surgical - Exam Osteopathic Statement: *. No significant issues noted on an osteopathic structural exam other than those noted in the History and Physical/Consult. Vital Signs Temp Pulse Resp BP Pulse Ox 101.1 F H 84 18 146/63 98 09/18/17 09:51 09/18/17 09:51 09/18/17 09:51 09/18/17 09:51 09/18/17 09:51 - General well developed, well nourished - Eyes PERRL - ENT normal pinna, normal nares - Neck trachea midline - Respiratory normal respiratory effort - Cardiovascular Rhythm: regular - Abdomen Soft nondistended no tenderness to palpation no rebound no rigidity no guarding or Burnett sign negative - Neurologic normal coordination, normal sensation Results - Labs 09/18/17 11:05 09/18/17 12:55 Abnormal Lab Results - Last 24 Hours (Table) 09/18/17 09/18/17 09/18/17 Range/Units 11:05 11:05 12:55 WBC 12.3 H (3.8-10.6) k/uL RDW 17.2 H (11.5-15.5) % Neutrophils # 11.4 H (1.3-7.7) k/uL Lymphocytes # 0.2 L (1.0-4.8) k/uL Sodium 136 L (137-145) mmol/L Carbon Dioxide 19 L (22-30) mmol/L BUN 53 H (7-17) mg/dL Creatinine 2.04 H (0.52-1.04) mg/dL Glucose 151 H (74-99) mg/dL Total Protein 5.7 L (6.3-8.2) g/dL Albumin 3.4 L (3.5-5.0) g/dL Influenza Type A RNA Detected H (Not Detectd) Diabetes panel 09/18/17 Range/Units 12:55 Sodium 136 L (137-145) mmol/L Potassium 4.9 (3.5-5.1) mmol/L Chloride 104 (98-107) mmol/L Carbon Dioxide 19 L (22-30) mmol/L BUN 53 H (7-17) mg/dL Creatinine 2.04 H (0.52-1.04) mg/dL Glucose 151 H (74-99) mg/dL Calcium 9.7 (8.4-10.2) mg/dL AST 18 (14-36) U/L ALT 26 (9-52) U/L Alkaline Phosphatase 81 (38-126) U/L Total Protein 5.7 L (6.3-8.2) g/dL Albumin 3.4 L (3.5-5.0) g/dL Calcium panel 09/18/17 Range/Units 12:55 Calcium 9.7 (8.4-10.2) mg/dL Albumin 3.4 L (3.5-5.0) g/dL Pituitary panel 09/18/17 Range/Units 12:55 Sodium 136 L (137-145) mmol/L Potassium 4.9 (3.5-5.1) mmol/L Chloride 104 (98-107) mmol/L Carbon Dioxide 19 L (22-30) mmol/L BUN 53 H (7-17) mg/dL Creatinine 2.04 H (0.52-1.04) mg/dL Glucose 151 H (74-99) mg/dL Calcium 9.7 (8.4-10.2) mg/dL Adrenal panel 09/18/17 Range/Units 12:55 Sodium 136 L (137-145) mmol/L Potassium 4.9 (3.5-5.1) mmol/L Chloride 104 (98-107) mmol/L Carbon Dioxide 19 L (22-30) mmol/L BUN 53 H (7-17) mg/dL Creatinine 2.04 H (0.52-1.04) mg/dL Glucose 151 H (74-99) mg/dL Calcium 9.7 (8.4-10.2) mg/dL Total Bilirubin 1.0 (0.2-1.3) mg/dL AST 18 (14-36) U/L ALT 26 (9-52) U/L Alkaline Phosphatase 81 (38-126) U/L Total Protein 5.7 L (6.3-8.2) g/dL Albumin 3.4 L (3.5-5.0) g/dL - Imaging US - abdomen: report reviewed, image reviewed (Mild gallbladder wall thickening with sludge and stones no pericholecystic fluid) Assessment and Plan Assessment: Patient was positive for influenza. She is currently not experiencing any abdominal pain however she does have a little bit of wall thickening and sludge with a couple stones in her gallbladder. This likely represents a chronic cholecystitis. Plan: I recommend conservative therapy with antibiotics and follow-up as an outpatient once influenza has resolved. Patient may have a clear liquid diet and advance to low-fat as tolerated from surgical standpoint. No plans for acute surgical intervention at this time
[2017-09-18] MEDS ORDERED: OSELTAMIVIR 60 MG/10 ML ORAL SYRINGE PO SCH (16:00)
[2017-09-18 16:04] LABS: Amylase 33 U/L (30-110); Lipase 54 U/L (23-300)
[2017-09-18] MEDS: AMPICILLIN-SULBACTAM 1.5 GM in SODIUM CHLORIDE 0.9% 50 ML IVPB SCH ×2 (17:10→23:14)
[2017-09-18] MEDS: CINACALCET 30 MG TAB PO SCH (17:12)
[2017-09-18] MEDS: CARVEDILOL 3.125 MG TAB PO SCH (17:12)
[2017-09-18] MEDS: ALBUTEROL NEBULIZED 2.5 MG/3 ML INHALATION PRN (19:26)
[2017-09-18] MEDS: BUDESONIDE 0.5 MG/2 ML NEBU INHALATION SCH (19:26)
[2017-09-18] MEDS: ALLOPURINOL 100 MG TAB PO SCH (20:52)
[2017-09-18] MEDS: hydrALAZINE HCL 10 MG TAB PO SCH (20:52)
[2017-09-18] MEDS: POTASSIUM CHLORIDE ER 20 MEQ TAB.ER PO SCH (20:53)
[2017-09-18] MEDS: ONDANSETRON 4 MG/2 ML VIAL IVP PRN (21:13)
[2017-09-19] MEDS: ALBUTEROL NEBULIZED 2.5 MG/3 ML INHALATION PRN ×5 (03:13→23:35)
[2017-09-19] MEDS: LEVOTHYROXINE 50 MCG TAB PO SCH (04:27)
[2017-09-19] MEDS: AMPICILLIN-SULBACTAM 1.5 GM in SODIUM CHLORIDE 0.9% 50 ML IVPB SCH ×3 (05:41→17:48)
[2017-09-19] MEDS: SODIUM CHLORIDE 0.9% 1,000 ML IV SCH ×2 (05:42→12:18)
[2017-09-19 07:11] LABS: Anisocytosis Slight; Basophils % (A) 0 %; Eosinophils # (A) 0.3 k/uL (0-0.7); Eosinophils % (A) 4 %; HCT 29.8 % (34.0-46.0); Hypochromasia Slight; Lymphocytes # (A) 0.2 k/uL (1.0-4.8); Lymphocytes % (A) 3 %; MCH 29.6 pg (25.0-35.0); MCHC 30.9 g/dL (31.0-37.0); MCV 95.8 fL (80.0-100.0); Mean Platelet Volume 8.3; Monocytes # (A) 0.4 k/uL (0-1.0); Monocytes % (A) 6 %; Neutrophils # (A) 5.4 k/uL (1.3-7.7); Neutrophils % (A) 86 %; Platelet Count 160 k/uL (150-450); RBC 3.11 m/uL (3.80-5.40); RDW 17.1 % (11.5-15.5); WBC 6.3 k/uL (3.8-10.6)
[2017-09-19 07:20] LABS: HGB 9.2 gm/dL (11.4-16.0)
[2017-09-19 07:33] LABS: Albumin 2.7 g/dL (3.5-5.0); Calcium 8.5 mg/dL (8.4-10.2); Potassium 4.3 mmol/L (3.5-5.1); Total Bilirubin 0.5 mg/dL (0.2-1.3); Total Protein 4.7 g/dL (6.3-8.2)
[2017-09-19] MEDS: BUDESONIDE 0.5 MG/2 ML NEBU INHALATION SCH ×2 (07:52→19:06)
[2017-09-19] MEDS: hydrALAZINE HCL 10 MG TAB PO SCH ×2 (08:21→21:07)
[2017-09-19] MEDS: CARVEDILOL 3.125 MG TAB PO SCH ×2 (08:21→17:48)
[2017-09-19] MEDS: PANTOPRAZOLE 40 MG/10 ML VIAL IV SCH (08:24)
[2017-09-19] MEDS: SPIRONOLACTONE-HCTZ 25-25MG 1 EACH TAB PO SCH (08:24)
[2017-09-19] MEDS: ALLOPURINOL 100 MG TAB PO SCH ×2 (08:24→21:07)
[2017-09-19] MEDS: DOCUSATE 100 MG CAP PO SCH (08:25)
[2017-09-19] MEDS: THEOPHYLLINE 24 HOUR 300 MG CAP.ER.24H PO SCH (08:25)
[2017-09-19] MEDS: FUROSEMIDE 20 MG TAB PO SCH (08:25)
[2017-09-19] MEDS: POTASSIUM CHLORIDE ER 20 MEQ TAB.ER PO SCH ×3 (08:25→21:10)
[2017-09-19 11:20] VITALS: BMI 28.9
--- NOTE | 2017-09-19 11:56 | P.NPCON ---
History of Present Illness - Reason for Consult Consult date: 09/19/17 acute renal failure - Chief Complaint Acute kidney injury with influenza A - History of Present Illness This is an 81-year-old female seen in consultation because of acute kidney injury. She came in because of cough and was found to have a pneumonia with influenza A a being positive. She is a patient known to us and has been followed up by Dr. Kemp in the office. In spite of this patient claims that she is unaware of any kidney disease in the past. Her previous creatinines to have been in the 1.6-2.5 range. More recently on 09/11/2017 it was 2.2. Urinalysis dated 09/11/2017 protein is negative and a urine microalbumin to creatinine ratio is 46. Since admission she says her cough is improved her breathing is improved she has good appetite denies any dizziness. No fever chills nausea vomiting diarrhea. Her urinary symptoms are none. Past Medical History Past Medical History: Atrial Fibrillation, Asthma, Coronary Artery Disease (CAD) , Heart Failure, COPD, CVA/TIA, GERD/Reflux, GI Bleed, Hypertension, Myocardial Infarction ([place]), Pneumonia, Renal Disease, Thyroid Disorder Additional Past Medical History / Comment(s): Pt recently admitted on 08/14/17 with hyponatremia. Other hx: Bronchitis, TIA 2008, hypothyroid, elevated uric acid leves, CKD stage IV pt states d/t medication taken in the past, RLS, [place] in 2011 with heart block after-pacemaker inserted. Last Myocardial Infarction Date:: 2011 History of Any Multi-Drug Resistant Organisms: MRSA Date of last positivie culture/infection: 06/06/17 MDRO Source:: Left Leg Past Surgical History: Heart Catheterization With Stent, Pacemaker Additional Past Surgical History / Comment(s): PCI with stent 2011, pacemaker 2011, left caratid endartectomy, bronchoscopy, growth removed from nose. Past Anesthesia/Blood Transfusion Reactions: No Reported Reaction Date of Last Stent Placement:: 2011 Type of Cardiac Device: Permanent Pacemaker Device Placement Date:: 2011 Smoking Status: Former smoker - Past Family History Father Family Medical History: COPD Additional Family Medical History / Comment(s): Father was a smoker. Mother Family Medical History: No Reported History Medications and Allergies Home Medications Medication Instructions Recorded Confirmed Type Allopurinol [Zyloprim] 100 mg PO BID 03/26/14 09/18/17 History Albuterol Nebulized [Ventolin 2.5 mg INHALATION RT-Q6H PRN neb 03/19/17 Rx Nebulized] Cinacalcet [Sensipar] 30 mg PO TUFR 04/26/17 09/18/17 History Levothyroxine Sodium [Synthroid] 50 mcg PO DAILY 04/26/17 09/18/17 History Albuterol Inhaler [Ventolin Hfa 1 - 2 puff INHALATION RT-Q6H PRN 05/09/17 History Inhaler] Fluticasone Propionate [Flovent 1 puff INHALATION RT-BID 05/09/17 09/18/17 History Hfa 220MCG] Aspirin 81 mg PO DAILY 07/05/17 09/18/17 History Carvedilol [Coreg] 3.125 mg PO BID-W/MEALS #60 tab 07/08/17 09/18/17 Rx Famotidine [Pepcid] 20 mg PO BID PRN 08/14/17 09/18/17 History Theophylline 24 Hour [Josh-24] 300 mg PO DAILY 08/14/17 09/18/17 History LORazepam [Ativan] 0.5 mg PO DAILY PRN 08/23/17 09/18/17 History hydrALAZINE HCL [Apresoline] 10 mg PO BID 08/23/17 09/18/17 History Furosemide [Lasix] 20 mg PO DAILY 09/15/17 09/18/17 History Spironolactone-Hctz 25-25Mg 1 tab PO DAILY 09/15/17 09/18/17 History [Aldactazide 25-25Mg] Docusate [Colace] 100 mg PO DAILY 09/18/17 09/18/17 History Ferrous Sulfate [Feosol] 325 mg PO DAILY 09/18/17 09/18/17 History Potassium Chloride ER [K-Dur 20] 20 meq PO BID 09/18/17 09/18/17 History Allergies Allergy/AdvReac Type Severity Reaction Status Date / Time azithromycin Allergy Unknown Verified 09/18/17 10:39 [From Zithromax Z-Sotero] bumetanide [From Bumex] Allergy Swelling Verified 09/18/17 10:39 ciprofloxacin [From Cipro] Allergy Unknown Verified 03/02/18 10:39 Calcium Channel Blocking AdvReac Unknown Verified 09/18/17 10:39 Agent Dilt Physical Exam Vitals: Vital Signs Temp Pulse Pulse Resp BP BP Pulse Ox 09/19/17 08:03 82 09/19/17 07:53 80 09/19/17 07:00 97.1 F L 61 20 116/56 100 09/19/17 03:20 76 09/19/17 03:14 72 09/19/17 01:45 98.0 F 69 18 143/66 94 L 09/18/17 20:00 97.5 F L 70 16 132/70 99 09/18/17 19:35 69 09/18/17 19:28 68 09/18/17 15:14 98.4 F 63 17 100/66 98 09/18/17 13:09 99.4 F 60 16 102/55 96 Intake and Output 09/18/17 09/19/17 09/19/17 22:59 06:59 14:59 Intake Total 960 120 Balance 960 120 Intake: Intake, IV Titration 960 Amount Sodium Chloride 0.9% 1, 960 000 ml @ 120 mls/hr IV . Q8H20M [facility] Rx#:[id number] Oral 120 Other: Voiding Method Incontinent # Voids 3 2 # Bowel Movements 1 Weight 71.668 kg Patient Weight 09/20/17 06:59 Weight 71.668 kg On examination she is on nasal cannula and audibly wheezing mildly. She does not seem excessively short of breath though at rest. HEENT exam no JVP neck is supple no facial asymmetry Lungs are clear to auscultation with an exception off end expiratory wheezing. Good air entry bilaterally no dullness percussion Heart sounds are unremarkable for any murmur rub gallop Abdomen is soft nontender no organomegaly status masses Extremity exam showed trace edema. Neurologically awake alert oriented 3 no focal motor deficit no asterixis. Results - Lab Results Most recent lab results Calcium 8.5 mg/dL (8.4-10.2) 09/19/17 06:35 09/19/17 06:35 09/19/17 06:35 Assessment and Plan Assessment: Impression. 1. Chronic kidney disease secondary to nephrosclerosis, urine analysis benign. Her labs are showing labile creatinine between 1.6-2.5. GFR currently is 23 mL per minute chronic kidney disease stage IV 2. Acute kidney injury secondary to influenza A pneumonia. Creatinine is 2.04 with a GFR of 23 mL per minute 3. 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 4. Admitted with influenza A. Hypertension controlled blood pressure at target. 5. Ultrasound abdomen shows mild cholecystitis with gallstone but asymptomatic and Burnett's sign is negative. Recommendation. 1. Maintain IV fluids reduce it to normal saline 75 an hour. 2. Repeat labs. 3. Start sodium bicarb 650 twice a day for its renal protective effects 4. Treat bronchospasm with bronchodilators and respiratory inhalation treatments. Thank you for this consultation we'll continue to follow
[2017-09-19] MEDS: FERROUS SULFATE 325 MG TAB PO SCH (12:18)
[2017-09-19 13:21] LABS: Appearance,Urine Clear (Clear); Bilirubin,Urine Negative (Negative); Blood,Urine Negative (Negative); Color,Urine Light Yellow; Glucose,Urine (UA) Negative (Negative); Ketones,Urine Negative (Negative); Leukocyte Esterase,Urine Negative (Negative); Nitrite,Urine Negative (Negative); Protein,Urine Negative (Negative); Specific Gravity,Urine 1.011 (1.001-1.035); Urobilinogen,Urine <2.0 mg/dL (<2.0)
--- NOTE | 2017-09-19 13:28 | P.PN ---
Subjective Progress Note Date: 09/19/17 Principal diagnosis: Influenza, r/o cholecystitis Patinet doing well today, no complaints of pain. No abdominal pain. No N/V. Objective - Vital Signs Vital signs: Vital Signs Temp 97.1 F L 09/19/17 07:00 Pulse 82 09/19/17 08:03 Resp 20 09/19/17 07:00 BP 116/56 09/19/17 07:00 Pulse Ox 100 09/19/17 07:00 Intake & Output 09/18/17 09/19/17 09/19/17 18:59 06:59 18:59 Intake Total 960 120 Balance 960 120 Weight 71.668 kg 71.668 kg Intake: Intake, IV Titration 960 Amount Sodium Chloride 0.9% 1, 960 000 ml @ 120 mls/hr IV . [id number] [facility] Rx#:[id number] Oral 120 Other: Voiding Method Incontinent # Voids 2 # Bowel Movements 1 - Constitutional General appearance: Present: cooperative - Gastrointestinal Gastrointestinal Comment(s): S/NT/ND - Labs CBC & Chem 7: 09/19/17 06:35 09/19/17 06:35 Labs: Abnormal Lab Results - Last 24 Hours (Table) 09/18/17 09/19/17 09/19/17 Range/Units 12:55 06:35 06:35 RBC 3.11 L (3.80-5.40) m/uL Hgb 9.2 L D (11.4-16.0) gm/dL Hct 29.8 L (34.0-46.0) % MCHC 30.9 L (31.0-37.0) g/dL RDW 17.1 H (11.5-15.5) % Lymphocytes # 0.2 L (1.0-4.8) k/uL Sodium 136 L (137-145) mmol/L Carbon Dioxide 19 L 20 L (22-30) mmol/L BUN 53 H 54 H (7-17) mg/dL Creatinine 2.04 H 1.90 H (0.52-1.04) mg/dL Glucose 151 H 100 H (74-99) mg/dL Total Protein 5.7 L 4.7 L (6.3-8.2) g/dL Albumin 3.4 L 2.7 L (3.5-5.0) g/dL Microbiology - Last 24 Hours (Table) 09/18/17 11:05 Blood Culture - Preliminary Blood No Growth after 24 hours Assessment and Plan Assessment: Patient was positive for influenza. She is currently not experiencing any abdominal pain however she does have a little bit of wall thickening and sludge with a couple stones in her gallbladder. This likely represents a chronic cholecystitis. Plan: Patients abdominal pain is resolved. No plans for surgical intervention at this time. Patient may follow up as an outpatient for elective cholecystectomy when infulenza is resolved should she experiance any more pain.
--- NOTE | 2017-09-19 16:48 | HP ---
HISTORY AND PHYSICAL CHIEF COMPLAINT: Abdominal pain. HISTORY OF PRESENT ILLNESS: This is another of many admissions for this 81-year-old white female. She came to the emergency room this time with a temperature 101 and it looked as though she had cholecystitis. She also was positive for influenza[place] [address]. REVIEW OF SYSTEMS: She has had no confusion, change in vision or hearing, cough, hemoptysis, shortness of breath, nausea, vomiting, hematemesis, melena, hematochezia, jaundice, hematuria, frequency, urgency, etc. PAST MEDICAL HISTORY, FAMILY HISTORY AND PERSONAL AND SOCIAL HISTORIES: Are extensive and can be found in her previous admitting and discharge summaries. She has a history of diabetes, hypertension, congestive heart failure, renal failure, and depression. She recently had transferred her care to [facility] and now have requested to come back into the practice. She has been very noncompliant and has long abused the healthcare system by repeated unnecessary visits to the emergency room, office and making incessant telephone calls. In addition to that, she does not follow advice or take her medications as directed. PHYSICAL EXAM: Blood pressure 118/60 with a pulse of 94, respirations of 38 and temperature of 101. In general, she appeared to be in no acute distress. Skin was dry. Lymph nodes not enlarged. Head, ears, eyes, nose, mouth, and throat were normal. Neck veins were not distended. Thyroid is not enlarged. Chest is clear. Cardiac exam is normal. The abdomen is soft and nontender, but slightly protuberant. Bowel sounds are heard. Extremities normal. Neurologically she is intact. IMPRESSION: 1. Abdominal pain and fever, probably due to cholecystitis. 2. Congestive heart failure. 3. Renal failure. 4. Depression. PLAN: 1. Bed rest. 2. IV fluids. 3. Consult General Surgery. 4. Look into possible guardianship to help this lady manage her affairs more appropriately. MMODL / IJN: [id number] /
--- NOTE | 2017-09-19 16:54 | PN ---
PROGRESS NOTE DATE OF SERVICE: 09/19/2017. CHIEF COMPLAINT: Abdominal pain, possible cholecystitis, renal failure and congestive heart failure. HISTORY OF PRESENT ILLNESS: This lady's pain seems to be subsiding and she seems to be doing well. She is very upset because her daughter is applying for guardianship. PHYSICAL EXAM: CHEST: Clear. Cardiac exam is normal. She is slightly tender in the epigastrium. IMPRESSION: 1. Cystitis. 2. Congestive heart failure. 3. Renal failure. 4. Depression. PLAN: Continue to monitor abdominal pain and temperature. She has been seen by Surgery and is being followed. MMODL / IJN: [id number] /
[2017-09-19] MEDS: OSELTAMIVIR 60 MG/10 ML ORAL SYRINGE PO SCH (21:06)
[2017-09-20] MEDS: AMPICILLIN-SULBACTAM 1.5 GM in SODIUM CHLORIDE 0.9% 50 ML IVPB SCH ×4 (00:05→16:02)
[2017-09-20] MEDS: ALBUTEROL NEBULIZED 2.5 MG/3 ML INHALATION PRN ×4 (03:23→19:37)
[2017-09-20] MEDS: SODIUM CHLORIDE 0.9% 1,000 ML IV SCH ×3 (06:24→18:03)
[2017-09-20] MEDS: BUDESONIDE 0.5 MG/2 ML NEBU INHALATION SCH ×2 (07:17→19:38)
[2017-09-20] MEDS: hydrALAZINE HCL 10 MG TAB PO SCH ×2 (09:48→21:33)
[2017-09-20] MEDS: SPIRONOLACTONE-HCTZ 25-25MG 1 EACH TAB PO SCH (09:48)
[2017-09-20] MEDS: THEOPHYLLINE 24 HOUR 300 MG CAP.ER.24H PO SCH (09:49)
[2017-09-20] MEDS: PANTOPRAZOLE 40 MG/10 ML VIAL IV SCH (09:49)
[2017-09-20] MEDS: ALLOPURINOL 100 MG TAB PO SCH ×2 (09:49→21:33)
[2017-09-20] MEDS: POTASSIUM CHLORIDE ER 20 MEQ TAB.ER PO SCH ×3 (09:49→21:34)
[2017-09-20] MEDS: CARVEDILOL 3.125 MG TAB PO SCH ×2 (09:49→18:01)
[2017-09-20] MEDS: LEVOTHYROXINE 50 MCG TAB PO SCH (09:49)
[2017-09-20] MEDS: FUROSEMIDE 20 MG TAB PO SCH (09:49)
[2017-09-20] MEDS: DOCUSATE 100 MG CAP PO SCH (09:56)
--- NOTE | 2017-09-20 12:13 | PN ---
PROGRESS NOTE CHIEF COMPLAINT: Abdominal pain, cholecystitis, and influenza. HISTORY OF PRESENT ILLNESS: This lady is complaining of a congested cough. She has had no chest pain. She has had no fever or chills. PHYSICAL EXAM: She does have bilateral rhonchi with some wheezing on expiration. Cardiac exam is normal. Abdomen is soft, nontender. IMPRESSION: 1. Abdominal pain. 2. Cholecystitis and cholelithiasis. 3. Bronchitis. 4. Influenza. 5. Chronic kidney disease. 6. Congestive heart failure. PLAN: Continue with her current treatment and we will work on a discharge plan which may include guardianship, which has been started by her daughter. MMODL / IJN: [id number] /
[2017-09-20] MEDS: FERROUS SULFATE 325 MG TAB PO SCH (15:16)
[2017-09-20] MEDS: OSELTAMIVIR 60 MG/10 ML ORAL SYRINGE PO SCH (21:33)
[2017-09-21] MEDS: ALBUTEROL NEBULIZED 2.5 MG/3 ML INHALATION PRN ×5 (00:25→19:14)
[2017-09-21] MEDS: AMPICILLIN-SULBACTAM 1.5 GM in SODIUM CHLORIDE 0.9% 50 ML IVPB SCH ×4 (00:57→23:27)
[2017-09-21] MEDS: LEVOTHYROXINE 50 MCG TAB PO SCH (05:50)
[2017-09-21] MEDS: BUDESONIDE 0.5 MG/2 ML NEBU INHALATION SCH ×2 (06:01→19:14)
[2017-09-21] MEDS: CARVEDILOL 3.125 MG TAB PO SCH ×2 (08:01→18:59)
[2017-09-21] MEDS: ALLOPURINOL 100 MG TAB PO SCH ×2 (08:01→21:14)
[2017-09-21] MEDS: PANTOPRAZOLE 40 MG/10 ML VIAL IV SCH (08:01)
[2017-09-21] MEDS: hydrALAZINE HCL 10 MG TAB PO SCH ×2 (08:05→21:13)
[2017-09-21] MEDS: THEOPHYLLINE 24 HOUR 300 MG CAP.ER.24H PO SCH (08:05)
[2017-09-21] MEDS: POTASSIUM CHLORIDE ER 20 MEQ TAB.ER PO SCH ×2 (08:05→21:13)
[2017-09-21] MEDS: FERROUS SULFATE 325 MG TAB PO SCH (08:06)
[2017-09-21] MEDS: DOCUSATE 100 MG CAP PO SCH (08:06)
[2017-09-21] MEDS: SODIUM CHLORIDE 0.9% 1,000 ML IV SCH ×2 (12:19→21:13)
[2017-09-21] MEDS ORDERED: MORPHINE ORAL SOLN 10 MG/5 ML CUP PO PRN (14:15)
--- NOTE | 2017-09-21 14:26 | PN ---
PROGRESS NOTE DATE OF SERVICE: 09/21/2017 CHIEF COMPLAINT: Abdominal pain and cholecystitis. HISTORY OF PRESENT ILLNESS: This lady is not complaining of abdominal pain. She is being treated for her influenza A. PHYSICAL EXAM: She seems quite depressed. She is despondent. Chest is clear. The cardiac exam is normal. The abdomen is soft, nontender. IMPRESSION: 1. Abdominal pain. 2. Cholecystitis. 3. Influenza A. 4. Congestive heart failure. 5. Renal failure. 6. Depression. PLAN: Await any recommendations from surgery, but the family is trying to establish guardianship to get some control of her difficulties living alone and taking medication. MMODL / IJN: [id number] /
[2017-09-21] MEDS: ONDANSETRON 4 MG/2 ML VIAL IVP PRN (15:49)
[2017-09-21] MEDS ORDERED: FAMOTIDINE 20 MG TAB PO PRN (15:56)
--- NOTE | 2017-09-21 16:31 | CDI ---
Last Revision, June 2017 Documentation Clarification Form Date: 09/21/2017 4:21:00 PM From: Joi Corral RN, CCDS Admit Date: 09/18/2017 1:09:00 PM Patient Name: Dotty Mcgregor Visit Number: [id number] ATTENTION: The Clinical Documentation Specialists (CDI) and [facility] Coding Staff appreciate your assistance in clarifying documentation. Please respond to the clarification below the line at the bottom and electronically sign. The CDI & [facility] Coding staff will review the response and follow-up if needed. Please note: Queries are made part of the Legal Health Record. If you have any questions, please contact the author of this message via ITS. Dr. Mike Ahmadi History/Risk Factors: Atrial Fib, asthma, CAD, COPD, CHF, HTN Clinical Indicators: VS/Pulse OX: temp 101.1, hr 84, RR 18, B/P 146/63, spo2 98% ra BNP: 4690 07/06/17 Echocardiogram Results: EF 50-55%, LA is severely dilated 09/18/17 Chest X Ray: "Mild Atelectasis or pneumonia lingula." Treatment: Lasix 20 mg PO QD Aldactazide 25-25mg PO QD In your professional opinion, can you please clarify the acuity and type of CHF if known? Chronic Systolic Heart Failure Chronic Diastolic Heart Failure: Chronic Systolic & Diastolic Heart Failure: Unable to Determine Other, please specify Please continue to document in your progress notes and discharge summary in order to capture severity of illness and risk of mortality. Include clinical findings that support your diagnosis. MTDD
[2017-09-21] MEDS: OSELTAMIVIR 60 MG/10 ML ORAL SYRINGE PO SCH (21:14)
[2017-09-22] MEDS: ALBUTEROL NEBULIZED 2.5 MG/3 ML INHALATION PRN ×4 (01:10→20:12)
[2017-09-22] MEDS: LEVOTHYROXINE 50 MCG TAB PO SCH (05:36)
[2017-09-22] MEDS: BUDESONIDE 0.5 MG/2 ML NEBU INHALATION SCH ×2 (09:47→20:12)
[2017-09-22] MEDS: THEOPHYLLINE 24 HOUR 300 MG CAP.ER.24H PO SCH (09:51)
[2017-09-22] MEDS: CINACALCET 30 MG TAB PO SCH (09:51)
[2017-09-22] MEDS: DOCUSATE 100 MG CAP PO SCH (09:52)
[2017-09-22] MEDS: hydrALAZINE HCL 10 MG TAB PO SCH ×2 (09:52→22:00)
[2017-09-22] MEDS: POTASSIUM CHLORIDE ER 20 MEQ TAB.ER PO SCH ×2 (09:52→22:00)
[2017-09-22] MEDS: CARVEDILOL 3.125 MG TAB PO SCH ×2 (09:52→16:43)
[2017-09-22] MEDS: ALLOPURINOL 100 MG TAB PO SCH ×2 (09:52→22:00)
[2017-09-22] MEDS: SODIUM CHLORIDE 0.9% 1,000 ML IV SCH ×2 (09:53→17:50)
[2017-09-22] MEDS: FERROUS SULFATE 325 MG TAB PO SCH (11:50)
[2017-09-22] MEDS: AMPICILLIN-SULBACTAM 1.5 GM in SODIUM CHLORIDE 0.9% 50 ML IVPB SCH ×2 (11:50→22:01)
--- NOTE | 2017-09-22 20:39 | PN ---
PROGRESS NOTE CHIEF COMPLAINT: Abdominal pain, renal failure and congestive heart failure. HISTORY OF PRESENT ILLNESS: This lady is complaining of some difficulty breathing. She has had no chest pain. Her vital signs have been normal. PHYSICAL EXAM: She does have some wheezing on inspiration and expiration and there are scattered rales. There is no neck vein distention. Cardiac exam is the same. IMPRESSION: 1. Abdominal pain. 2. Cholecystitis. 3. Congestive heart failure. 4. Renal failure. 5. Depression. PLAN: No change in her program at this time and wait for any tool planner arrangements. MMODL / IJN: [id number] /
--- NOTE | 2017-09-22 21:54 | PN ---
PROGRESS NOTE Patient is seen for followup for chronic kidney disease. We do not have any repeat labs. The patient is maintained on IV fluids. She was admitted to the hospital with influenza and states that she is feeling better. The patient does not have a good appetite, although she is trying to eat more. EXAMINATION: Patient is comfortable, awake, not in any acute distress. Blood pressure is 140/60, heart rate 63 per minute. She is afebrile. HEART: S1, S2. LUNGS: Bilateral breath sounds are heard. Abdomen is soft, nontender. Lower extremities shows trace edema bilaterally. LEGAL SERVICES MANAGER is grossly intact. LABS: Not available over the last couple of days. ASSESSMENT: 1. Chronic kidney disease, National Kidney Foundation stage 4 with recent creatinine about 1.8-2 mg/dL as of June of 2017. Etiology is nephrosclerosis. 2. Acute kidney injury, currently improved. Patient is maintained on IV fluids. I will repeat labs in a.m. 3. Influenza, type A, status post Tamiflu. PLAN: Check labs in a.m. May need to discontinue the potassium, based on her lab work tomorrow, and I will also decrease the IV fluids and patient can be most likely discharged tomorrow and follow up as outpatient in about 1-2 weeks. MMODL / IJN: [id number] /
[2017-09-22] MEDS: OSELTAMIVIR 60 MG/10 ML ORAL SYRINGE PO SCH (22:00)
[2017-09-23] MEDS: LEVOTHYROXINE 50 MCG TAB PO SCH (05:21)
[2017-09-23] MEDS: BUDESONIDE 0.5 MG/2 ML NEBU INHALATION SCH ×2 (07:36→21:01)
[2017-09-23] MEDS: ALBUTEROL NEBULIZED 2.5 MG/3 ML INHALATION PRN ×4 (07:37→21:01)
[2017-09-23 07:58] LABS: Potassium 4.4 mmol/L (3.5-5.1)
[2017-09-23] MEDS: DOCUSATE 100 MG CAP PO SCH (09:25)
[2017-09-23] MEDS: CARVEDILOL 3.125 MG TAB PO SCH ×2 (09:25→17:48)
[2017-09-23] MEDS: POTASSIUM CHLORIDE ER 20 MEQ TAB.ER PO SCH ×2 (09:25→21:17)
[2017-09-23] MEDS: ALLOPURINOL 100 MG TAB PO SCH ×2 (09:26→21:16)
[2017-09-23] MEDS: hydrALAZINE HCL 10 MG TAB PO SCH ×2 (09:26→21:16)
[2017-09-23] MEDS: THEOPHYLLINE 24 HOUR 300 MG CAP.ER.24H PO SCH (09:26)
[2017-09-23] MEDS: FERROUS SULFATE 325 MG TAB PO SCH (11:48)
[2017-09-23] MEDS: AMPICILLIN-SULBACTAM 1.5 GM in SODIUM CHLORIDE 0.9% 50 ML IVPB SCH ×2 (12:54→22:26)
--- NOTE | 2017-09-23 21:22 | PN ---
PROGRESS NOTE DATE OF SERVICE: 09/23/2017 CHIEF COMPLAINT: Abdominal pain, influenza, renal failure and heart failure. HISTORY OF PRESENT ILLNESS: This lady is doing fairly well, but she seems quite depressed. We are working on discharge plan and the daughter has applied for guardianship. PHYSICAL EXAM: She has occasional wheezing and rales bilaterally. Cardiac is unchanged and the abdomen is soft, nontender. IMPRESSION: 1. Abdominal pain. 2. Cholecystitis. 3. Congestive heart failure. 4. Renal failure. 5. Influenza. PLAN: Continue supportive care and await discharge plan. MMODL / IJN: [id number] /
[2017-09-24] MEDS: LEVOTHYROXINE 50 MCG TAB PO SCH (05:28)
[2017-09-24] MEDS: ALBUTEROL NEBULIZED 2.5 MG/3 ML INHALATION PRN ×3 (09:10→18:53)
[2017-09-24] MEDS: BUDESONIDE 0.5 MG/2 ML NEBU INHALATION SCH ×2 (09:10→18:53)
[2017-09-24] MEDS: hydrALAZINE HCL 10 MG TAB PO SCH ×2 (10:11→21:23)
[2017-09-24] MEDS: DOCUSATE 100 MG CAP PO SCH (10:11)
[2017-09-24] MEDS: CARVEDILOL 3.125 MG TAB PO SCH ×2 (10:11→17:37)
[2017-09-24] MEDS: POTASSIUM CHLORIDE ER 20 MEQ TAB.ER PO SCH (10:11)
[2017-09-24] MEDS: THEOPHYLLINE 24 HOUR 300 MG CAP.ER.24H PO SCH (10:11)
[2017-09-24] MEDS: ALLOPURINOL 100 MG TAB PO SCH ×2 (10:11→21:23)
[2017-09-24] MEDS: FERROUS SULFATE 325 MG TAB PO SCH (13:41)
[2017-09-24] MEDS: AMPICILLIN-SULBACTAM 1.5 GM in SODIUM CHLORIDE 0.9% 50 ML IVPB SCH ×2 (13:41→21:23)
[2017-09-24] MEDS: ACETAMINOPHEN TAB 325 MG TAB PO PRN (17:37)
--- NOTE | 2017-09-24 17:56 | PN ---
PROGRESS NOTE Patient is seen for followup for chronic kidney disease and acute kidney injury. She was admitted with influenza A. Patient has been maintained on IV fluids. Her labs show serum creatinine down to 1.4 from about 2.0 initially. Currently, patient is awaiting placement. She denies any significant complaints. EXAMINATION: Blood pressure is 140/65, heart rate 88 per minute. She is afebrile. Examination of the heart S1, S2. Examination of the lungs bilateral breath sounds are heard. Abdomen is soft, nontender. Exam of the lower extremities shows no significant edema. LAB: Show sodium 145, potassium 4.4, chloride 115, BUN 25, serum creatinine 1.4. Hemoglobin was 9.2 on 09/19/2017. ASSESSMENT: 1. Acute kidney injury, prerenal associated with influenza, currently improved, status post IV fluids. 2. Chronic kidney disease. NKF stage III secondary to nephrosclerosis. Previous creatinine has been about 1.8-2 mg/dL. The patient had been on IV fluids and his creatinine is now down to 1.4. We will continue to follow as outpatient. 3. Influenza, type A status post Tamiflu. PLAN: Patient is stable for discharge from Nephrology standpoint. Decrease K-Dur to 20 mEq daily and the patient will follow up as outpatient for CKD. MMODL / IJN: [id number] /
--- NOTE | 2017-09-24 19:26 | PN ---
PROGRESS NOTE CHIEF COMPLAINT: Abdominal pain, congestive heart failure and renal failure. HISTORY OF PRESENT ILLNESS: This lady seems to be quite lethargic. She complains of sleeping all the time. She has also started to develop a headache which is new. PHYSICAL EXAM: Her color is good. Neck is supple. Chest is clear. The cardiac exam is normal except for her arrhythmia. She is also complaining of discomfort in the left ear. IMPRESSION: 1. Abdominal pain. 2. Cholecystitis. 3. Renal failure. 4. Congestive heart failure. 5. Left ear ache. 6. Lethargy. PLAN: We are still waiting for process to go through regarding discharge planning. MMODL / IJN: [id number] /
--- NOTE | 2017-09-24 21:20 | MISC ---
MISCELLANOUS REPORT The question is type of congestive heart failure: Chronic, systolic and diastolic. MMODL / IJN: [id number] /
[2017-09-25] MEDS: ALBUTEROL NEBULIZED 2.5 MG/3 ML INHALATION PRN ×4 (02:34→19:56)
[2017-09-25] MEDS: LEVOTHYROXINE 50 MCG TAB PO SCH (05:24)
[2017-09-25] MEDS: BUDESONIDE 0.5 MG/2 ML NEBU INHALATION SCH ×2 (08:34→19:56)
[2017-09-25] MEDS: POTASSIUM CHLORIDE ER 20 MEQ TAB.ER PO SCH (09:07)
[2017-09-25] MEDS: DOCUSATE 100 MG CAP PO SCH (09:07)
[2017-09-25] MEDS: THEOPHYLLINE 24 HOUR 300 MG CAP.ER.24H PO SCH (09:07)
[2017-09-25] MEDS: ALLOPURINOL 100 MG TAB PO SCH ×2 (09:07→20:34)
[2017-09-25] MEDS: CARVEDILOL 3.125 MG TAB PO SCH ×2 (09:08→17:02)
[2017-09-25] MEDS: hydrALAZINE HCL 10 MG TAB PO SCH ×2 (09:08→20:32)
[2017-09-25] MEDS: CINACALCET 30 MG TAB PO SCH (09:08)
[2017-09-25] MEDS: AMPICILLIN-SULBACTAM 1.5 GM in SODIUM CHLORIDE 0.9% 50 ML IVPB SCH ×2 (13:03→23:50)
[2017-09-25] MEDS: FERROUS SULFATE 325 MG TAB PO SCH (13:03)
[2017-09-25] MEDS: ARTIFICIAL TEARS OINTMENT 3.5 GM TUBE BOTH EYES PRN (16:04)
[2017-09-26] MEDS: ALBUTEROL NEBULIZED 2.5 MG/3 ML INHALATION PRN ×4 (00:36→16:20)
[2017-09-26] MEDS: LEVOTHYROXINE 50 MCG TAB PO SCH (05:35)
[2017-09-26] MEDS: BUDESONIDE 0.5 MG/2 ML NEBU INHALATION SCH ×2 (07:09→20:49)
[2017-09-26] MEDS: DOCUSATE 100 MG CAP PO SCH (09:14)
[2017-09-26] MEDS: POTASSIUM CHLORIDE ER 20 MEQ TAB.ER PO SCH (09:14)
[2017-09-26] MEDS: THEOPHYLLINE 24 HOUR 300 MG CAP.ER.24H PO SCH (09:14)
[2017-09-26] MEDS: CARVEDILOL 3.125 MG TAB PO SCH ×2 (09:14→17:36)
[2017-09-26] MEDS: hydrALAZINE HCL 10 MG TAB PO SCH ×2 (09:14→19:44)
[2017-09-26] MEDS: ALLOPURINOL 100 MG TAB PO SCH ×2 (09:15→19:44)
[2017-09-26] MEDS: AMPICILLIN-SULBACTAM 1.5 GM in SODIUM CHLORIDE 0.9% 50 ML IVPB SCH ×2 (12:19→22:13)
[2017-09-26] MEDS: FERROUS SULFATE 325 MG TAB PO SCH (12:20)
--- NOTE | 2017-09-26 12:49 | PN ---
PROGRESS NOTE DATE OF SERVICE: 09/25/2017 CHIEF COMPLAINT: Failure to thrive, cholecystitis, renal failure, and heart failure. HISTORY OF PRESENT ILLNESS: This lady was supposed to go to a retirement today, but apparently paperwork was not prepared and she will go tomorrow. PHYSICAL EXAM: CHEST: Clear. Cardiac exam is normal. Abdomen is soft, nontender. IMPRESSION: 1. Congestive heart failure. 2. Renal failure. 3. Depression. PLAN: Transfer to retirement tomorrow. MMODL / IJN: [id number] /
--- NOTE | 2017-09-26 13:54 | DS ---
DISCHARGE SUMMARY CHIEF COMPLAINT: Abdominal pain. HISTORY OF PRESENT ILLNESS AND PHYSICAL EXAM: Details of this lady's history and physical can be found in the initial workup. LABORATORY STUDIES: While she was in a hospital she had laboratory studies, details which can be found in the laboratory section of her chart. COURSE IN HOSPITAL: After admission, she was placed in bedrest, started on intravenous fluids and she was evaluated for cholecystitis. It was felt that she did not have a significant enough problem to warrant surgical intervention at this time. The family has been increasingly concerned regarding her inability to function and live alone and daughter applied for guardianship and discharge planning was put into place. She was eventually able to be discharged to [facility] on the . FINAL DIAGNOSES: 1. Abdominal pain. 2. Cholecystitis. 3. Congestive heart failure. 4. Chronic renal failure. 5. Atrial fibrillation. 6. Major depression. 7. General debility. OPERATIONS: None. CONSULTATIONS: Surgery. She is improved. MMYENIL / ANAMN: [id number] /
[2017-09-26] MEDS: ARTIFICIAL TEARS OINTMENT 3.5 GM TUBE BOTH EYES PRN (16:12)
[2017-09-26] MEDS: ACETAMINOPHEN TAB 325 MG TAB PO PRN (19:43)
[2017-09-27] MEDS: ALBUTEROL NEBULIZED 2.5 MG/3 ML INHALATION PRN ×3 (00:21→11:42)
[2017-09-27 01:17] VITALS: RESP 16
[2017-09-27] MEDS: LEVOTHYROXINE 50 MCG TAB PO SCH (05:39)
[2017-09-27] MEDS: BUDESONIDE 0.5 MG/2 ML NEBU INHALATION SCH (07:02)
[2017-09-27] MEDS: hydrALAZINE HCL 10 MG TAB PO SCH (08:52)
[2017-09-27] MEDS: CARVEDILOL 3.125 MG TAB PO SCH (08:52)
[2017-09-27] MEDS: DOCUSATE 100 MG CAP PO SCH (08:52)
[2017-09-27] MEDS: ALLOPURINOL 100 MG TAB PO SCH (08:52)
[2017-09-27] MEDS: THEOPHYLLINE 24 HOUR 300 MG CAP.ER.24H PO SCH (08:52)
[2017-09-27] MEDS: POTASSIUM CHLORIDE ER 20 MEQ TAB.ER PO SCH (08:52)
[2017-09-27 10:13] VITALS: BP 116/67; TEMP 97.9
--- NOTE | 2017-09-27 11:23 | P.PN ---
Subjective Progress Note Date: 09/27/17 Seen and examined for the follow-up of acute kidney injury. Feeling weak to get out of the bed for therapy Objective - Vital Signs Vital signs: Vital Signs Temp 97.9 F 09/27/17 07:00 Pulse 82 09/27/17 07:21 Resp 16 09/27/17 07:21 BP 116/67 09/27/17 07:00 Pulse Ox 100 09/27/17 07:00 Intake & Output 09/26/17 09/27/17 09/27/17 17:59 06:59 18:59 Intake Total Balance Intake: Oral Other: Voiding Method # Voids # Bowel Movements - Exam Lying in bed no acute distress S1 and S2 heard Lungs clear No edema - Labs CBC & Chem 7: 09/19/17 06:35 09/23/17 07:20 Assessment and Plan Assessment: Impression: #1 acute kidney injury secondary to prerenal process, creatinine back to baseline #2 CK D stage III previous baseline creatinine 1.8-2 MG per DL. #3 hypokalemia resolved #4 she is on Sensipar cause unclear Recommendations: #1 renal function stable #2. Stop potassium supplements stable from nephrology point of view to be discharged to be followed up in the office in 2-3 weeks
[2017-09-27 12:00] VITALS: PULSE 80
[2017-09-27] MEDS: AMPICILLIN-SULBACTAM 1.5 GM in SODIUM CHLORIDE 0.9% 50 ML IVPB SCH (13:41)
[2017-09-27] MEDS: FERROUS SULFATE 325 MG TAB PO SCH (14:35)
--- NOTE | 2017-09-28 14:36 | PN ---
PROGRESS NOTE DATE OF SERVICE: 09/27/2017 CHIEF COMPLAINT: Abdominal pain. HISTORY OF PRESENT ILLNESS: This lady is still in the hospital. She was to have been discharged to [facility] on Thursday. She is still here. There was difficulty. Her discharge was entered on Thursday after which I was notified that "I had not put in a discharge order." I explained that this had been done and that her inpatient and discharge medication had been reconciled and she was to be discharged. Apparently, it has never happened. I was told by phone Thursday afternoon that I had to "sign her out." It was explained that the office was closed and I did not have access to a computer. When I came in today, I was handed a clipboard with a med rec to be signed. Med rec did, indeed, come in sometime after the discharge electronically entered. It is not clear why the med rec had to be printed on paper and signed. I asked the nurse who had handled this on Thursday who the supervisors were and what they said when she was told to contact them. According to her, she was told that they told her not to discharge the patient. MMODL / IJN: [id number] /
== END 2017-09-27 14:38 | DRG 194 ==
LOC: EC 09:42 → 3SUR 13:09 → EEVIPCON 13:09
PROVIDERS: ADMIT Family Medicine; ATTEND Family Medicine
DX: J10.00 Influenza due to other identified influenza virus with unspecified type of pneumonia (principal); E87.2 Acidosis; N17.9 Acute kidney failure, unspecified; N18.4 Chronic kidney disease, stage 4 (severe); E87.1 Hypo-osmolality and hyponatremia; K80.10 Calculus of gallbladder with chronic cholecystitis without obstruction; I13.0 Hypertensive heart and chronic kidney disease with heart failure and stage 1 through stage 4 chronic kidney disease, or unspecified chronic kidney disease; I50.42 Chronic combined systolic (congestive) and diastolic (congestive) heart failure; J44.0 Chronic obstructive pulmonary disease with (acute) lower respiratory infection; I48.91 Unspecified atrial fibrillation; G25.81 Restless legs syndrome; E03.9 Hypothyroidism, unspecified; F32.9 Major depressive disorder, single episode, unspecified; I25.10 Atherosclerotic heart disease of native coronary artery without angina pectoris; I25.2 Old myocardial infarction; K21.9 Gastro-esophageal reflux disease without esophagitis; R62.7 Adult failure to thrive; F41.9 Anxiety disorder, unspecified; H92.02 Otalgia, left ear; R32 Unspecified urinary incontinence; J45.909 Unspecified asthma, uncomplicated; Z79.51 Long term (current) use of inhaled steroids; Z79.82 Long term (current) use of aspirin; Z79.899 Other long term (current) drug therapy; Z88.1 Allergy status to other antibiotic agents; Z88.8 Allergy status to other drugs, medicaments and biological substances; Z95.0 Presence of cardiac pacemaker; Z87.891 Personal history of nicotine dependence; Z86.73 Personal history of transient ischemic attack (TIA), and cerebral infarction without residual deficits; Z86.14 Personal history of Methicillin resistant Staphylococcus aureus infection; Z95.5 Presence of coronary angioplasty implant and graft
CPT/HCPCS: 36415; 71046; 74018; 76705; 80048; 80053; 81003; 82150; 82550; 82553; 83605; 83690; 83735; 83880; 84484; 85025; 85610; 85730; 87040; 87086; 87502; 93005; 94640; 94760; 96360; 96374; 96375; 99283; 99284; 99285; 99291

== ENCOUNTER 2018-08-23 17:16 | Inpatient (IN) | payer MEDICARE, OTHER ==
[2018-08-23 18:23] LABS: Basophils % (A) 0 %; Eosinophils % (A) 0 %; HCT 37.1 % (34.0-46.0); HGB 11.6 gm/dL (11.4-16.0); Lymphocytes # (A) 0.4 k/uL (1.0-4.8); Lymphocytes % (A) 4 %; MCHC 31.2 g/dL (31.0-37.0); Mean Platelet Volume 9.2; Monocytes # (A) 0.6 k/uL (0-1.0); Monocytes % (A) 5 %; Neutrophils # (A) 10.5 k/uL (1.3-7.7); Neutrophils % (A) 90 %; Platelet Count 183 k/uL (150-450); RBC 3.86 m/uL (3.80-5.40); RDW 15.3 % (11.5-15.5); WBC 11.7 k/uL (3.8-10.6)
[2018-08-23 18:36] LABS: Albumin 3.5 g/dL (3.5-5.0); Calcium 9.5 mg/dL (8.4-10.2); Potassium 5.2 mmol/L (3.5-5.1); Total Bilirubin 1.7 mg/dL (0.2-1.3); Total Protein 6.4 g/dL (6.3-8.2)
[2018-08-23 18:46] LABS: Creatine Kinase MB 2.7 ng/mL (0.0-2.4)
[2018-08-23 18:47] LABS: INR 0.9 (<1.2)
[2018-08-23 18:48] LABS: Partial Thromboplastin Time 24.9 sec (22.0-30.0)
[2018-08-23 18:57] LABS: Troponin I 0.042 ng/mL (0.000-0.034)
--- NOTE | 2018-08-23 19:00 | XR ---
EXAMINATION TYPE: XR chest 2V DATE OF EXAM: 08/23/2018 COMPARISON: CXR from 09/15/2017. HISTORY: Fever and FABIOLA. TECHNIQUE: Frontal and lateral views of the chest are obtained. FINDINGS: The osseous structures are demineralized. There is chronic emphysematous change with scatt ered parenchymal scarring. There is a right basilar opacity. There are new tiny bilateral pleural eff usions with blunting of posterior costophrenic angles. Cardiac blood size is stable and enlarged with single lead pacemaker now postcontrast aorta. IMPRESSION: Chronic emphysematous and parenchymal changes and cardiomegaly with new tiny bilateral pleural effusions and developing right basilar acute infiltrate and/or atelectasis noted.
[2018-08-23 19:03] LABS: D-Dimer 1.53 mg/L FEU (<0.60)
--- NOTE | 2018-08-23 19:16 | ED ---
General Adult HPI - General Chief complaint: Shortness of Breath Stated complaint: FABIOLA Time Seen by Provider: 08/23/18 17:23 Source: patient, EMS, RN notes reviewed Mode of arrival: EMS Limitations: no limitations - History of Present Illness Initial comments: Patient is a pleasant 82-year-old female presenting to emergency Department with complaints of difficulty breathing. Patient states symptoms have been worse with the past few weeks. Patient states symptoms are similar to her previous COPD. No chest pain. No leg pain or leg swelling. Patient has been using her nebulizer with some improvement. Patient does have cough however has been nonproductive. - Related Data Home Medications Medication Instructions Recorded Confirmed Allopurinol [Zyloprim] 100 mg PO BID 03/26/14 08/23/18 Cinacalcet [Sensipar] 30 mg PO TUFR@0800 04/26/17 08/23/18 Levothyroxine Sodium [Synthroid] 50 mcg PO DAILY@0600 04/26/17 08/23/18 Albuterol Inhaler [Ventolin Hfa 1 puff INHALATION RT-Q6H PRN 05/09/17 08/23/18 Inhaler] Fluticasone Propionate [Flovent 1 puff INHALATION RT-BID@0800,199905/09/1711/05 Hfa 220MCG] Aspirin 81 mg PO DAILY 07/05/17 08/23/18 Famotidine [Pepcid] 20 mg PO BID PRN 08/14/17 08/23/18 hydrALAZINE HCL [Apresoline] 10 mg PO BID@0900,199908/23/17 08/23/18 Furosemide [Lasix] 20 mg PO DAILY 09/15/17 08/23/18 Spironolactone-Hctz 25-25Mg 1 tab PO DAILY 09/15/17 08/23/18 [Aldactazide 25-25 MG] Docusate [Colace] 200 mg PO HS 09/18/17 08/23/18 Ferrous Sulfate [Iron (65 MG 325 mg PO DAILY 09/18/17 08/23/18 Elemental)] Potassium Chloride ER [K-Dur 20] 20 meq PO BID@0800,199909/18/17 08/23/18 Acetaminophen [Tylenol] 650 mg PO Q8H PRN 08/23/18 08/23/18 Albuterol Nebulized [Ventolin 2.5 mg INHALATION RT-QID PRN 08/23/18 08/23/18 Nebulized] Calcium Carbonate [Tums] 1,000 mg PO Q12H PRN 08/23/18 08/23/18 Carvedilol [Coreg] 3.125 mg PO BID@0800,1800 08/23/18 08/23/18 Cetirizine HCl [Zyrtec] 10 mg PO Q12H PRN 08/23/18 08/23/18 Ipratropium-Albuterol Nebulize 3 ml INHALATION RT-QID 08/23/18 08/23/18 [Duoneb 0.5 mg-3 mg/3 ml Soln] Loperamide [Imodium] 2 mg PO DAILY PRN 08/23/18 08/23/18 Olopatadine HCl [Patanol] 2 drops BOTH EYES BID@0800,199908/23/18 08/23/18 Theophylline 12 Hour [Josh-Dur] 200 mg PO BID@0600,1600 08/23/18 08/23/18 buPROPion HCL [Wellbutrin SR] 150 mg PO BID@0800,199908/23/18 08/23/18 Allergies Allergy/AdvReac Type Severity Reaction Status Date / Time azithromycin Allergy Unknown Verified 08/23/18 17:27 [From Zithromax Z-Sotero] bumetanide [From Bumex] Allergy Swelling Verified 08/23/18 17:27 ciprofloxacin [From Cipro] Allergy Unknown Verified 08/23/18 17:27 Calcium Channel Blocking AdvReac Unknown Verified 08/23/18 17:27 Agent Dilt Review of Systems ROS Statement: Those systems with pertinent positive or pertinent negative responses have been documented in the HPI. ROS Other: All systems not noted in ROS Statement are negative. Constitutional: Denies: fever Eyes: Denies: eye pain ENT: Denies: ear pain Respiratory: Reports: cough, dyspnea Cardiovascular: Denies: chest pain Endocrine: Denies: fatigue Gastrointestinal: Denies: abdominal pain Genitourinary: Denies: dysuria Musculoskeletal: Denies: back pain Skin: Denies: rash Neurological: Denies: weakness Past Medical History Past Medical History: Atrial Fibrillation, Asthma, Coronary Artery Disease (CAD) , Heart Failure, COPD, CVA/TIA, GERD/Reflux, GI Bleed, Hypertension, Myocardial Infarction ([place]), Pneumonia, Renal Disease, Thyroid Disorder Additional Past Medical History / Comment(s): Pt recently admitted on 08/14/17 with hyponatremia. 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 Last Myocardial Infarction Date:: 2011 History of Any Multi-Drug Resistant Organisms: MRSA Date of last positivie culture/infection: 06/06/17 MDRO Source:: Left Leg Past Surgical History: Heart Catheterization With Stent, Pacemaker Additional Past Surgical History / Comment(s): PCI with stent 2011, pacemaker 2011, left caratid endartectomy, bronchoscopy, growth removed from nose. Past Anesthesia/Blood Transfusion Reactions: No Reported Reaction Date of Last Stent Placement:: 2011 Type of Cardiac Device: Permanent Pacemaker Device Placement Date:: 2011 Past Psychological History: Anxiety Smoking Status: Former smoker - Past Family History Father Family Medical History: COPD Additional Family Medical History / Comment(s): Father was a smoker. Mother Family Medical History: No Reported History General Exam Limitations: no limitations General appearance: alert, in no apparent distress Head exam: Present: atraumatic Eye exam: Present: normal appearance, PERRL ENT exam: Present: normal oropharynx Neck exam: Present: normal inspection Respiratory exam: Present: rhonchi Cardiovascular Exam: Present: regular rate, normal rhythm GI/Abdominal exam: Present: soft. Absent: tenderness Extremities exam: Present: normal inspection. Absent: pedal edema, calf tenderness Neurological exam: Present: alert Psychiatric exam: Present: normal affect, normal mood Skin exam: Present: normal color Course Vital Signs 08/23/18 08/23/18 08/23/18 17:21 19:00 19:43 Temperature 99.7 F H Pulse Rate 85 85 74 Respiratory 18 18 19 Rate Blood Pressure 98/83 150/67 127/48 O2 Sat by Pulse 97 98 Oximetry - Reevaluation(s) Reevaluation #1: 08/23/18 20:37 Patient does not meet sepsis criteria. EKG Findings - EKG Comments: EKG Findings:: Paced rhythm at 77. QRS 154. QT 436. QTc 493. Left axis. Wide-complex QRS. Poor R-wave progression. Inferior Q waves. Nonspecific ST- T. Procedures - [facility] Protocol (Time Out) Nurse: Roselyn Nye Medical Decision Making - Medical Decision Making Patient reevaluated and updated. Case was discussed in detail with Dr. Ahmadi , who will admit his patient. No consults at this time. He does agree with heparinization pending VQ scan results. - Lab Data Result diagrams: 08/23/18 17:40 08/23/18 17:40 Lab Results 08/23/18 08/23/18 08/23/18 Range/Units 17:40 17:40 17:40 WBC 11.7 H (3.8-10.6) k/uL RBC 3.86 (3.80-5.40) m/uL Hgb 11.6 (11.4-16.0) gm/dL Hct 37.1 (34.0-46.0) % MCV 96.0 (80.0-100.0) fL MCH 30.0 (25.0-35.0) pg MCHC 31.2 (31.0-37.0) g/dL RDW 15.3 (11.5-15.5) % Plt Count 183 (150-450) k/uL Neutrophils % 90 % Lymphocytes % 4 % Monocytes % 5 % Eosinophils % 0 % Basophils % 0 % Neutrophils # 10.5 H (1.3-7.7) k/uL Lymphocytes # 0.4 L (1.0-4.8) k/uL Monocytes # 0.6 (0-1.0) k/uL Eosinophils # 0.0 (0-0.7) k/uL Basophils # 0.0 (0-0.2) k/uL PT (9.0-12.0) sec INR (<1.2) APTT (22.0-30.0) sec D-Dimer (<0.60) mg/L FEU Sodium 134 L (137-145) mmol/L Potassium 5.2 H (3.5-5.1) mmol/L Chloride 102 (98-107) mmol/L Carbon Dioxide 20 L (22-30) mmol/L Anion Gap 12 mmol/L BUN 66 H (7-17) mg/dL Creatinine 2.57 H (0.52-1.04) mg/dL Est GFR (CKD-EPI)AfAm 19 (>60 ml/min/1.73 sqM) Est GFR (CKD-EPI)NonAf 17 (>60 ml/min/1.73 sqM) Glucose 167 H (74-99) mg/dL Plasma Lactic Acid Chad (0.7-2.0) mmol/L Calcium 9.5 (8.4-10.2) mg/dL Magnesium 2.0 (1.6-2.3) mg/dL Total Bilirubin 1.7 H (0.2-1.3) mg/dL AST 27 (14-36) U/L ALT 15 (9-52) U/L Alkaline Phosphatase 86 (38-126) U/L Total Creatine Kinase 124 (30-135) U/L CK-MB (CK-2) 2.7 H (0.0-2.4) ng/mL CK-MB (CK-2) Rel Index 2.2 Troponin I 0.042 H* (0.000-0.034) ng/mL NT-Pro-B Natriuret Pep pg/mL Total Protein 6.4 (6.3-8.2) g/dL Albumin 3.5 (3.5-5.0) g/dL Influenza Type A RNA (Not Detectd) Influenza Type B (PCR) (Not Detectd) 08/23/18 08/23/18 08/23/18 Range/Units 17:40 17:40 17:40 WBC (3.8-10.6) k/uL RBC (3.80-5.40) m/uL Hgb (11.4-16.0) gm/dL Hct (34.0-46.0) % MCV (80.0-100.0) fL MCH (25.0-35.0) pg MCHC (31.0-37.0) g/dL RDW (11.5-15.5) % Plt Count (150-450) k/uL Neutrophils % % Lymphocytes % % Monocytes % % Eosinophils % % Basophils % % Neutrophils # (1.3-7.7) k/uL Lymphocytes # (1.0-4.8) k/uL Monocytes # (0-1.0) k/uL Eosinophils # (0-0.7) k/uL Basophils # (0-0.2) k/uL PT 10.0 (9.0-12.0) sec INR 0.9 (<1.2) APTT 24.9 (22.0-30.0) sec D-Dimer 1.53 H (<0.60) mg/L FEU Sodium (137-145) mmol/L Potassium (3.5-5.1) mmol/L Chloride (98-107) mmol/L Carbon Dioxide (22-30) mmol/L Anion Gap mmol/L BUN (7-17) mg/dL Creatinine (0.52-1.04) mg/dL Est GFR (CKD-EPI)AfAm (>60 ml/min/1.73 sqM) Est GFR (CKD-EPI)NonAf (>60 ml/min/1.73 sqM) Glucose (74-99) mg/dL Plasma Lactic Acid Chad 1.6 (0.7-2.0) mmol/L Calcium (8.4-10.2) mg/dL Magnesium (1.6-2.3) mg/dL Total Bilirubin (0.2-1.3) mg/dL AST (14-36) U/L ALT (9-52) U/L Alkaline Phosphatase (38-126) U/L Total Creatine Kinase (30-135) U/L CK-MB (CK-2) (0.0-2.4) ng/mL CK-MB (CK-2) Rel Index Troponin I (0.000-0.034) ng/mL NT-Pro-B Natriuret Pep 5050 pg/mL Total Protein (6.3-8.2) g/dL Albumin (3.5-5.0) g/dL Influenza Type A RNA (Not Detectd) Influenza Type B (PCR) (Not Detectd) 08/23/18 Range/Units 18:38 WBC (3.8-10.6) k/uL RBC (3.80-5.40) m/uL Hgb (11.4-16.0) gm/dL Hct (34.0-46.0) % MCV (80.0-100.0) fL MCH (25.0-35.0) pg MCHC (31.0-37.0) g/dL RDW (11.5-15.5) % Plt Count (150-450) k/uL Neutrophils % % Lymphocytes % % Monocytes % % Eosinophils % % Basophils % % Neutrophils # (1.3-7.7) k/uL Lymphocytes # (1.0-4.8) k/uL Monocytes # (0-1.0) k/uL Eosinophils # (0-0.7) k/uL Basophils # (0-0.2) k/uL PT (9.0-12.0) sec INR (<1.2) APTT (22.0-30.0) sec D-Dimer (<0.60) mg/L FEU Sodium (137-145) mmol/L Potassium (3.5-5.1) mmol/L Chloride (98-107) mmol/L Carbon Dioxide (22-30) mmol/L Anion Gap mmol/L BUN (7-17) mg/dL Creatinine (0.52-1.04) mg/dL Est GFR (CKD-EPI)AfAm (>60 ml/min/1.73 sqM) Est GFR (CKD-EPI)NonAf (>60 ml/min/1.73 sqM) Glucose (74-99) mg/dL Plasma Lactic Acid Chad (0.7-2.0) mmol/L Calcium (8.4-10.2) mg/dL Magnesium (1.6-2.3) mg/dL Total Bilirubin (0.2-1.3) mg/dL AST (14-36) U/L ALT (9-52) U/L Alkaline Phosphatase (38-126) U/L Total Creatine Kinase (30-135) U/L CK-MB (CK-2) (0.0-2.4) ng/mL CK-MB (CK-2) Rel Index Troponin I (0.000-0.034) ng/mL NT-Pro-B Natriuret Pep pg/mL Total Protein (6.3-8.2) g/dL Albumin (3.5-5.0) g/dL Influenza Type A RNA Not Detected (Not Detectd) Influenza Type B (PCR) Not Detected (Not Detectd) - Radiology Data Radiology results: image reviewed (Right lower lobe infiltrate. Small effusions.) Disposition Clinical Impression: Pneumonia, Congestive heart failure Disposition: ADMITTED IP TO THIS HOSP Is patient prescribed a controlled substance at d/c from ED?: No Referrals: Mike Ahmadi MD [Primary Care Provider] - 1-2 days Decision Time: 20:37
[2018-08-23] MEDS ORDERED: ASPIRIN 325 MG TAB PO STA (20:40)
[2018-08-23] MEDS ORDERED: TOBRAMYCIN PER PHARMACY MISCELLANE PRN (20:40)
[2018-08-23] MEDS ORDERED: PIPERACILLIN-TAZOBACTAM 3.375 GM in SODIUM CHLORIDE 0.9% 100 ML IVPB STA (20:40)
[2018-08-23] MEDS ORDERED: PNEUMONIA PROTOCOL UTILIZED 1 EACH MISC PO PRN (20:40)
[2018-08-23] MEDS: IPRATROPIUM-ALBUTEROL 3 ML NEB INHALATION PRN (21:22)
[2018-08-23] MEDS ORDERED: TOBRAMYCIN SULFATE 120 MG in SODIUM CHLORIDE 0.9% 100 ML IVPB ONE (22:00)
[2018-08-24] MEDS: FUROSEMIDE 10 MG/ML 4 ML VIAL IV SCH ×3 (00:13→09:04)
[2018-08-24] MEDS: NITROGLYCERIN OINT 1 INCH/GM PACKET TOPICAL SCH ×3 (00:15→11:03)
[2018-08-24 06:04] LABS: Calcium 9.5 mg/dL (8.4-10.2); Potassium 4.8 mmol/L (3.5-5.1)
[2018-08-24] MEDS: PIPERACILLIN-TAZOBACTAM 3.375 GM in SODIUM CHLORIDE 0.9% 100 ML IVPB SCH ×3 (08:47→21:25)
[2018-08-24] MEDS ORDERED: LOPERAMIDE 2 MG CAP PO PRN (11:04)
[2018-08-24] MEDS ORDERED: ACETAMINOPHEN TAB 325 MG TAB PO PRN (11:04)
[2018-08-24] MEDS ORDERED: CALCIUM CARBONATE 500 MG CHEWABLE PO PRN (11:04)
[2018-08-24] MEDS ORDERED: ALBUTEROL NEBULIZED 2.5 MG/3 ML INHALATION PRN (11:04)
[2018-08-24] MEDS ORDERED: LORATADINE 10 MG TAB PO PRN (11:04)
[2018-08-24] MEDS ORDERED: ALBUTEROL INHALER 60 PUFF/8 GM INHALER INHALATION PRN (11:04)
[2018-08-24] MEDS ORDERED: FAMOTIDINE 20 MG TAB PO PRN ×2 (11:04→15:11)
--- NOTE | 2018-08-24 12:13 | PN ---
PROGRESS NOTE DATE OF SERVICE: 08/24/2018 CHIEF COMPLAINT: Pneumonitis and CHF with renal failure. HISTORY OF PRESENT ILLNESS: This lady is fairly comfortable and she is up to her usual habit of refusing medications and treatments. REVIEW OF SYSTEMS: She denies chest pain, confusion, fever and chills, etc. PHYSICAL EXAM: She has scattered rales and rhonchi throughout with decreased breath sounds posteriorly. The cardiac exam is unremarkable and the abdomen is soft, nontender. IMPRESSION: 1. Pneumonitis. 2. Acute and chronic congestive heart failure. 3. Chronic renal failure. PLAN: Await records, await Cardiology consultation as well as Nephrology. MMODL / IJN: [id number] /
--- NOTE | 2018-08-24 12:13 | HP ---
HISTORY AND PHYSICAL CHIEF COMPLAINT: Shortness of breath. HISTORY OF PRESENT ILLNESS: This is another admission for this 82-year-old white female who was transferred from [facility]. She started to have more and more shortness of breath. She does have a history of congestive heart failure and renal failure. She is a very noncompliant and uncooperative individual. She will come into the hospital or [place] [facility] and refuse to stay, refuse treatments and refused testing. In the emergency room, she was found to have an elevated BNP, but also small pneumonitis. REVIEW OF SYSTEMS: She denies confusion, fever, chills, headache, neurologic problems, change in vision, hearing, cough, hemoptysis, sputum production, pleuritic pain, angina, orthopnea, PND, abdominal pain, nausea, vomiting, hematemesis, melena, hematochezia, jaundice, hematuria frequency, urgency and dysuria, etc. She does have chronic renal failure. Past medical history, family history, personal and social histories are all otherwise unremarkable and unchanged. Her medication details can be found in the MAR accompanying her from the [place] [facility]. PHYSICAL EXAMINATION: Blood pressure is 146/90 with a pulse of 89, respirations of 34, and she is afebrile. In general, she appeared to be in no acute distress. Skin color is normal, skin is warm, dry. Head, ears, eyes, nose, mouth, and throat were normal and neck veins are not distended. Thyroid is not enlarged. Chest demonstrates scattered rales and rhonchi bilaterally. Breath sounds are diminished at the bases. The cardiac exam is paced with no murmurs or extra sounds. The abdomen is slightly protuberant, soft, nontender without visceromegaly or masses. Bowel sounds present. Extremities normal. Neurologically she is intact. IMPRESSION: 1. Shortness of breath. 2. Pneumonitis. 3. Congestive heart failure (acute on chronic). 4. Chronic renal failure. 5. Personality disorder. PLAN: 1. Bed rest. 2. IV fluids. 3. Repeat cardiac enzymes. 4. Echocardiogram. 5. Consult with Cardiology and Nephrology. 6. Updrafts and antibiotics. MMODL / IJN: [id number] /
[2018-08-24] MEDS: THEOPHYLLINE 24 HOUR 400 MG CAP.ER.24H PO SCH (12:19)
--- NOTE | 2018-08-24 12:24 | XR ---
EXAMINATION TYPE: XR chest 2V DATE OF EXAM: 08/24/2018 COMPARISON: 08/23/2018 INDICATION: Pneumonia cough fatigue TECHNIQUE: Frontal and lateral views of the chest are obtained. FINDINGS: The heart size is normal. The pulmonary vasculature is upper limits of normal. Right lower lobe infiltrate is resolving. Pacemaker overlies left chest. Left lower lobe infiltrate i s resolved.. There is hyperinflation flattening the diaphragms compatible COPD. IMPRESSION: 1. Resolving right lower lobe infiltrate. Left lung infiltrate has resolved.
[2018-08-24] MEDS: IPRATROPIUM-ALBUTEROL 3 ML NEB INHALATION SCH ×3 (15:31→19:45)
[2018-08-24] MEDS: FLUTICASONE 220 MCG INHALER INHALATION SCH (16:53)
[2018-08-24] MEDS: CARVEDILOL 3.125 MG TAB PO SCH (17:04)
[2018-08-24] MEDS ORDERED: ASPIRIN 325 MG TAB PO SCH (20:42)
[2018-08-24] MEDS: buPROPion SR 150 MG TABLET.ER PO SCH (20:48)
[2018-08-24] MEDS: ALLOPURINOL 100 MG TAB PO SCH (20:48)
[2018-08-24] MEDS: hydrALAZINE HCL 10 MG TAB PO SCH (20:48)
[2018-08-24] MEDS: KETOTIFEN 0.025% OPHTH DROPS 5 ML BTL BOTH EYES SCH (20:48)
[2018-08-24] MEDS: DOCUSATE 100 MG CAP PO SCH (20:48)
[2018-08-24] MEDS: POTASSIUM CHLORIDE ER 20 MEQ TAB.ER PO SCH (20:54)
[2018-08-25] MEDS: IPRATROPIUM-ALBUTEROL 3 ML NEB INHALATION PRN (06:02)
[2018-08-25 06:41] LABS: Calcium 9.6 mg/dL (8.4-10.2); Potassium 4.3 mmol/L (3.5-5.1)
[2018-08-25 06:45] LABS: Tobramycin,Random 2.1 ug/mL
[2018-08-25] MEDS: LEVOTHYROXINE 50 MCG TAB PO SCH (06:52)
[2018-08-25] MEDS: IPRATROPIUM-ALBUTEROL 3 ML NEB INHALATION SCH ×4 (08:47→19:24)
[2018-08-25] MEDS: FLUTICASONE 220 MCG INHALER INHALATION SCH ×2 (08:48→19:24)
[2018-08-25] MEDS ORDERED: SPIRONOLACTONE-HCTZ 25-25MG 1 EACH TAB PO SCH (09:00)
[2018-08-25] MEDS ORDERED: FUROSEMIDE 20 MG TAB PO SCH ×2 (09:00)
[2018-08-25] MEDS: buPROPion SR 150 MG TABLET.ER PO SCH ×2 (09:12→22:49)
[2018-08-25] MEDS: THEOPHYLLINE 24 HOUR 400 MG CAP.ER.24H PO SCH (09:12)
[2018-08-25] MEDS: POTASSIUM CHLORIDE ER 20 MEQ TAB.ER PO SCH ×2 (09:13→20:08)
[2018-08-25] MEDS: PIPERACILLIN-TAZOBACTAM 3.375 GM in SODIUM CHLORIDE 0.9% 100 ML IVPB SCH ×2 (09:13→20:08)
[2018-08-25] MEDS: ALLOPURINOL 100 MG TAB PO SCH ×2 (09:13→20:09)
[2018-08-25] MEDS: CARVEDILOL 3.125 MG TAB PO SCH ×2 (09:13→17:32)
[2018-08-25] MEDS: ASPIRIN 81 MG PO SCH (09:13)
[2018-08-25] MEDS: hydrALAZINE HCL 10 MG TAB PO SCH ×2 (09:13→20:09)
--- NOTE | 2018-08-25 10:37 | ECHOF ---
Referral Reason:SOB, elevated roponin MEASUREMENTS -------- HEIGHT: 162.6 cm WEIGHT: 78.5 kg BP: RVIDd: 3.4 cm (< 3.3) IVSd: 1.1 cm (0.6 - 1.1) LVIDd: 3.1 cm (3.9 - 5.3) LVPWd: 1.3 cm (0.6 - 1.1) IVSs: 1.6 cm LVIDs: 1.7 cm LVPWs: 2.1 cm LAESV Index (A-L): 33.65 ml/m Ao Diam: 2.3 cm (2.0 - 3.7) AV Cusp: 1.1 cm (1.5 - 2.6) LA Diam: 4.9 cm (2.7 - 3.8) MV EXCURSION: 15.271 mm (> 18.000) MV EF SLOPE: 102 mm/s (70 - 150) EPSS: 0.6 cm MV E Jonathon: 1.14 m/s MV DecT: 220 ms MV A Jonathon: 0.35 m/s MV E/A Ratio: 3.25 AV maxP.75 mmHg AV meanP.40 mmHg RAP: 5.00 mmHg RVSP: 59.73 mmHg FINDINGS -------- Sinus rhythm. This was a technically good study. The left ventricular size is normal. There is mild concentric left ventricular hypertrophy. Overa ll left ventricular systolic function is normal with, an EF between 55 - 60 %. The right ventricle is mildly enlarged. LA is midly dilated 29-33ml/m2. The right atrium is normal in size. Aortic valve is trileaflet and is mildly thickened. There is mild aortic stenosis present. Peak/m delfin gradient across the Aortic Valve is 22.75mmHg / 13.40mmHg. The mitral valve leaflets are mildly thickened. Mild mitral annular calcification present. Modera [id number] mitral regurgitation is present. Moderate to severe tricuspid regurgitation present. There is moderate pulmonary hypertension. The right ventricular systolic pressure, as measured by Doppler, is 59.73mmHg. Pulmonic valve appears structurally normal. The aortic root size is normal. IVC Not well visulized. The pericardium is normal. CONCLUSIONS -------- 1. Sinus rhythm. 2. This was a technically good study. 3. The left ventricular size is normal. 4. There is mild concentric left ventricular hypertrophy. 5. Overall left ventricular systolic function is normal with, an EF between 55 - 60 %. 6. The right ventricle is mildly enlarged. 7. LA is midly dilated 29-33ml/m2. 8. The right atrium is normal in size. 9. Aortic valve is trileaflet and is mildly thickened. 10. There is mild aortic stenosis present. 11. Peak/mean gradient across the Aortic Valve is 22.75mmHg / 13.40mmHg. 12. The mitral valve leaflets are mildly thickened. 13. Mild mitral annular calcification present. 14. [id number] mitral regurgitation is present. 15. Moderate to severe tricuspid regurgitation present. 16. There is moderate pulmonary hypertension. 17. The right ventricular systolic pressure, as measured by Doppler, is 59.73mmHg. 18. Pulmonic valve appears structurally normal. 19. The aortic root size is normal. 20. IVC Not well visulized. 21. The pericardium is normal. CORE FITTER: Dominique Fang RDCS
[2018-08-25] MEDS: KETOTIFEN 0.025% OPHTH DROPS 5 ML BTL BOTH EYES SCH ×2 (12:01→21:50)
[2018-08-25] MEDS: FERROUS SULFATE 325 MG TAB PO SCH (12:12)
[2018-08-25 12:41] VITALS: BMI 29.7
--- NOTE | 2018-08-25 14:48 | P.CRDCN ---
History of Present Illness Consult date: 08/24/18 Requesting physician: Mike Ahmadi Consult reason: congestive heart failure Chief complaint: Shortness of breath History of present illness: This is an 82-year-old female with history of coronary artery disease and prior PCI, chronic persistent atrial fibrillation, sick sinus syndrome with prior pacemaker implantation, renal insufficiency, chronic congestive heart failure, diastolic, coronary artery disease with prior PCI, who presented to the emergency room with symptoms of progressively worsening shortness of breath. Blood pressure 130/60 with a heart rate in the 80s. White blood cell count 11.7, hemoglobin 11.6, platelet count 183. D-dimer 1.5, sodium 134, potassium 5.2, BUN 66 and creatinine 2.5. Troponin 0.042, BNP level 5050, magnesium 2.0. Patient was recommended to be started on IV Lasix which she was refusing, she was also recommended to go for a lung scan because of abnormal d- dimer, she refused at test as well. Chest x-ray showed left lower lobe infiltrate which appeared to be resolving. EKG showed ventricular paced rhythm. Past Medical History Past Medical History: Atrial Fibrillation, Asthma, Coronary Artery Disease (CAD) , Heart Failure, COPD, CVA/TIA, GERD/Reflux, GI Bleed, Hypertension, Myocardial Infarction (PR), Pneumonia, Renal Disease, Thyroid Disorder Additional Past Medical History / Comment(s): Pt recently admitted on 08/14/17 with hyponatremia. 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 Last Myocardial Infarction Date:: 2011 History of Any Multi-Drug Resistant Organisms: MRSA Date of last positivie culture/infection: 06/06/17 MDRO Source:: Left Leg Past Surgical History: Heart Catheterization With Stent, Pacemaker Additional Past Surgical History / Comment(s): PCI with stent 2011, pacemaker 2011, left caratid endartectomy, bronchoscopy, growth removed from nose. Past Anesthesia/Blood Transfusion Reactions: No Reported Reaction Date of Last Stent Placement:: 2011 Type of Cardiac Device: Permanent Pacemaker Device Placement Date:: 2011 Smoking Status: Former smoker - Past Family History Father Family Medical History: COPD Additional Family Medical History / Comment(s): Father was a smoker. Mother Family Medical History: No Reported History Medications and Allergies Home Medications Medication Instructions Recorded Confirmed Type Allopurinol [Zyloprim] 100 mg PO BID 03/26/14 08/23/18 History Cinacalcet [Sensipar] 30 mg PO TUFR@0800 04/26/17 08/23/18 History Levothyroxine Sodium [Synthroid] 50 mcg PO DAILY@0600 04/26/17 08/23/18 History Albuterol Inhaler [Ventolin Hfa 1 puff INHALATION RT-Q6H PRN 05/09/17 08/23/18 History Inhaler] Fluticasone Propionate [Flovent 1 puff INHALATION RT-BID@0800,199905/09/1711/05 History Hfa 220MCG] Aspirin 81 mg PO DAILY 07/05/17 08/23/18 History Famotidine [Pepcid] 20 mg PO BID PRN 08/14/17 08/23/18 History hydrALAZINE HCL [Apresoline] 10 mg PO BID@0900,199908/23/17 08/23/18 History Furosemide [Lasix] 20 mg PO DAILY 09/15/17 08/23/18 History Spironolactone-Hctz 25-25Mg 1 tab PO DAILY 09/15/17 08/23/18 History [Aldactazide 25-25 MG] Docusate [Colace] 200 mg PO HS 09/18/17 08/23/18 History Ferrous Sulfate [Iron (65 MG 325 mg PO DAILY 09/18/17 08/23/18 History Elemental)] Potassium Chloride ER [K-Dur 20] 20 meq PO BID@0800,199909/18/17 08/23/18 History Acetaminophen [Tylenol] 650 mg PO Q8H PRN 08/23/18 08/23/18 History Albuterol Nebulized [Ventolin 2.5 mg INHALATION RT-QID PRN 08/23/18 08/23/18 History Nebulized] Calcium Carbonate [Tums] 1,000 mg PO Q12H PRN 08/23/18 08/23/18 History Carvedilol [Coreg] 3.125 mg PO BID@0800,1800 08/23/18 08/23/18 History Cetirizine HCl [Zyrtec] 10 mg PO Q12H PRN 08/23/18 08/23/18 History Ipratropium-Albuterol Nebulize 3 ml INHALATION RT-QID 08/23/18 08/23/18 History [Duoneb 0.5 mg-3 mg/3 ml Soln] Loperamide [Imodium] 2 mg PO DAILY PRN 08/23/18 08/23/18 History Olopatadine HCl [Patanol] 2 drops BOTH EYES BID@0800,199908/23/18 08/23/18 History Theophylline 12 Hour [Josh-Dur] 200 mg PO BID@0600,1600 08/23/18 08/23/18 History buPROPion HCL [Wellbutrin SR] 150 mg PO BID@0800,199908/23/18 08/23/18 History Allergies Allergy/AdvReac Type Severity Reaction Status Date / Time azithromycin Allergy Unknown Verified 08/23/18 17:27 [From Zithromax Z-Sotero] bumetanide [From Bumex] Allergy Swelling Verified 08/23/18 17:27 ciprofloxacin [From Cipro] Allergy Unknown Verified 08/23/18 17:27 Calcium Channel Blocking AdvReac Unknown Verified 08/23/18 17:27 Agent Dilt Physical Exam Vitals: Vital Signs Temp Pulse Pulse Resp BP Pulse Ox 08/25/18 12:21 68 08/25/18 12:10 72 08/25/18 12:00 87 20 131/65 99 08/25/18 09:06 64 08/25/18 08:52 97.5 F L 61 20 130/52 99 08/25/18 08:48 60 08/25/18 06:16 84 08/25/18 06:02 80 08/25/18 04:00 97.9 F 66 18 115/62 99 08/25/18 00:00 98.0 F 67 18 109/57 99 08/24/18 20:00 97.9 F 81 17 111/60 99 08/24/18 19:54 78 08/24/18 19:46 76 08/24/18 18:43 98.1 F 72 18 118/78 99 08/24/18 15:46 78 08/24/18 15:32 75 08/24/18 15:18 78 08/24/18 15:13 97.3 F L 78 20 120/63 96 Intake and Output 08/24/18 08/25/18 08/25/18 22:59 06:59 14:59 Intake Total 120 330 Output Total 200 Balance -80 330 Intake: Intake, IV Titration 100 Amount Piperacillin-Tazobactam 3 100 .375 gm In Sodium Chloride 0.9% 100 ml @ 25 mls/hr IVPB Q12HR [facility] Rx #:[id number] Oral 120 230 Output: Urine 200 Other: Voiding Method Bedside Commode Bedside Commode # Voids 1 2 Weight 78.5 kg 78.5 kg PHYSICAL EXAMINATION: GENERAL: 82-year-old female in no acute distress at the time of my examination HEENT: Head is atraumatic, normocephalic. Pupils equal, round. Sclera anicteric. Conjunctiva are clear. Mucous membranes of the mouth are moist. Neck is supple. There is no elevated jugular venous pressure. No carotid bruit is heard. HEART EXAMINATION: Heart S1, S2 irregularly irregular systolic murmur heard . CHEST EXAMINATION:[ Lungs reveal diminished air entry to bilateral bases. ABDOMEN: Soft, nontender. Bowel sounds are heard. No organomegaly noted. EXTREMITIES: 2+ peripheral pulses with evidence of peripheral edema and no calf tenderness noted] NEUROLOGIC [atient is awake, alert and oriented 2. . Results 08/23/18 17:40 08/25/18 05:56 Comprehensive Metabolic Panel 08/25/18 Range/Units 05:56 Sodium 138 (137-145) mmol/L Potassium 4.3 (3.5-5.1) mmol/L Chloride 104 (98-107) mmol/L Carbon Dioxide 21 L (22-30) mmol/L BUN 102 H* (7-17) mg/dL Creatinine 3.26 H (0.52-1.04) mg/dL Glucose 130 H (74-99) mg/dL Calcium 9.6 (8.4-10.2) mg/dL Current Medications Generic Name Dose Route Start Last Admin Trade Name Freq PRN Reason Stop Dose Admin Acetaminophen 650 mg 08/24/18 11:04 Tylenol Tab PO Q8H PRN Pain Albuterol/Ipratropium 3 ml 08/23/18 20:40 08/25/18 06:02 Duoneb 0.5 Mg-3 Mg/3 Ml Soln INHALATION 3 ml RT-Q4H PRN Administration shortness of breath Albuterol/Ipratropium 3 ml 08/24/18 12:00 08/25/18 12:10 Duoneb 0.5 Mg-3 Mg/3 Ml Soln INHALATION 3 ml RT-QID [facility] Administration Allopurinol 100 mg 08/24/18 21:00 08/25/18 09:13 Zyloprim PO 100 mg BID [facility] Administration Aspirin 81 mg 08/25/18 09:00 08/25/18 09:13 Aspirin PO 81 mg DAILY [facility] Administration Bupropion HCl 150 mg 08/24/18 20:00 08/25/18 09:12 Wellbutrin Sr PO 150 mg BID@08,1999 [facility] Administration Calcium Carbonate/Glycine 1,000 mg 08/24/18 11:04 Tums PO Q12H PRN Heartburn Carvedilol 3.125 mg 08/24/18 18:00 08/25/18 09:13 Coreg PO 3.125 mg BID@0800,1800 [facility] [place] Administration Cinacalcet 30 mg 08/27/18 08:00 Sensipar PO TUFR@0800 [facility] Docusate Sodium 200 mg 08/24/18 21:00 08/24/18 20:48 Colace PO Not Given [facility] Famotidine 20 mg 08/24/18 15:11 Pepcid PO DAILY PRN GERD Ferrous Sulfate 325 mg 08/25/18 12:00 08/25/18 12:12 Feosol PO 325 mg DAILY@1200 [facility] Administration Fluticasone Propionate 1 puff 08/24/18 20:00 08/25/18 08:48 Flovent 220 Mcg Inhaler INHALATION 1 puff RT-BID@ [facility] Administration Hydralazine HCl 10 mg 08/24/18 20:00 08/25/18 09:13 Apresoline PO 10 mg BID@ [facility] Administration Piperacillin Sod/Tazobactam 100 mls @ 25 mls/hr 08/24/18 09:00 08/25/18 09:13 Sod 3.375 gm/ Sodium Chloride IVPB 25 mls/hr Q12HR [facility] Administration Ketotifen Fumarate 1 drops 08/24/18 20:00 08/25/18 12:01 Zaditor BOTH EYES Not Given BID@ [facility] Levothyroxine Sodium 50 mcg 08/25/18 06:00 08/25/18 06:52 Synthroid PO 50 mcg DAILY@0600 [facility] Administration Loperamide HCl 2 mg 08/24/18 11:04 Imodium PO DAILY PRN Diarrhea Loratadine 10 mg 08/24/18 11:04 Claritin PO DAILY PRN EYE ITCHING Miscellaneous Information 1 each 08/23/18 20:40 Pneumonia Protocol Utilized PO ONCE PRN Per Protocol Miscellaneous Information 1 each 08/23/18 20:40 Pharmacy To Dose Tobramycin MISCELLANE DIRECTED PRN Per Protocol Potassium Chloride 20 meq 08/24/18 20:00 08/25/18 09:13 K-Dur 20 PO Not Given BID@0800,2000 [facility] Sodium Chloride 10 ml 08/23/18 21:00 08/25/18 09:14 Saline Flush IV 10 ml BID [facility] Administration Theophylline 400 mg 08/24/18 11:30 08/25/18 09:12 Josh-24 PO 400 mg DAILY [facility] Administration Intake and Output 08/24/18 08/25/18 08/25/18 22:59 06:59 14:59 Intake Total 120 330 Output Total 200 Balance -80 330 Intake: Intake, IV Titration 100 Amount Piperacillin-Tazobactam 3 100 .375 gm In Sodium Chloride 0.9% 100 ml @ 25 mls/hr IVPB Q12HR [facility] Rx #:[id number] Oral 120 230 Output: Urine 200 Other: Voiding Method Bedside Commode Bedside Commode # Voids 1 2 Weight 78.5 kg 78.5 kg Patient Weight 08/26/18 06:59 Weight 78.5 kg 08/23/18 17:40 08/25/18 05:56 EKG Interpretations (text) EKG showed a ventricular paced rhythm Assessment and Plan Plan: Assessment and plan #1 symptoms of progressively worsening shortness of breath, evidence of congestive cardiac failure, LV function unknown, patient refusing IV Lasix #2 known history of coronary artery disease with prior PCI #3 hypertension #4 chronic renal failure, worsening #5 hyperlipidemia #6 personality disorder #8 prior pacemaker implantation Plan We will obtain an echo cardiac gram with Doppler study. We will also hold the patient's Aldactazide, recheck labs in the morning. DNP note has been reviewed, I agree with a documented findings and plan of care. Patient was seen and examined.
--- NOTE | 2018-08-25 14:51 | P.PN ---
Subjective Progress Note Date: 08/25/18 This is an 82-year-old female with history of coronary artery disease and prior PCI, chronic persistent atrial fibrillation, sick sinus syndrome with prior pacemaker implantation, renal insufficiency, chronic congestive heart failure, diastolic, coronary artery disease with prior PCI, who presented to the emergency room with symptoms of progressively worsening shortness of breath. Blood pressure 130/60 with a heart rate in the 80s. White blood cell count 11.7, hemoglobin 11.6, platelet count 183. D-dimer 1.5, sodium 134, potassium 5.2, BUN 66 and creatinine 2.5. Troponin 0.042, BNP level 5050, magnesium 2.0. Patient was recommended to be started on IV Lasix which she was refusing, she was also recommended to go for a lung scan because of abnormal d- dimer, she refused at test as well. Chest x-ray showed left lower lobe infiltrate which appeared to be resolving. EKG showed ventricular paced rhythm. 08/25/2018 Patient seen and examined this morning, she is confused as to why she is here in the hospital, and once to be discharged. Continues to refuse any IV Lasix. Echocardiogram with Doppler study was performed which revealed a normal left ventricular systolic function with moderate to severe mitral regurgitation and moderate to severe tricuspid regurg. Patient was resumed on her oral diuretics today. We will hold those for 24 hours recheck her labs in the morning. I also again discontinue the Aldactazide until we repeat her labs tomorrow. 10 you the rest of medications at this time. Objective - Vital Signs Vital signs: Vital Signs Temp 97.5 F L 08/25/18 08:52 Pulse 68 08/25/18 12:21 Resp 20 08/25/18 12:00 BP 131/65 08/25/18 12:00 Pulse Ox 99 08/25/18 12:00 Intake & Output 08/24/18 08/25/18 08/25/18 18:59 06:59 18:59 Intake Total 240 330 Output Total 400 200 Balance -160 -200 330 Weight 78.5 kg 78.5 kg Intake: Intake, IV Titration 100 Amount Piperacillin-Tazobactam 3 100 .375 gm In Sodium Chloride 0.9% 100 ml @ 25 mls/hr IVPB Q12HR [facility] Rx #:[id number] Oral 240 230 Output: Urine 400 200 Other: Voiding Method Bedside Commode Bedside Commode # Voids 1 2 - Exam PHYSICAL EXAMINATION: GENERAL: 82-year-old female in no acute distress at the time of my examination HEENT: Head is atraumatic, normocephalic. Pupils equal, round. Sclera anicteric. Conjunctiva are clear. Mucous membranes of the mouth are moist. Neck is supple. There is no elevated jugular venous pressure. No carotid bruit is heard. HEART EXAMINATION: Heart S1, S2 irregularly irregular systolic murmur heard . CHEST EXAMINATION:[ Lungs reveal diminished air entry to bilateral bases. ABDOMEN: Soft, nontender. Bowel sounds are heard. No organomegaly noted. EXTREMITIES: 2+ peripheral pulses with evidence of peripheral edema and no calf tenderness noted] NEUROLOGIC [atient is awake, alert and oriented 2. - Labs CBC & Chem 7: 08/23/18 17:40 08/25/18 05:56 Labs: Abnormal Lab Results - Last 24 Hours (Table) 08/25/18 Range/Units 05:56 Carbon Dioxide 21 L (22-30) mmol/L BUN 102 H* (7-17) mg/dL Creatinine 3.26 H (0.52-1.04) mg/dL Glucose 130 H (74-99) mg/dL Microbiology - Last 24 Hours (Table) 08/23/18 20:35 Blood Culture - Preliminary Blood No Growth after 24 hours Assessment and Plan Plan: Assessment and plan #1 symptoms of progressively worsening shortness of breath, evidence of congestive cardiac failure, LV function unknown, patient refusing IV Lasix #2 known history of coronary artery disease with prior PCI #3 hypertension #4 chronic renal failure, worsening #5 hyperlipidemia #6 personality disorder #8 prior pacemaker implantation Plan From cardiology's perspective, we'll hold the Aldactazide today. Recheck her labs in the morning. DNP note has been reviewed, I agree with a documented findings and plan of care. Patient was seen and examined.
--- NOTE | 2018-08-25 15:14 | PN ---
PROGRESS NOTE DATE OF SERVICE: 08/25/2018 CHIEF COMPLAINT: Pneumonitis, congestive heart failure. HISTORY OF PRESENT ILLNESS: This lady states she is feeling fairly well. She denies fever, chills, chest pain, shortness of breath, etc. PHYSICAL EXAM: Breath sounds are still diminished at the bases. There are rales and rhonchi scattered throughout. Decreased breath sounds at the bases. The cardiac exam is normal. Abdomen is soft, nontender. IMPRESSION: 1. Bronchial pneumonia. 2. Old chronic obstructive pulmonary disease. 3. Congestive heart failure. 4. Renal failure (deteriorating). PLAN: Continue with IV fluids, updrafts and antibiotics and await for further recommendations from Cardiology and Nephrology. MMODL / IJN: [id number] /
[2018-08-25] MEDS: DOCUSATE 100 MG CAP PO SCH (20:09)
[2018-08-25] MEDS: guaiFENesin-DM 100-10MG/5ML 10 ML CUP PO PRN (22:49)
[2018-08-26] MEDS: LEVOTHYROXINE 50 MCG TAB PO SCH (07:03)
[2018-08-26 07:52] LABS: Calcium 9.4 mg/dL (8.4-10.2); Potassium 4.5 mmol/L (3.5-5.1)
[2018-08-26] MEDS: IPRATROPIUM-ALBUTEROL 3 ML NEB INHALATION SCH ×4 (08:27→19:58)
[2018-08-26] MEDS: FLUTICASONE 220 MCG INHALER INHALATION SCH ×2 (08:27→19:58)
[2018-08-26 09:23] LABS: Tobramycin,Random 0.9 ug/mL
[2018-08-26] MEDS: THEOPHYLLINE 24 HOUR 400 MG CAP.ER.24H PO SCH (09:48)
[2018-08-26] MEDS: CARVEDILOL 3.125 MG TAB PO SCH ×2 (09:48→17:46)
[2018-08-26] MEDS: ALLOPURINOL 100 MG TAB PO SCH ×2 (09:48→21:43)
[2018-08-26] MEDS: buPROPion SR 150 MG TABLET.ER PO SCH ×3 (09:48→21:50)
[2018-08-26] MEDS: PIPERACILLIN-TAZOBACTAM 3.375 GM in SODIUM CHLORIDE 0.9% 100 ML IVPB SCH (09:48)
[2018-08-26] MEDS: FERROUS SULFATE 325 MG TAB PO SCH (09:48)
[2018-08-26] MEDS: ASPIRIN 81 MG PO SCH (09:48)
[2018-08-26] MEDS: KETOTIFEN 0.025% OPHTH DROPS 5 ML BTL BOTH EYES SCH ×3 (09:48→21:47)
[2018-08-26] MEDS: POTASSIUM CHLORIDE ER 20 MEQ TAB.ER PO SCH ×2 (09:48→21:44)
[2018-08-26] MEDS: hydrALAZINE HCL 10 MG TAB PO SCH ×2 (09:48→21:43)
[2018-08-26] MEDS: guaiFENesin-DM 100-10MG/5ML 10 ML CUP PO PRN (09:53)
[2018-08-26] MEDS ORDERED: TOBRAMYCIN SULFATE 120 MG in SODIUM CHLORIDE 0.9% 100 ML IVPB ONE ×2 (11:00→14:00)
--- NOTE | 2018-08-26 12:17 | P.PN ---
Subjective Progress Note Date: 08/26/18 This is an 82-year-old female with history of coronary artery disease and prior PCI, chronic persistent atrial fibrillation, sick sinus syndrome with prior pacemaker implantation, renal insufficiency, chronic congestive heart failure, diastolic, coronary artery disease with prior PCI, who presented to the emergency room with symptoms of progressively worsening shortness of breath. Blood pressure 130/60 with a heart rate in the 80s. White blood cell count 11.7, hemoglobin 11.6, platelet count 183. D-dimer 1.5, sodium 134, potassium 5.2, BUN 66 and creatinine 2.5. Troponin 0.042, BNP level 5050, magnesium 2.0. Patient was recommended to be started on IV Lasix which she was refusing, she was also recommended to go for a lung scan because of abnormal d- dimer, she refused at test as well. Chest x-ray showed left lower lobe infiltrate which appeared to be resolving. EKG showed ventricular paced rhythm. 08/25/2018 Patient seen and examined this morning, she is confused as to why she is here in the hospital, and once to be discharged. Continues to refuse any IV Lasix. Echocardiogram with Doppler study was performed which revealed a normal left ventricular systolic function with moderate to severe mitral regurgitation and moderate to severe tricuspid regurg. Patient was resumed on her oral diuretics today. We will hold those for 24 hours recheck her labs in the morning. I also again discontinue the Aldactazide until we repeat her labs tomorrow. 10 you the rest of medications at this time. 08/26/2018 Patient seen and examined this morning, overall looks better today. Let pressure 125/60 with a heart rate in the 70s, 98% on room air. Sodium 140, potassium 4.5, BUN 104, creatinine 3.0. We will consult nephrology. Objective - Vital Signs Vital signs: Vital Signs Temp 97.6 F 08/26/18 08:00 Pulse 72 08/26/18 11:48 Resp 18 08/26/18 11:42 BP 125/57 08/26/18 11:41 Pulse Ox 98 08/26/18 11:41 Intake & Output 08/25/18 08/26/18 08/26/18 18:59 06:59 18:59 Intake Total 510 200 118 Balance 510 200 118 Weight 78.5 kg 78.6 kg Intake: Intake, IV Titration 100 200 Amount Piperacillin-Tazobactam 3 100 200 .375 gm In Sodium Chloride 0.9% 100 ml @ 25 mls/hr IVPB Q12HR [facility] Rx #:[id number] Oral 410 118 Other: Voiding Method Bedside Commode # Voids 2 1 - Exam PHYSICAL EXAMINATION: GENERAL: 82-year-old female in no acute distress at the time of my examination HEENT: Head is atraumatic, normocephalic. Pupils equal, round. Sclera anicteric. Conjunctiva are clear. Mucous membranes of the mouth are moist. Neck is supple. There is no elevated jugular venous pressure. No carotid bruit is heard. HEART EXAMINATION: Heart S1, S2 irregularly irregular systolic murmur heard . CHEST EXAMINATION:[ Lungs reveal diminished air entry to bilateral bases. ABDOMEN: Soft, nontender. Bowel sounds are heard. No organomegaly noted. EXTREMITIES: 2+ peripheral pulses with evidence of peripheral edema and no calf tenderness noted] NEUROLOGIC [atient is awake, alert and oriented 2. - Labs CBC & Chem 7: 08/23/18 17:40 08/26/18 07:15 Labs: Abnormal Lab Results - Last 24 Hours (Table) 08/26/18 Range/Units 07:15 Chloride 108 H (98-107) mmol/L Carbon Dioxide 21 L (22-30) mmol/L BUN 104 H* (7-17) mg/dL Creatinine 3.04 H (0.52-1.04) mg/dL Glucose 135 H (74-99) mg/dL Microbiology - Last 24 Hours (Table) 08/23/18 20:35 Blood Culture - Preliminary Blood No Growth after 48 hours Assessment and Plan Plan: Assessment and plan #1 symptoms of progressively worsening shortness of breath, evidence of congestive cardiac failure, LV function unknown, patient refusing IV Lasix #2 known history of coronary artery disease with prior PCI #3 hypertension #4 chronic renal failure, worsening #5 hyperlipidemia #6 personality disorder #8 prior pacemaker implantation Plan From cardiology's perspective, we will continue with current medications. Consult nephrology. DNP note has been reviewed, I agree with a documented findings and plan of care. Patient was seen and examined.
--- NOTE | 2018-08-26 13:36 | P.NPCON ---
History of Present Illness - Reason for Consult acute renal failure, chronic renal failure - History of Present Illness Reason for consultation: Acute kidney injury on chronic kidney disease History of present illness: Patient is a 82-year-old female seen in renal consultation for acute kidney injury on chronic kidney disease. Patient has chronic kidney disease stage III with baseline creatinine near 2. Etiology is cardiorenal syndrome and nephrosclerosis. Creatinine peaked at 3.6 this admission and is 3.04 today. Patient presented to the hospital with dyspnea. No significant cough. She is currently being treated for pneumonia. She is maintained on IV Zosyn as well as tobramycin. No vomiting or diarrhea. No edema. Admits to good urine output. Denies regular use of NSAIDs. Patient has history of diastolic CHF with moderate to severe mitral regurgitation and tricuspid regurgitation. Also noted to have moderate pulmonary hypertension. No history of diabetes. Denies family history of renal disease. Vital signs are stable. General: The patient appeared well nourished and normally developed. HEENT: Head exam is unremarkable. Neck is without jugular venous distension. LUNGS: Lungs are clear to auscultation and percussion. Breath sounds decreased. HEART: Rate and Rhythm are regular. First and second heart sounds normal. No murmurs, rubs or gallops. ABDOMEN: Abdominal exam reveals normal bowel sounds. Non-tender and non- distended. No evidence of peritonitis. EXTREMITITES: No clubbing, cyanosis, or edema. Past Medical History Past Medical History: Atrial Fibrillation, Asthma, Coronary Artery Disease (CAD) , Heart Failure, COPD, CVA/TIA, GERD/Reflux, GI Bleed, Hypertension, Myocardial Infarction (CT), Pneumonia, Renal Disease, Thyroid Disorder Additional Past Medical History / Comment(s): Pt recently admitted on 08/14/17 with hyponatremia. 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 Last Myocardial Infarction Date:: 2011 History of Any Multi-Drug Resistant Organisms: MRSA Date of last positivie culture/infection: 06/06/17 MDRO Source:: Left Leg Past Surgical History: Heart Catheterization With Stent, Pacemaker Additional Past Surgical History / Comment(s): PCI with stent 2011, pacemaker 2011, left caratid endartectomy, bronchoscopy, growth removed from nose. Past Anesthesia/Blood Transfusion Reactions: No Reported Reaction Date of Last Stent Placement:: 2011 Type of Cardiac Device: Permanent Pacemaker Device Placement Date:: 2011 Smoking Status: Former smoker - Past Family History Father Family Medical History: COPD Additional Family Medical History / Comment(s): Father was a smoker. Mother Family Medical History: No Reported History Medications and Allergies Home Medications Medication Instructions Recorded Confirmed Type Allopurinol [Zyloprim] 100 mg PO BID 03/26/14 08/23/18 History Cinacalcet [Sensipar] 30 mg PO TUFR@0800 04/26/17 08/23/18 History Levothyroxine Sodium [Synthroid] 50 mcg PO DAILY@0604/26/17 08/23/18 History Albuterol Inhaler [Ventolin Hfa 1 puff INHALATION RT-Q6H PRN 05/09/17 08/23/18 History Inhaler] Fluticasone Propionate [Flovent 1 puff INHALATION RT-BID@799,199905/09/1711/05 History Hfa 220MCG] Aspirin 81 mg PO DAILY 07/05/17 08/23/18 History Famotidine [Pepcid] 20 mg PO BID PRN 08/14/17 08/23/18 History hydrALAZINE HCL [Apresoline] 10 mg PO BID@899,199908/23/17 08/23/18 History Furosemide [Lasix] 20 mg PO DAILY 09/15/17 08/23/18 History Spironolactone-Hctz 25-25Mg 1 tab PO DAILY 09/15/17 08/23/18 History [Aldactazide 25-25 MG] Docusate [Colace] 200 mg PO HS 09/18/17 08/23/18 History Ferrous Sulfate [Iron (65 MG 325 mg PO DAILY 09/18/17 08/23/18 History Elemental)] Potassium Chloride ER [K-Dur 20] 20 meq PO BID@799,199909/18/17 08/23/18 History Acetaminophen [Tylenol] 650 mg PO Q8H PRN 08/23/18 08/23/18 History Albuterol Nebulized [Ventolin 2.5 mg INHALATION RT-QID PRN 08/23/18 08/23/18 History Nebulized] Calcium Carbonate [Tums] 1,000 mg PO Q12H PRN 08/23/18 08/23/18 History Carvedilol [Coreg] 3.125 mg PO BID@0800,1800 08/23/18 08/23/18 History Cetirizine HCl [Zyrtec] 10 mg PO Q12H PRN 08/23/18 08/23/18 History Ipratropium-Albuterol Nebulize 3 ml INHALATION RT-QID 08/23/18 08/23/18 History [Duoneb 0.5 mg-3 mg/3 ml Soln] Loperamide [Imodium] 2 mg PO DAILY PRN 08/23/18 08/23/18 History Olopatadine HCl [Patanol] 2 drops BOTH EYES BID@0800,199908/23/18 08/23/18 History Theophylline 12 Hour [Josh-Dur] 200 mg PO BID@0600,1600 08/23/18 08/23/18 History buPROPion HCL [Wellbutrin SR] 150 mg PO BID@0800,199908/23/18 08/23/18 History Allergies Allergy/AdvReac Type Severity Reaction Status Date / Time azithromycin Allergy Unknown Verified 08/23/18 17:27 [From Zithromax Z-Sotero] bumetanide [From Bumex] Allergy Swelling Verified 08/23/18 17:27 ciprofloxacin [From Cipro] Allergy Unknown Verified 08/23/18 17:27 Calcium Channel Blocking AdvReac Unknown Verified 08/23/18 17:27 Agent Dilt Physical Exam Vitals: Vital Signs Temp Pulse Pulse Resp BP Pulse Ox 08/26/18 11:48 72 08/26/18 11:42 79 18 08/26/18 11:41 79 18 125/57 98 08/26/18 11:40 76 08/26/18 08:38 68 08/26/18 08:28 67 08/26/18 08:00 97.6 F 71 16 122/56 97 08/26/18 03:39 97.9 F 69 18 115/62 98 08/25/18 23:38 97.2 F L 61 17 132/75 98 08/25/18 20:00 97.0 F L 64 18 94/46 99 08/25/18 19:34 68 08/25/18 19:27 65 08/25/18 15:35 97.6 F 64 20 103/57 96 08/25/18 15:28 80 Intake and Output 08/25/18 08/26/18 08/26/18 22:59 06:59 14:59 Intake Total 100 100 118 Balance 100 100 118 Intake: Intake, IV Titration 100 100 Amount Piperacillin-Tazobactam 3 100 100 .375 gm In Sodium Chloride 0.9% 100 ml @ 25 mls/hr IVPB Q12HR [facility] Rx #:[id number] Oral 118 Other: Voiding Method Bedside Commode Bedside Commode # Voids 1 Weight 78.6 kg Results - Lab Results Most recent lab results Calcium 9.4 mg/dL (8.4-10.2) 08/26/18 07:15 Magnesium 2.0 mg/dL (1.6-2.3) 08/23/18 17:40 08/23/18 17:40 08/26/18 07:15 Assessment and Plan Plan: Assessment: 1. Acute kidney injury secondary to ATN secondary to diuresis and infection. Patient also on tobramycin which can be nephrotoxic. Creatinine peaked at 3.26 yesterday and is 3.04 today. 2. Pneumonia maintained on antibiotics. 3. Diastolic CHF with moderate to severe mitral regurgitation, tricuspid regurgitation and moderate pulmonary hypertension. Compensated. 4. Metabolic acidosis secondary to acute kidney injury. 5. Chronic kidney disease stage III with baseline creatinine near 2 secondary to nephrosclerosis and cardiorenal syndrome. Plan: Continue to hold diuretics. Encouraged oral intake. Check urinalysis. Check renal ultrasound. Avoid nephrotoxins. Discontinue tobramycin as it is nephrotoxic. Repeat electrolytes in the morning. Add oral sodium bicarbonate. Thank you for the consultation. I will continue to follow the patient with you during her hospital stay.
--- NOTE | 2018-08-26 14:29 | US ---
EXAMINATION TYPE: US kidneys/renal and bladder DATE OF EXAM: 08/26/2018 COMPARISON: 01/16/2015 CLINICAL HISTORY: peter. abnormal labs, left side pain per patient EXAM MEASUREMENTS: Right Kidney: 9.8 x 4.7 x 5.1 cm Left Kidney: 9.2 x 3.4 x 3.4 cm Right Kidney: Cortical thinning Left Kidney: Cortical thinning. Lower lateral cystic appearing lesion - 1.0 x 0.8 x 0.6 cm Bladder: mildly distended, not well visualized Bilateral Jets not seen There is no evidence for hydronephrosis at this point in time. No nephrolithiasis is seen. No jia s are identified. The urinary bladder is anechoic. Bilateral ureteral jets are seen. IMPRESSION: 1. Cortical thinning noted bilaterally. 2. Small cyst left kidney.
[2018-08-26] MEDS: SODIUM BICARBONATE TAB 650 MG TAB PO SCH ×2 (15:20→21:45)
[2018-08-26] MEDS ORDERED: TOBRAMYCIN PEAK DUE 1 EACH MISC MISCELLANE ONE (15:30)
[2018-08-26] MEDS: CEPHALEXIN 500 MG CAP PO SCH ×2 (17:45→21:43)
--- NOTE | 2018-08-26 17:48 | CDI ---
Documentation Clarification Form Date: 07/26/18 From: Elba Chery RN, CCDS Admit Date: 08/23/2018 8:40:00 PM Patient Name: Dotty Mcgregor Visit Number: [id number] Discharge Date: ATTENTION: The Clinical Documentation Specialists (CDI) and [facility] Coding Staff appreciate your assistance in clarifying documentation. Please respond to the clarification below the line at the bottom and electronically sign. The CDI & [facility] Coding staff will review the response and follow-up if needed. Please note: Queries are made part of the Legal Health Record. If you have any questions, please contact the author of this message via ITS. Dr. Chelsea Bueno CHF is documented in the Emergency Department notes, Cardiology consult and progress notes. History/Risk Factors: Atrial Fibrillation, Asthma, Coronary artery Disease, CVA , Hypertension, CKD stage III, COPD Clinical Indicators: 82-year-old female presenting with complaints of difficulty breathing. Lungs sounds notes rhonchi VS/Pulse OX: 98/83 85 18 99.7 BNP: 5050 Echocardiogram Results: EF 55-60 % Chest X Ray: Chronic emphysematous and parenchymal changes and cardiomegaly, developing right basilar Treatment: Coreg PO Monitor O2 Sat's Lasix PO (refusing IV) In your professional opinion, can you please clarify the acuity and type of CHF if known? Acute Diastolic Heart Failure: Chronic Diastolic Heart Failure Acute on Chronic Diastolic Heart Failure Other, please specify Unable to Determine (Last Revision: October 2017) MTDD
--- NOTE | 2018-08-26 19:24 | PN ---
PROGRESS NOTE DATE OF SERVICE: 08/26/2018 CHIEF COMPLAINT: Pneumonitis, renal failure, congestive heart failure. HISTORY OF PRESENT ILLNESS: This lady is feeling better. She is not coughing, short of breath, or running a fever. She still has not been seen by Nephrology. The creatinine jordan, but now it has leveled off. PHYSICAL EXAM: Chest is quite clear. Cardiac exam is normal. Abdomen is soft, nontender. IMPRESSION: 1. Pneumonitis. 2. Renal failure. PLAN: Probably return to the alf, but will wait to have her seen by Nephrology. MMODL / IJN: [id number] /
[2018-08-26] MEDS: DOCUSATE 100 MG CAP PO SCH (21:47)
[2018-08-27] MEDS: LEVOTHYROXINE 50 MCG TAB PO SCH (04:48)
[2018-08-27] MEDS ORDERED: THEOPHYLLINE 24 HOUR 400 MG CAP.ER.24H PO SCH (06:00)
[2018-08-27] MEDS: IPRATROPIUM-ALBUTEROL 3 ML NEB INHALATION SCH ×3 (06:20→15:29)
[2018-08-27] MEDS: FLUTICASONE 220 MCG INHALER INHALATION SCH (06:28)
[2018-08-27 07:43] LABS: Appearance,Urine Clear (Clear); Bilirubin,Urine Negative (Negative); Blood,Urine Negative (Negative); Color,Urine Light Yellow; Glucose,Urine (UA) Negative (Negative); Ketones,Urine Negative (Negative); Leukocyte Esterase,Urine Negative (Negative); Nitrite,Urine Negative (Negative); PH, Urine 5.5 (5.0-8.0); Protein,Urine Negative (Negative); Specific Gravity,Urine 1.014 (1.001-1.035); Urobilinogen,Urine <2.0 mg/dL (<2.0)
[2018-08-27] MEDS ORDERED: CINACALCET 30 MG TAB PO SCH (08:00)
[2018-08-27 08:14] LABS: Calcium 9.5 mg/dL (8.4-10.2)
[2018-08-27] MEDS: KETOTIFEN 0.025% OPHTH DROPS 5 ML BTL BOTH EYES SCH (08:19)
[2018-08-27] MEDS: buPROPion SR 150 MG TABLET.ER PO SCH (08:19)
[2018-08-27] MEDS: CARVEDILOL 3.125 MG TAB PO SCH (08:19)
[2018-08-27] MEDS: POTASSIUM CHLORIDE ER 20 MEQ TAB.ER PO SCH (08:19)
[2018-08-27] MEDS: ALLOPURINOL 100 MG TAB PO SCH (08:19)
[2018-08-27] MEDS: SODIUM BICARBONATE TAB 650 MG TAB PO SCH (08:19)
[2018-08-27 08:21] LABS: Potassium 5.4 mmol/L (3.5-5.1)
[2018-08-27] MEDS: ASPIRIN 81 MG PO SCH (10:35)
[2018-08-27] MEDS: hydrALAZINE HCL 10 MG TAB PO SCH (10:35)
[2018-08-27] MEDS: CEPHALEXIN 500 MG CAP PO SCH ×2 (10:35→12:50)
--- NOTE | 2018-08-27 11:59 | P.PN ---
Subjective Patient is seen and examined sitting up eating breakfast. She has been up walking around the room with no complaints of shortness of breath, chest pain, dizziness or palpitations. She was seen in consultation by nephrology yesterday and they recommend holding diuretics for acute kidney injury. She is currently being treated for pneumonia on antibiotics and updraft treatments. Laboratory data reviewed, sodium 141, potassium 5.4, cretining down to 2.59. Blood pressure 114/50 heart rate 59. Currently maintained on coreg 3.125 mg BID, hydralazine 10 mg twice a day and potassium supplementation. Echocardiogram obtained on this admission reveals preserved left ventricular systolic function with ejection fraction 55-60%, mild aortic stenosis with a mean gradient of 13 mmHg, moderate pulmonary hypertension with an RVSP of 59, moderate to severe mitral regurgitation and moderate to severe tricuspid regurgitation. GENERAL: Well-appearing, well-nourished and in no acute distress. Confused about why she is at the hospital. NECK: Supple without JVD or thyromegaly. LUNGS: Breath sounds clear to auscultation bilaterally. Respiration equal and unlabored. No wheezes, rales or rhonchi. HEART: Iregular rate and rhythm with systolic ejection murmur at the base, no rubs or gallops. S1 and S2 heard. EXTREMITIES: Normal range of motion, trace bilateral lower extremity non- pitting edema. No clubbing or cyanosis. Peripheral pulses intact. 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 Otherwise continue current medical regimen. We will continue to follow as needed, follow with Dr. Alfaro upon discharge. Nurse Practitioner note has been reviewed, I agree with a documented findings and plan of care. Patient was seen and examined. Objective - Vital Signs Vital signs: Vital Signs Temp 98.2 F 08/27/18 05:31 Pulse 82 08/27/18 11:22 Resp 18 08/27/18 05:31 BP 114/50 08/27/18 05:31 Pulse Ox 97 08/27/18 05:31 Intake & Output 08/26/18 08/27/18 08/27/18 18:59 06:59 18:59 Intake Total 118 240 Balance 118 240 Intake: Oral 118 240 Other: Voiding Method Toilet # Voids 1 - Labs CBC & Chem 7: 08/23/18 17:40 08/27/18 07:39 Labs: Abnormal Lab Results - Last 24 Hours (Table) 08/27/18 Range/Units 07:39 Potassium 5.4 H (3.5-5.1) mmol/L Chloride 112 H (98-107) mmol/L Carbon Dioxide 19 L (22-30) mmol/L BUN 95 H (7-17) mg/dL Creatinine 2.59 H (0.52-1.04) mg/dL Glucose 146 H (74-99) mg/dL Microbiology - Last 24 Hours (Table) 08/23/18 20:35 Blood Culture - Preliminary Blood No Growth after 72 hours
[2018-08-27 12:27] VITALS: BP 136/63; RESP 16; TEMP 98.8
[2018-08-27] MEDS: FERROUS SULFATE 325 MG TAB PO SCH (12:50)
--- NOTE | 2018-08-27 14:07 | PN ---
PROGRESS NOTE Patient is seen for followup for acute kidney injury on top of chronic kidney disease. Her renal function has been improving. Patient is hoping to go home today. PHYSICAL EXAMINATION: Blood pressure is 136/63, heart rate 59 per minute. She is afebrile. Examination of the heart, S1, S2. Examination of the lungs, bilateral breath sounds are heard. No crackles or wheezing is heard. Abdomen is soft, nontender. Examination of the lower extremities shows trace edema. Chronic skin changes are noted. LABS: Show sodium of 141, potassium 5.4, BUN 95, serum creatinine 2.59. UA is unremarkable. ASSESSMENT: 1. Acute kidney injury, acute tubular necrosis, currently improving. 2. Pneumonia, maintained on antibiotics. 3. Diastolic heart failure, compensated. 4. Chronic kidney disease stage III with baseline creatinine around 2 secondary to nephrosclerosis and cardiorenal syndrome. 5. Mild hyperkalemia associated with acute kidney injury. PLAN: Continue to hold the spironolactone for now. Patient can be discharged from nephrology standpoint. She will follow up as outpatient in about 1-2 weeks. Monitor electrolytes as outpatient in about 4-5 days. MMODL / IJN: [id number] /
[2018-08-27 15:43] VITALS: PULSE 80
--- NOTE | 2018-08-27 17:19 | DS ---
DISCHARGE SUMMARY DATE OF SERVICE: 08/27/2018 CHIEF COMPLAINT: Shortness of breath. HISTORY OF PRESENT ILLNESS AND PHYSICAL EXAMINATION: Details of this lady's history and physical can be found in the initial workup. LABORATORY STUDIES: While she was in the hospital she had laboratory studies, details of which can be found in the laboratory section of her chart. COURSE IN THE HOSPITAL: After admission she was placed on bedrest, started on intravenous fluids and seen by Cardiology as well as Nephrology. Her BUN and creatinine improved slightly. There was not felt to be anything further that needed to be done regarding her kidney function. Cardiology also felt that she was under reasonably good control with regard to her congestive heart failure. She was doing well and it was felt that she could go back to the senior care on 08/27. FINAL DIAGNOSES: 1. Shortness of breath. 2. Congestive heart failure. 3. Renal failure. 4. Major depression. OPERATIONS: None. CONSULTATIONS: 1. Nephrology. 2. Cardiology. She is improved. MMODL / IJN: [id number] /
[2018-08-28] MEDS ORDERED: AZITHROMYCIN 500 MG TAB PO SCH (09:00)
== END 2018-08-27 16:30 | DRG 291 ==
LOC: EC 17:16 → 3SCARD 20:40 → 3NMEDONC 08-26 18:04
PROVIDERS: ADMIT Family Medicine; ATTEND Family Medicine
DX: I13.0 Hypertensive heart and chronic kidney disease with heart failure and stage 1 through stage 4 chronic kidney disease, or unspecified chronic kidney disease (principal); I50.33 Acute on chronic diastolic (congestive) heart failure; N17.0 Acute kidney failure with tubular necrosis; J18.0 Bronchopneumonia, unspecified organism; E87.2 Acidosis; J44.0 Chronic obstructive pulmonary disease with (acute) lower respiratory infection; I48.1 Persistent atrial fibrillation; I27.20 Pulmonary hypertension, unspecified; E87.5 Hyperkalemia; I08.3 Combined rheumatic disorders of mitral, aortic and tricuspid valves; N18.3 Chronic kidney disease, stage 3 (moderate); I25.10 Atherosclerotic heart disease of native coronary artery without angina pectoris; E03.9 Hypothyroidism, unspecified; I25.2 Old myocardial infarction; F41.9 Anxiety disorder, unspecified; E78.5 Hyperlipidemia, unspecified; K21.9 Gastro-esophageal reflux disease without esophagitis; F60.9 Personality disorder, unspecified; G25.81 Restless legs syndrome; F32.9 Major depressive disorder, single episode, unspecified; T50.1X5A Adverse effect of loop [high-ceiling] diuretics, initial encounter; Z79.890 Hormone replacement therapy; Z79.899 Other long term (current) drug therapy; Z79.51 Long term (current) use of inhaled steroids; Z79.82 Long term (current) use of aspirin; Z86.73 Personal history of transient ischemic attack (TIA), and cerebral infarction without residual deficits; Z95.5 Presence of coronary angioplasty implant and graft; Z95.0 Presence of cardiac pacemaker; Z86.14 Personal history of Methicillin resistant Staphylococcus aureus infection; Z87.891 Personal history of nicotine dependence; Z87.01 Personal history of pneumonia (recurrent); Z91.19 Patient's noncompliance with other medical treatment and regimen; Z88.1 Allergy status to other antibiotic agents; Z88.9 Allergy status to unspecified drugs, medicaments and biological substances; Z82.5 Family history of asthma and other chronic lower respiratory diseases
CPT/HCPCS: 36415; 71046; 76770; 80048; 80053; 80198; 80200; 81003; 82550; 82553; 83605; 83735; 83880; 84484; 85025; 85379; 85610; 85730; 87040; 87502; 93005; 93306; 94640; 96365; 96366; 96367; 96375; 99285

== ENCOUNTER 2019-08-15 20:35 | Emergency (ER) | payer MEDICARE, OTHER ==
[2019-08-15 21:15] VITALS: BP 148/84; PULSE 93; RESP 16; TEMP 97.4
--- NOTE | 2019-08-15 21:29 | ED ---
General Adult HPI - General Chief complaint: Extremity Problem,Nontraumatic Stated complaint: Arm Pain, Nontraumatic Time Seen by Provider: 08/15/19 21:12 Source: patient, EMS Mode of arrival: EMS Limitations: no limitations - History of Present Illness Initial comments: Dotty is a pleasantly demented 83-year-old female who presents to the ER today via EMS for evaluation of left ear pain. Patient reports that prior to doing time she began having episodes of stabbing pain in her left ear while laying down. She reports that the episodes of pain would last for seconds and then resolve and happened intermittently for a couple of hours at which time she decided to call the ambulance however pain resolved prior to ambulance arrival she's not had any pain couple of hours. Patient states that she doesn't know why she came to the hospital now. Denies other complaints. Denies any recent illness. Denies any cough congestion. Denies chest pain palpitation shortness breath lightheadedness or diaphoresis. - Related Data Home Medications Medication Instructions Recorded Confirmed Allopurinol [Zyloprim] 100 mg PO BID 03/26/14 08/23/18 Cinacalcet [Sensipar] 30 mg PO TUFR@0800 04/26/17 08/23/18 Levothyroxine Sodium [Synthroid] 50 mcg PO DAILY@0600 04/26/17 08/23/18 Albuterol Inhaler [Ventolin Hfa 1 puff INHALATION RT-Q6H PRN 05/09/17 08/23/18 Inhaler] Fluticasone Propionate [Flovent 1 puff INHALATION RT-BID@799,199905/09/17 08/23/18 Hfa 220 mcg] Aspirin 81 mg PO DAILY 07/05/17 08/23/18 Famotidine [Pepcid] 20 mg PO BID PRN 08/14/17 08/23/18 hydrALAZINE HCL [Apresoline] 10 mg PO BID@899,199908/23/17 08/23/18 Furosemide [Lasix] 20 mg PO DAILY 09/15/17 08/23/18 Docusate [Colace] 200 mg PO HS 09/18/17 08/23/18 Ferrous Sulfate [Iron (65 MG 325 mg PO DAILY 09/18/17 08/23/18 Elemental)] Potassium Chloride ER [K-Dur 20] 20 meq PO BID@0800,199909/18/17 08/23/18 Acetaminophen [Tylenol] 650 mg PO Q8H PRN 08/23/18 08/23/18 Calcium Carbonate [Tums] 1,000 mg PO Q12H PRN 08/23/18 08/23/18 Carvedilol [Coreg] 3.125 mg PO BID@0800,1800 08/23/18 08/23/18 Cetirizine HCl [Zyrtec] 10 mg PO Q12H PRN 08/23/18 08/23/18 Ipratropium-Albuterol Nebulize 3 ml INHALATION RT-QID 08/23/18 08/23/18 [Duoneb 0.5 mg-3 mg/3 ml Soln] Loperamide [Imodium] 2 mg PO DAILY PRN 08/23/18 08/23/18 Olopatadine HCl [Patanol] 2 drops BOTH EYES BID@0800,199908/23/18 08/23/18 Theophylline 12 Hour [Josh-Dur] 200 mg PO BID@0600,1600 08/23/18 08/23/18 buPROPion HCL [Wellbutrin SR] 150 mg PO BID@0800,199908/23/18 08/23/18 Previous Rx's Medication Instructions Recorded Cephalexin [Keflex] 500 mg PO QID #30 cap 08/27/18 Sodium Bicarbonate Tab 650 mg PO BID #60 tab 08/27/18 Allergies Allergy/AdvReac Type Severity Reaction Status Date / Time azithromycin Allergy joint pain Verified 08/27/18 11:21 [From Zithromax Z-Sotero] bumetanide [From Bumex] Allergy Swelling Verified 08/23/18 17:27 ciprofloxacin [From Cipro] Allergy Unknown Verified 08/23/18 17:27 Calcium Channel Blocking AdvReac Unknown Verified 08/23/18 17:27 Agent Dilt Review of Systems ROS Statement: Those systems with pertinent positive or pertinent negative responses have been documented in the HPI. ROS Other: All systems not noted in ROS Statement are negative. Past Medical History Past Medical History: Atrial Fibrillation, Asthma, Coronary Artery Disease (CAD), Heart Failure, COPD, CVA/TIA, GERD/Reflux, GI Bleed, Hypertension, Myocardial Infarction ([place]), Pneumonia, Renal Disease, Thyroid Disorder Additional Past Medical History / Comment(s): Pt recently admitted on 08/14/17 with hyponatremia. Other hx: Bronchitis, TIA 2008, hypothyroid, elevated uric acid leves, CKD stage IV pt states d/t medication taken in the past, RLS, [place] in 2011 with heart block after-pacemaker inserted. Last Myocardial Infarction Date:: 2011 History of Any Multi-Drug Resistant Organisms: MRSA Date of last positivie culture/infection: 06/06/17 MDRO Source:: Left Leg Past Surgical History: Heart Catheterization With Stent, Pacemaker Additional Past Surgical History / Comment(s): PCI with stent 2011, pacemaker 2011, left caratid endartectomy, bronchoscopy, growth removed from nose. Past Anesthesia/Blood Transfusion Reactions: No Reported Reaction Date of Last Stent Placement:: 2011 Type of Cardiac Device: Permanent Pacemaker Device Placement Date:: 2011 Past Psychological History: Anxiety Smoking Status: Former smoker Past Alcohol Use History: None Reported Past Drug Use History: None Reported - Past Family History Father Family Medical History: COPD Additional Family Medical History / Comment(s): Father was a smoker. Mother Family Medical History: No Reported History General Exam - General Exam Comments Initial Comments: Physical Exam GENERAL: Patient is well-developed and well-nourished. Patient is nontoxic and well-hydrated and is in no distress. HENT: Normocephalic, Atraumatic. Cerumen impaction in the left ear canal, visible portion of the TM is not erythematous or bulging No mastoid tenderness No cervical lymphadenopathy EYES: PERRL, EOMI PULMONARY: Unlabored respirations. No audible rales rhonchi or wheezing was noted. CARDIOVASCULAR: There is a regular rate and rhythm ABDOMEN: Soft and nontender with normal bowel sounds. SKIN: Skin is clear with no lesions or rashes and otherwise unremarkable. : Deferred NEUROLOGIC: Patient is alert and oriented x2. Moving all extremities spontaneously MUSCULOSKELETAL: Normal extremities with adequate strength and full range of motion. No lower extremity swelling or edema. No calf tenderness. PSYCHIATRIC: Normal psychiatric evaluation. Limitations: no limitations Course Vital Signs 08/15/19 20:38 Temperature 97.4 F L Pulse Rate 93 Respiratory 16 Rate Blood Pressure 148/84 O2 Sat by Pulse 100 Oximetry Medical Decision Making - Medical Decision Making The patient was seen and evaluated upon arrival to the emergency department, patient had been experiencing a stabbing pain in her left ear which resolved hours prior to arrival. Physical exam is unremarkable. Patient declined further workup as she is asymptomatic. At this time I don't feel there is any indication for further evaluation patient stable for discharge back to nursing facility. Disposition Clinical Impression: Left ear pain Disposition: HOME SELF-CARE Condition: Stable Instructions (If sedation given, give patient instructions): Earache (ED) Is patient prescribed a controlled substance at d/c from ED?: No Referrals: Azael Fischer MD [Primary Care Provider] - 1-2 days
== END 2019-08-15 22:03 | disposition home or self-care (01) ==
LOC: EC 20:35
DX: H92.02 Otalgia, left ear (principal); H61.22 Impacted cerumen, left ear; F03.90 Unspecified dementia, unspecified severity, without behavioral disturbance, psychotic disturbance, mood disturbance, and anxiety; J44.9 Chronic obstructive pulmonary disease, unspecified; I25.10 Atherosclerotic heart disease of native coronary artery without angina pectoris; I13.0 Hypertensive heart and chronic kidney disease with heart failure and stage 1 through stage 4 chronic kidney disease, or unspecified chronic kidney disease; I50.9 Heart failure, unspecified; N18.4 Chronic kidney disease, stage 4 (severe); K21.9 Gastro-esophageal reflux disease without esophagitis; I25.2 Old myocardial infarction; E03.9 Hypothyroidism, unspecified; G25.81 Restless legs syndrome; F41.9 Anxiety disorder, unspecified; Z87.891 Personal history of nicotine dependence; Z88.1 Allergy status to other antibiotic agents; Z88.8 Allergy status to other drugs, medicaments and biological substances; Z79.51 Long term (current) use of inhaled steroids; Z79.82 Long term (current) use of aspirin; Z79.890 Hormone replacement therapy; Z79.899 Other long term (current) drug therapy; Z86.14 Personal history of Methicillin resistant Staphylococcus aureus infection; Z86.73 Personal history of transient ischemic attack (TIA), and cerebral infarction without residual deficits; Z95.0 Presence of cardiac pacemaker; Z95.5 Presence of coronary angioplasty implant and graft
CPT/HCPCS: 99283